=== PATIENT | male | born 1965 | race Caucasian/White ===

== ENCOUNTER 2020-07-15 08:24 | Outpatient (REF) | payer BC, SELFPAY ==
[2020-07-15 08:44] LABS: COVID-19 Test Negative (Negative)
== END 2020-07-15 08:25 | disposition home or self-care (01) ==
LOC: HO.LAB 08:24
PROVIDERS: PCP Internal Medicine; Visit Provider Internal Medicine
DX: Z20.828 Contact with and (suspected) exposure to other viral communicable diseases (principal)
CPT/HCPCS: 87635

== ENCOUNTER → 2021-03-07 14:17 | Outpatient (BNVA) | payer SELFPAY | PROVIDERS: PCP Internal Medicine; Visit Provider Physician Assistant | DX: Z02.79 Encounter for issue of other medical certificate (principal) ==

== ENCOUNTER 2021-03-28 11:02 | Outpatient (REF) | payer BC, SELFPAY ==
--- NOTE | ~2021-03-28 | XR_ITS ---
EXAMINATION: XR CHEST CLINICAL INFORMATION: Chronic cough COMPARISON: January 08, 2020 TECHNIQUE: 2 views of the chest were obtained. FINDINGS: There is no evidence of acute parenchymal disease, pneumothorax, or pleural effusion. Heart normal size. No evidence of pulmonary edema. Multiple old healed left rib fractures evident. XR/XR chest 2V IMPRESSION: No acute disease.
== END 2021-03-28 11:03 | disposition home or self-care (01) ==
LOC: HO.XRAY 11:02
PROVIDERS: PCP Internal Medicine; Visit Provider Otolaryngology
DX: R05 Cough (principal)
CPT/HCPCS: 71046

== ENCOUNTER 2021-03-31 07:15 | Outpatient (REF) | payer BC, SELFPAY ==
--- NOTE | ~2021-03-31 | CT_ITS ---
EXAMINATION: CT SINUS WITHOUT CONTRAST CLINICAL INFORMATION: Deviated nasal septum COMPARISON: None TECHNIQUE: Axial 2 mm thin and reformatted 2 mm thin sagittal and coronal images of sinuses was obtained. This CT examination was performed using dose optimization techniques as appropriate, variously including the following: *Automated exposure control *Adjustment of mA and/or kV according to patient size (this includes techniques or standardized protocols for targeted exams where dose is matched to indication/reason for exam; i.e. extremities or head) *Use of iterative reconstruction technique DLP: 216 mGy-cm FINDINGS: There is normal aeration of the paranasal sinuses with mild mucoperiosteal thickening right maxillary, bilateral ethmoid and left sphenoid sinuses. The ostiomeatal complex and frontoethmoidal recesses are widely patent. The nasal septum is deviated to the left with a small bony spur. The airways are widely patent. There is slight asymmetry of the turbinates. The bony orbits are symmetrical and normal. ADDITIONAL RELEVANT FINDINGS: No periapical disease is seen. The TMJs articulate normally. The orbits and skull base soft tissues are unremarkable. The middle ear cavities and mastoid air cells are clear. Limited evaluation demonstrates no acute intracranial findings. CT/CT sinus wo con IMPRESSION: Chronic inflammatory changes bilateral ethmoid, right maxillary and left sphenoid sinus. Deviated nasal septum to the left with a small bony nasal spur. Asymmetric turbinates.
== END 2021-03-31 07:16 | disposition home or self-care (01) ==
LOC: HO.CT 07:15
PROVIDERS: PCP Internal Medicine; Visit Provider Otolaryngology
DX: J34.2 Deviated nasal septum (principal); J33.8 Other polyp of sinus
CPT/HCPCS: 70486

== ENCOUNTER → 2021-05-16 15:22 | Outpatient (BNVA) | payer BC, SELFPAY | PROVIDERS: PCP Internal Medicine; Visit Provider Internal Medicine ==

== ENCOUNTER 2021-06-03 14:22 | Outpatient (REF) | payer BC, SELFPAY ==
--- NOTE | ~2021-06-03 | CT_ITS ---
EXAMINATION: CT CHEST SCREENING CLINICAL INFORMATION: Nicotine dependence. COMPARISON: Previous chest CT most recent August 2018 and chest x-ray March 2021 TECHNIQUE: Multidetector volumetric CT imaging of the chest is performed without contrast using low dose technique. Additional 2D coronal and sagittal reformatted images and axial 3D maximum intensity projection (MIP) images are generated on the CT workstation. This CT examination was performed using dose optimization techniques as appropriate, variously including the following: *Automated exposure control *Adjustment of mA and/or kV according to patient size (this includes techniques or standardized protocols for targeted exams where dose is matched to indication/reason for exam; i.e. extremities or head) *Use of iterative reconstruction technique DLP: 79 mGy-cm FINDINGS: LUNGS: There is a 3 mm peripheral or subpleural calcified left upper lobe nodule axial image 81 series 4 that is stable. There is a 2 mm noncalcified right upper lobe nodule axial image 88 series 4 that is stable. No new pulmonary nodule is seen. MEDIASTINUM: There is mild coronary artery calcification. The thoracic aorta is upper normal in size. The mediastinum is otherwise normal. PLEURA: There is no pleural effusion. No pleural mass or thickening. AXILLA: No lymphadenopathy. UPPER ABDOMEN: There is diverticulosis of the colon. OSSEOUS STRUCTURES: There are old left-sided rib fractures. There are degenerative changes of the spine. CT/CT lung screening IMPRESSION: Stable small pulmonary nodules from 2018. Mild coronary artery calcification. ASSESSMENT: Lung-RADS category 2: Benign RECOMMENDATION: Annual low-dose chest CT follow-up recommended.
== END 2021-06-03 14:23 | disposition home or self-care (01) ==
LOC: HO.CT 14:22
PROVIDERS: PCP Internal Medicine; Visit Provider Physician Assistant Medical
DX: Z12.2 Encounter for screening for malignant neoplasm of respiratory organs (principal); F17.210 Nicotine dependence, cigarettes, uncomplicated
CPT/HCPCS: 71271

== ENCOUNTER 2021-06-14 14:39 | Outpatient (REF) | payer BC, SELFPAY ==
--- NOTE | 2021-06-14 17:23 | PFT_ITS ---
FLOWS: FEV1 76% of predicted at 3.45 L. FVC 87% of predicted at 5.13 L. FEV1 to FVC ratio of 0.67. No bronchodilator response. LUNG VOLUMES: Total lung capacity 106% of predicted at 8.75 L. Residual volume 135% of predicted at 3.42 L. Slow vital capacity 93% of predicted at 5.34 L. Expiratory reserve volume 71% of predicted at 1.30 L. Diffusion capacity is mildly decreased, diffusion capacity corrects to normal after adjustment for alveolar ventilation. IMPRESSION: Moderate obstructive ventilatory defect with no bronchodilator response. Increased residual volume suggests air trapping. MD SALOME Reid/MODL / [id number]
== END 2021-06-14 14:40 | disposition home or self-care (01) ==
LOC: HO.RESP 14:39
PROVIDERS: PCP Internal Medicine; Visit Provider Internal Medicine
DX: R05 Cough (principal); T46.4X5A Adverse effect of angiotensin-converting-enzyme inhibitors, initial encounter; F17.200 Nicotine dependence, unspecified, uncomplicated
CPT/HCPCS: 94060; 94727; 94729

== ENCOUNTER → 2021-06-16 09:13 | Outpatient (BNVA) | payer BC, SELFPAY | PROVIDERS: PCP Internal Medicine; Visit Provider Internal Medicine ==

== ENCOUNTER → 2021-08-15 09:16 | Outpatient (BNVA) | payer BC, SELFPAY | PROVIDERS: PCP Internal Medicine; Visit Provider Internal Medicine ==

== ENCOUNTER → 2022-02-13 10:07 | Outpatient (BNVA) | payer BC, SELFPAY | PROVIDERS: PCP Internal Medicine; Visit Provider Internal Medicine | DX: Z79.899 Other long term (current) drug therapy (principal) ==

== ENCOUNTER → 2022-11-29 08:32 | Outpatient (BNVA) | payer SELFPAY | PROVIDERS: PCP Internal Medicine; Visit Provider Physician Assistant | DX: Z02.79 Encounter for issue of other medical certificate (principal) ==

== ENCOUNTER 2023-06-11 06:16 | Day surgery (SDC) | payer BC, SELFPAY ==
--- NOTE | 2023-06-08 11:44 | P.CONAN_ITS ---
Documented by User: Nadira Dee NP 06/08/23 11:45 HPI - Anesthesia Eval Consult details Narrative: 58yo M for Colonoscopy [facility] Active Problems Active Problems: All Active Problems (Updated 06/08/23 @ 08:09 by Mariama Garcia) Smoker (Acute) COPD (chronic obstructive pulmonary disease) (Acute) Allergic rhinitis (Acute) Deviated nasal septum (Acute) Cough due to KATERIN inhibitor (Acute) Personal history of nicotine dependence (Acute) Past Medical History Medical History History of DVT (deep vein thrombosis) Seasonal allergies Smoker COPD (chronic obstructive pulmonary disease) CINTHIA (obstructive sleep apnea) Allergic rhinitis Tubular adenoma of colon History of TIA (transient ischemic attack) (~03/2014) Deviated nasal septum Hypertension Personal history of nicotine dependence Cough due to KATERIN inhibitor Family History Family History Father Myocardial infarction, Onset Age: 50 Surgical History Surgical History History of ankle surgery History of lumbar surgery History of colonoscopy (~08/2016) Social History Social History Alcohol intake: current Alcohol intake frequency: 0-2 drinks per day Patient Tobacco Use Status: Current everyday Tobacco user Tobacco use type: Cigarette Cigarette Packs Per Day: 1 Cigarettes Per Day: 20.0 Years Smoked: 30yrs (onset 26, 3/4ppd x 30yrs, 20+PYH) Have you been hit, kicked, punched, or otherwise hurt by someone within the past year? If so, by whom?: No Are you DNR?: No Advance Directives: No Advance Directives Information Provided: Yes Recently lost weight without trying: No Eating poorly because of decreased appetite: No Nutrition Risks: No Nutritional Risk Poor oral hygiene: No Meds Allergies Allergy/AdvReac Type Severity Reaction Status Date / Time lisinopril Allergy Cough Verified 06/08/23 08:09 Home Medications Medication Instructions Recorded Confirmed Last Taken Type amlodipine 5 mg tablet 5 mg PO DAILY 07/02/20 06/11/23 History cetirizine 10 mg tablet (Zyrtec) 10 mg PO DAILY PRN 05/16/21 Unknown History Exam Exam Date and Time: June 08, 2023 1144 Narrative Narrative: PFT 2020 FLOWS: FEV1 76% of predicted at 3.45 L. FVC 87% of predicted at 5.13 L. FEV1 to FVC ratio of 0.67. No bronchodilator response. LUNG VOLUMES: Total lung capacity 106% of predicted at 8.75 L. Residual volume 135% of predicted at 3.42 L. Slow vital capacity 93% of predicted at 5.34 L. Expiratory reserve volume 71% of predicted at 1.30 L. Diffusion capacity is mildly decreased, diffusion capacity corrects to normal after adjustment for alveolar ventilation. IMPRESSION: Moderate obstructive ventilatory defect with no bronchodilator response. Increased residual volume suggests air trapping. Assessment and Plan Assessment Anesthesia Assessment: Chart Reviewed Documented by User: Rosalina Ching MD 06/11/23 07:25 [facility] Past Medical History Medical History History of DVT (deep vein thrombosis) Seasonal allergies Smoker COPD (chronic obstructive pulmonary disease) CINTHIA (obstructive sleep apnea) Allergic rhinitis Tubular adenoma of colon History of TIA (transient ischemic attack) (~03/2014) Deviated nasal septum Hypertension Personal history of nicotine dependence Cough due to KATERIN inhibitor Family History Family History Father Myocardial infarction, Onset Age: 50 Surgical History Surgical History History of ankle surgery History of lumbar surgery History of colonoscopy (~08/2016) History of Problems with Anesthesia: No Social History Social History Alcohol intake: current Alcohol intake frequency: 0-2 drinks per day Patient Tobacco Use Status: Current everyday Tobacco user Tobacco use type: Cigarette Cigarette Packs Per Day: 1 Cigarettes Per Day: 20.0 Years Smoked: 30yrs (onset 26, 3/4ppd x 30yrs, 20+PYH) Have you been hit, kicked, punched, or otherwise hurt by someone within the past year? If so, by whom?: No Are you DNR?: No Advance Directives: No Advance Directives Information Provided: Yes Recently lost weight without trying: No Eating poorly because of decreased appetite: No Nutrition Risks: No Nutritional Risk Poor oral hygiene: No Meds Allergies Allergy/AdvReac Type Severity Reaction Status Date / Time lisinopril Allergy Cough Verified 06/08/23 08:09 Home Medications Medication Instructions Recorded Confirmed Last Taken Type amlodipine 5 mg tablet 5 mg PO DAILY 07/02/20 06/11/23 History cetirizine 10 mg tablet (Zyrtec) 10 mg PO DAILY PRN 05/16/21 Unknown History Exam Airway Mallampati Class: III TM Dist: >3cm Neck ROM: Full Loose/Missing/Broken Teeth: No Heart: RRR Lungs: CTA Assessment and Plan Assessment Anesthesia Assessment: Anesthesia Plan Discussed Final Anesthetic Review History of Problems with Anesthesia: No NPO: Yes ASA Class: II Final Preanesthetic Review: Meds/Allgs Chart Reviewed, Consent Obtained/Reviewed and Anes Risks/Benef Reviewed Patient Risk: Low Procedure Risk: Low Anesthetic Plan Anesthetic Plan: MAC: Disposition: Standard PACU
[2023-06-11 06:52] VITALS: BP 173/97; PULSE 76; RESP 18; TEMP 37.3; O2SAT 97; BMI 30.4
[2023-06-11] MEDS: Lactated Ringers 1,000 ML 100 ML IVCONT (07:07)
[2023-06-11 08:28] VITALS: BP 97/51; PULSE 65; RESP 16; TEMP 36.6; O2SAT 96
--- NOTE | 2023-06-11 08:28 | P.BOP_ITS ---
Brief Operative Note Date of Service: 06/11/23 Pre-op diagnosis: Screening Post-op diagnosis: other (Polyps) Procedure: Colonoscopy to the cecum and TI with Hot snare polypectomy of TC polyp, and bx/removal of polyps Surgeon: David Johnson Anesthesia: MAC Was an Technical Sales Support Manager used for this Procedure?: No Estimated blood loss (mL): 2.0 Pathology: other (A. Transverse colon polyps B. Polyp at 40cm) Condition: stable Disposition: PACU
[2023-06-11 08:43] VITALS: BP 126/73; PULSE 61; RESP 16; TEMP 36.6; O2SAT 97
--- NOTE | 2023-06-11 08:55 | OP_ITS ---
DATE OF SERVICE: 06/11/2023 SURGEON: David Johnson MD INDICATIONS: The patient presents for followup of colorectal cancer screening and personal history of tubular adenomas of the colon. Full consent was obtained from him for this, including risks of bleeding and perforation. PREOPERATIVE DIAGNOSIS: Colorectal cancer screening and personal history of tubular adenomas of the colon. POSTOPERATIVE DIAGNOSIS: Colorectal cancer screening and personal history of tubular adenomas of the colon, colon polyps, diverticulosis, and internal hemorrhoids. PROCEDURE PERFORMED: Colonoscopy to cecum and terminal ileum with hot snare polypectomy x 1 and biopsy and removal of polyps x 2. ESTIMATED BLOOD LOSS: COMPLICATIONS: ANESTHESIA: Monitored anesthesia care. ASSISTANTS: SPECIMENS: DESCRIPTION OF PROCEDURE: Patient was placed in the left lateral decubitus position. The digital rectal exam revealed no abnormalities. The Olympus video pediatric colonoscope was entered into the rectum and advanced easily to the cecum. Once in the cecum, I did identify normal-appearing cecal pouch with appendiceal orifice and normal-appearing ileocecal valve. The terminal ileum was cannulated and appeared normal. The scope was withdrawn back in the colon. The entire cecum and ileocecal valve appeared normal. The scope was slowly withdrawn assessing all mucosal surfaces carefully. Preparation was excellent. In the transverse colon was an approximately 1.5 cm flat, but raised polyp, which was removed in piecemeal fashion with the hot snare with all pieces recovered by suction. Post polypectomy, there did not appear to be any residual polyp nor bleeding. Just distal to this, was an approximately 3 mm polyp, which was biopsied and completely removed with cold biopsy forceps and placed in the same container. At 40 cm, was a flat approximately 3 or 4 mm polyp, which was biopsied and completely removed with cold biopsy forceps. I did not visualize any other polyps, colitis, or angiodysplasia. There was a mild amount of sigmoid diverticulosis. In the rectum, scope was retroflexed, visualizing internal hemorrhoids, but no other pathology. The rectal mucosa appeared normal. The scope was straightened out and withdrawn from the patient. He tolerated the procedure well and was returned to recovery area in stable condition. IMPRESSION: 1. Colon polyps. 2. Diverticulosis. 3. Internal hemorrhoids. PLAN: The results of the pathology will be checked. I would recommend a repeat colonoscopy in 3 years for further screening and surveillance. He was advised not to use any aspirin and NSAIDs for 1 week. MD PROSPER Morales/LUDIVINA / [id number] [place]
== END 2023-06-11 09:05 | disposition home or self-care (01) ==
PROVIDERS: PCP Internal Medicine; Visit Provider Internal Medicine
PROC: 0DJD8ZZ Inspection of Lower Intestinal Tract, Via Natural or Artificial Opening Endoscopic (ICD-10-PCS; CPT 45378; principal; 2023-06-11 07:30)
DX: Z12.11 Encounter for screening for malignant neoplasm of colon (principal); D12.3 Benign neoplasm of transverse colon; D12.5 Benign neoplasm of sigmoid colon; K57.30 Diverticulosis of large intestine without perforation or abscess without bleeding; K64.8 Other hemorrhoids; Z86.010 Personal history of colon polyps; I10 Essential (primary) hypertension; J44.9 Chronic obstructive pulmonary disease, unspecified; F17.210 Nicotine dependence, cigarettes, uncomplicated; Z86.73 Personal history of transient ischemic attack (TIA), and cerebral infarction without residual deficits; Z86.718 Personal history of other venous thrombosis and embolism; Z79.899 Other long term (current) drug therapy
CPT/HCPCS: 45380; 45385; 88305; J2250

== ENCOUNTER 2023-08-20 07:47 | Inpatient (IN) | payer BC, SELFPAY ==
[2023-08-20] VITALS (8 sets, daily range): BP systolic 143–171; BP diastolic 67–99; PULSE 64–99; RESP 15–21; TEMP 36.2–37.3; O2SAT 94–97; BMI 31.3
--- NOTE | ~2023-08-20 | CT_ITS ---
EXAMINATION: CT ANGIOGRAM NECK WITH CONTRAST CT ANGIOGRAM BRAIN WITH CONTRAST CLINICAL INFORMATION: Right-sided numbness. COMPARISON: None. TECHNIQUE: Test bolus sequences followed by intravenous administration 70 mL of Omnipaque 350. Helical imaging was performed in the axial plane from the thoracic inlet to the skull vertex. Delayed postcontrast imaging of the head was also performed. The data was processed at the cardiovascular radiologic technologist workstation for generation of MIP sequences. Angled MIPs and volume rendered reformatted images were also generated at an offline 3D workstation. Stenoses are assessed in accordance with NASCET criteria unless otherwise indicated. This CT examination was performed using dose optimization techniques as appropriate, variously including the following: *Automated exposure control *Adjustment of mA and/or kV according to patient size (this includes techniques or standardized protocols for targeted exams where dose is matched to indication/reason for exam; i.e. extremities or head) *Use of iterative reconstruction technique DLP: 1758 mGy-cm FINDINGS: Head CT: There is no intracranial hemorrhage, mass effect, extra-axial collection, or acute large territorial infarction. Chronic encephalomalacia and gliosis is seen in the bilateral anterior inferior frontal lobes and left anterior inferior temporal lobe likely reflecting sequela of prior trauma. Chronic infarcts are seen within the right basal ganglia, right thalamus, and bilateral cerebellar hemispheres. The ventricles are normal in size without hydrocephalus. No abnormal enhancement is seen. The dural venous sinuses are normally opacified. Neck CTA: Calcific plaque narrows the origin of left vertebral artery. Vertebral arteries otherwise patent. Mild atheromatous changes seen at the bilateral carotid bifurcations without associated narrowing of the internal carotid arteries. Aortic arch and great vessel origins are patent. Head CTA: There is no large vessel occlusion. The anterior and posterior circulation arteries are patent without significant stenosis. No aneurysm is seen. Non-vascular findings: Cervical soft tissues are within normal limits. No upper lung consolidation is seen. Degenerative changes are noted in the spine. CT/CT angio head neck stroke IMPRESSION: CT HEAD: No intracranial hemorrhage or large acute infarction. Chronic encephalomalacia and gliosis, presumably posterior back and etiology in the bilateral anterior inferior frontal lobes and left temporal lobe. 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 CTA NECK: No hemodynamically significant stenosis in the major arteries of the neck. This critical result was discussed with Dr. Serrano on 08/20/2023 9:34 AM, and it was ascertained that the content and urgency of the report was understood at the time of direct communication. CTA HEAD: No large vessel occlusion or significant stenosis within the intracranial circulation.
--- NOTE | 2023-08-20 08:23 | ECG_ITS ---
Test Reason : CP Blood Pressure : / mmHG Vent. Rate : 085 BPM Atrial Rate : 085 BPM P-R Int : 202 ms QRS Dur : 094 ms QT Int : 352 ms P-R-T Axes : 057 005 022 degrees QTc Int : 418 ms Normal sinus rhythm Normal ECG When compared with ECG of 08-JAN-2020 17:13, No significant change was found Referred By: Lawrence Serrano Electronically Signed By:OSCAR JOHNSON MD
--- NOTE | 2023-08-20 08:25 | ED.NEUROSD ---
HPI - Neuro Symptoms/Deficit General Chief Complaint: Neuro Symptoms/Deficit Stated Complaint: numbness r side Time Seen by Provider: 08/20/23 08:06 Source: patient Mode of arrival: ambulatory Limitations: no limitations History of Present Illness HPI Narrative: Patient presented to the emergency department complaining of right-sided numbness which started yesterday. Patient has history of hypertension on amlodipine 5 mg daily, he is a smoker. Denies any weakness he denies any speech problem a symptoms only numbness. Onset (ago): day(s) (1) Timing confirmed by: spouse (rt side numbness) Severity: mild Quality: numb Relieving factors: none Exacerbating factors: none Context: sudden onset Associated symptoms: denies other symptoms Related Data Home Medications Medication Instructions Recorded Confirmed amlodipine 5 mg tablet 5 mg PO DAILY 07/02/20 08/20/23 cetirizine 10 mg tablet (Zyrtec) 10 mg PO DAILY 05/16/21 08/20/23 Allergies Allergy/AdvReac Type Severity Reaction Status Date / Time lisinopril Allergy Cough Verified 06/08/23 08:09 Review of Systems Constitutional: Constitutional: Reports no additional constitutional complaints Eyes: Eyes: Denies loss of vision ENT: Reports system reviewed and no additional complaints, except as documented Cardiovascular: Cardiovascular: Reports no additional cardiovascular complaints and Denies syncope Musculoskeletal: Musculoskeletal: Reports numbness (right) Neurologic: Denies confusion, Denies syncope, Denies focal weakness, Denies loss of vision, Denies memory loss and Reports numbness (right) Psychiatric: Psychiatric: Denies confusion and Denies memory loss [facility] Past Medical History Medical History History of DVT (deep vein thrombosis) Seasonal allergies Smoker COPD (chronic obstructive pulmonary disease) CINTHIA (obstructive sleep apnea) Allergic rhinitis Tubular adenoma of colon History of TIA (transient ischemic attack) (~03/2014) Deviated nasal septum Hypertension Personal history of nicotine dependence Cough due to KATERIN inhibitor Surgical History History of ankle surgery History of lumbar surgery History of colonoscopy (~08/2016) Family History Family History (Updated 08/20/23 @ 12:42 by JIMMY Khanna) Father Myocardial infarction, Onset Age: 50 Stroke Maternal Grandfather Myocardial infarction Social History Social History Alcohol intake: current Alcohol intake frequency: 0-2 drinks per day Patient Tobacco Use Status: Current everyday Tobacco user Tobacco use type: Cigarette Cigarette Packs Per Day: 1 Cigarettes Per Day: 20.0 Years Smoked: 30yrs (onset 26, 3/4ppd x 30yrs, 20+PYH) Smoked in Last 30 Days: Yes Use of substances other than those prescribed or required for medical reasons: No Advance Directives: Yes Advance Directives Information Provided: No Advance Directives on File: No Physical Exam Vital Signs: Vital Signs: Last Vital Signs Temp 99.1 F 08/20/23 12:29 Pulse 67 08/20/23 12:29 Resp 15 08/20/23 12:29 BP 154/67 H 08/20/23 12:29 Pulse Ox 97 08/20/23 12:29 O2 Del Method Room Air 08/20/23 12:29 BMI result Body Mass Index 31.3 Const: General: No confusion Orientation/consciousness: patient oriented x3 and No confusion HEENT: Head: Yes normal to inspection Ears: hearing grossly normal bilaterally General nose exam: Normal external nose present Face and sinus: Yes normal facial exam Teeth and gingiva: dentition normal Throat: Yes posterior oropharynx normal Neck: Neck: Yes normal visual inspection, Yes full ROM and Yes no lymphadenopathy Chest: Chest palpation & inspection: normal inspection of the chest Resp: Effort & Inspection: normal respiratory effort Auscultation: clear to auscultation bilaterally Cardio: Jugular venous distension: no JVD Rate: regular rate Rhythm: regular rhythm GI: Inspection: Yes normal to inspection Palpation (GI): Soft to palpation, not firm, nontender and no guarding Auscultation: normal bowel sounds Neuro: General: patient oriented x3 and No confusion Cranial nerves: Yes CN's II-XII intact bilaterally Gait exam (Neuro): Normal gait present Motor exam (neuro): 5/5 motor strength present throughout Medications Administered Generic Name Dose Route Start Last Admin Trade Name Freq PRN Reason Stop Dose Admin Enoxaparin Sodium 40 mg 08/20/23 12:30 08/20/23 13:11 Enoxaparin Sodium 40 Mg/0.4 Ml Syringe SUBCUT 40 mg Q24H JOSE DAVID Administration Nicotine 21 mg 08/20/23 13:00 08/20/23 13:09 Nicotine 21 Mg Patch.Td24 TRANSDERMA 21 mg DAILY JOSE DAVID Administration Discontinued Medications Generic Name Dose Route Start Last Admin Trade Name Kiana PRN Reason Stop Dose Admin Aspirin 81 mg 08/20/23 09:45 08/20/23 09:55 Aspirin 81 Mg Tab.Chew PO 08/20/23 09:46 81 mg ONCE ONE Administration Iohexol 85 ml 08/20/23 09:10 08/20/23 09:12 Iohexol 350 Mg/Ml 100 Ml Infus..Btl IV 08/20/23 09:11 85 ml ONCE ONE Administration Medical Decision Making Medical Decision Making [facility] Narrative: Patient presented emergency department complaining of right-sided numbness CTA showed that he has multiple old infarcts, I discussed the case with the neuro team Melissa stroke team, it is reasonable to admit the patient for monitoring cardiac echo MRI Differential Diagnosis Differential Diagnoses: The differential diagnosis associated with the presentation includes Acute CVA/TIA Admission/Observation Consideration of admission/observation: Escalation of care including admission/observation considered Lab Data [facility] Lab Attestation statement: I reviewed the patient's lab results. 08/20/23 09:00 08/20/23 09:00 Labs: Lab Results 08/20/23 Range/Units 09:00 WBC 8.0 (4.8-10.8) X10*3/uL RBC 4.72 (4.60-5.80) X10*6/uL Hgb 15.9 (14.0-18.0) g/dl Hct 46.4 (42.0-52.0) % MCV 98.3 H (80.0-98.0) fL MCH 33.7 H (27.0-33.0) pg MCHC 34.3 (31.0-36.0) g/dl RDW 11.9 (11.0-16.0) % Plt Count 236 (160-400) X10*3/uL MPV 8.5 L (9.4-12.4) fL Immature Gran % (Auto) 0.6 H (0.0-0.4) % Neut % (Auto) 71.6 (45-73) % Lymph % (Auto) 17.6 L (20-40) % [place] % (Auto) 8.4 (2-11) % Eos % (Auto) 1.3 (0-4) % Baso % (Auto) 0.5 (0-2) % Lymph # (Auto) 1.4 (1.2-4.9) X10*3/uL [place] # (Auto) 0.7 (0.1-1.2) X10*3/uL Eos # (Auto) 0.1 (0.0-0.4) X10*3/uL Baso # (Auto) 0.0 (0.0-0.2) X10*3/uL Abs Immat Gran (auto) 0.05 H (0.00-0.03) X10*3/uL Absolute Neuts (auto) 5.7 (2.0-8.3) x10*3/uL Absolute Nucleated RBC 0.000 (0.0-0.012) X10*3/uL Nucleated RBC % (auto) 0.0 (0.0-0.2) /100WBC Sodium 135 (135-145) mmol/L Potassium 4.9 (3.3-5.1) mmol/L Chloride 102 (96-108) mmol/L Carbon Dioxide 28 (22-29) mmol/L Anion Gap 10 L (12-20) BUN 13 (9-16) mg/dL Creatinine 0.86 (0.5-1.4) mg/dL Estim Creat Clear Calc 125.7 Estimated GFR > 60 Random Glucose 86 (60-115) mg/dL Estimat Average Glucose 97 mg/dL Hemoglobin A1c % 5.0 (<6.0) % Calcium 9.3 (8.4-10.2) mg/dL Total Bilirubin 0.6 (0.0-1.0) mg/dL AST 30 (5-37) U/L ALT 43 H (0-40) U/L Alkaline Phosphatase 44 (39-117) U/L Troponin I High Sens < 2.7 (<3.5-35.0) ng/L Total Protein 6.9 (6.5-8.0) g/dL Albumin 4.0 (3.5-5.0) g/dL Triglycerides 42 (<150) mg/dL Cholesterol 191 (<200) mg/dL LDL Cholesterol, Calc 127 H (<100) mg/dL HDL Cholesterol 56 (>40) mg/dL Independent Interpretation I performed an independent interpretation of an: EKG Interpretation: Normal sinus rhythm on no ST-T changes Radiology Impression Discussion of test interpretation with radiology: I have reviewed the radiologist's reading. Radiologist Impression: are patent without significant stenosis. No aneurysm is seen. Non-vascular findings: Cervical soft tissues are within normal limits. No upper lung consolidation is seen. Degenerative changes are noted in the spine. CT/CT angio head neck stroke IMPRESSION: CT HEAD: No intracranial hemorrhage or large acute infarction. Chronic encephalomalacia and gliosis, presumably posterior back and etiology in the bilateral anterior inferior frontal lobes and left temporal lobe. 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 CTA NECK: No hemodynamically significant stenosis in the major arteries of the neck. This critical result was discussed with Dr. Serrano on 08/20/2023 9:34 AM, and it was ascertained that the content and urgency of the report was understood at the time of direct communication. CTA HEAD: No large vessel occlusion or significant stenosis within the intracranial circulation. Independent Historian Clinical information obtained from an independent historian. History obtained from or confirmed by: Spouse External Record Review External record reviewed: Inpatient record Chronic Conditions Patient?s care impacted by: Hypertension NIH Stroke Scale Time: 08:29 Level of Consciousness: Alert Level of Consciousness Questions: Answers both questions correctly Level of Consciousness Commands: Performs both tasks correctly Best Gaze: Normal Visual: No visual loss Facial Palsy: Normal Motor Arm (Right): No drift Motor Arm (Left): No drift Motor Leg (Right): No drift Motor Leg (Left): No drift Limb Ataxia: Absent Sensory: Mild to moderate sensory loss (rt) Best Language: No aphasia Dysarthia: Normal Extinction and Inattention: No abnormality Score: 1 Discharge Plan Discharge Clinical Impression: Numbness, Numbness and tingling of right arm and leg Patient Disposition: Admitted As Inpatient
[2023-08-20 09:05] LABS: MANUAL DIFF FLAG NO
[2023-08-20 09:06] LABS: Basophils Percent Auto 0.5 % (0-2); Eosinophils Absolute Auto 0.1 X10*3/uL (0.0-0.4); Eosinophils Percent Auto 1.3 % (0-4); Hematocrit 46.4 % (42.0-52.0); Hemoglobin 15.9 g/dl (14.0-18.0); Imm Gran Abs Auto 0.05 X10*3/uL (0.00-0.03); Imm Gran Pct Auto 0.6 % (0.0-0.4); Lymphocytes Absolute Auto 1.4 X10*3/uL (1.2-4.9); Lymphocytes Percent Auto 17.6 % (20-40); Mean Corpuscular HGB Conc 34.3 g/dl (31.0-36.0); Mean Corpuscular Hemoglobin 33.7 pg (27.0-33.0); Mean Corpuscular Volume 98.3 fL (80.0-98.0); Mean Platelet Volume 8.5 fL (9.4-12.4); Monocytes Absolute Auto 0.7 X10*3/uL (0.1-1.2); Monocytes Percent Auto 8.4 % (2-11); Neutrophils Absolute Auto 5.7 x10*3/uL (2.0-8.3); Neutrophils Percent Auto 71.6 % (45-73); Platelet Count 236 X10*3/uL (160-400); Red Blood Count 4.72 X10*6/uL (4.60-5.80); Red Cell Distribution Width 11.9 % (11.0-16.0)
[2023-08-20] MEDS: iohexoL 350 MG/ML 100 ML INFUS..BTL 85 ML IV (09:12)
[2023-08-20 09:30] LABS: Alanine Aminotransferase 43 U/L (0-40); Alkaline Phosphatase 44 U/L (39-117); Anion Gap 10 (12-20); Aspartate Amino Transferase 30 U/L (5-37); Bilirubin Total 0.6 mg/dL (0.0-1.0); Blood Urea Nitrogen 13 mg/dL (9-16); Calcium 9.3 mg/dL (8.4-10.2); Carbon Dioxide 28 mmol/L (22-29); Chloride 102 mmol/L (96-108); Creatinine Clr Calc Pharmacy 125.7; Estimated Glomerular Filt Rate > 60; Glucose Random 86 mg/dL (60-115); Potassium 4.9 mmol/L (3.3-5.1); Sodium 135 mmol/L (135-145); Total Protein 6.9 g/dL (6.5-8.0)
[2023-08-20 09:39] LABS: Troponin-I High Sensitivity < 2.7 ng/L (<3.5-35.0)
[2023-08-20] MEDS: Aspirin 81 MG TAB.CHEW PO (09:55)
--- NOTE | 2023-08-20 10:00 | MHC.STROKE ---
WALK-IN 0747 C/O RIGHT SIDED NUMBNESS FACE,ARM,LEG. ONSET YESTERDAY 1500. AT 0830 TODAY I NOTIFIED BY ED STROKE PROTOCOL ACTIVATED CTA H/N ORDERED. NO BLEED, NO LVO BUT MULTIPLE CHRONIC ISCHEMIC STROKES NOTED. HE IS OUT OF THE WINDOW FOR TNK. I MET WITH THE PATIENT AND THE ONSET WAS YESTERDAY 08/19/23 AT 1500. IT STARTED WITH NUMBNESS OF THE FACE AND ARM YESTERDAY AND THIS MORNING THE LEG WAS ALSO NUMB. HIS INITIAL BP WAS ELEVATED. HE IS TAKING AMILODIPINE, (HE IS ALLERGIC TO LISINOPRIL - UNCONTROLLED COUGHING), HE IS REFUSING MRI DUE TO HIS INABILITY TO LAY FLAT DUE TO POST-NASAL DRIP. I DISCUSSED THE CASE WITH DR. WOLFF AND THE PATIENT WILL BE ADMITTED TO COMPLETE THE STROKE WORK UP. ECHO, ASPIRIN, LIPID PANEL, REHAB ASSESSMENT. HE PASSED THE NURSING SWALLOW SCREEN. HIS INDIVIDUAL RISK FACTORS INCLUDE: HTN, SMOKING, ETOH (ADMITS TO DRINKING 7-8 BEERS A DAY). 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 I PROVIDED STROKE EDUCATION AND EXPLAINED WHY HE NEEDS TO BE HERE, AND THAT HE HAS MULTIPLE PRIOR STROKES AND HE NEEDS TO WORK ON HIS RISK FACTORS. HE USE TO BE ON ASPIRIN BUT WAS TAKEN OFF OF IT BY HIS PCP DR. HERNANDEZ.
--- NOTE | 2023-08-20 10:03 | PC.NURSE ---
assumed care of pt at 0700. pt awake, a&o x4, pleasant, calm, and cooperative. pt reports numbness mostly to right LE. denies any pain. Melissa Méndez gave t/w update on pt status. pt requesting not to stay overnight. t/w informed pt the decision is not up to me but that we also cannot keep him here against his will. pt offers no other complaints gauri. plan of care ongoing. rr even/unlabored. call gallardo within reach.
--- NOTE | 2023-08-20 10:15 | PC.NURSE ---
pt sts numbess and tingling to face and right upper extremity starting yesterday evening. pt woke up this am with numbness/tingling to right LE and came to ED. pt sts numbness and tingling to face/RUE mostly subsided now. no facial droop, no slurred speech. passed swallow eval. neuros grossly intact.
--- NOTE | 2023-08-20 10:33 | P.CNNE_ITS ---
History of Present Illness Data of Consult Service Date: 08/20/23 Primary Care Provider: Lucho Domínguez MD [facility] Reason for consult: Stroke 58 years old man came to hospital with at least 1 day history of right-sided numbness. He said that it probably started a day before when he was opening and closing his hand in finding it to be numb or having less feeling. This was also noted in his right hand and arm and right leg. There was no tingling or pain or change in speech pattern. There was no headache I any other symptom. He discussed all this with his girlfriend who convinced him that he should come to emergency room. Review of Systems 2 Review of Systems: No recent chest pain shortness of breath palpitation. No cold or flu-like illness PMFSH Past Medical History Medical History History of DVT (deep vein thrombosis) Seasonal allergies Smoker COPD (chronic obstructive pulmonary disease) CINTHIA (obstructive sleep apnea) Allergic rhinitis Tubular adenoma of colon History of TIA (transient ischemic attack) (~03/2014) Deviated nasal septum Hypertension Personal history of nicotine dependence Cough due to KATERIN inhibitor Family History Family History Father Myocardial infarction, Onset Age: 50 Surgical History Surgical History History of ankle surgery History of lumbar surgery History of colonoscopy (~08/2016) Social History Social History Alcohol intake: current Alcohol intake frequency: 0-2 drinks per day Patient Tobacco Use Status: Current everyday Tobacco user Tobacco use type: Cigarette Cigarette Packs Per Day: 1 Cigarettes Per Day: 20.0 Years Smoked: 30yrs (onset 26, 3/4ppd x 30yrs, 20+PYH) Smoked in Last 30 Days: Yes Use of substances other than those prescribed or required for medical reasons: No Advance Directives: Yes Advance Directives Information Provided: No Advance Directives on File: No Meds Allergies Allergy/AdvReac Type Severity Reaction Status Date / Time lisinopril Allergy Cough Verified 06/08/23 08:09 Home Medications Medication Instructions Recorded Confirmed Last Taken Type amlodipine 5 mg tablet 5 mg PO DAILY 07/02/20 06/11/23 History cetirizine 10 mg tablet (Zyrtec) 10 mg PO DAILY PRN 05/16/21 Unknown History Physical Exam 2 Vital Signs: Vital Signs: Last Vital Signs Temp 98.3 F 08/20/23 10:18 Pulse 77 08/20/23 10:18 Resp 16 08/20/23 10:18 BP 143/76 H 08/20/23 10:18 Pulse Ox 95 08/20/23 10:18 O2 Del Method Room Air 08/20/23 10:18 BMI result Body Mass Index 31.3 Neuro: Other: He is alert and awake with normal spontaneity of speech fluency comprehension and anxious affect. Face is symmetrical. Visual vick are full. There is no pronator drift. [id number]-lr-[id number] testing is normal. There is no visual or sensory extinction. Deep tendon reflexes are 1+ with flexor plantars. Speech is normal. Results Labs 08/20/23 09:00 08/20/23 09:00 Labs: Short CBC 08/20/23 Range/Units 09:00 WBC 8.0 (4.8-10.8) X10*3/uL Hgb 15.9 (14.0-18.0) g/dl Hct 46.4 (42.0-52.0) % Plt Count 236 (160-400) X10*3/uL BMP 08/20/23 09:00 Sodium 135 Potassium 4.9 Chloride 102 Carbon Dioxide 28 BUN 13 Creatinine 0.86 Calcium 9.3 Liver Function 08/20/23 Range/Units 09:00 Total Bilirubin 0.6 (0.0-1.0) mg/dL AST 30 (5-37) U/L ALT 43 H (0-40) U/L Alkaline Phosphatase 44 (39-117) U/L Albumin 4.0 (3.5-5.0) g/dL Head CT revealed chronic bifrontal encephalomalacia and mild left anterior temporal encephalomalacia. Chronic right basal ganglia area leg cannot type infarct was noted. There was no obvious acute lesion. CTA did not reveal any large vessel disease. He said that he was not going to have an MRI because it was difficult for him. He had some MRIs in the past for his back pain. Assessment and Plan (1) Cerebral infarction: Qualifiers: Cerebral infarction mechanism: vascular occlusion Precerebral and cerebral artery: small artery Qualified Code(s): I63.81 - Other cerebral infarction due to occlusion or stenosis of small artery Status: Acute 58 years old man with CT brain revealing chronic bifrontal left temporal encephalomalacia probably from head injury, and uncontrolled hypertension came to hospital with new onset of right hand arm and leg numbness. Leg which was not affected. There was no significant weakness. This was likely due to a small cerebral infarction in left thalamus or brainstem area. Etiology was microvascular disease. Mainstay of management is anti-platelet agent, statin, and blood pressure control. He should avoid drinking alcohol. Procedures Date of Service Date of Service: 08/20/23
--- NOTE | 2023-08-20 11:42 | PC.NURSE ---
pt placed on bedside monitor
--- NOTE | 2023-08-20 12:34 | P.HPHOSP_ITS ---
History of Present Illness Date of Service: 08/20/23 Attending physician on admission: Elmer Lam Chief Complaint: r sided numbeness 58-year-old male with history of COPD, obstructive sleep apnea the patient denies this and does not use CPAP, history TIA, hypertension, history of DVT in 2021 completed course of Eliquis, alcohol abuse, who is a current 1 pack per day smoker presents to the ED with his significant other for evaluation of right- sided paresthesias that started around 15:00 yesterday. He he reports numbness and tingling in the right side of the face, right upper extremity, and right lower extremity. Denies any associated weakness, facial droop, slurred speech, or lightheadedness. He states the numbness in the face in the right upper extremity have resolved and the right lower extremity is improved but still feels some a tingling in the right posterior calf. He denies any known history of arrhythmia. He does endorse known history of 1 TIA in 2013. On arrival, patient hypertensive to 171/99, 154/67 on admission, vitals otherwise stable. Hematology studies unremarkable. Renal function and electrolyte levels normal. Hepatic function unremarkable. Troponin undetectable. Lipid panel and hemoglobin A1c pending. EKG shows NSR, rate 85, no ST/T-wave abnormality. CT head is negative for any acute intracranial hemorrhage or large acute infarction but shows chronic encephalomalacia and gliosis likely and posterior back and etiology in the bilateral anterior inferior frontal lobes and left temporal lobe as well as multiple chronic infarcts in the right basal ganglia, right thalamus, and cerebellum. CTA head/neck without any hemodynamically significant stenosis or LVO. In the ED, has received 81 mg aspirin. Has been evaluated by Neurology recommended admission likely due to probable small cerebral infarction in the left thalamus or brainstem with microvascular disease etiology. He is a 1 [id number] smoker and admits to drinking about 6 beers on a daily basis. No illicit drug use. Does deny any history of withdrawal/seizure. Review of Systems 2 Review of Systems: General: No fevers, malaise, unintentional weight loss HEENT: No blurred vision, diplopia. No sore throat, nasal congestion, rhinorrhea, sinus pain, ear pain Cardiovascular: No chest pain, palpitations, or leg edema Respiratory: No shortness of breath, wheezing, cough GI: No abdominal pain, nausea, vomiting, diarrhea, constipation, melena, hematochezia : No dysuria, hematuria, increased urinary frequency, decreased urinary output MSK: No myalgia, back pain Neuro: No headaches, weakness. +r sided paresthesias Skin: No rashes or lesions [facility] Medical History History of DVT (deep vein thrombosis) Seasonal allergies Smoker COPD (chronic obstructive pulmonary disease) CINTHIA (obstructive sleep apnea) Allergic rhinitis Tubular adenoma of colon History of TIA (transient ischemic attack) (~03/2014) Deviated nasal septum Hypertension Personal history of nicotine dependence Cough due to KATERIN inhibitor Family History (Updated 08/20/23 @ 12:42 by JIMMY Khanna) Father Myocardial infarction, Onset Age: 50 Stroke Maternal Grandfather Myocardial infarction Surgical History History of ankle surgery History of lumbar surgery History of colonoscopy (~08/2016) Social History Alcohol intake: current Alcohol intake frequency: 0-2 drinks per day Patient Tobacco Use Status: Current everyday Tobacco user Tobacco use type: Cigarette Cigarette Packs Per Day: 1 Cigarettes Per Day: 20.0 Years Smoked: 30yrs (onset 26, 3/4ppd x 30yrs, 20+PYH) Smoked in Last 30 Days: Yes Use of substances other than those prescribed or required for medical reasons: No Advance Directives: Yes Advance Directives Information Provided: No Advance Directives on File: No Meds Allergies Allergy/AdvReac Type Severity Reaction Status Date / Time lisinopril Allergy Cough Verified 06/08/23 08:09 Home Medications Medication Instructions Recorded Confirmed Last Taken Type amlodipine 5 mg tablet 5 mg PO DAILY 07/02/20 08/20/23 08/20/23 History cetirizine 10 mg tablet (Zyrtec) 10 mg PO DAILY 05/16/21 08/20/23 08/20/23 History Physical Exam 2 Vital Signs and Narrative: Vital Signs: Last Vital Signs Temp 99.1 F 08/20/23 12:29 Pulse 67 08/20/23 12:29 Resp 15 08/20/23 12:29 BP 154/67 H 08/20/23 12:29 Pulse Ox 97 08/20/23 12:29 O2 Del Method Room Air 08/20/23 12:29 BMI result Body Mass Index 31.3 Constitutional - Awake and Alert, No apparent distress Eyes - PERRLA, EOMI Cardiovascular - S1S2, RRR, No edema Respiratory - Normal lung expansion, Normal respiratory effort, No respiratory distress, CTA bilaterally Gastrointestinal - NT / ND; +BS; No rebound or guarding Extremities - no calf tenderness bilaterally, no swelling Skin - Warm/Dry Neurological - Alert & oriented x3, CN II-XII in tact, 5/5 strength BUE and BLE, negative pronator drift, DTR in tact, decreased sensation right posterior calf Psychological - Appropriate affect Results Labs 08/20/23 09:00 08/20/23 09:00 Labs: Laboratory Results - last 24 hr 08/20/23 09:00 MCV 98.3 H MCH 33.7 H MCHC 34.3 RDW 11.9 Plt Count 236 MPV 8.5 L Immature Gran % (Auto) 0.6 H Neut % (Auto) 71.6 Lymph % (Auto) 17.6 L [place] % (Auto) 8.4 Eos % (Auto) 1.3 Baso % (Auto) 0.5 Lymph # (Auto) 1.4 [place] # (Auto) 0.7 Eos # (Auto) 0.1 Baso # (Auto) 0.0 Abs Immat Gran (auto) 0.05 H Absolute Neuts (auto) 5.7 Absolute Nucleated RBC 0.000 Nucleated RBC % (auto) 0.0 Anion Gap 10 L Estim Creat Clear Calc 125.7 Estimated GFR > 60 Random Glucose 86 Calcium 9.3 Total Bilirubin 0.6 AST 30 ALT 43 H Alkaline Phosphatase 44 Total Protein 6.9 Albumin 4.0 Imaging Radiologist's Impressions: Impressions Head/Neck CTA 08/20/23 09:14 IMPRESSION: CT HEAD: No intracranial hemorrhage or large acute infarction. Chronic encephalomalacia and gliosis, presumably posterior back and etiology in the bilateral anterior inferior frontal lobes and left temporal lobe. 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 CTA NECK: No hemodynamically significant stenosis in the major arteries of the neck. This critical result was discussed with Dr. Serrano on 08/20/2023 9:34 AM, and it was ascertained that the content and urgency of the report was understood at the time of direct communication. CTA HEAD: No large vessel occlusion or significant stenosis within the intracranial circulation. Assessment and Plan (1) Cerebral infarction: Qualifiers: Cerebral infarction mechanism: vascular occlusion Precerebral and cerebral artery: small artery Qualified Code(s): I63.81 - Other cerebral infarction due to occlusion or stenosis of small artery Status: Acute (2) Numbness and tingling of right arm and leg: Status: Acute (3) Smoker: Status: Acute (4) Alcohol abuse: Status: Acute Plan 58-year-old male with history of COPD, obstructive sleep apnea the patient denies this and does not use CPAP, history TIA, hypertension, history of DVT in 2021 completed course of Eliquis, alcohol abuse, who is a current 1 pack per day smoker admitted for further management of CVA. #TIA -symptoms r-sided paresthesias started 3pm yesterday, now resolving. Not a candidate for tpa -CTA head neck shows multiple chronic infarcts and encephalomalacia/gliosis of multiple areas, no acute intracranial hemorrhage or abnormality -patient refuses MRI-states he will not be able to lay flat secondary to chronic back pain/history of lumbar fusion -echocardiogram -given 81 mg ASA in ED, continue 81 mg ASA daily -lipid panel pending, initiate atorvastatin 80 mg daily -passed bedside swallow evaluation, received stroke education -smoking and alcohol cessation advised -recommend outpatient retesting for CINTHIA and compliance with CPAP if indicated -hgb a1c pending -monitor on telemetry # COPD -no current exacerbation, not on any inhalers # hypertension -reasonably controlled -resume antihypertensives a.m. # history DVT -lle 2021, completed course of apixaban #Nicotine dependence -patch for NRT -cessation counseling provided #Alcohol use disorder -cessation advised -monitor on CIWA, no evidence of etoh wtihdrawal at this time DVT prophylaxis-Lovenox Attempt resuscitation but no intubation Pt requires inpt stay at least 2 midnights for management of CVA with neurodeficits present on exam Quality Stroke Does the patient have a stroke diagnosis?: Yes Reason for No Anti-thrombotic by Day Two: Drug treatment not indicated VTE Prior VTE?: Yes VTE Risk Level:: Medical - moderate - high VTE Device Contraindication: Treatment Not Indicated VTE Drug Contraindication: N/A - Med Ordered
[2023-08-20 12:56] LABS: Estimated Average Glucose 97 mg/dL
[2023-08-20 12:59] LABS: Cholesterol 191 mg/dL (<200); HDL Cholesterol 56 mg/dL (>40); LDL Cholesterol Calculated 127 mg/dL (<100); Triglycerides 42 mg/dL (<150)
[2023-08-20] MEDS: Nicotine 21 MG PATCH.TD24 TRANSDERMA (13:09)
[2023-08-20] MEDS: Enoxaparin Sodium 40 MG/0.4 ML SYRINGE SUBCUT (13:11)
--- NOTE | 2023-08-20 13:15 | PC.NURSE ---
pt medicated per nov. pt ambulated to bathroom with steady gait. placed back on bedside monitor. pt spouse at bedside. awaiting admit orders. plan of care ongoing.
--- NOTE | 2023-08-20 13:54 | PHA.MEDREC ---
Pharmacy Consult ? Medication Reconciliation Pharmacy has completed the medication reconciliation. Patient reported medications. Sadie Wallace, CatD
[2023-08-20 17:30] LABS: Glucose, Whole Blood 86 mg/dL (60-115)
[2023-08-20] MEDS: 0.9 % Sodium Chloride Flush 3 ML SYRINGE IVFLUSH (21:15)
[2023-08-21 04:00] VITALS: BP 127/85; PULSE 67; RESP 20; TEMP 37; O2SAT 97
--- NOTE | 2023-08-21 07:00 | CA_ITS ---
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 There is moderately increased left ventricular wall thickness. The visually estimated ejection fraction is between 55-60%. - Mildly increased right ventricular cavity size. There is normal right ventricular systolic function. - The left atrium is mildly dilated. Contrast study for right to left shunting is moderately positive with Valsalva maneuver. Patent foramen ovale detected using by contrast. - There is mild dilatation of the sinuses of Valsalva measuring 3.90 cm and mild dilatation of the ascending aorta measuring 3.80 cm. Findings Procedure Information Contrast agent, definity, is being given per protocol without apparent complications. Left Ventricle Normal left ventricular size and systolic function. There is moderately increased left ventricular wall thickness. The visually estimated ejection fraction is between 55-60%. There is no evidence of regional wall motion abnormalities. Diastolic function is normal for age. Right Ventricle Mildly increased right ventricular cavity size. There is normal right ventricular systolic function. Atria The left atrium is mildly dilated. Contrast study for right to left shunting is moderately positive with Valsalva maneuver. Patent foramen ovale detected using by contrast. Aortic Valve Normal aortic valve structure and function. There is no aortic valve stenosis. There is no aortic valve regurgitation. Mitral Valve The mitral valve appears normal. There is trace mitral valve regurgitation. There is no mitral valve stenosis. Pulmonic Valve The pulmonic valve is likely normal. Tricuspid Valve Likely normal tricuspid valve structure and function. Tricuspid regurgitation envelope is inadequate for calculation of right ventricular systolic pressure. Normal right atrial pressure. Great Vessels There is mild dilatation of the sinuses of Valsalva measuring 3.90 cm and mild dilatation of the ascending aorta measuring 3.80 cm. The visualized portions of the pulmonary artery and branches are normal. Venous The inferior vena cava is normal in size and collapses greater than 50% with inspiration. Pericardium/Pleural There is no evidence of pericardial effusion. Prior Study Comparison No prior study available for comparison. Measurements 2D Linear Measurements IVSd: 1.42 0.6-0.9/0.6-1.0 cm LVIDd: 5.18 3.9-5.3/4.2-5.9 cm LVIDd Index: 2.15 2.4-3.2/2.2-3.1 cm/m2 LVIDs: 3.55 2.0-3.6 cm LVPWd: 1.39 0.7-1.1 cm Ao Root: 3.90 2.1-3.5 cm LA Diam: 3.30 2.7-3.8/3.0-4.0 cm LAIDs Index: 1.37 1.5-2.3 cm/m2 LV Mass: 385.93 67-162/88-224 g LV Mass Index: 160.14 43-95/49-115 g/m2 LVOT Diam: 2.70 3.0+(-)1.3 cm Mitral Valve MV Pk E: 0.42 MV PK A: 0.59 MV Decel Time: 198.00 E/A: 0.70 E'Lateral: 8.38 E'Medial: 5.98 E/E' Med: 7.10 E/E' Lat: 5.10 PHT: 58.00 MVA PHT: 3.79 Decel Darke: 2.15 Aortic Valve AoV Pk Kiran: 1.08 AoV Mn Kiran: 0.59 AoV VTI: 0.23 AoV Pk Grad: 5.00 Aov Mn Grad: 2.00 LVOT LVOT Diam: 2.70 LVOT Area: 5.73 Diastolic Function MV Pk E: 0.42 MV Pk A: 0.59 E/A: 0.70 E'Medial: 5.98 E/E' Med: 7.10 E' Laterial: 8.38 E/E' Lat: 5.10 Right Ventricle TAPSE (mm): 32.00 Tricuspid Valve TR Pk Kiran: 1.44 TR Pk Grad: 8.00 RA Press: 3.00 Great Vessels Aorta Ao Root-2D: 3.90 2.0-3.7 cm Sinus of Valsalva: 3.90 2.0-3.5 cm Ao Asc: 3.80 2.1-3.4 cm Updated in Other Vendor System with Status of Final Phuc Mendoza MD electronically signed on 08/21/2023 1:08:32 PM with status of Final
[2023-08-21 07:10] LABS: MANUAL DIFF FLAG NO
[2023-08-21 07:18] LABS: Basophils Percent Auto 0.3 % (0-2); Eosinophils Absolute Auto 0.2 X10*3/uL (0.0-0.4); Eosinophils Percent Auto 1.7 % (0-4); Hematocrit 47.2 % (42.0-52.0); Hemoglobin 16.2 g/dl (14.0-18.0); Imm Gran Abs Auto 0.04 X10*3/uL (0.00-0.03); Imm Gran Pct Auto 0.5 % (0.0-0.4); Lymphocytes Absolute Auto 1.7 X10*3/uL (1.2-4.9); Lymphocytes Percent Auto 18.8 % (20-40); Mean Corpuscular HGB Conc 34.3 g/dl (31.0-36.0); Monocytes Absolute Auto 0.7 X10*3/uL (0.1-1.2); Monocytes Percent Auto 8.2 % (2-11); Neutrophils Absolute Auto 6.2 x10*3/uL (2.0-8.3); Neutrophils Percent Auto 70.5 % (45-73); Platelet Count 250 X10*3/uL (160-400); Red Blood Count 4.77 X10*6/uL (4.60-5.80); Red Cell Distribution Width 11.9 % (11.0-16.0); White Blood Count 8.9 X10*3/uL (4.8-10.8)
[2023-08-21 07:34] LABS: Anion Gap 10 (12-20); Blood Urea Nitrogen 14 mg/dL (9-16); Calcium 9.4 mg/dL (8.4-10.2); Carbon Dioxide 30 mmol/L (22-29); Chloride 100 mmol/L (96-108); Creatinine Clr Calc Pharmacy 130.3; Estimated Glomerular Filt Rate > 60; Glucose Random 91 mg/dL (60-115); Potassium 4.5 mmol/L (3.3-5.1); Sodium 135 mmol/L (135-145)
[2023-08-21 07:48] VITALS: BP 142/81; PULSE 70; RESP 19; TEMP 36.3; O2SAT 96
[2023-08-21] MEDS: Nicotine 21 MG PATCH.TD24 TRANSDERMA (08:42)
[2023-08-21] MEDS: Aspirin Enteric Coated 81 MG TABLET.DR PO (08:42)
[2023-08-21] MEDS: Loratadine 10 MG TABLET PO (08:42)
[2023-08-21] MEDS: amLODIPine Besylate 5 MG TABLET PO ×2 (08:42→10:26)
[2023-08-21] MEDS: Atorvastatin Calcium 80 MG TABLET PO (08:42)
[2023-08-21] MEDS: 0.9 % Sodium Chloride Flush 3 ML SYRINGE IVFLUSH (08:46)
--- NOTE | 2023-08-21 09:33 | P.DS_ITS ---
DS: Providers Provider Date of Service: 08/21/23 Date of admission: 08/20/23 14:08 Primary care physician: Lucho Domínguez MD Consults: 08/20/23 12:31 Consult to Neurology Routine Consulting Provider: Shaheen Sky Reason for consultation: tia Has provider been notified: Yes DS: Diagnosis Discharge Diagnosis (1) Cerebral infarction: Status: Acute (2) Numbness and tingling of right arm and leg: Status: Acute (3) Smoker: Status: Acute (4) Alcohol abuse: Status: Acute DS: Summary Hospital Course Hospital Course: Chief Complaint: r sided numbeness 58-year-old male with history of COPD, obstructive sleep apnea the patient denies this and does not use CPAP, history TIA, hypertension, history of DVT in 2021 completed course of Eliquis, alcohol abuse, who is a current 1 pack per day smoker presents to the ED with his significant other for evaluation of right- sided paresthesias that started around 15:00 yesterday. He he reports numbness and tingling in the right side of the face, right upper extremity, and right lower extremity. Denies any associated weakness, facial droop, slurred speech, or lightheadedness. He states the numbness in the face in the right upper extremity have resolved and the right lower extremity is improved but still feels some a tingling in the right posterior calf. He denies any known history of arrhythmia. He does endorse known history of 1 TIA in 2013. On arrival, patient hypertensive to 171/99, 154/67 on admission, vitals otherwise stable. Hematology studies unremarkable. Renal function and electrolyte levels normal. Hepatic function unremarkable. Troponin undetectable. Lipid panel and hemoglobin A1c pending. EKG shows NSR, rate 85, no ST/T-wave abnormality. CT head is negative for any acute intracranial hemorrhage or large acute infarction but shows chronic encephalomalacia and gliosis likely and posterior back and etiology in the bilateral anterior inferior frontal lobes and left temporal lobe as well as multiple chronic infarcts in the right basal ganglia, right thalamus, and cerebellum. CTA head/neck without any hemodynamically significant stenosis or LVO. In the ED, has received 81 mg aspirin. Has been evaluated by Neurology recommended admission likely due to probable small cerebral infarction in the left thalamus or brainstem with microvascular disease etiology. He is a 1 [id number] smoker and admits to drinking about 6 beers on a daily basis. No illicit drug use. Does deny any history of withdrawal/seizure. Hospital course: The patient presented with stroke symptoms as detailed above. The neurologist evaluated him with the following remarks and recommendation: This was likely due to a small cerebral infarction in the left thalamus or brainstem area.?Etiology was a microvascular disease.?The mainstay of management is anti- platelet agents, statins, and blood pressure control.?He should avoid drinking alcohol. His symptoms have all resolved. He will be discharged home with Norvasc 10 mg daily (previously 5 mg), Lipitor for HLD of LDL of 127 10 mg, and baby aspirin daily. Additionally, he is advised to avoid alcohol and smoking and to follow up with his PCP. Final diagnoses: HTN Acute stroke Hyperlipidemeia Time Attestation Discharge coordination time: Greater than 30 minutes Quality: Safe Use of Opioids Does Pt have an Active Cancer Diagnosis on the Problem List?: No Quality: Stroke Does the patient have a stroke diagnosis?: Yes Reason for No Anti-thrombotic at DC: N/A - Med Ordered Reason for No Anticoagulant at DC: Not indicated Reason Not Initiating IV-Tpa: Not indicated Reason for No Anti-thrombotic by Day Two: N/A - Med Ordered Reason for No Statin at DC: N/A - Med Ordered Physical Exam Vital Signs: Vital Signs: Last Vital Signs Temp 97.3 F 08/21/23 07:48 Pulse 70 08/21/23 07:48 Resp 19 08/21/23 07:48 BP 142/81 H 08/21/23 07:48 Pulse Ox 96 08/21/23 07:48 O2 Del Method Room Air 08/21/23 07:48 BMI result Body Mass Index 31.3 DS: Data Data Completed and Pending Labs on day of discharge: Laboratory Results - last 24 hr 08/20/23 08/20/23 08/21/23 09:00 17:27 06:25 WBC 8.9 RBC 4.77 Hgb 16.2 Hct 47.2 MCV 99.0 H MCH 34.0 H MCHC 34.3 RDW 11.9 Plt Count 250 MPV 9.0 L Immature Gran % (Auto) 0.5 H Neut % (Auto) 70.5 Lymph % (Auto) 18.8 L [place] % (Auto) 8.2 Eos % (Auto) 1.7 Baso % (Auto) 0.3 Lymph # (Auto) 1.7 [place] # (Auto) 0.7 Eos # (Auto) 0.2 Baso # (Auto) 0.0 Abs Immat Gran (auto) 0.04 H Absolute Neuts (auto) 6.2 Absolute Nucleated RBC 0.000 Nucleated RBC % (auto) 0.0 Sodium 135 Potassium 4.5 Chloride 100 Carbon Dioxide 30 H Anion Gap 10 L BUN 14 Creatinine 0.83 Estim Creat Clear Calc 130.3 Estimated GFR > 60 POC Glucose 86 Random Glucose 91 Estimat Average Glucose 97 Hemoglobin A1c % 5.0 Calcium 9.4 Troponin I High Sens < 2.7 Triglycerides 42 Cholesterol 191 LDL Cholesterol, Calc 127 H HDL Cholesterol 56 Discharge Plan Discharge Anticipated Discharge Date/Time: 08/21/23 09:03 Patient Disposition: Home, Self-Care Discharge Diagnosis: Acute Stroke Referrals: Lucho Domínguez MD [Primary Care Provider] - 1 Week Discharge Medications: New amlodipine [Norvasc] 10 mg tablet 10 mg PO DAILY Qty: 30 0RF aspirin 81 mg capsule 81 mg PO DAILY Qty: 90 0RF Rx Instructions: Please offer OTC first atorvastatin [Lipitor] 40 mg tablet 40 mg PO BEDTIME Qty: 30 0RF Continued cetirizine [Zyrtec] 10 mg tablet 10 mg PO DAILY Discontinued amlodipine 5 mg tablet 5 mg PO DAILY Discharge Orders: Discharge Order (Routine); Ordered 08/21/23 Ordered By: Javier Becker Diet: Advance to usual diet Activity on Discharge: As tolerated Stand Alone Forms: Patient Portal Discharge page Care Plan Goals: Full recovery from stroke Health Concerns: stroke, smoking, alcohol use Plan of Treatment: To minimize your risk of having another stroke, it's important to follow these instructions: * Take all your medications as prescribed, including your blood pressure medications. * Your Norvasc dose has been increased to 10 mg daily to better control your blood pressure. * Take Lipitor to lower your cholesterol levels. * Avoid smoking and limit your alcohol consumption. * Schedule a follow-up appointment with your doctor within the next one to two weeks. Please call our office to schedule your appointment. Assessment: See above
--- NOTE | 2023-08-21 10:38 | MHC.CM.PN ---
Addendum entered by Mary Bean 08/21/23 10:39: Pt has been medically cleared for DC. Original Note: [place] 08/21/23, Pt is independent, no home health services. He will go home via private transport, no services.
[2023-08-21 10:52] VITALS: BP 142/70; PULSE 76; RESP 20; TEMP 36.3; O2SAT 95
== END 2023-08-21 11:40 | disposition home or self-care (01) | DRG 45 ==
LOC: HO.ED 10:09 → HO.EDOVER 12:39 → HO.IMC 16:38
PROVIDERS: Internal Medicine; Admitting Provider Physician Assistant; Emergency Provider Emergency Medicine; PCP Internal Medicine; Visit Provider Internal Medicine
DX: I63.9 Cerebral infarction, unspecified (principal); I10 Essential (primary) hypertension; J44.9 Chronic obstructive pulmonary disease, unspecified; F17.210 Nicotine dependence, cigarettes, uncomplicated; F10.10 Alcohol abuse, uncomplicated; G47.33 Obstructive sleep apnea (adult) (pediatric); R29.701 NIHSS score 1; R20.2 Paresthesia of skin; Z71.6 Tobacco abuse counseling; Z23 Encounter for immunization; Z86.718 Personal history of other venous thrombosis and embolism; Z79.899 Other long term (current) drug therapy
CPT/HCPCS: 36415; 70496; 70498; 80048; 80053; 80061; 82947; 83036; 84484; 85025; 90686; 93005; 93306; 97161; 97165; 99285; J1650; Q9957; Q9967

== ENCOUNTER 2023-08-20 14:08 | Outpatient (BNV) | payer BC, SELFPAY | END 2023-08-21 07:00 | PROVIDERS: Admitting Provider Physician Assistant; Emergency Provider Emergency Medicine; PCP Internal Medicine; Visit Provider Internal Medicine Cardiovascular Disease | DX: Q21.12 Patent foramen ovale (principal) | CPT/HCPCS: 93306 ==

== ENCOUNTER → 2023-08-20 14:08 | Outpatient (BNV) | payer BC, SELFPAY | PROVIDERS: Admitting Provider Physician Assistant; Emergency Provider Emergency Medicine; PCP Internal Medicine; Visit Provider Internal Medicine | DX: I63.81 Other cerebral infarction due to occlusion or stenosis of small artery (principal); R20.0 Anesthesia of skin; R20.2 Paresthesia of skin; F17.200 Nicotine dependence, unspecified, uncomplicated; F10.10 Alcohol abuse, uncomplicated | CPT/HCPCS: 99223; 99239 ==

== ENCOUNTER 2023-09-10 08:18 | Outpatient (REF) | payer BC, SELFPAY ==
--- NOTE | ~2023-09-10 | CT_ITS ---
EXAMINATION: CT CHEST SCREENING CLINICAL INFORMATION: Nicotine dependence. 33 pack years. COMPARISON: Previous chest CT most recently 06/03/2021. TECHNIQUE: Multidetector volumetric CT imaging of the chest is performed without contrast using low dose technique. Additional 2D coronal and sagittal reformatted images and axial 3D maximum intensity projection (MIP) images are generated on the CT workstation. This CT examination was performed using dose optimization techniques as appropriate, variously including the following: *Automated exposure control *Adjustment of mA and/or kV according to patient size (this includes techniques or standardized protocols for targeted exams where dose is matched to indication/reason for exam; i.e. extremities or head) *Use of iterative reconstruction technique DLP: 69 mGy-cm FINDINGS: LUNGS: Again seen is a 3 mm peripheral or subpleural calcified left upper lobe nodule that is stable (5:83). There is a 2 mm noncalcified right upper lobe, less well seen than prior, that is stable (5:89 compare prior 4:89). No new or worrisome pulmonary nodule is seen. MEDIASTINUM: There is moderate coronary artery calcification. Heart size is normal. The thoracic aorta is upper normal in size. No mediastinal or hilar lymphadenopathy. PLEURA: There is no pleural effusion. No pleural mass or thickening. AXILLA: No lymphadenopathy. UPPER ABDOMEN: Unremarkable. OSSEOUS STRUCTURES: There are old left-sided rib fractures again noted. There are minimal degenerative changes of the spine. CT/CT lung screening IMPRESSION: Small stable pulmonary micronodules the largest only 2 mm in size. Mild coronary artery calcification. ASSESSMENT: Lung-RADS category 2: Benign RECOMMENDATION: Annual low-dose chest CT follow-up recommended.
== END 2023-09-10 08:19 | disposition home or self-care (01) ==
LOC: HO.CT 08:18
PROVIDERS: Visit Provider Physician Assistant Medical
DX: Z12.2 Encounter for screening for malignant neoplasm of respiratory organs (principal); F17.210 Nicotine dependence, cigarettes, uncomplicated
CPT/HCPCS: 71271

== ENCOUNTER → 2023-11-28 14:47 | Outpatient (BNVA) | payer SELFPAY | PROVIDERS: PCP Internal Medicine; Visit Provider Physician Assistant | DX: Z02.79 Encounter for issue of other medical certificate (principal) ==

== ENCOUNTER 2024-08-16 09:26 | Outpatient (REF) | payer BC, SELFPAY ==
[2024-08-16 12:07] LABS: Influenza A PCR NEGATIVE (Negative); Influenza B PCR NEGATIVE (Negative); Resp Syncy Virus RNA Qual PCR NEGATIVE (Negative); SARS COV2 PCR INHOUSE NEGATIVE (Negative)
== END 2024-08-16 09:27 | disposition home or self-care (01) ==
LOC: HO.LAB 09:26
PROVIDERS: PCP Internal Medicine; Visit Provider Nurse Practitioner Family
DX: R05.1 Acute cough (principal); J06.9 Acute upper respiratory infection, unspecified; R09.89 Other specified symptoms and signs involving the circulatory and respiratory systems
CPT/HCPCS: 0241U

== ENCOUNTER 2024-08-16 09:26 | Outpatient (AMB) | payer BC, SELFPAY ==
[2024-08-16 09:52] VITALS: BP 122/74; PULSE 90; TEMP 36.7; O2SAT 96
--- NOTE | 2024-08-16 09:52 | AM.OFFWIN_ITS ---
Intake Vital Signs 08/16/24 09:52 Height 6 ft 4 in BP 122/74 Blood Pressure Location Rt brachial Position Sitting Pulse 90 Pulse Source Pulse Oximeter Temp 98.0 F Temp Source Oral Pulse Oximetry (%) 96 Oxygen Delivery Method Room Air Intake Visit Reasons: EP Congestion, cough Intake Note: pt is here for congestion, cough for 1 week Patient Tobacco Use Status: Current everyday Tobacco user Allergies lisinopril Allergy (Verified 08/16/24 09:52) Cough Do you need a note to return to daycare/school/sports/work: No HPI HPI Comments History of Present Illness Details 59 y/o male patient who presents to the walk in clinic with c/o cough and sinus congestion for 1 week. Pt is a chronic cigarette smoker. Denies fevers, chills, nausea or vomiting. [facility] Medical History (Updated 07/22/24 @ 08:52 by Bonnie Casey PA-C) Nicotine dependence, cigarettes, uncomplicated Alcohol abuse History of DVT (deep vein thrombosis) Seasonal allergies COPD (chronic obstructive pulmonary disease) CINTHIA (obstructive sleep apnea) Allergic rhinitis Tubular adenoma of colon History of TIA (transient ischemic attack) (~03/2014) Deviated nasal septum Hypertension Cough due to KATERIN inhibitor Surgical History History of ankle surgery History of lumbar surgery History of colonoscopy (~08/2016) Family History (Updated 08/20/23 @ 12:42 by JIMMY Brownlee) Father Myocardial infarction, Onset Age: 50 Stroke Maternal Grandfather Myocardial infarction Social History Housing: House Do you presently have visiting nurse or other home services: No Alcohol intake: current Alcohol intake frequency: 0-2 drinks per day Patient Tobacco Use Status: Current everyday Tobacco user Tobacco use type: Cigarette Cigarette Packs Per Day: 1 Cigarettes Per Day: 20.0 Years Smoked: 30yrs (onset 26, 3/4ppd x 30yrs, 20+PYH) Advance Directives Date on File: 08/20/23 Review of Systems Const All systems reviewed & are unremarkable except as noted in HPI and below Physical Exam Vital Signs: Last Vital Signs Temp 98.0 F 08/16/24 09:52 Pulse 90 08/16/24 09:52 BP 122/74 08/16/24 09:52 Pulse Ox 96 08/16/24 09:52 Oxygen Delivery Method Room Air 08/16/24 09:52 Const General: no acute distress Nutritional Appearance: obese Orientation/consciousness: patient oriented x3 HEENT Head: Yes normocephalic Ears: external ears normal and TM's normal bilaterally General nose exam: Normal external nose present Face and sinus: Yes sinuses nontender Mouth: Abnormal oral and palatal mucosa present erythematous and white patches; not edematous and no hematomas Throat: Yes posterior oropharynx normal Resp Effort & Inspection: normal respiratory effort, able to speak in complete sentences and Actively coughing Auscultation: clear to auscultation bilaterally, no crackles, no rales, no rhonchi and no wheezes Cardio Heart sounds: S1 normal heart sound present and S2 normal heart sound present Neuro General: patient oriented x3 Assessment & Plan Assessment & Plan (1) Cough: Code(s): R05.9 - Cough, unspecified Qualifiers: Cough type: acute Qualified Code(s): R05.1 - Acute cough Plan: Ordered SARs. OTC cough remedies Hydrate with warm fluids and honey Stop smoking. (2) Acute respiratory disease: Code(s): J06.9 - Acute upper respiratory infection, unspecified Plan: Ordered SARs. OTC cough remedies Hydrate with warm fluids and honey Stop smoking. Orders: Orders SARS-CoV2/FLU/RSV Today R09.89 - Other specified symptoms and signs involving the circulatory and respiratory systems Medications: New prednisone 50 mg PO DAILY 5 tabs 0RF R05.1 - Acute cough azithromycin 500 mg PO DAILY 3 tabs 0RF 3 days R05.1 - Acute cough Coding Level of Care Code Est Pt Level 3 (02592) Diagnoses Acute cough R05.1 Cough type: acute Acute respiratory disease J06.9 Time Spent (min) 15
== END 2024-08-16 10:37 | disposition home or self-care (01) ==
PROVIDERS: PCP Internal Medicine; Visit Provider Nurse Practitioner Family
DX: R05.1 Acute cough (principal); J06.9 Acute upper respiratory infection, unspecified

== ENCOUNTER 2025-08-29 14:47 | Outpatient (AMB) | payer BC, SELFPAY ==
--- OUTSIDE RECORDS SUMMARY | 2025-08-23 23:59 | XMS_ITS | Continuity of Care Document ---
Author Organization 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 Name Role Phone Sang SMALL, Lucho Aponte Primary Care Physician [phone] Encounter [facility] Date(s): 07/24/25 - 08/23/25 [facility] [place] Adult [address] [place] [address]- Encounter Type: Triage Allergies, Adverse Reactions, Alerts Substance Criticality Severity Reaction Reaction Severity Status Other Environmental Allergy Active Immunizations Given and Recorded Vaccine Date Status Refusal Reason influenza virus vaccine, inactivated 07/25/24 Give n influenza virus vaccine, inactivated 08/20/23 Gold rded influenza virus vaccine, inactivated 11/03/22 Give n influenza virus vaccine, inactivated 08/17/21 Gold rded influenza virus vaccine, inactivated 07/07/20 Gold rded influenza virus vaccine, inactivated 06/17/19 Give n pneumococcal 20-valent conjugate vaccine 12/07/23 Given SARS-CoV-2 (COVID-19) mRNA BNT-162b2 vac 09/08/21 Recorded SARS-CoV-2 (COVID-19) mRNA BNT-162b2 vac 01/11/21 Recorded SARS-CoV-2 (COVID-19) mRNA BNT-162b2 vac 12/19/20 Recorded Influenza Virus Vaccine (oldterm) 07/01/20 Recorde d hepatitis B adult vaccine 09/08/19 Given hepatitis B adult vaccine 08/08/19 Given Hepatitis A Adult Vaccine 08/08/19 Given tetanus/diphtheria/pertussis, acel(Tdap) 06/17/19 Given tetanus/diphtheria/pertussis, acel(Tdap) 1 10/01/04 Recorded 1Location History: DR AGUIRRE Medications amLODIPine 5 mg oral tablet 1 tablet = 5 mg, By Mouth, Daily, # 90 tablet, 1 Refills, Maintenance, 07/24/25 10:01:00 AM EDT, Tablet, [facility], Partial fill upon patient request if the prescription is for a schedule II opioid drug., 193, cm, 12/02/24 11:47:00 EST, Height Start Date: 07/24/25 Status: Ordered Medication Dispense Status: Completed Quantity: 90.0 Unit: tablet Total Allowed Fills: 2 Fills Dispensed: 0 aspirin 81 mg oral delayed release tablet 1 tablet = 81 mg, By Mouth, Daily, # 30 tablet, 0 Refills, Maintenance, 09/06/23 10:12:00 AM EST, CRTablet, Partial fill upon patient request if the prescription is for a schedule II opioid drug. Start Date: 09/06/23 Status: Ordered Medication Dispense Status: Completed Quantity: 30.0 Unit: tablet Total Allowed Fills: 1 Fills Dispensed: 0 atorvastatin 40 mg oral tablet 1 tablet = 40 mg, By Mouth, Daily, # 90 tablet, 3 Refills, Maintenance, 12/07/23 2:15:00 PM EST, Tablet, [facility], Partial fill upon patient request if the prescription is for a schedule II opioid drug., 193, cm, 12/07/23 13:59:00 EST, Height Start Date: 12/07/23 Status: Ordered Medication Dispense Status: Completed Quantity: 90.0 Unit: tablet Total Allowed Fills: 4 Fills Dispensed: 0 Azithromycin 5 Day Dose Pack 250 mg oral tablet 1 pack/packet, By Mouth, Once, as directed on package labeling, # 6 tablet, 0 Refills, Soft Stop, 12/02/24 12:02:00 PM EST, Tablet, [facility], 193, cm, 12/02/24 11:47:00 EST, Height Start Date: 12/02/24 Status: Ordered Medication Dispense Status: Completed Quantity: 6.0 Unit: tablet Total Allowed Fills: 1 Fills Dispensed: 0 sildenafil 50 mg oral tablet See Instructions, TAKE ONE TABLET BY MOUTH ONE HOUR BEFORE SEXUAL ACTIVITY, # 6 tablet, 5 Refills, Maintenance, 06/23/24 8:22:00 AM EDT, [facility], 193, cm, 06/23/24 8:07:00 EDT, Height Start Date: 06/23/24 Status: Ordered Medication Dispense Status: Completed Quantity: 6.0 Unit: tablet Total Allowed Fills: 6 Fills Dispensed: 0 ZyrTEC 10 mg oral tablet 1 tablet = 10 mg, By Mouth, Daily, # 30 tablet, 0 Refills, Maintenance, 08/31/21 9:43:00 AM EST, Tablet, Partial fill upon patient request if the prescription is for a schedule II opioid drug. Start Date: 08/31/21 Status: Ordered Medication Dispense Status: Completed Quantity: 30.0 Unit: tablet Total Allowed Fills: 1 Fills Dispensed: 0 Problem List Condition Confirmation Course Effective Dates Status Health St atus Informant Actinic keratosis Confirmed Active Excessive drinking of alcohol Confirmed Active Allergic rhinitis Confirmed Active COPD (chronic obstructive pulmonary disease) Confirmed Active Closed fracture of multiple ribs of left side with routine healing Confirmed Active Lumbar disc disease Confirmed Active Eczematous dermatitis Confirmed Active Erectile dysfunction Confirmed Active GERD (gastroesophageal reflux disease) Confirmed Active Hip pain, right Confirmed Active HTN (hypertension) Confirmed Active Elevated liver function tests Confirmed Active Macrocytosis without anemia Confirmed Active Skin cancer Confirmed Active Seborrheic keratoses Confirmed Active Non-cardiac chest pain Confirmed Active Obesity Confirmed Active Colon polyps Confirmed Active Fatty liver Confirmed Active Tobacco use Confirmed Active Social History Social History Type Response Smoking Status Former smoker, quit more than 30 days ago; Other: Quit 6 months ago; entered on: 12/02/24 Sex Sex Representation Male (finding) Patient Care team information Care Team Personnel Name: Lucho Domínguez MD Position: S Physician - Primary Care Member Role: PCP Address: [address] [place] [id number] Telecom: Care Team Related Persons Name: RYAN REINA Insurance Providers Guarantor name[facility] Information #: 1 Payer: [employer] PPO Payer Identifier: NA Member Number: [id number] Group Number: [id number] Subscriber Identifier: NA Relationship to Subscriber: self Coverage Type: BLUE CROSS/BLUE SHIELD Coverage Verification Date: NA Telecom: NA Address: NA
--- NOTE | 2025-08-29 14:48 | AM.OFFWIN_ITS ---
Intake Intake Visit Reasons: EP no feeling in left leg Patient Tobacco Use Status: Current everyday Tobacco user Allergies lisinopril Allergy (Verified 08/16/24 09:52) Cough HPI HPI Comments History of Present Illness Details Chief Complaint: ?I don?t feel right. I?m very dizzy.? History of Present Illness: An older male self-presented to the front of the department/urgent care stating he ?doesn?t feel right? and is extremely dizzy. Onset was just prior to arrival. He reports involuntary spasms and loss of control of the left upper extremity as well as extreme weakness in the left leg, leaving him unable to ambulate. He appears flushed (red in the face) and generally unwell. 911 was called immediately upon arrival for suspected acute neurologic event. He denies a known history of cerebrovascular accident but notes a provider once ?said I may have had a stroke.? He is a daily smoker with a past medical history of hypertension and hyperlipidemia. He has contacted family to inform them of his condition. Review of Systems: * Neurologic: Positive for dizziness, involuntary left arm movements, and left leg weakness. * General: Positive for feeling unwell. [facility] Medical History (Updated 08/29/25 @ 14:50 by JIMMY Cano) Nicotine dependence, cigarettes, uncomplicated Alcohol abuse History of DVT (deep vein thrombosis) Seasonal allergies COPD (chronic obstructive pulmonary disease) CINTHIA (obstructive sleep apnea) Allergic rhinitis Tubular adenoma of colon History of TIA (transient ischemic attack) (~03/2014) Deviated nasal septum Hypertension Cough due to KATERIN inhibitor Surgical History History of ankle surgery History of lumbar surgery History of colonoscopy (~08/2016) Family History (Updated 08/20/23 @ 12:42 by JIMMY Brownlee) Father Myocardial infarction, Onset Age: 50 Stroke Maternal Grandfather Myocardial infarction Social History Housing: House Do you presently have visiting nurse or other home services: No Alcohol intake: current Alcohol intake frequency: 0-2 drinks per day Patient Tobacco Use Status: Current everyday Tobacco user Tobacco use type: Cigarette Cigarette Packs Per Day: 1 Cigarettes Per Day: 20.0 Years Smoked: 30yrs (onset 26, 3/4ppd x 30yrs, 20+PYH) Advance Directives Date on File: 08/20/23 Physical Exam Exam Exam: Physical Exam: * General: Appears ill and flushed. * Neurologic: Visible spasms in the left upper extremity; unable to bear weight or ambulate due to left leg weakness. 2/5 weakness to LLE. RLE 5/5. 4/5 LUE and 5// RUE * CV: tachycardia rate 116 * Resp: mild expiratory wheezing. NIHSS3 Vital Signs: BP 164/80 P-110 02-98 Assessment & Plan Assessment & Plan (1) CVA (cerebral vascular accident): Code(s): I63.9 - Cerebral infarction, unspecified Plan ED Coding Level of Care Code Est Pt Level 3 (56043) Diagnoses CVA (cerebral vascular accident) I63.9
--- OUTSIDE RECORDS SUMMARY | 2025-08-29 14:50 | XMS_ITS | Patient Health Record ---
Author Organization [facility] Address [address] [place] [address] Care Team Providers Care Service Order Clerk Name Role Phone Lucho Domínguez MD Primary Care Provider Unavailab Ximena Schafer Unavailable [phone] Allergies Allergen (clinical drug ingredient) Drug/Non Drug Allergy documented on EMR Reaction Allergy Type Onset Date Status Information temporarily unavailable Lisinopril Cough Drug Allergy Active Reason For Referral No Information Medications Medication SIG (Take, Route, Frequency, Duration) Notes Start Date End Date Status amLODIPine Besylate 5 MG Tablet 1 tablet Orally Once a day 06/09/2016 A ctive Immunizations Vaccine Route Administration Date Status Comme nts Influenza Unknown 06/01/2021 Administered Social History Social History Additional Details Category Social Info Options Details Miscellaneous: Marital status: Occupation: 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 [employer]; 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 [place] Section Notes: Smokes 1 ppd; has at least s everal beers each day Smokes 1 ppd; has at least s everal beers each day Smokes 1 ppd; has at least s everal beers each day Problems Problem Type SNOMED Code ICD Code Onset Dates Problem Status W/U Status Risk Notes Problem Information temporarily unavailable Encounter for screening for malignant neoplasm of colon (Z12.11) Active confirmed Problem Information temporarily unavailable Encounter for screening for malignant neoplasm of rectum (Z12.12) Active confirmed Problem Information temporarily unavailable Preprocedural examination (Z01.818) Active confirmed Problem Information temporarily unavailable Hx of adenomatous colonic polyps (Z86.010) Active confirmed Problem Information temporarily unavailable Diverticulosis of colon (K57.30) Active confirmed Plan Of Treatment Future Test Test Name Order Date COLONOSCOPY 06/13/2016 COLONOSCOPY 10/20/2021 COLONOSCOPY 03/08/2023 Insurance Providers Payer Name Payer Address Payer Phone Subscriber Number Group Number Insured Name Patient Relationship to Insured Coverage Start Date Coverage End Date [facility] [address] [place], [place] [id number] XIMENA RAMSEY Self - patient is the insured Medical (General) History Medical History History ICD Code Hypertension Denies PR,DM,CVA,Lung disease,renal dise ase Seasonal allergies Screening colonoscopy in Aug with removal of multiple tubular adenomas DVT in lower leg 2021 treated with a cou rse of Apixaban Surgical History Surgery Date(Month/Year) Back surgery X 4 Broken right ankle 08/2021
--- OUTSIDE RECORDS SUMMARY | 2025-08-29 14:50 | XMS_ITS ---
Author Name [facility] Organization Unknown Care Team Organization Name Specialty Phone Email Start Date End Da te Office of the Regional Commercial Sales Manager ([employer]) 08/15/2024
--- OUTSIDE RECORDS SUMMARY | 2025-08-29 14:50 | XMS_ITS | Patient Health Record ---
Author Organization [facility] [place] Address [address] [place] [address] Care Team Providers Care Bulk Clerk Name Role Phone Frandy Ramos MD Primary Care Provider Unavaila Jose Coronel Unavailable [phone] Reason For Referral No Information Medications Medication SIG (Take, Route, Fr equency, Duration) Notes Start Date End Date Status Percocet 5-325 MG 1 tablet as needed O rally every 6 hrs Active Problems Problem Type SNOMED Code ICD Code Onset Dates Problem Status W/U Status Risk Notes Problem Information temporarily unavailable Abscess /Cellulitis (682.7) Active confirmed Problem Information temporarily unavailable Foreign Body (728.82) Active confirmed Problem Information temporarily unavailable Ganglion Cyst (727.43) Active confirmed Problem Information temporarily unavailable Pain in Limb (729.5) Active confirmed Plan Of Treatment Pending Test Test Name Order Date 79685- Removal of Foreign Body, Subcut 1 10/20/2011 Insurance Providers Payer Name Payer Address Payer Phone Subscriber Number Group Number Insured Name Patient Relationship to Insured Coverage Start Date Coverage End Date [facility] [address] [place] [address] [phone] [id number] 12 [id number] David Poon Self - patient is the insured Medical (General) History Medical History History ICD Code back, hip, knee pain joint implants/screws Surgical History Surgery Date(Month/Year) back surgery Hospitalization History Reason Date(Month/Year) Patient admitted to [facility] [place] for TIA. 12/2013
--- OUTSIDE RECORDS SUMMARY | 2025-08-29 14:50 | XMS_ITS | Clinical Summary ---
Author Organization [facility] Address [address] [place] [address] Care Team Providers Care Marketing Reporting Analyst Name Role Phone Unavailable Primary Care Provider Unavailabl e Social History Tobacco Use Types Packs/Day Years Used Date Smoking Tobacco: Never Assessed Sex and Gender Information Value Date Recorded Sex Assigned at Not on file Legal Sex Male 4:55 PM EDT Gender Identity Not on file Sexual Orientation Not on file Plan of Treatment Health Maintenance Due Date Last Done Comments Hepatitis C Virus Screening 1965 HIV Screening 12/31/1976 DTaP/Tdap/Td Vaccines (1 - Tdap) 12/31/1982 Pneumococcal Vaccines 50+ (1 of 1 - PCV) 12/31/2013 Zoster (Shingles) Vaccine (1 of 2) 12/31/2013 COVID-19 Vaccine ( - 2023-2 5 season) 2025 RSV Vaccine 50 years and old er and Patients (1 - 1-dose 75+ series) 12/31/2038 Hepatitis B Vaccines Aged Out No long er eligible based on patient's age to complete this topic
== END 2025-08-29 14:52 | disposition home or self-care (01) ==
PROVIDERS: PCP Internal Medicine; Visit Provider Physician Assistant
DX: I63.9 Cerebral infarction, unspecified (principal)

== ENCOUNTER 2025-08-29 15:17 | Inpatient (IN) | payer BC, SELFPAY ==
[2025-08-29] VITALS (10 sets, daily range): BP systolic 126–162; BP diastolic 57–92; PULSE 65–87; RESP 14–20; TEMP 36.5–36.9; O2SAT 94–97; BMI 30.4
--- NOTE | ~2025-08-29 | CT_ITS ---
CLINICAL HISTORY: Stroke Protocol CT head without contrast Comparison: CT/SR - CT HEAD NECK ANGIOGRAPHY WITH IV CONTRAST STROKE - 08/20/23 08:34 EST Findings: No acute intracranial hemorrhage, transcortical infarct, mass effect or hydrocephalus. Chronic encephalomalacia in the inferior bifrontal lobes and in the inferior right temporal lobe. Periventricular and subcortical white matter hypoattenuation likely chronic small-vessel ischemic changes. Intracranial atherosclerosis. The visualized paranasal sinuses and mastoid air cells are normal. The orbits are within normal limits. No skull fracture. IMPRESSION: 1. No acute intracranial findings. This document has been electronically signed by: Sagrario Saldana MD on 08/29/2025 15:47:57
--- NOTE | ~2025-08-29 | XR_ITS ---
CLINICAL HISTORY: left side weakness 1 view chest x-ray. Comparison: None Findings: No consolidation or effusion. Cardiac and mediastinal contours appear unremarkable. Bones unremarkable. Impression: 1. No acute pulmonary disease. This document has been electronically signed by: Abraham Vargas MD on 08/29/2025 17:36:17
--- NOTE | ~2025-08-29 | MR_ITS ---
CLINICAL HISTORY: left side weakness ?stroke MR Brain without gadolinium Comparison: CT/SR - CT ANGIO HEAD NECK STROKE - 08/29/25 15:[address]/REG/SR - CT HEAD FOR STROKE - 08/29/25 15:23 EST Findings: Acute ischemic infarct in the right thalamus. No intracranial hemorrhage or significant mass effect. Small chronic infarcts in the bilateral cerebellum, right layne radiata and left basal ganglia. Encephalomalacia in the inferior bifrontal lobes and inferior right temporal lobe. Periventricular and subcortical T2 white matter hyperintensities likely chronic small-vessel ischemic changes. No midline shift. No hydrocephalus. Vascular flow voids are intact. No acute findings in the orbits. The sinuses and mastoid air cells are clear. No focal bone lesion. IMPRESSION: Acute ischemic infarct in the right thalamus without intracranial hemorrhage or significant mass effect. This document has been electronically signed by: Sagrario Saldana MD on 08/29/2025 20:26:47
--- NOTE | ~2025-08-29 | CT_ITS ---
CLINICAL HISTORY: Stroke Protocol --- Additional Notes or Special Instructions: unk history from EMS CT angiography head and neck with contrast. 3D Postprocessing. Comparison: CT/REG/SR - CT HEAD FOR STROKE - 08/29/25 15:[address]/REG - CT ANGIO HEAD NECK STROKE - 08/20/23 08:40 EST Findings: Aortic arch and cervical great vessels are patent with no aneurysm, dissection, hemodynamically significant stenoses, or occlusion. Bilateral carotid atherosclerosis without hemodynamically significant stenosis. Intracranial arteries are patent. No aneurysm, dissection, hemodynamically significant stenoses, or occlusion. No abnormal intracranial enhancement. Dural venous sinuses are patent. The visualized thyroid gland is unremarkable. No cervical mass or fluid collection. Lung apices clear. No acute fracture. IMPRESSION: Patent head and neck CTA. This document has been electronically signed by: Sagrario Saldana MD on 08/29/2025 16:44:31
--- NOTE | 2025-08-29 15:21 | ECG_ITS ---
Test Reason : stroke protocol Blood Pressure : */* mmHG Vent. Rate : 84 BPM Atrial Rate : 84 BPM P-R Int : 182 ms QRS Dur : 86 ms QT Int : 362 ms P-R-T Axes : 53 4 17 degrees QTcB Int : 427 ms Normal sinus rhythm Normal ECG When compared with ECG of 20-Aug-2023 08:27, No significant change was found Referred By: Lawrence Serrano Electronically Signed By: BROCK TERRY
[2025-08-29] MEDS: iohexoL 350 MG/ML 100 ML INFUS..BTL 70 ML IV (15:34)
--- NOTE | 2025-08-29 15:48 | ED_ITS ---
HPI - Neuro Symptoms/Deficit General Chief Complaint: Stroke Stated Complaint: Left leg weakness, L side facial droop Time Seen by Provider: 08/29/25 16:04 Source: patient and EMS Mode of arrival: EMS Limitations: no limitations History of Present Illness HPI Narrative: This is a 60 years old referred to us from the urgent care because left-sided weakness since about 11:00. Pt states that symptoms started at 11 AM drove himself to the Urgent care and was noted to have left arm weakness and sent here.His spech is normal he has weakness left arm and left leg Onset (ago): hour(s) (5 h) Timing confirmed by: other (pat) Location: left arm and left leg Severity: moderate Quality: weak Exacerbating factors: none Context: sudden onset Associated symptoms: denies other symptoms Related Data Home Medications ?Medication ?Instructions ?Recorded ?Confirmed cetirizine 10 mg tablet (Zyrtec) 10 mg PO DAILY PRN AL LERGIES 05/16/21 08/29/25 amlodipine 5 mg tablet 5 mg PO DAILY 08/16/2408/29 Allergies Allergy/AdvReac Type Severity Reaction Status Date / Time lisinopril Allergy Cough Verified 08/29/25 15:49 Review of Systems 2 Constitutional: Constitutional: Reports no additional constitutional complaints Cardiovascular: Cardiovascular: Reports no additional cardiovascular complaints PMFSH Past Medical History Attestation statement: The following information was validated with the patient. Medical History Nicotine dependence, cigarettes, uncomplicated Alcohol abuse History of DVT (deep vein thrombosis) Seasonal allergies COPD (chronic obstructive pulmonary disease) CINTHIA (obstructive sleep apnea) Allergic rhinitis Tubular adenoma of colon History of TIA (transient ischemic attack) (~03/2014) Deviated nasal septum Hypertension Cough due to KATERIN inhibitor Surgical History History of ankle surgery History of lumbar surgery History of colonoscopy (~08/2016) Family History Family History Father Myocardial infarction, Onset Age: 50 Stroke Maternal Grandfather Myocardial infarction Social History Social History (Updated 08/29/25 @ 18:30 by JIMMY Chamorro) Household Members: None Housing: House Do you presently have visiting nurse or other home services: No Alcohol intake: current Alcohol intake frequency: 3 or more drinks per day Patient Tobacco Use Status: Current everyday Tobacco user Tobacco use type: Cigarette Cigarette Packs Per Day: 1 Cigarettes Per Day: 20.0 Years Smoked: 30yrs (onset 26, 3/4ppd x 30yrs, 20+PYH) Smoked in Last 30 Days: Yes Patient Interested in Nicotine Replacement: Yes Use of substances other than those prescribed or required for medical reasons: No Currently Displaying Signs/Symptoms of Drug Intoxication Withdrawal: No Have you been hit, kicked, punched, or otherwise hurt by someone within the past year? If so, by whom?: No Do you feel safe in your current relationship?: No Current Relationship Is there a partner from a previous relationship who is making you feel unsafe now?: No Are you made to feel afraid or neglected: No Advance Directives: Yes Advance Directives on File: Yes Advance Directives Date on File: 08/20/23 Do you have a plan to hurt others: No Plan Recently lost weight without trying: No Nutrition Risks: No Nutritional Risk Poor oral hygiene: No service: Yes Physical Exam 2 Exam: Exam: Patient is awake alert oriented x3 Vital Signs: Vital Signs: Last Vital Signs Temp 97.8 F 09/03/25 03:18 Pulse 62 09/03/25 03:18 Resp 18 09/03/25 03:18 BP 128/65 09/03/25 03:18 Pulse Ox 95 09/03/25 03:18 O2 Del Method Room Air 09/03/25 03:18 BMI result Body Mass Index 30.4 Const: General: cooperative Nutritional Appearance: average body habitus Orientation/consciousness: patient oriented x3 Limitations: no limitations HEENT: Head: Yes normal to inspection General nose exam: Normal external nose present Face and sinus: Yes normal facial exam Mouth: Normal oral and palatal mucosa present Throat: Yes posterior oropharynx normal Neck: Neck: Yes normal visual inspection Chest: Chest palpation & inspection: normal inspection of the chest Cardio: Jugular venous distension: no JVD Rate: regular rate Rhythm: r egular rhythm GI: Inspection: Yes normal to inspection Palpation (GI): Soft to palpation, not firm and nontender Auscultation: normal bowel sounds : General: Yes no CVA tenderness Back/Spine/Pelvis: Back: no CVA tenderness Skin: General skin exam: no rashes or lesions noted and elasticity normal Neuro: Other: left arm and let leg weakness stroke scale 3 (1 for the left arm at 2 for the left leg) General: patient oriented x3 Cranial nerves: Yes CN's II-XII intact bilaterally Course Reevaluation(s) Reevaluation #1: 16:46 off shift now signed out to Dr Collier CTA head and neck pending Time: 16:36 Reevaluation #2: 4:39 PM [facility]20[facility] I assumed care of the patient at this time patient has had a noncontrast head CT without acute pathology. Apparently patient had a last known well 11:00 arrived outside of the window for thrombolytic but had a stroke scale of 3. CTA pending we will follow this up continue to monitor and admit the patient or disposition as required Medications Administered Generic Name Dose Route Start Last Admin Trade Name Freq PRN Reason Stop Dose Admin Amlodipine Besylate 5 mg 08/31/25 09:00 09/02/25 08:02 Amlodipine Besylate 5 Mg Tablet PO 5 mg DAILY JOSE DAVID Administration Protocol Aspirin 81 mg 08/30/25 09:00 09/02/25 08:03 Aspirin Enteric Coated 81 Mg Tablet. PO 81 mg DAILY JOSE DAVID Administration Atorvastatin Calcium 40 mg 09/01/25 21:00 09/02/25 22:19 Atorvastatin Calcium 40 Mg Tablet PO 40 mg BEDTIME JOSE DAVID Administration Clopidogrel Bisulfate 75 mg 08/31/25 09:00 09/02/25 08:03 Clopidogrel Bisulfate 75 Mg Tablet PO 75 mg DAILY JOSE DAVID Administration Enoxaparin Sodium 40 mg 08/29/25 18:30 09/02/25 18:06 Enoxaparin Sodium 40 Mg/0.4 Ml Syringe SUBCUT 40 mg Q24H JOSE DAVID Administration Nicotine 14 mg 08/29/25 18:20 09/02/25 08:03 Nicotine 14 Mg Patch.Td24 TRANSDERMA 14 mg DAILY JOSE DAVID Administration Sodium Chloride 3 ml 08/30/25 00:00 09/02/25 22:22 0.9 % Sodium Chloride Flush 3 Ml Syringe IVFLUSH Not Given QSHIFT JOSE DAVID Trazodone HCl 25 mg 08/30/25 18:05 08/30/25 20:26 Trazodone Hcl 25 Mg Halftab PO 25 mg BEDTIME PRN Administration Insomnia Discontinued Medications Generic Name Dose Route Start Last Admin Trade Name Kiana PRN Reason Stop Dose Admin Aspirin 325 mg 08/29/25 18:16 08/29/25 20:16 Aspirin Enteric Coated 325 Mg Tablet.Dr PO 08/29/25 18:17 325 mg ONCE ONE Administration Atorvastatin Calcium 80 mg 08/29/25 21:00 08/29/25 20:16 Atorvastatin Calcium 80 Mg Tablet PO 80 mg BEDTIME JOSE DAVID Administration Diazepam 5 mg 08/29/25 19:15 08/29/25 19:25 Diazepam 10 Mg/2 Ml Cartridge IVPUSH 08/29/25 19:16 5 mg STAT STA Administration Magnesium Sulfate 2 gm in 50 mls @ 150 mls/hr 08/29/25 22:26 08/29/25 23:55 Magnesium Sulfate/H2o IV 08/29/25 22:45 Infused ONCE STA Infusion Iohexol 70 ml 08/29/25 15:34 08/29/25 15:34 Iohexol 350 Mg/Ml 100 Ml Infus..Btl IV 08/29/25 15:35 70 ml ONCE ONE Administration Pravastatin Sodium 80 mg 08/30/25 21:00 08/31/25 19:40 Pravastatin Sodium 80 Mg Tablet PO 80 mg BEDTIME JOSE DAVID Administration Medical Decision Making Medical Decision Making [facility] Narrative: Patient presented with a left arm and left leg weakness since 11:00 obviously out of the window for TNK we will do CT CTA head and neck Differential Diagnosis Differential Diagnoses: The differential diagnosis associated with the presentation includes Acute CVA/TIA Admission/Observation Consideration of admission/observation: Escalation of care including admission/observation considered Lab Data 08/29/25 15:53 08/29/25 15:53 Labs: Lab Results 08/29/25 Range/Units 15:53 WBC 11.1 H (4.8-10.8) X10*3/uL RBC 4.51 L (4.60-5.80) X10*6/uL Hgb 15.3 (14.0-18.0) g/dl Hct 44.0 (42.0-52.0) % MCV 97.6 (80.0-98.0) fL MCH 33.9 H (27.0-33.0) pg MCHC 34.8 (31.0-36.0) g/dl RDW 11.7 (11.0-16.0) % Plt Count 264 (160-400) X10*3/uL MPV 8.5 L (9.4-12.4) fL Immature Gran % (Auto) 0.3 (0.0-0.4) % Neut % (Auto) 70.4 (45-73) % Lymph % (Auto) 19.1 L (20-40) % Baxter % (Auto) 8.3 (2-11) % Eos % (Auto) 1.4 (0-4) % Baso % (Auto) 0.5 (0-2) % Lymph # (Auto) 2.1 (1.2-4.9) X10*3/uL Baxter # (Auto) 0.9 (0.1-1.2) X10*3/uL Eos # (Auto) 0.2 (0.0-0.4) X10*3/uL Baso # (Auto) 0.1 (0.0-0.2) X10*3/uL Abs Immat Gran (auto) 0.03 (0.00-0.03) X10*3/uL Absolute Neuts (auto) 7.8 (2.0-8.3) x10*3/uL Absolute Nucleated RBC 0.000 (0.0-0.012) X10*3/uL Nucleated RBC % (auto) 0.0 (0.0-0.2) /100WBC PT (Fingerstick) 11.9 (11.1-13.5) sec PT 11.4 (11.2-13.5) SEC INR (Fingerstick) 1.0 (0.9-1.1) INR 0.9 (0.9-1.1) APTT 26.5 L (26.7-34.1) SEC Sodium 138 (135-145) mmol/L Potassium 4.3 (3.3-5.1) mmol/L Chloride 106 (96-108) mmol/L Carbon Dioxide 24 (22-29) mmol/L Anion Gap 12 (12-20) BUN 22 H (9-16) mg/dL Creatinine 1.02 (0.5-1.4) mg/dL Estim Creat Clear Calc 104.8 Estimated GFR > 60 Random Glucose 90 (60-115) mg/dL Estimat Average Glucose 100 mg/dL Hemoglobin A1c % 5.1 (<6.0) % Calcium 8.7 D (8.4-10.2) mg/dL Magnesium 2.1 (1.6-2.6) mg/dL Total Bilirubin 0.6 (0.0-1.0) mg/dL AST 26 (5-37) U/L ALT 30 (0-40) U/L Alkaline Phosphatase 43 (39-117) U/L Troponin I High Sens < 2.7 (<3.5-35.0) ng/L Total Protein 6.6 (6.5-8.0) g/dL Albumin 4.1 (3.5-5.0) g/dL Triglycerides 63 (<150) mg/dL Cholesterol 196 (<200) mg/dL LDL Cholesterol, Calc 142 H (<100) mg/dL HDL Cholesterol 42 (>40) mg/dL Discharge Plan Discharge Clinical Impression: Left-sided muscle weakness Patient Disposition: Admitted As Inpatient Interventions: Admission Worksheet (ED) Last Done: 08/29/25 23:29 Discharge Date/Time: 08/30/25 01:50
[2025-08-29 16:00] LABS: MANUAL DIFF FLAG NO
[2025-08-29 16:02] LABS: Hematocrit 44.0 % (42.0-52.0); Hemoglobin 15.3 g/dl (14.0-18.0); Imm Gran Abs Auto 0.03 X10*3/uL (0.00-0.03); Imm Gran Pct Auto 0.3 % (0.0-0.4); Lymphocytes Absolute Auto 2.1 X10*3/uL (1.2-4.9); Mean Corpuscular HGB Conc 34.8 g/dl (31.0-36.0); Mean Corpuscular Hemoglobin 33.9 pg (27.0-33.0); Mean Corpuscular Volume 97.6 fL (80.0-98.0); NRBC Abs Auto 0.000 X10*3/uL (0.0-0.012); NRBC Pct Auto 0.0 /100WBC (0.0-0.2); Platelet Count 264 X10*3/uL (160-400); Red Blood Count 4.51 X10*6/uL (4.60-5.80); White Blood Count 11.1 X10*3/uL (4.8-10.8)
[2025-08-29 16:12] LABS: INTERNATIONAL NORM RATIO 0.9 (0.9-1.1); Prothrombin Time 11.4 SEC (11.2-13.5)
[2025-08-29 16:15] LABS: Partial Thromboplastin Time 26.5 SEC (26.7-34.1)
[2025-08-29 16:19] LABS: Alanine Aminotransferase 30 U/L (0-40); Albumin Level 4.1 g/dL (3.5-5.0); Alkaline Phosphatase 43 U/L (39-117); Anion Gap 12 (12-20); Aspartate Amino Transferase 26 U/L (5-37); Blood Urea Nitrogen 22 mg/dL (9-16); Calcium 8.7 mg/dL (8.4-10.2); Carbon Dioxide 24 mmol/L (22-29); Chloride 106 mmol/L (96-108); Cholesterol 196 mg/dL (<200); Creatinine Clr Calc Pharmacy 104.8; Estimated Glomerular Filt Rate > 60; HDL Cholesterol 42 mg/dL (>40); Potassium 4.3 mmol/L (3.3-5.1); Sodium 138 mmol/L (135-145); Total Protein 6.6 g/dL (6.5-8.0); Triglycerides 63 mg/dL (<150)
[2025-08-29 16:53] LABS: Troponin-I High Sensitivity < 2.7 ng/L (<3.5-35.0)
[2025-08-29 17:24] LABS: Stroke Lab Use COMPLETE
--- NOTE | 2025-08-29 18:22 | P.HPHOSP_ITS ---
History of Present Illness Date of Service: 08/29/25 Attending physician on admission: Elmer Lam Chief Complaint: left side weakness This is a 60-year-old male with multiple medical issues who presents to the emergency department today with left-sided weakness. Around 11:00 he reports that he was feeling off balance, he went about his day. He then developed left- sided weakness which progressively worsened. He went to the outpatient walk-in clinic who called an ambulance and sent him to the emergency department. In the emergency department he had persistent left upper extremity and left lower extremity weakness. He had brain CT which showed evidence of chronic strokes, CTA was unremarkable. He had admission in 2022 and at that time he was noted to have chronic bright frontal left temporal encephalomalacia probably from head injury and uncontrolled hypertension was seen by Neurology who thought he had small cerebral infarction in the left thalamus or brainstem area due to microvascular disease, recommended antiplatelet agent, statin and blood pressure control as well as avoidance of alcohol. Patient does not appear to take aspirin or statin at this time. He continues to drink 5 or 6 beers daily and smokes 1 pack of cigarettes daily. He was initially resistant to stay in the hospital but is now amenable to staying for further stroke workup. Review of Systems 2 Review of Systems: Yes all other systems are reviewed and are negative Constitutional: Constitutional: Denies chills and Denies fever(s) Cardiovascular: Cardiovascular: Denies chest pain and Denies palpitations Endocrine: Endocrine: Denies palpitations PENDING SALE TO [facility] Medical History Nicotine dependence, cigarettes, uncomplicated Alcohol abuse History of DVT (deep vein thrombosis) Seasonal allergies COPD (chronic obstructive pulmonary disease) CINTHIA (obstructive sleep apnea) Allergic rhinitis Tubular adenoma of colon History of TIA (transient ischemic attack) (~03/2014) Deviated nasal septum Hypertension Cough due to KATERIN inhibitor Family History Father Myocardial infarction, Onset Age: 50 Stroke Maternal Grandfather Myocardial infarction Surgical History History of ankle surgery History of lumbar surgery History of colonoscopy (~08/2016) Social History (Updated 08/29/25 @ 18:30 by Marisol L Franny, PA) Housing: House Do you presently have visiting nurse or other home services: No Alcohol intake: current Alcohol intake frequency: 3 or more drinks per day Patient Tobacco Use Status: Current everyday Tobacco user Tobacco use type: Cigarette Cigarette Packs Per Day: 1 Cigarettes Per Day: 20.0 Years Smoked: 30yrs (onset 26, 3/4ppd x 30yrs, 20+PYH) Advance Directives Date on File: 08/20/23 Meds Allergies Allergy/AdvReac Type Severity Reaction Status Date / Time lisinopril Allergy Cough Verified 08/29/25 15:49 Home Medications ?Medication ?Instructions ?Recorded ?Confirmed ?Last Taken ?Type cetirizine 10 mg tablet (Zyrtec) 10 mg PO DAILY PRN AL JASON 05/16/21 08/29/25 08/20/23 History amlodipine 5 mg tablet 5 mg PO DAILY 08/16/2408/2908/29/25 History Physical Exam 2 Vital Signs and Narrative: Vital Signs: Last Vital Signs Temp 98.0 F 08/29/25 15:55 Pulse 80 08/29/25 16:27 Resp 16 08/29/25 16:27 BP 136/84 08/29/25 16:27 Pulse Ox 94 08/29/25 16:27 O2 Del Method Room Air 08/29/25 16:27 BMI result Body Mass Index 30.4 Const: General: comfortable, alert and awake Nutritional Appearance: o verweight Orientation/consciousness: patient oriented x3 Resp: Effort & Inspection: normal respiratory effort, able to speak in complete sentences, no respiratory distress and no use of accessory muscles Cardio: Rate: regular rate Neuro: General: patient oriented x3, moves all extremities and CN's II-XI intact bilaterally Extrem: General: No pedal edema Results Labs 08/29/25 15:53 08/29/25 15:53 Labs: Laboratory Results - last 24 hr 08/29/25 15:53 MCV 97.6 MCH 33.9 H MCHC 34.8 RDW 11.7 Plt Count 264 MPV 8.5 L Immature Gran % (Auto) 0.3 Neut % (Auto) 70.4 Lymph % (Auto) 19.1 L Vance % (Auto) 8.3 Eos % (Auto) 1.4 Baso % (Auto) 0.5 Lymph # (Auto) 2.1 Vance # (Auto) 0.9 Eos # (Auto) 0.2 Baso # (Auto) 0.1 Abs Immat Gran (auto) 0.03 Absolute Neuts (auto) 7.8 Absolute Nucleated RBC 0.000 Nucleated RBC % (auto) 0.0 PT 11.4 INR 0.9 APTT 26.5 L Anion Gap 12 Estim Creat Clear Calc 104.8 Estimated GFR > 60 Random Glucose 90 Calcium 8.7 D Total Bilirubin 0.6 AST 26 ALT 30 Alkaline Phosphatase 43 Troponin I High Sens < 2.7 Total Protein 6.6 Albumin 4.1 Triglycerides 63 Cholesterol 196 LDL Cholesterol, Calc 142 H HDL Cholesterol 42 Assessment and Plan (1) Left-sided muscle weakness: Status: Acute Plan This is a 58-year-old male with history of COPD, obstructive sleep apnea the patient denies this and does not use CPAP, history of TIA, hypertension, history of DVT in 2021 completed course of Eliquis, alcohol abuse, who is a current 1 pack per day smoker admitted for further management of CVA. Left side weakness with concern for stroke LKWT 11 am, out of window for tpa. symptoms lasted several hours CTA head neck unremarkable. CT barin shows multiple chronic infarcts and encephalomalacia/gliosis of multiple areas, no acute intracranial hemorrhage or abnormality multiple risk factors, etoh use, tobacco use, HTN, previous stroke, obesity. does not take asa or statin despite previous stroke continue 81 mg ASA daily lipid panel pending, initiate atorvastatin 80 mg daily passed bedside swallow evaluation smoking and alcohol cessation advised recommend outpatient retesting for CINTHIA and compliance with CPAP if indicated hgb a1c pending monitor on telemetry, neuro checks neuro consult PT/OT evaluation COPD no current exacerbation, not on any inhalers hypertension resume norvasc in a.m. hold for permissive HTN history DVT LLE 2021, completed course of apixaban Nicotine dependence patch for NRT smoking cessation advised Alcohol use disorder cessation advised monitor on CIWA, no evidence of etoh wtihdrawal at this time DVT prophylaxis-Lovenox Pt requires inpt stay at least 2 midnights for management of CVA Quality Stroke Does the patient have a stroke diagnosis?: Yes Reason for No Anti-thrombotic by Day Two: N/A - Med Ordered VTE Prior VTE?: Yes VTE Risk Level:: Medical - moderate - high VTE Device Contraindication: Treatment Not Indicated VTE Drug Contraindication: N/A - Med Ordered
--- NOTE | 2025-08-29 18:23 | PHA.MEDREC ---
Pharmacy Consult ? Medication Reconciliation Pharmacy has completed the medication reconciliation. Spoke with pt and to confirm medications.
--- NOTE | 2025-08-29 19:08 | HO.NURTONUR ---
60 y/o M, A/ox3, Full Code Came from home for ?stroke like s/s- per pt, LKW approx 11am. Pt presented to the ED alert/oriented, L sided deficits- weakness to upper and lower extremities. No facial droop, face symmetrical, speaking in full sentences, no difficulty finding words- speech clear and appropriate, does not take any blood thinners. Hx of TIA in 2013. Labs: WBC 11.1, BUN 22. Reports: CTs negative, MRI pending. 18g IV left AC Independent/ambulatory at baseline.
--- NOTE | 2025-08-29 19:20 | PC.NURSE ---
Pt off unit at MRI.
[2025-08-29] MEDS: diazePAM 10 MG/2 ML CARTRIDGE 5 MG IVPUSH (19:25)
--- NOTE | 2025-08-29 20:10 | PC.NURSE ---
returned from MRI placed in hosp bed
[2025-08-29] MEDS: Nicotine 14 MG PATCH.TD24 TRANSDERMA (20:15)
[2025-08-29] MEDS: Aspirin Enteric Coated 325 MG TABLET.DR PO (20:16)
[2025-08-29] MEDS: Magnesium Sulfate/H2O 2 GM/50 ML PIGGYBACK IV (22:58)
[2025-08-29 23:08] LABS: Magnesium 2.1 mg/dL (1.6-2.6)
--- NOTE | 2025-08-29 23:31 | HO.NURTONUR ---
wendy from urgent care for ?stroke like symptoms starting approx 11am. Pt states he felt dizzy/weak. Left sided weakness noted to both extremities, able to raise left arm/ can slightly raise left leg- difficulty raising left leg against resistance, unequal strength- L sided weakness. Speaking in full sentences, no difficulty finding words, smile symmetrical. Hx of ?TIA in 2013. No thinners- takes BP medications CT result shows: Acute ischemic infarct in the right thalamus without intracranial hemorrhage or significant mass effect. tried to stand to use urinal and was unable to do so. Pt hx of etoh - gave mag as preventive while waiting on level per hospitalist.
[2025-08-30] VITALS (7 sets, daily range): BP systolic 122–168; BP diastolic 56–82; PULSE 68–73; RESP 16–20; TEMP 36.4–37.1; O2SAT 94–100; BMI 30.1
[2025-08-30] MEDS: Aspirin Enteric Coated 81 MG TABLET.DR PO (08:21)
[2025-08-30] MEDS: Nicotine 14 MG PATCH.TD24 TRANSDERMA (08:21)
[2025-08-30] MEDS: 0.9 % Sodium Chloride Flush 3 ML SYRINGE IVFLUSH ×2 (08:22→20:26)
--- NOTE | 2025-08-30 08:31 | MHC.CM.PN ---
Addendum entered by Ginny Zaidi 08/30/25 12:42: CM met with Patient and his Significant Other/Cosme to discuss PT's recommendation for Acute Rehab; [facility] is first choice. CM will continue to follow. Addendum entered by Ginny Zaidi 08/30/25 10:11: OT is recommending Acute Rehab. Original Note: CM met with Patient. Patient lives alone in a house and required no services nor DME [employer]. R/T (L) Sided Weakness, Patient may benefit from a PT Eval to assist with disposition. CM has initiated and will follow for dc planning. PCP is Dr. Lucho Domínguez and Girlfriend/HCP/Cosme will transport at dc.
--- NOTE | 2025-08-30 13:28 | PM.NEUROCN ---
History of Present Illness Data of Consult Service Date: 08/30/25 Primary Care Provider: Lucho Domínguez MD [facility] Reason for consult: Stroke 60 years old man who was in usual state of health came out of his car and noted that he could not walk in his left leg was weak. He did not come to hospital right away and after sometime went to an urgent care place where he parked his car but could not come out and call the people inside to move him out. Instead, ambulance was called and he was brought to hospital. This was 3-4 hours after his symptoms started and he was not considered a candidate for acute treatment of stroke. He did not have any associated dizziness or visual symptoms. There was no cardiac symptom. Review of Systems Review of Systems: Constitutional:?No fever, chills, fatigue, weight loss, or night sweats. HEENT:?No headache, vision changes, hearing loss, nasal congestion, sore throat. Cardiovascular:?No chest pain, palpitations, orthopnea, PND, or leg swelling. Respiratory:?No cough, shortness of breath, wheezing, or hemoptysis. Gastrointestinal:?No nausea, vomiting, abdominal pain, diarrhea, or constipation. Genitourinary:?No dysuria, frequency, incontinence, or hematuria. Musculoskeletal:?No joint pain, stiffness, weakness, or muscle aches. Neurological:? Left leg weakness and difficulty walking initially he also complain of dizziness Psychiatric:?No anxiety, depression, mood swings, sleep disturbance, or hallucinations. Endocrine:?No heat/cold intolerance, polydipsia, polyuria, or hair/skin changes. Hematologic/Lymphatic:?No easy bruising, bleeding, or lymphadenopathy. Integumentary (Skin):?No rash, lesions, itching, or color changes. Allergic/Immunologic:?No seasonal allergies, hives, or recurrent infections. [facility] Past Medical History Medical History Nicotine dependence, cigarettes, uncomplicated Alcohol abuse History of DVT (deep vein thrombosis) Seasonal allergies COPD (chronic obstructive pulmonary disease) CINTHIA (obstructive sleep apnea) Allergic rhinitis Tubular adenoma of colon History of TIA (transient ischemic attack) (~03/2014) Deviated nasal septum Hypertension Cough due to KATERIN inhibitor Family History Family History Father Myocardial infarction, Onset Age: 50 Stroke Maternal Grandfather Myocardial infarction Surgical History Surgical History History of ankle surgery History of lumbar surgery History of colonoscopy (~08/2016) Social History Social History (Updated 08/29/25 @ 18:30 by JIMMY Chamorro) Household Members: None Housing: House Do you presently have visiting nurse or other home services: No Alcohol intake: current Alcohol intake frequency: 3 or more drinks per day Patient Tobacco Use Status: Current everyday Tobacco user Tobacco use type: Cigarette Cigarette Packs Per Day: 1 Cigarettes Per Day: 20.0 Years Smoked: 30yrs (onset 26, 3/4ppd x 30yrs, 20+PYH) Smoked in Last 30 Days: Yes Patient Interested in Nicotine Replacement: Yes Use of substances other than those prescribed or required for medical reasons: No Have you been hit, kicked, punched, or otherwise hurt by someone within the past year? If so, by whom?: No Do you feel safe in your current relationship?: No Current Relationship Is there a partner from a previous relationship who is making you feel unsafe now?: No Are you made to feel afraid or neglected: No Advance Directives: Yes Advance Directives on File: Yes Advance Directives Date on File: 08/20/23 Do you have a plan to hurt others: No Plan Recently lost weight without trying: No Nutrition Risks: No Nutritional Risk Poor oral hygiene: No service: Yes Meds Allergies Allergy/AdvReac Type Severity Reaction Status Date / Time lisinopril Allergy Cough Verified 08/29/25 15:49 Active Medications: Current Medications Acetaminophen (Acetaminophen 325 Mg Tablet) 650 mg PO Q6H PRN PRN Reason: Pain, Mild 1-3,fever,headache Aspirin (Aspirin Enteric Coated 81 Mg Tablet.Dr) 81 mg PO DAILY [facility] Last Admin: 08/30/25 08:21 Dose: 81 mg Calcium Carbonate (Calcium Carbonate 750 Mg Tab.Chew) 750 mg PO Q4H PRN PRN Reason: Heartburn Enoxaparin Sodium (Enoxaparin Sodium 40 Mg/0.4 Ml Syringe) 40 mg SUBCUT Q24H [facility] Last Admin: 08/29/25 20:15 Dose: 40 mg Loratadine (Loratadine 10 Mg Tablet) 10 mg PO DAILY PRN PRN Reason: ALLERGIES Magnesium Hydroxide (Milk Of Magnesia 30 Ml Oral.Susp) 30 ml PO DAILY PRN PRN Reason: Constipation Nicotine (Nicotine 14 Mg Patch.Td24) 14 mg TRANSDERMA DAILY [facility] Last Admin: 08/30/25 08:21 Dose: 14 mg Nicotine Polacrilex (Nicotine Polacrilex 2 Mg Gum) 2 mg BUCCAL Q2H PRN PRN Reason: Nicotine Cravings Pravastatin Sodium (Pravastatin Sodium 80 Mg Tablet) 80 mg PO BEDTIME [facility] Sodium Chloride (0.9 % Sodium Chloride Flush 3 Ml Syringe) 3 ml IVFLUSH QSHIFT [facility] Last Admin: 08/30/25 08:22 Dose: 3 ml Temazepam (Temazepam 15 Mg Capsule) 15 mg PO BEDTIME PRN PRN Reason: Insomnia Home Medications ?Medication ?Instructions ?Recorded ?Confirmed ?Last Taken ?Type cetirizine 10 mg tablet (Zyrtec) 10 mg PO DAILY PRN ALLERGIES 05/16/21 08/29/25 08/20/23 History amlodipine 5 mg tablet 5 mg PO DAILY 08/16/24 08/29/25 08/29/25 History Physical Exam Vital Signs: Vital Signs: Last Vital Signs Temp 98.2 F 08/30/25 11:15 Pulse 72 08/30/25 11:15 Resp 20 08/30/25 11:15 BP 162/77 H 08/30/25 11:15 Pulse Ox 95 08/30/25 11:15 O2 Del Method Room Air 08/30/25 11:15 BMI result Body Mass Index 30.1 Neuro: Other: Mental Status: Alert and oriented to person, place, and time. Normal attention. Normal spontaneous speech, fluency, and comprehension. No obvious issues with mood and memory. Affect is appropriate. Cranial Nerves: CN II: Visual vick full to confrontation, visual acuity intact. CN III, IV, : Pupils equal, round, reactive to light and accommodation. Extraocular movements are normal. CN V: Facial sensation is normal. CN VII: Facial movements symmetrical. CN VIII: Hearing intact to bedside conversation is normal. CN IX, X: Palate elevates symmetrically. CN XI: Shoulder shrug and head turn symmetrical. CN XII: Tongue midline without atrophy or fasciculations. Motor: Mild left hemiparesis, leg more than arm. Reflexes: Deep tendon reflexes are slightly brisk in left knee compared to right. Left plantars extensor and right flexor. Coordination: [id number] is okay. Extrapyramidal: Full facial expressions and blinking. No rigidity. Movements are appropriate with no tremor or abnormality. Speech: Normal; no dysarthria or tremor. Results Labs 08/29/25 15:53 08/29/25 15:53 Labs: Short CBC 08/29/25 Range/Units 15:53 WBC 11.1 H (4.8-10.8) X10*3/uL Hgb 15.3 (14.0-18.0) g/dl Hct 44.0 (42.0-52.0) % Plt Count 264 (160-400) X10*3/uL BMP 08/29/25 15:53 Sodium 138 Potassium 4.3 Chloride 106 Carbon Dioxide 24 BUN 22 H Creatinine 1.02 Calcium 8.7 D Liver Function 08/29/25 Range/Units 15:53 Total Bilirubin 0.6 (0.0-1.0) mg/dL AST 26 (5-37) U/L ALT 30 (0-40) U/L Alkaline Phosphatase 43 (39-117) U/L Albumin 4.1 (3.5-5.0) g/dL CLINICAL HISTORY: left side weakness ?stroke MR Brain without gadolinium Comparison: CT/SR - CT ANGIO HEAD NECK STROKE - 08/29/25 15:[address]/REG/SR - CT HEAD FOR STROKE - 08/29/25 15:23 EST Findings: Acute ischemic infarct in the right thalamus. No intracranial hemorrhage or significant mass effect. Small chronic infarcts in the bilateral cerebellum, right layne radiata and left basal ganglia. Encephalomalacia in the inferior bifrontal lobes and inferior right temporal lobe. Periventricular and subcortical T2 white matter hyperintensities likely chronic small-vessel ischemic changes. No midline shift. No hydrocephalus. Vascular flow voids are intact. No acute findings in the orbits. The sinuses and mastoid air cells are clear. No focal bone lesion. IMPRESSION: Acute ischemic infarct in the right thalamus without intracranial hemorrhage or significant mass effect. CLINICAL HISTORY: Stroke Protocol --- Additional Notes or Special Instructions: unk history from EMS CT angiography head and neck with contrast. 3D Postprocessing. Comparison: CT/REG/SR - CT HEAD FOR STROKE - 08/29/25 15:[address]/REG - CT ANGIO HEAD NECK STROKE - 08/20/23 08:40 EST Findings: Aortic arch and cervical great vessels are patent with no aneurysm, dissection, hemodynamically significant stenoses, or occlusion. Bilateral carotid atherosclerosis without hemodynamically significant stenosis. Intracranial arteries are patent. No aneurysm, dissection, hemodynamically significant stenoses, or occlusion. No abnormal intracranial enhancement. Dural venous sinuses are patent. The visualized thyroid gland is unremarkable. No cervical mass or fluid collection. Lung apices clear. No acute fracture. IMPRESSION: Patent head and neck CTA. Assessment and Plan (1) Cerebral infarction: Qualifiers: Cerebral infarction mechanism: vascular occlusion Precerebral and cerebral artery: small artery Qualified Code(s): I63.81 - Other cerebral infarction due to occlusion or stenosis of small artery Status: Acute 60 years old man with multiple area of chronic encephalomalacia probably traumatic in nature had a small right basal ganglia area ischemic probably atherothrombotic infarct resulting in left hemiparesis, leg more than arm. Location probably is posterior limb of internal capsule. Mainstay of management is blood pressure control, statin, and anti-platelet agent. For now I would recommend baby aspirin +clopidogrel 75 mg daily and involving PT OT for rehab. Procedures Date of Service Date of Service: 08/30/25
--- NOTE | 2025-08-30 15:45 | P.PNIM_ITS ---
Subjective Subjective Date of Service: 08/30/25 Interval History: Reporting persistent mild left upper extremity and left lower extremity weakness, that the patient noted when attempting to mobilize today. Denies paresthesia, patient will deficiency, slurred speech. MRI brain consistent with acute ischemic right thalamic infarct Review of Systems Review of Systems: Yes all other systems are reviewed and are negative Physical Exam 2 Exam: Exam: General: A&O x3, oriented to time place person and situation, comfortable, no pain Cardiac: S1, S2 auscultated with no S3/4, no MRG. Well perfused. Respiratory: Normal breath sounds auscultated throughout all lung zones, without wheezing, rales. Normal rate. GI/ : No abdominal pain on palpation, no masses or distentions. MSK: Normal ambulation without pain at bony prominences or musculature Neurological: - strength 4+/5 left upper extremity, 4/ 5 left lower extremity, 5/5 right upper and lower extremities - normal sensation to light, hard, sharp touch - coordination reveals left-sided pronat or drift - normal cranial nerves 2-12 Vital Signs: Vital Signs: Last Vital Signs Temp 98.3 F 08/30/25 15:30 Pulse 73 08/30/25 15:30 Resp 20 08/30/25 15:30 BP 163/74 H 08/30/25 15:30 Pulse Ox 96 08/30/25 15:30 O2 Del Method Room Air 08/30/25 15:30 BMI result Body Mass Index 30.1 Objective Data Active Medications Acetaminophen (Acetaminophen 325 Mg Tablet) 650 mg PO Q6H PRN PRN Reason: Pain, Mild 1-3,fever,headache Aspirin (Aspirin Enteric Coated 81 Mg Tablet.) 81 mg PO DAILY [facility] Last Admin: 08/30/25 08:21 Dose: 81 mg Documented By: RICKY Calcium Carbonate (Calcium Carbonate 750 Mg Tab.Chew) 750 mg PO Q4H PRN PRN Reason: Heartburn Enoxaparin Sodium (Enoxaparin Sodium 40 Mg/0.4 Ml Syringe) 40 mg SUBCUT Q24H [facility] Last Admin: 08/29/25 20:15 Dose: 40 mg Documented By: AMBER Loratadine (Loratadine 10 Mg Tablet) 10 mg PO DAILY PRN PRN Reason: ALLERGIES Magnesium Hydroxide (Milk Of Magnesia 30 Ml Oral.Susp) 30 ml PO DAILY PRN PRN Reason: Constipation Nicotine (Nicotine 14 Mg Patch.Td24) 14 mg TRANSDERMA DAILY [facility] Last Admin: 08/30/25 08:21 Dose: 14 mg Documented By: RICKY Nicotine Polacrilex (Nicotine Polacrilex 2 Mg Gum) 2 mg BUCCAL Q2H PRN PRN Reason: Nicotine Cravings Pravastatin Sodium (Pravastatin Sodium 80 Mg Tablet) 80 mg PO BEDTIME [facility] Sodium Chloride (0.9 % Sodium Chloride Flush 3 Ml Syringe) 3 ml IVFLUSH QSHIFT [facility] Last Admin: 08/30/25 15:00 Dose: Not Given Documented By: RICKY Non-Admin Reason: Previously Administered Temazepam (Temazepam 15 Mg Capsule) 15 mg PO BEDTIME PRN PRN Reason: Insomnia Labs 08/29/25 15:53 08/29/25 15:53 Labs: Laboratory Results - last 24 hr 08/29/25 15:53 MCV 97.6 MCH 33.9 H MCHC 34.8 RDW 11.7 Plt Count 264 MPV 8.5 L Immature Gran % (Auto) 0.3 Neut % (Auto) 70.4 Lymph % (Auto) 19.1 L Sierra % (Auto) 8.3 Eos % (Auto) 1.4 Baso % (Auto) 0.5 Lymph # (Auto) 2.1 Sierra # (Auto) 0.9 Eos # (Auto) 0.2 Baso # (Auto) 0.1 Abs Immat Gran (auto) 0.03 Absolute Neuts (auto) 7.8 Absolute Nucleated RBC 0.000 Nucleated RBC % (auto) 0.0 PT 11.4 INR 0.9 APTT 26.5 L Anion Gap 12 Estim Creat Clear Calc 104.8 Estimated GFR > 60 Random Glucose 90 Estimat Average Glucose 100 Hemoglobin A1c % 5.1 Calcium 8.7 D Magnesium 2.1 Total Bilirubin 0.6 AST 26 ALT 30 Alkaline Phosphatase 43 Troponin I High Sens < 2.7 Total Protein 6.6 Albumin 4.1 Triglycerides 63 Cholesterol 196 LDL Cholesterol, Calc 142 H HDL Cholesterol 42 Assessment and Plan (1) CVA (cerebral vascular accident): Status: Acute (2) Cerebral infarction: Status: Acute (3) COPD (chronic obstructive pulmonary disease): Status: Acute (4) Cough due to KATERIN inhibitor: Status: Acute (5) Nicotine dependence, cigarettes, uncomplicated: Status: Acute Plan 58-year-old male with history of COPD, obstructive sleep apnea the patient denies this and does not use CPAP, history of TIA, hypertension, history of DVT in 2021 completed course of Eliquis, alcohol abuse, who is a current 1 pack per day smoker admitted for further management of CVA. Acute right ischemic thalamic CVA Presents with acute left-sided weakness with concern for stroke LKWT 11 am 08/29, out of window for tpa. symptoms lasted several hours CTA head neck unremarkable. CT brain shows multiple chronic infarcts and encephalomalacia/gliosis of multiple areas, no acute intracranial hemorrhage or abnormality MRI brain revealing acute right thalamic Ischemic stroke multiple risk factors, etoh use, tobacco use, HTN, previous stroke, obesity. does not take asa or statin despite previous stroke passed bedside swallow evaluation smoking and alcohol cessation advised A1c being evaluated PLAN - aspirin 81 mg OD p.o. - pravastatin 80 mg OD p.o. - neuro checks q.4 hours - follow up A1c - PT/OT placed - cardiac telemetry - ECHO COPD no current exacerbation, not on any inhalers HTN Allow for permissive HTN Resume norvasc in a.m. History of DVT LLE 2021, completed course of apixaban Nicotine dependence patch for NRT smoking cessation advised Alcohol use disorder cessation advised monitor on CIWA, no evidence of etoh wtihdrawal at this time [employer] - VTE: Enoxaparin - CODE STATUS: Full code - DIET: Regular Total time managing care of this patient today: 45 minutes. Quality Stroke Does the patient have a stroke diagnosis?: Yes Reason for No Anti-thrombotic by Day Two: N/A - Med Ordered VTE Prior VTE?: Yes VTE Risk Level:: Medical - moderate - high VTE Device Contraindication: Treatment Not Indicated VTE Drug Contraindication: N/A - Med Ordered
[2025-08-30] MEDS: traZODone HCL 25 MG HALFTAB PO (20:26)
[2025-08-31 03:34] VITALS: BP 131/78; PULSE 65; RESP 16; TEMP 36.9; O2SAT 94
--- NOTE | 2025-08-31 07:00 | CA_ITS ---
Transthoracic Echocardiogram Patient (Last, First, Middle): David Poon Francis Gender: M Date of : 1965 Age: 60 Procedure Date: 08/31/2025 Procedure Type: Transthoracic Echocardiogram Location: [facility] [place] Height: 193.04 cm Weight: 111.59 kg BSA: 2.42 m2 Heart Rate: bpm BP: 131 / 78 mmHg Curriculum Specialist: Referring MD: Marisol MARQUEZ Symptoms: stroke protocol Study Quality: Fair ECG Rhythm: Sinus Conclusions: - The left ventricular systolic function is normal. The calculated ejection fraction is 64% by biplane method. - No obvious valvular pathology seen on this study. Findings Procedure Information Contrast agent, definity, is being given per protocol without apparent complications. Left Ventricle Normal left ventricular cavity size. There is mildly increased left ventricular wall thickness. The left ventricular systolic function is normal. The calculated ejection fraction is 64% by biplane method. There is no evidence of regional wall motion abnormalities. Diastolic function is normal for age. Right Ventricle Mildly increased right ventricular cavity size. There is normal right ventricular systolic function. Atria Both atria are normal in size. Interatrial shunt cannot be excluded. Aortic Valve There is a normal trileaflet aortic valve. There is no aortic valve stenosis. There is trace (trivial) aortic valve regurgitation. Mitral Valve The mitral valve appears normal. There is no mitral valve regurgitation. There is no mitral valve stenosis. Pulmonic Valve The pulmonic valve is likely normal. Tricuspid Valve There is trace tricuspid valve regurgitation. There is no evidence of pulmonary hypertension. Great Vessels The asc aorta is normal in size. Venous The inferior vena cava is mildly dilated and collapses greater than 50% with inspiration. Pericardium/Pleural There is no evidence of pericardial effusion. Prior Study Comparison No significant change compared to prior study dated: 08/21/2023. Recommendations, Care & Conclusions No obvious valvular pathology seen on this study. Measurements 2D Linear Measurements IVSd: 1.30 0.6-0.9/0.6-1.0 cm LVIDd: 5.23 3.9-5.3/4.2-5.9 cm LVIDd Index: 2.16 2.4-3.2/2.2-3.1 cm/m2 LVIDs: 3.58 2.0-3.6 cm LVPWd: 1.26 0.7-1.1 cm Ao Root: 4.00 2.1-3.5 cm LA Diam: 3.60 2.7-3.8/3.0-4.0 cm LAIDs Index: 1.49 1.5-2.3 cm/m2 LV Mass: 342.86 67-162/88-224 g LV Mass Index: 141.68 43-95/49-115 g/m2 LVOT Diam: 2.80 3.0+(-)1.3 cm 2D Systolic Function EF 4C: 62.00 >55% EF 2C: 68.00 >55% EF BiP: 63.70 >55% Mitral Valve MV Pk E: 0.39 MV PK A: 0.79 MV Decel Time: 159.00 E/A: 0.50 E'Lateral: 7.18 E'Medial: 5.11 E/E' Med: 7.60 E/E' Lat: 5.40 PHT: 47.00 MVA PHT: 4.68 Decel [place]: 2.43 Aortic Valve AoV Pk Kiran: 0.95 AoV Mn Kiran: 0.62 AoV VTI: 0.24 AoV Pk Grad: 4.00 Aov Mn Grad: 2.00 ELVA Cont.VTI: 4.94 LVOT LVOT Pk Kiran: 0.88 LVOT Mn Kiran: 0.50 LVOT VTI: 0.19 LVOT Pk Grad: 3.00 LVOT Mn Grad: 1.00 LVOT Diam: 2.80 LVOT Area: 6.16 Diastolic Function MV Pk E: 0.39 MV Pk A: 0.79 E/A: 0.50 E'Medial: 5.11 E/E' Med: 7.60 E' Laterial: 7.18 E/E' Lat: 5.40 Right Ventricle TAPSE (mm): 22.00 TVS' Kiran: 11.00 Tricuspid Valve TR Pk Kiran: 1.89 TR Pk Grad: 14.00 RA Press: 3.00 RVSP: 17.00 Great Vessels Aorta Ao Root-2D: 4.00 2.0-3.7 cm Ao Asc: 3.90 2.1-3.4 cm Pulmonary Valve PV Pk Kiran: 0.80 Peak PV Grad: 3.00 Updated in Other Vendor System with Status of Final Ramin Payton MD electronically signed on 08/31/2025 1:22:03 PM with status of Final
[2025-08-31 07:54] VITALS: BP 148/70; PULSE 65; RESP 18; TEMP 36.5; O2SAT 95
[2025-08-31] MEDS: Nicotine 14 MG PATCH.TD24 TRANSDERMA (08:34)
[2025-08-31] MEDS: Aspirin Enteric Coated 81 MG TABLET.DR PO (08:35)
[2025-08-31] MEDS: 0.9 % Sodium Chloride Flush 3 ML SYRINGE IVFLUSH ×3 (08:36→19:40)
[2025-08-31 12:00] VITALS: BP 152/74; PULSE 72; RESP 18; TEMP 36.7; O2SAT 95
[2025-08-31 12:18] LABS: INR Whole Blood 1.0 (0.9-1.1); Prothrombin Time Whole Blood 11.9 sec (11.1-13.5)
--- NOTE | 2025-08-31 14:50 | MHC.CM.PN ---
PATIENT AND GIRLFRIEND DENY BED OFFER FROM [facility]. [facility] UNABLE TO PROVIDE INFORMATION ABOUT WHETHER OR NOT THEY CAN ACCEPT HIS INSURANCE. LIAISON IS WORKING ON THIS [facility] IS ONLY CHOICE FOR PATIENT AND GIRLFRIEND (IN ROOM AND PARTICIPATING IN DC GOALS CONVERSATIONS) PROVIDER AWARE.. [facility] OFFERING TO GO FOR AUTH AND OFFERING LAUREN ROOM. NO DC TODAY. PLAN IS DC TOMORROW
--- NOTE | 2025-08-31 14:57 | MHC.STROKE ---
Met with patient in room 444. Pt awake, alert and oriented x 4. Pt sitting up in recliner. Reports ambulating with staff assistance earlier. Pt states that on Sunday, he noticed his left leg was dragging when he was trying to walk. Reports feeling well when he went to bed on Sunday night. States that he went out for a few beers and didn't have any issues . MRI positive for right thalamic infarct. Stroke Education provided. Pamphlet given and reviewed. We discussed the area of the stroke and why he was experiencing the symptoms he was. All questions answered. Spoke with girlfriend Cosme via phone as well. We also discussed risk factors including medical hx, medications, activity, diet and social history. Pt reports smoking approx 1 pack per day and having a couple of beers every day. He does report at times this number can be upwards of 12 beers a day. We discussed the importance of healthy lifestyle and reducing risk factors. Pt is currently wearing a nicotene patch. Plan is for discharge to acute rehab. Patient agreeable to plan. awaiting bed availability.
[2025-08-31 15:10] VITALS: BP 134/79; PULSE 117; RESP 20; TEMP 37.3; O2SAT 92
--- NOTE | 2025-08-31 17:29 | P.PNIM_ITS ---
Subjective Subjective Date of Service: 08/31/25 Interval History: Reports some improvement to coordination and strength of left arm and leg Earlier felt some numbness and tingling of left side of lips, currently resolved No other deficits noted such as facial droop or difficutly speaking or word finding Review of Systems Review of Systems: Yes all other systems are reviewed and are negative Physical Exam 2 Exam: Exam: General: AOx3, no acute distress Resp: CTA bilaterally CVS: S1, S2, RRR GI: +BS, NT, no distention Skin: Warm, dry Neuro: Positive left pronator drift. 4/5 strength of left upper and lower extremities. Right upper and left lower extremity strength preserved. No facial droop or dysarthria noted. Sensation to light touch intact of face and upper and lower extremities. Extremities: No edema Psych: Appropriate affect Vital Signs: Vital Signs: Last Vital Signs Temp 99.1 F 08/31/25 15:10 Pulse 117 H 08/31/25 15:10 Resp 20 08/31/25 15:10 BP 134/79 08/31/25 15:10 Pulse Ox 92 08/31/25 15:10 O2 Del Method Room Air 08/31/25 15:10 BMI result Body Mass Index 30.1 Objective Data Active Medications Acetaminophen (Acetaminophen 325 Mg Tablet) 650 mg PO Q6H PRN PRN Reason: Pain, Mild 1-3,fever,headache Amlodipine Besylate (Amlodipine Besylate 5 Mg Tablet) 5 mg PO DAILY [facility]; Protocol Last Admin: 08/31/25 08:35 Dose: 5 mg Documented By: BRYN Aspirin (Aspirin Enteric Coated 81 Mg Tablet.Dr) 81 mg PO DAILY [facility] Last Admin: 08/31/25 08:35 Dose: 81 mg Documented By: BRYN Calcium Carbonate (Calcium Carbonate 750 Mg Tab.Chew) 750 mg PO Q4H PRN PRN Reason: Heartburn Clopidogrel Bisulfate (Clopidogrel Bisulfate 75 Mg Tablet) 75 mg PO DAILY [facility] Last Admin: 08/31/25 11:20 Dose: 75 mg Documented By: BRYN Enoxaparin Sodium (Enoxaparin Sodium 40 Mg/0.4 Ml Syringe) 40 mg SUBCUT Q24H [facility] Last Admin: 08/30/25 17:52 Dose: 40 mg Documented By: RICKY Loratadine (Loratadine 10 Mg Tablet) 10 mg PO DAILY PRN PRN Reason: ALLERGIES Magnesium Hydroxide (Milk Of Magnesia 30 Ml Oral.Susp) 30 ml PO DAILY PRN PRN Reason: Constipation Nicotine (Nicotine 14 Mg Patch.Td24) 14 mg TRANSDERMA DAILY [facility] Last Admin: 08/31/25 08:34 Dose: 14 mg Documented By: BRYN Nicotine Polacrilex (Nicotine Polacrilex 2 Mg Gum) 2 mg BUCCAL Q2H PRN PRN Reason: Nicotine Cravings Pravastatin Sodium (Pravastatin Sodium 80 Mg Tablet) 80 mg PO BEDTIME [facility] Last Admin: 08/30/25 20:26 Dose: 80 mg Documented By: REENA Sodium Chloride (0.9 % Sodium Chloride Flush 3 Ml Syringe) 3 ml IVFLUSH QSHIFT [facility] Last Admin: 08/31/25 08:36 Dose: 3 ml Documented By: BRYN Temazepam (Temazepam 15 Mg Capsule) 15 mg PO BEDTIME PRN PRN Reason: Insomnia Trazodone HCl (Trazodone Hcl 25 Mg Halftab) 25 mg PO BEDTIME PRN PRN Reason: Insomnia Last Admin: 08/30/25 20:26 Dose: 25 mg Documented By: REENA Labs 08/29/25 15:53 08/29/25 15:53 Labs: Laboratory Results - last 24 hr 08/29/25 15:53 PT (Fingerstick) 11.9 INR (Fingerstick) 1.0 Assessment and Plan (1) CVA (cerebral vascular accident): Status: Acute Plan 58-year-old male with history of COPD, obstructive sleep apnea the patient denies this and does not use CPAP, history of TIA, hypertension, history of DVT in 2021 completed course of Eliquis, alcohol dependence, who is a current 1 pack per day smoker admitted for further management of CVA. Acute right ischemic thalamic CVA Presents with acute left-sided weakness with concern for stroke LKWT 11 am 08/29, out of window for tpa CTA head neck unremarkable. CT brain shows multiple chronic infarcts and encephalomalacia/gliosis of multiple areas, no acute intracranial hemorrhage or abnormality MRI brain revealing acute right thalamic Ischemic stroke Echo unremarkable with LVEF 64%, no obvious valvular pathology multiple risk factors, etoh use, tobacco use, HTN, previous stroke, obesity. does not take asa or statin despite previous stroke passed bedside swallow evaluation smoking and alcohol cessation advised A1c 5.1 PT recommends acute rehab PLAN - aspirin 81 mg OD p.o., pravastatin 80 mg OD p.o., Plavix 75mg daily - neuro checks q.4 hours - cardiac telemetry - today developed new left-sided lip/facial numbness that lasted a few hours before resolving COPD no current exacerbation, not on any inhalers HTN Continue amlodipine History of DVT LLE 2021, completed course of apixaban Nicotine dependence patch for NRT smoking cessation advised Alcohol use disorder Drinks 4-5 beers daily cessation advised monitor on CIWA, no evidence of etoh wtihdrawal at this time - VTE: Enoxaparin - CODE STATUS: Full code - DIET: Regular Pt currently waiting on acute rehab placement; plan is to discharge tomorrow to [facility] if possible. Pt will also need overnight monitoring due to new temporary facial numbness. Quality Stroke Does the patient have a stroke diagnosis?: Yes Reason for No Anti-thrombotic by Day Two: N/A - Med Ordered VTE Prior VTE?: Yes VTE Risk Level:: Medical - moderate - high VTE Device Contraindication: Treatment Not Indicated VTE Drug Contraindication: N/A - Med Ordered
[2025-08-31 19:33] VITALS: BP 133/79; PULSE 74; RESP 17; TEMP 36.9; O2SAT 94
[2025-08-31 23:03] VITALS: BP 144/76; PULSE 70; RESP 16; TEMP 36.4; O2SAT 94
[2025-09-01 03:09] VITALS: BP 131/85; PULSE 66; RESP 16; TEMP 36.4; O2SAT 93
[2025-09-01 07:28] VITALS: BP 126/79; PULSE 69; RESP 20; TEMP 36.4; O2SAT 97
[2025-09-01] MEDS: Nicotine 14 MG PATCH.TD24 TRANSDERMA (08:30)
[2025-09-01] MEDS: Aspirin Enteric Coated 81 MG TABLET.DR PO (08:30)
[2025-09-01 11:39] VITALS: BP 157/86; PULSE 84; RESP 20; TEMP 36.9; O2SAT 94
--- NOTE | 2025-09-01 13:56 | MHC.CM.PN ---
Patient refused to answer questions; CM left IMM for his review. Patient approved CM calling Contact/SARABJIT @ [phone], but was only able to leave a message. DC plan is TBD.
--- NOTE | 2025-09-01 14:21 | MHC.CM.PN ---
Addendum entered by Ginny Zaidi 09/02/25 10:35: [facility] initiated insurance auth yesterday; CM will continue to follow. Original Note: PT is recommending Acute Rehab. [facility] have clinically accepted Patient but have no beds. CM discussed with PA, who indicated that Patient will stay another day here.With Patient's permission, additional SNF & Acute Rehab referrals in [place] have been made. [facility] in [place](first choice) has confirmed that they are in contract with Patient's insurance and continue to follow. [facility] has initiated insurance auth. CM will continue to follow.
[2025-09-01 15:10] VITALS: BP 154/83; PULSE 83; RESP 18; TEMP 37.1; O2SAT 95
--- NOTE | 2025-09-01 16:45 | P.PNIM_ITS ---
Subjective Subjective Date of Service: 09/01/25 Interval History: Feels similar to yesterday with continued left-sided weakness, leg worse No repeat episode of numbness or tingling of face/lipid Denies chest pain or pressure No SOB or difficulty breathing Still awaiting acute rehab availability; no beds available today Review of Systems Review of Systems: Yes all other systems are reviewed and are negative Physical Exam 2 Exam: Exam: General: AOx3, no acute distress Resp: CTA bilaterally CVS: S1, S2, RRR GI: +BS, NT, no distention Skin: Warm, dry Neuro: Positive left pronator drift. 4/5 strength of left upper extremity, 3/5 of left lower extremity. Right upper and left lower extremity strength preserved. No facial droop or dysarthria noted. Sensation to light touch intact of face and upper and lower extremities. Extremities: No edema Psych: Appropriate affect Vital Signs: Vital Signs: Last Vital Signs Temp 98.7 F 09/01/25 15:10 Pulse 83 09/01/25 15:10 Resp 18 09/01/25 15:10 BP 154/83 H 09/01/25 15:10 Pulse Ox 95 09/01/25 15:10 O2 Del Method Room Air 09/01/25 15:10 BMI result Body Mass Index 30.1 Objective Data Active Medications Acetaminophen (Acetaminophen 325 Mg Tablet) 650 mg PO Q6H PRN PRN Reason: Pain, Mild 1-3,fever,headache Amlodipine Besylate (Amlodipine Besylate 5 Mg Tablet) 5 mg PO DAILY [facility]; Protocol Last Admin: 09/01/25 08:29 Dose: 5 mg Documented By: RAFY Aspirin (Aspirin Enteric Coated 81 Mg Tablet.) 81 mg PO DAILY [facility] Last Admin: 09/01/25 08:30 Dose: 81 mg Documented By: RAFY Calcium Carbonate (Calcium Carbonate 750 Mg Tab.Chew) 750 mg PO Q4H PRN PRN Reason: Heartburn Clopidogrel Bisulfate (Clopidogrel Bisulfate 75 Mg Tablet) 75 mg PO DAILY [facility] Last Admin: 09/01/25 08:30 Dose: 75 mg Documented By: RAFY Enoxaparin Sodium (Enoxaparin Sodium 40 Mg/0.4 Ml Syringe) 40 mg SUBCUT Q24H [facility] Last Admin: 08/31/25 18:21 Dose: 40 mg Documented By: HO.CONND Loratadine (Loratadine 10 Mg Tablet) 10 mg PO DAILY PRN PRN Reason: ALLERGIES Magnesium Hydroxide (Milk Of Magnesia 30 Ml Oral.Susp) 30 ml PO DAILY PRN PRN Reason: Constipation Nicotine (Nicotine 14 Mg Patch.Td24) 14 mg TRANSDERMA DAILY [facility] Last Admin: 09/01/25 08:30 Dose: 14 mg Documented By: RAFY Nicotine Polacrilex (Nicotine Polacrilex 2 Mg Gum) 2 mg BUCCAL Q2H PRN PRN Reason: Nicotine Cravings Pravastatin Sodium (Pravastatin Sodium 80 Mg Tablet) 80 mg PO BEDTIME [facility] Last Admin: 08/31/25 19:40 Dose: 80 mg Documented By: REENA Sodium Chloride (0.9 % Sodium Chloride Flush 3 Ml Syringe) 3 ml IVFLUSH QSHIFT [facility] Last Admin: 09/01/25 11:56 Dose: Not Given Documented By: RAFY Non-Admin Reason: Previously Administered Temazepam (Temazepam 15 Mg Capsule) 15 mg PO BEDTIME PRN PRN Reason: Insomnia Trazodone HCl (Trazodone Hcl 25 Mg Halftab) 25 mg PO BEDTIME PRN PRN Reason: Insomnia Last Admin: 08/30/25 20:26 Dose: 25 mg Documented By: REENA Labs 08/29/25 15:53 08/29/25 15:53 Assessment and Plan (1) CVA (cerebral vascular accident): Status: Acute Plan 58-year-old male with history of COPD, obstructive sleep apnea the patient denies this and does not use CPAP, history of TIA, hypertension, history of DVT in 2021 completed course of Eliquis, alcohol dependence, who is a current 1 pack per day smoker admitted for further management of CVA. Acute right ischemic thalamic CVA Presented with acute left-sided weakness LKWT 11 am 08/29, out of window for tNK CTA head neck unremarkable. CT brain shows multiple chronic infarcts and encephalomalacia/gliosis of multiple areas, no acute intracranial hemorrhage or abnormality MRI brain revealing acute right thalamic ischemic stroke Echo unremarkable with LVEF 64%, no obvious valvular pathology multiple risk factors: etoh use, tobacco use, HTN, previous stroke, obesity. does not take asa or statin despite previous stroke passed bedside swallow evaluation smoking and alcohol cessation advised A1c 5.1 PT recommends acute rehab Was unable to tolerate atorvastatin 80mg PLAN - aspirin 81 mg OD p.o., atorvastatin 40mg p.o., Plavix 75mg daily - still awaiting acute rehab bed availability COPD no current exacerbation, not on any inhalers HTN Continue amlodipine History of DVT LLE 2021, completed course of apixaban Nicotine dependence patch for NRT smoking cessation advised Alcohol use disorder Drinks 4-5 beers daily cessation advised monitor on CIWA, no evidence of etoh wtihdrawal at this time - VTE: Enoxaparin - CODE STATUS: Full code - DIET: Regular Pt currently waiting on acute rehab placement; plan is to discharge to [facility] when bed becomes available. Quality Stroke Does the patient have a stroke diagnosis?: Yes Reason for No Anti-thrombotic by Day Two: N/A - Med Ordered VTE Prior VTE?: Yes VTE Risk Level:: Medical - moderate - high VTE Device Contraindication: Treatment Not Indicated VTE Drug Contraindication: N/A - Med Ordered
[2025-09-01 20:00] VITALS: BP 139/76; PULSE 71; RESP 20; TEMP 36.6; O2SAT 95
[2025-09-02] VITALS (7 sets, daily range): BP systolic 115–159; BP diastolic 53–80; PULSE 61–74; RESP 16–20; TEMP 36.2–36.9; O2SAT 94–96
[2025-09-02] MEDS: Aspirin Enteric Coated 81 MG TABLET.DR PO (08:03)
[2025-09-02] MEDS: Nicotine 14 MG PATCH.TD24 TRANSDERMA (08:03)
--- NOTE | 2025-09-02 16:05 | MHC.CM.PN ---
Patient will dc to [facility] tomorrow at 11:30 AM, via [facility].
--- NOTE | 2025-09-02 19:20 | P.PNIM_ITS ---
Subjective Subjective Date of Service: 09/02/25 Interval History: No acute events overnight Reports feels similar to yesterday with left-sided arm and leg weakness No facial or lip numbness Still waiting on acute rehab availability, which showed occur tomorrow Review of Systems Review of Systems: Yes all other systems are reviewed and are negative Physical Exam 2 Exam: Exam: General: AOx3, no acute distress Resp: CTA bilaterally CVS: S1, S2, RRR GI: +BS, NT, no distention Skin: Warm, dry Neuro: Positive left pronator drift. 4/5 strength of left upper extremity, 3/5 of left lower extremity. Right upper and left lower extremity strength preserved. No facial droop or dysarthria noted. Sensation to light touch intact of face and upper and lower extremities. Extremities: No edema Psych: Appropriate affect Vital Signs: Vital Signs: Last Vital Signs Temp 98.2 F 09/02/25 15:35 Pulse 70 09/02/25 15:35 Resp 20 09/02/25 15:35 BP 140/80 H 09/02/25 15:35 Pulse Ox 95 09/02/25 15:35 O2 Del Method Room Air 09/02/25 15:35 BMI result Body Mass Index 30.1 Objective Data Active Medications Acetaminophen (Acetaminophen 325 Mg Tablet) 650 mg PO Q6H PRN PRN Reason: Pain, Mild 1-3,fever,headache Amlodipine Besylate (Amlodipine Besylate 5 Mg Tablet) 5 mg PO DAILY [facility]; Protocol Last Admin: 09/02/25 08:02 Dose: 5 mg Documented By: ANKIT Aspirin (Aspirin Enteric Coated 81 Mg Tablet.) 81 mg PO DAILY [facility] Last Admin: 09/02/25 08:03 Dose: 81 mg Documented By: ANKIT Atorvastatin Calcium (Atorvastatin Calcium 40 Mg Tablet) 40 mg PO BEDTIME [facility] Last Admin: 09/01/25 20:13 Dose: 40 mg Documented By: SUSAN Calcium Carbonate (Calcium Carbonate 750 Mg Tab.Chew) 750 mg PO Q4H PRN PRN Reason: Heartburn Clopidogrel Bisulfate (Clopidogrel Bisulfate 75 Mg Tablet) 75 mg PO DAILY [facility] Last Admin: 09/02/25 08:03 Dose: 75 mg Documented By: ANKIT Enoxaparin Sodium (Enoxaparin Sodium 40 Mg/0.4 Ml Syringe) 40 mg SUBCUT Q24H [facility] Last Admin: 09/02/25 18:06 Dose: 40 mg Documented By: ANKIT Loratadine (Loratadine 10 Mg Tablet) 10 mg PO DAILY PRN PRN Reason: ALLERGIES Magnesium Hydroxide (Milk Of Magnesia 30 Ml Oral.Susp) 30 ml PO DAILY PRN PRN Reason: Constipation Nicotine (Nicotine 14 Mg Patch.Td24) 14 mg TRANSDERMA DAILY [facility] Last Admin: 09/02/25 08:03 Dose: 14 mg Documented By: ANKIT Nicotine Polacrilex (Nicotine Polacrilex 2 Mg Gum) 2 mg BUCCAL Q2H PRN PRN Reason: Nicotine Cravings Sodium Chloride (0.9 % Sodium Chloride Flush 3 Ml Syringe) 3 ml IVFLUSH QSHIFT [facility] Last Admin: 09/02/25 16:41 Dose: Not Given Documented By: ANKIT Non-Admin Reason: No Access Temazepam (Temazepam 15 Mg Capsule) 15 mg PO BEDTIME PRN PRN Reason: Insomnia Trazodone HCl (Trazodone Hcl 25 Mg Halftab) 25 mg PO BEDTIME PRN PRN Reason: Insomnia Last Admin: 08/30/25 20:26 Dose: 25 mg Documented By: KASEYM Labs 08/29/25 15:53 08/29/25 15:53 Assessment and Plan (1) CVA (cerebral vascular accident): Status: Acute Plan 58-year-old male with history of COPD, obstructive sleep apnea the patient denies this and does not use CPAP, history of TIA, hypertension, history of DVT in 2021 completed course of Eliquis, alcohol dependence, who is a current 1 pack per day smoker admitted for further management of CVA. Acute right ischemic thalamic CVA Presented with acute left-sided weakness LKWT 11 am 08/29, out of window for tNK CTA head neck unremarkable. CT brain shows multiple chronic infarcts and encephalomalacia/gliosis of multiple areas, no acute intracranial hemorrhage or abnormality MRI brain revealing acute right thalamic ischemic stroke Echo unremarkable with LVEF 64%, no obvious valvular pathology multiple risk factors: etoh use, tobacco use, HTN, previous stroke, obesity. does not take asa or statin despite previous stroke passed bedside swallow evaluation smoking and alcohol cessation advised A1c 5.1 PT recommends acute rehab Was unable to tolerate atorvastatin 80mg PLAN - aspirin 81 mg OD p.o., atorvastatin 40mg p.o., Plavix 75mg daily - still awaiting acute rehab bed availability COPD no current exacerbation, not on any inhalers HTN Continue amlodipine History of DVT LLE 2021, completed course of apixaban Nicotine dependence patch for NRT smoking cessation advised Alcohol use disorder Drinks 4-5 beers daily cessation advised monitor on CIWA, no evidence of etoh wtihdrawal at this time - VTE: Enoxaparin - CODE STATUS: Full code - DIET: Regular Pt currently waiting on acute rehab placement; plan is to discharge tomorrow when a bed becomes available. Quality Stroke Does the patient have a stroke diagnosis?: Yes Reason for No Anti-thrombotic by Day Two: N/A - Med Ordered VTE Prior VTE?: Yes VTE Risk Level:: Medical - moderate - high VTE Device Contraindication: Treatment Not Indicated VTE Drug Contraindication: N/A - Med Ordered
[2025-09-03 03:18] VITALS: BP 128/65; PULSE 62; RESP 18; TEMP 36.6; O2SAT 95
[2025-09-03 07:20] VITALS: BP 154/74; PULSE 66; RESP 16; TEMP 36.3; O2SAT 95
--- NOTE | 2025-09-03 08:36 | P.DS_ITS ---
DS: Providers Provider Date of Service: 09/03/25 Date of admission: 08/29/25 17:28 Date of discharge: 09/03/25 Primary care physician: Lucho Domínguez MD Consults: 08/29/25 18:18 Consult to Neurology Routine Consulting Provider: Shaheen Sky Reason for consultation: left side weakness DS: Diagnosis Discharge Diagnosis (1) CVA (cerebral vascular accident): Status: Acute DS: Summary Hospital Course Hospital Course: From admission HPI: Date of Service: 08/29/25 Attending physician on admission: Elmer Lam Chief Complaint: left side weakness This is a 60-year-old male with multiple medical issues who presents to the emergency department today with left-sided weakness. Around 11:00 he reports that he was feeling off balance, he went about his day. He then developed left- sided weakness which progressively worsened. He went to the outpatient walk-in clinic who called an ambulance and sent him to the emergency department. In the emergency department he had persistent left upper extremity and left lower extremity weakness. He had brain CT which showed evidence of chronic strokes, CTA was unremarkable. He had admission in 2022 and at that time he was noted to have chronic bright frontal left temporal encephalomalacia probably from head injury and uncontrolled hypertension was seen by Neurology who thought he had small cerebral infarction in the left thalamus or brainstem area due to microvascular disease, recommended antiplatelet agent, statin and blood pressure control as well as avoidance of alcohol. Patient does not appear to take asp irin or statin at this time. He continues to drink 5 or 6 beers daily and smokes 1 pack of cigarettes daily. He was initially resistant to stay in the hospital but is now amenable to staying for further stroke workup. Hospital Course: Pt was admitted to the hospital for presented to ED with left-sided weakness for the past 6+ hours. Pt was outside of the window for TNK therapy and workup in [facility] was unremarkable for acute abnormality, including CTA of head/neck and CT of brain. CT of head, however, showed multiple chronic infarcts though pt was not on any antiplatelet therapy and only on atorvastatin 20 mg daily. Pt also had other significant risk factors including daily alcohol use and current 1 pack a day smoker. MRI of brain was positive for acute right thalamic ischemic stroke, and pt was started on dual antiplatelet therapy by Neurology. Pt was also seen and evaluated by Physical therapy who recommended acute rehab due to persistent left-sided hemiparesis. Hospital stay was uncomplicated, though prolonged due to lack of availability at acute rehab facilities. Pt will be discharged today as a bed has now become available. He will be discharged on aspirin 81 mg daily, Plavix 75 mg daily, and atorvastatin 40 mg at bedtime. Pt has been strongly encouraged to abstain from smoking, and has been prescribed a nicotine patch to help endeavor. Pt also has been strongly encouraged to maintain a low-fat diet and limit alcohol use. Additional details concerning hospital stay as indicated below. Acute right ischemic thalamic CVA Presented with acute left-sided weakness [facility] 11 am 08/29, out of window for tNK CTA head neck unremarkable. CT brain shows multiple chronic infarcts and encephalomalacia/gliosis of multiple areas, no acute intracranial hemorrhage or abnormality MRI brain revealing acute right thalamic ischemic stroke Echo unremarkable with LVEF 64%, no obvious valvular pathology multiple risk factors: etoh use, tobacco use, HTN, previous stroke, obesity. does not take asa or statin despite previous stroke passed bedside swallow evaluation smoking and alcohol cessation advised A1c 5.1 PT recommends acute rehab Was unable to tolerate atorvastatin 80mg, reduced to 40mg PLAN - aspirin 81 mg OD p.o., atorvastatin 40mg p.o., Plavix 75mg daily - discharge to acute rehab when bed is available COPD no current exacerbation, not on any inhalers HTN Continue amlodipine History of DVT LLE 2021, completed course of apixaban Nicotine dependence patch for NRT smoking cessation advised Alcohol use disorder Drinks 4-5 beers daily cessation advised monitor on CIWA, no evidence of etoh wtihdrawal at this time Time Attestation Discharge Coordination Time (in mins): 35 Quality: Safe Use of Opioids Does Pt have an Active Cancer Diagnosis on the Problem List?: No Quality: Stroke Does the patient have a stroke diagnosis?: No Physical Exam Exam: Exam: General: AOx3, no acute distress Resp: CTA bilaterally CVS: S1, S2, RRR GI: +BS, NT, no distention Skin: Warm, dry Neuro: Positive left pronator drift. 4/5 strength of left upper extremity, 3/5 of left lower extremity. Right upper and left lower extremity strength preserved. No facial droop or dysarthria noted. Sensation to light touch intact of face and upper and lower extremities. Extremities: No edema Psych: Appropriate affect Vital Signs: Vital Signs: Last Vital Signs Temp 97.3 F 09/03/25 07:20 Pulse 66 09/03/25 07:20 Resp 16 09/03/25 07:20 BP 154/74 H 09/03/25 07:20 Pulse Ox 95 09/03/25 07:20 O2 Del Method Room Air 09/03/25 07:20 BMI result Body Mass Index 30.1 Discharge Plan Discharge Anticipated Discharge Date/Time: 09/03/25 08:22 Patient Disposition: Xfer Inpatient Rehab Fac Discharge Diagnosis: Acute CVA Referrals: [facility] [Outside] - 1 Week Shaheen Sky MD [Physician, Neurology] - 1 Week Referral Note: Follow up for acute right thalamic ischemic CVA on 08/29 Lucho Domínguez MD [Primary Care Provider, Internal Medicine] - 1 Week Discharge Medications: New aspirin 81 mg tablet 81 mg PO DAILY Qty: 90 0RF Rx Instructions: Take 1 tablet daily clopidogrel [Plavix] 75 mg tablet 75 mg PO DAILY Qty: 90 0RF Rx Instructions: Take 1 tablet daily for stroke prevention atorvastatin [Lipitor] 40 mg tablet 40 mg PO BEDTIME Qty: 90 0RF Rx Instructions: Take 1 tablet daily at bedtime nicotine 21 mg/24 hr patch 24 hour 1 patch transdermal DAILY Qty: 28 0RF Continued cetirizine [Zyrtec] 10 mg tablet 10 mg PO DAILY PRN (Reason: ALLERGIES) amlodipine 5 mg tablet 5 mg PO DAILY Discharge Orders: Discharge Order (Routine); Ordered 09/03/25 Ordered By: Kiah Ernandez Activity on Discharge: As tolerated Stand Alone Forms: Patient Portal Discharge page Print Language: Burkinan Care Plan Goals: See below Health Concerns: Acute stroke Left hemiparesis Atherosclerotic disease Plan of Treatment: You were admitted to the hospital after presenting to the ED with left-sided weakness and workup in the hospital was positive for an acute stroke. Your symptom onset was greater than 4.5 hours and your outside of the window for any antithrombotic therapy. You were seen and evaluated by Neurology and were started on dual antiplatelet therapy with aspirin and Plavix and your atorvastatin was increased to 40 mg daily. You were seen and evaluated by Physical therapy who recommended acute rehab. You had an uncomplicated hospital stay, but hospital stay was prolonged due to lack of availability at acute rehab facilities. He will be discharged today to [facility]. -- take aspirin 81 mg daily, Plavix 75 mg daily, and atorvastatin 40 mg daily at bedtime for stroke prevention. -- follow up with Dr. Sky in Neurology in 1-2 weeks after discharge for stroke management. You were on dual antiplatelet therapy with both aspirin and Plavix; continue taking Plavix until told otherwise by Neurology. -- continue taking amlodipine for blood pressure. Monitor BP closely and have PCP adjust medications to maintain good blood pressure control. -- follow up with PCP in 1 week after discharge from rehab for routine post hospitalization visit Assessment: See discharge summary
[2025-09-03 09:00] VITALS: BP 154/74
[2025-09-03] MEDS: Nicotine 14 MG PATCH.TD24 TRANSDERMA (09:01)
[2025-09-03] MEDS: Aspirin Enteric Coated 81 MG TABLET.DR PO (09:01)
== END 2025-09-03 11:57 | DRG 45 ==
LOC: HO.ED 16:11 → HO.EDOVER 17:30 → HO.IMC 23:24
PROVIDERS: Internal Medicine; Admitting Provider Physician Assistant Medical; Emergency Provider Emergency Medicine; PCP Internal Medicine; Visit Provider Student in an Organized Health Care Education/Training Program
DX: I63.81 Other cerebral infarction due to occlusion or stenosis of small artery (principal); G81.94 Hemiplegia, unspecified affecting left nondominant side; F10.90 Alcohol use, unspecified, uncomplicated; R29.703 NIHSS score 3; F17.210 Nicotine dependence, cigarettes, uncomplicated; R29.810 Facial weakness; J44.9 Chronic obstructive pulmonary disease, unspecified; I10 Essential (primary) hypertension; Z86.718 Personal history of other venous thrombosis and embolism; Z71.6 Tobacco abuse counseling; Z79.899 Other long term (current) drug therapy
CPT/HCPCS: 36415; 70450; 70496; 70498; 70551; 71045; 80053; 80061; 83036; 83735; 84484; 85025; 85610; 85730; 93005; 93306; 97110; 97112; 97116; 97162; 97165; 97530; 97535; 99285; J1650; J3360; J3475; Q9957; Q9967

== ENCOUNTER → 2025-08-29 15:21 | Outpatient (BNV) | payer BC, SELFPAY | PROVIDERS: Admitting Provider Physician Assistant Medical; Emergency Provider Emergency Medicine; PCP Internal Medicine; Visit Provider Internal Medicine | DX: I63.9 Cerebral infarction, unspecified (principal) | CPT/HCPCS: 93010 ==

== ENCOUNTER → 2025-08-29 15:21 | Outpatient (BNV) | payer BC, SELFPAY | PROVIDERS: Visit Provider Radiology Diagnostic Radiology | DX: Z03.89 Encounter for observation for other suspected diseases and conditions ruled out (principal); I63.9 Cerebral infarction, unspecified; G81.94 Hemiplegia, unspecified affecting left nondominant side; R29.810 Facial weakness; R53.1 Weakness | CPT/HCPCS: 70450; 70496; 70498; 70551; 71045 ==

== ENCOUNTER 2025-08-29 17:28 | Outpatient (BNV) | payer BC, SELFPAY | END 2025-08-31 07:00 | PROVIDERS: Admitting Provider Physician Assistant Medical; Emergency Provider Emergency Medicine; PCP Internal Medicine; Visit Provider Internal Medicine | DX: I63.9 Cerebral infarction, unspecified (principal) | CPT/HCPCS: 93306 ==

== ENCOUNTER → 2025-08-29 17:28 | Outpatient (BNV) | payer BC, SELFPAY | PROVIDERS: Admitting Provider Physician Assistant Medical; Emergency Provider Emergency Medicine; PCP Internal Medicine; Visit Provider Physician Assistant Medical | DX: I63.411 Cerebral infarction due to embolism of right middle cerebral artery (principal); J44.9 Chronic obstructive pulmonary disease, unspecified; R05.9 Cough, unspecified; T46.4X5A Adverse effect of angiotensin-converting-enzyme inhibitors, initial encounter; M62.81 Muscle weakness (generalized); F17.210 Nicotine dependence, cigarettes, uncomplicated; F10.90 Alcohol use, unspecified, uncomplicated; Z86.73 Personal history of transient ischemic attack (TIA), and cerebral infarction without residual deficits | CPT/HCPCS: 99222; 99232; 99233; 99239 ==

== ENCOUNTER → 2025-08-29 17:28 | Outpatient (BNV) | payer BC, SELFPAY | PROVIDERS: Admitting Provider Physician Assistant Medical; Emergency Provider Emergency Medicine; PCP Internal Medicine; Visit Provider Psychiatry & Neurology Neurology | DX: I63.81 Other cerebral infarction due to occlusion or stenosis of small artery (principal) | CPT/HCPCS: 99253 ==

== ENCOUNTER 2025-09-18 14:59 | Outpatient (AMB) | payer BC, SELFPAY ==
--- OUTSIDE RECORDS SUMMARY | 2025-09-03 12:37 | XMS_ITS | Encounter Summary ---
Author Organization [facility] Address [address] [place] [address] Care Team Providers Care Crap Game Box Person Name Role Phone Lucho Domínguez MD Primary Care Provider [phone] Reason for Visit * Auth/Cert (Routine) Specialty Diagnoses / Procedures Referred By Contac t Referred To Contact Diagnoses stroke Procedures INPATIENT REHAB FACILITY PROSPECTIVE PAYMENT SYSTEM ([facility]) Christina Jaramillo DO [address] [facility] [place] [address] Phone: tel: fax: [facility] Inpatient Rehab [address] [place] [address] Phone: tel: Referral ID Status Reason Start Date Expiration Date Visits Re quested Visits Authorized [id number] 1 1 Encounter Details Date Type Department Care Team (Latest Contact Info) Description 09/03/2025 12:37 PM EST - 09/17/2025 11:02 AM EST Hospital Encounter [facility] Inpatient Rehab [address] [place] [id number] Christina Jaramillo DO [address] [place] [address] Discharge Disposition: Home or Self Care Social History Tobacco Use Types Packs/Day Years Used Date Smoking Tobacco: Every Day Cigarettes 42 Started: 1983 Smokeless Tobacco: Never Tobacco Cessation:Ready to Q uit: Yes; Counseling Given: Not Answered Alcohol Use Standard Drinks/Week Comments Yes 3 (1 standard drink = 0.6 oz pur e alcohol) 3 beers per day Housing Instability Answer Date Recorde d Are you worried that in the next 2 months you may not have stable housing? No 09/03/2025 Food Access & Nutrition Answer Date Rec orded Do you have access to a vari ety of food including fruits and vegetables? No 09/03/2025 Health Literacy Answer Date Recorded How often do you need to hav e someone help you when you read instructions, pamphlets, or other written material from your doctor or pharmacy? Never 09/16/2025 Caregiver: How often do you need to have someone help you when you read instructions, pamphlets, or other written material from your doctor or pharmacy? Not on file 09/16/2025 Financial Risk Answer Date Recorded How hard is it for you to pa y for the very basics like food, housing, medical care, and air conditioning / heating? Not very hard 09/03/2025 Transportation Answer Date Recorded Has the lack of transportati on kept you from meetings, work, or from getting things needed for daily living? No Has the lack of transportati on kept you from medical appointments or from getting medications? No 09/04/2025 Social Isolation Answer Date Recorded How often do you feel lonely or isolated from th ose around you? Never 09/16/2025 Food Risk Answer Date Recorded Within the past 12 months we worried whether our food would run out before we got money to buy more. Never true 09/03/2025 Within the past 12 months th e food we bought just didn't last and we didn't have money to get more. Never true 09/03/2025 Dependent Care Answer Date Recorded Do you need help finding or paying for care for your loved ones. For example, children's service worker or elderly care for an older adult? No 09/03/2025 Education Answer Date Recorded Do you think completing more education or training, like finishing a GED, going to college, or learning a trade, would be helpful for you? No 09/03/2025 Employment and Income Answer Date Recor ded During the last four weeks, have you been actively looking for work? No 09/03/2025 Living Situation Answer Date Recorded What is your living situation? Unrecognized valu e 09/03/2025 Interpersonal Safety Answer Date Record ed Physical Abuse Unrecognized value 09/03/2025 Verbal Abuse Unrecognized value 09/03/2025 Sex and Gender Information Value Date Recorded Sex Assigned at Male 09/01/2025 12:37 PM EST Legal Sex Male 12:36 PM EST Gender Identity Male 09/01/2025 12:37 PM EST Sexual Orientation Choose not to disclose 2024 12:37 PM EST documented as of this encounter Last Filed Vital Signs Vital Sign Reading Time Taken Comments Blood Pressure 120/76 09/17/2025 9:19 AM EST Pulse 80 09/17/2025 9:19 AM EST Temperature 36.4 C (97.5 F) 09/17/2025 9:19 AM EST Respiratory Rate 16 09/17/2025 9:19 AM EST Oxygen Saturation 96% 09/17/2025 9:19 AM EST Inhaled Oxygen Concentration - - Weight 111 kg (243 lb 11.2 oz) 09/13/2025 9:00 A M EST Height - - Body Mass Index 29.68 09/03/2025 8:38 AM EST documented in this encounter Functional Status * Calculated C-SSRS Risk Score (Lifetime/Recent) Answer Date of Assessment Author No Risk Indicated 09/03/2025 7:11 PM EST Daniela Mariee RN * Hart Suicide Severity Rating Scale (Screener/Recent Self-Report) Question Answer Date of Assessment Author 1. Wish to be (Past 1 Month) No 025 7:11 PM EST Daniela Mariee RN 2. Non-Specific Active Suici liam Thoughts (Past 1 Month) No 09/03/2025 7:11 PM EST Daniela Mariee RN 6. Suicidal Behavior (Lifetime) No 7:11 PM EST Daniela Mariee RN documented as of this encounter Discharge Summaries * Christina Jaramillo, - 09/16/2025 4:41 PM EST Images from the original note were not included. PHYSICAL MEDICINE AND REHABILITATION Discharge Summary Patient Name: David Poon Date of : 1965 Sex: Male Admit Date/Time: 09/03/2025 12:37 PM Discharge Date: 09/17/25 HPI: From H&P: Mr Poon is a 60yo male with PMH significant for hypertension, history of left lowerextremity DVT in 2021 s/p completion of apixaban, tobacco dependence, and alcohol use who [facility] with left-sided weakness and balance impairment. CT head showed evidence of chronic strokes. CTA was unremarkable. Patient was outside of window for TNK. MRI brain was positive for acute right thalamic ischemic CVA. Patient was started on dual antiplatelet therapy by neurology. He was continued on atorvastatin 40 mg nightly. Patient passed bedside swallow evaluation. A1c was 5.1. He was continued on amlodipine for hypertension. Admitted to IRF on 09/03/25 for continued rehabilitation needs. Patient seen and examined at bedside this afternoon. He reports continued left-sided weakness. He is agreeable to therapy program. HOSPITAL COURSE: #Acute CVA #Left hemiparesis - MRI brain was positive for acute right thalamic ischemic CVA - Neurology recommended continuing DAPT and statin until outpatient follow-up for further recommendations - Aspirin 81 mg daily - Plavix 75 mg daily - Atorvastatin 40 mg nightly - Continue therapies - f/u [facility] (Dr Sky) after discharge #Hypertension - Amlodipine 5 mg daily #Tobacco dependence - Nicotine 21 mg patch daily #History of alcohol use - Monitored on CIWA during acute hospital stay without withdrawal appreciated - Folic acid daily - Thiamine daily #Allergic rhinitis - Loratadine 10mg daily #Bowel management - Colace 100 mg twice daily - Senna 2 tabs nightly - Miralax 17gm daily #DVT prophylaxis: Lovenox 40mg daily discontinued on 09/09 given that patient is ambulatory, continue DAPT and ambulation with therapies as tolerated PHYSICAL EXAMINATION: Vitals: 09/15/25 1530 09/16/25 0555 09/16/25 0815 09/16/25 1530 BP: 136/67 112/76 125/88 133/74 BP Location: Left arm Right arm Left arm Left arm Patient Position: Sitting Sitting Sitting Sitting Pulse: 82 70 68 80 Resp: 18 19 18 18 Temp: 36.3 ??C (97.3 ??F) 36.4 ??C (97.5 ??F) 36.4 ??C (97.5 ??F) 36.7 ??C (98.1 ??F) TempSrc: Oral Oral Oral Oral SpO2: 97% 98% 92% 98% Weight: General: Alert, in no acute cardiopulmonary distress. Mental Status: Oriented to person, place and time. Normal affect. Head: Normocephalic. Eyes: Extraocular muscles intact. Ear, Nose and Throat: Oropharynx clear, mucous membranes moist. Ears and nose without masses, lesions or deformities. Neck: Supple, Trachea midline. Respiratory: Clear to auscultation and percussion. No wheezing, rales or rhonchi. Cardiovascular: Heart sounds normal. Regular rate and rhythm, no murmurs, rubs or gallops. Gastrointestinal: Abdomen soft, non-tender, non-distended. Normal bowel sounds. Neurologic: Cranial nerves II-XII intact. Negative Hoffmans sign on the left. Negative clonus on the left. Moves all extremities spontaneously. Sensation intact bilaterally. Skin: No rashes or lesions. No petechiae or purpura. Musculoskeletal: No cyanosis or clubbing. No gross deformities. Normal range of motion. Strength 5/5 throughout right upper and lower extremities. Strength 5/5 left shoulder abduction, 5/5 left elbowflexion, 5/5 left elbow extension, 5/5 left wrist extension, 4/5 left finger abduction. Strength 5/5 left hip flexion, 5/5 left knee extension, 4/5 left dorsiflexion, 4/5 left plantarflexion, 1/5 left EHL. LABS: Lab Results Component Value Date WBC 8.2 09/10/2025 RBC 4.30 (L) 09/10/2025 HGB 14.6 09/10/2025 HCT 42.3 09/10/2025 MCV 97.5 09/10/2025 MCHC 34.5 09/10/2025 RDW 11.0 09/10/2025 PLT 279 09/10/2025 MPV 9.1 09/10/2025 NRBC 0.0 09/10/2025 DIFF Lab Results Component Value Date LYMPHOPCT 24.3 09/04/2025 NEUTROABS 5.81 09/04/2025 LYMPHSABS 2.15 09/04/2025 MONOABS 0.68 09/04/2025 EOSABS 0.18 09/04/2025 BASOSABS 0.03 09/04/2025 IMMGRANABS 0.01 09/04/2025 RETIC No results found for: RETIC , RETICCTPCT Lab Results Component Value Date NA 139 09/10/2025 K 4.3 09/10/2025 CL 104 09/10/2025 CO2 27 09/10/2025 GLUCOSE 78 09/10/2025 BUN 9 09/10/2025 CREATININE 0.85 09/10/2025 CALCIUM 8.9 09/10/2025 PROT 6.0 09/10/2025 ALBUMIN 3.6 09/10/2025 BILITOT 0.9 09/10/2025 AST 23 09/10/2025 ALT 29 09/10/2025 MG 2.0 09/10/2025 ALKPHOS 46 09/10/2025 EGFR 99 09/10/2025 IMAGING: None DISCHARGE MEDICATIONS: Your medication list START taking these medications Instructions Last Dose Given Next Dose Due cholecalciferol 50 mcg (2,000 unit) tablet Commonly known as: VITAMIN D-3 Start taking on: September 17, 2025 Take 1 tablet (2,000 Units total) by mouth 1 (one) time each day. docusate sodium 100 mg capsule Commonly known as: COLACE Take 1 capsule (100 mg total) by mouth 2 (two) times a day. folic acid 1 mg tablet Commonly known as: FOLVITE Start taking on: September 17, 2025 Take 1 tablet (1 mg total) by mouth 1 (one) time each day. loratadine 10 mg tablet Commonly known as: CLARITIN Start taking on: September 17, 2025 Take 1 tablet (10 mg total) by mouth 1 (one) time each day. polyethylene glycol 17 gram packet Commonly known as: MIRALAX Start taking on: September 17, 2025 Take 17 g by mouth 1 (one) time each day. senna 8.6 mg tablet Commonly known as: SENOKOT Take 2 tablets (17.2 mg total) by mouth at bedtime. thiamine 100 mg tablet Commonly known as: VITAMIN B-1 Start taking on: September 17, 2025 Take 1 tablet (100 mg total) by mouth 1 (one) time each day. CONTINUE taking these medications Instructions Last Dose Given Next Dose Due amLODIPine 5 mg tablet Commonly known as: NORVASC Take 1 tablet (5 mg total) by mouth 1 (one) time each day. aspirin 81 mg EC tablet Take 1 tablet (81 mg total) by mouth 1 (one) time each day. atorvastatin 40 mg tablet Commonly known as: LIPITOR Take 1 tablet (40 mg total) by mouth at bedtime. clopidogreL 75 mg tablet Commonly known as: PLAVIX Take 1 tablet (75 mg total) by mouth 1 (one) time each day. nicotine 21 mg/24 hr Commonly known as: NICODERM CQ Place 1 patch on the skin 1 (one) time each day at the same time. STOP taking these medications cetirizine 10 mg tablet Commonly known as: ZyrTEC Where to Get Your Medications These medications were sent to [facility] - [facility] [place] - [address] [facility] [address] [facility] [id number] amLODIPine 5 mg tablet aspirin 81 mg EC tablet atorvastatin 40 mg tablet cholecalciferol 50 mcg (2,000 unit) tablet clopidogreL 75 mg tablet docusate sodium 100 mg capsule folic acid 1 mg tablet loratadine 10 mg tablet nicotine 21 mg/24 hr polyethylene glycol 17 gram packet senna 8.6 mg tablet thiamine 100 mg tablet DISCHARGE RECOMMENDATIONS: Code Status: Full Code - Default Diet: Regular diet with thin liquids. Weight Bearing Precautions: Weight bearing as tolerated. Wound Care Instructions: Skin intact, no dressings needed. Patient/PCP Follow Up Instructions: Follow up with Neurology for further management of stroke. DISCHARGE FOLLOW UP APPOINTMENTS: Schedule an appointment with Tiesha Domínguez MD as soon as possible for a visit in 7 days Specialty: Internal Medicine Hospital Follow Up Appointment the office will be calling you to schedule an appointment.If you do not hear for the office in 5 days please call [phone]. [facility] [address] [facility] [id number] Go to [facility] MD Sunday Specialty: Neurology 3:00PM [address] [id number] Go to [facility] Sunday 2:00pm Arrive at 1:45pm [address] [address] Go to [facility] Oct 08, 2025 1:00pm Arrive at 12:45pm [address] [address] * Suzanne Noe RN - 09/08/2025 12:38 PM EST NO DRIVING UNTIL YOU ARE CLEARED BY NEUROLOGY documented in this encounter Discharge Instructions * Discharge Instructions* Christina Jaramillo DO - 09/16/2025 4:44 PM EST Code Status: Full Code - Default Diet: Regular diet with thin liquids. Weight Bearing Precautions: Weight bearing as tolerated. Wound Care Instructions: Skin intact, no dressings needed. Patient/PCP Follow Up Instructions: Follow up with Neurology for further management of stroke. documented in this encounter Medications at Time of Discharge amLODIPine (NORVASC) 5 mg tablet Take 1 tablet (5 mg total) by mouth 1 (one) time each day. 30 each 09/16/2025 6 aspirin 81 mg EC tabletIndications:cer ebral thromboembolism prevention Take 1 tablet (81 mg total) by mouth 1 (one) time each day. 30 each 09/16/2025 6 atorvastatin (LIPITOR) 40 mg tablet Take 1 tablet (40 mg total) by mouth at bedtime. 30 each 09/16/2025 6 cholecalciferol (VITAMIN D-3) 50 mcg (2,000 unit) tablet Take 1 tablet (2,000 Units total) by mouth 1 (one) time each day. 30 tablet 09/17/2025 6 clopidogreL (PLAVIX) 75 mg tabletIndications:cer ebral thromboembolism prevention Take 1 tablet (75 mg total) by mouth 1 (one) time each day. 30 each 09/16/2025 6 docusate sodium (COLACE) 100 mg capsule Take 1 capsule (100 mg total) by mouth 2 (two) times a day. 60 each 09/16/2025 6 folic acid (FOLVITE) 1 mg tablet Take 1 tablet (1 mg total) by mouth 1 (one) time each day. 30 each 09/17/2025 6 loratadine (CLARITIN) 10 mg tablet Take 1 tablet (10 mg total) by mouth 1 (one) time each day. 30 each 09/17/2025 6 nicotine (NICODERM CQ) 21 mg/[address] 1 patch on the skin 1 (one) time each day at the same time. 30 each 09/16/2025 6 polyethylene glycol (MIRALAX) 17 gram packet Take 17 g by mouth 1 (one) time each day. 510 g 09/17/2025 6 senna (SENOKOT) 8.6 mg tablet Take 2 tablets (17.2 mg total) by mouth at bedtime. 60 each 09/16/2025 6 thiamine (VITAMIN B-1) 100 mg tablet Take 1 tablet (100 mg total) by mouth 1 (one) time each day. 30 tablet 09/17/2025 6 documented as of this encounter Ordered Prescriptions Prescription Sig Dispense Quantity Refills Last Filled Start Date End Date thiamine (VITAMIN B-1) 100 mg tablet Take 1 tablet (100 mg total) by mouth 1 (one) time each day. 30 tablet 09/17/2025 6 senna (SENOKOT) 8.6 mg tablet Take 2 tablets (17.2 mg total) by mouth at bedtime. 60 each 09/16/2025 6 polyethylene glycol (MIRALAX) 17 gram packet Take 17 g by mouth 1 (one) time each day. 510 g 09/17/2025 6 loratadine (CLARITIN) 10 mg tablet Take 1 tablet (10 mg total) by mouth 1 (one) time each day. 30 each 09/17/2025 6 folic acid (FOLVITE) 1 mg tablet Take 1 tablet (1 mg total) by mouth 1 (one) time each day. 30 each 09/17/2025 6 docusate sodium (COLACE) 100 mg capsule Take 1 capsule (100 mg total) by mouth 2 (two) times a day. 60 each 09/16/2025 6 cholecalciferol (VITAMIN D-3) 50 mcg (2,000 unit) tablet Take 1 tablet (2,000 Units total) by mouth 1 (one) time each day. 30 tablet 09/17/2025 nicotine (NICODERM CQ) 21 mg/[address] 1 patch on the skin 1 (one) time each day at the same time. 30 each 09/16/2025 6 clopidogreL (PLAVIX) 75 mg tabletIndications:cer ebral thromboembolism prevention Take 1 tablet (75 mg total) by mouth 1 (one) time each day. 30 each 09/16/2025 6 atorvastatin (LIPITOR) 40 mg tablet Take 1 tablet (40 mg total) by mouth at bedtime. 30 each 09/16/2025 6 aspirin 81 mg EC tabletIndications:cer ebral thromboembolism prevention Take 1 tablet (81 mg total) by mouth 1 (one) time each day. 30 each 09/16/2025 6 amLODIPine (NORVASC) 5 mg tablet Take 1 tablet (5 mg total) by mouth 1 (one) time each day. 30 each 09/16/2025 6 documented in this encounter Discharge Disposition Disposition Code Departure Means Destination Comment s Home or Self Care documented in this encounter Progress Notes * Suzanne Noe RN - 09/16/2025 2:35 PM EST Discharge Note: Met with pt at bedside to review discharge plan. Pt is medically cleared for discharge. Pt will discharge home tomorrow 09/17 at 11am. Pt will be transported home by his Sig Other . Pt will discharge with Outpatient services and PT and OT. Pt had no questions or concerns at this time. Patient choice form and discharge notification form completed copy in chart . * Suzanne Noe RN - 09/16/2025 12:12 PM EST Team Meeting: Met with pt at bedside to review post team recommendations. Pt to be D/C'd home on tomorrow with outpatient services. Pt has made continued progress toward therapy goals. Status: Mod I with all ADLs ambulating 150 feet with RW No barriers to discharge identified Patient is in agreement with recommendations, DC date and plan. Pt had no further questions or concerns at this time. * Christina Jaramillo, DO - 09/16/2025 11:59 AM EST Images from the original note were not included. [facility] Daily Progress Note Patient name: David Poon : 1965 SUBJECTIVE: Patient seen and examined at bedside today. No acute events overnight. Denies headaches, dizziness,shortness of breath, chest pain, nausea, constipation, and pain. Reports continued left sided weakness. Family training was completed and patient reports that he is very happy he is going home tomorrow. Participating in therapies: PT: Comments: Patient discharged from this level of care, therapist recommending Outpatient physical therapy once discharged from this level of care to improve LE Strength, endurance, balance , mobility deficits , motor coordination , and gait and assist patient in returning to prior level of function. OT: Comments: Pt has progressed from requiring partial A w/ ADLs to mod Ind. Pt's SO has obtained tub mofer bench. Pt's barriers continue to be higher level dynamic balance, tasks requiring divided attention and L UE coordination. 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 TEAM CONFERENCE: I was present and participated in team meeting today. I agree with team conferenceplan as documented in alternate note today. Please refer to team conference note for further details. OBJECTIVE: Vitals: 09/15/25 0754 09/15/25 1530 09/16/25 0555 09/16/25 0815 BP: 124/72 136/67 112/76 125/88 BP Location: Left arm Left arm Right arm Left arm Patient Position: Sitting Sitting Sitting Sitting Pulse: 85 82 70 68 Resp: 18 18 19 18 Temp: 36.5 ??C (97.7 ??F) 36.3 ??C (97.3 ??F) 36.4 ??C (97.5 ??F) 36.4 ??C (97.5 ??F) TempSrc: Oral Oral Oral Oral SpO2: 94% 97% 98% 92% Weight: Physical Examination: General: Alert, in no acute cardiopulmonary distress. Mental Status: Oriented to person, place and time. Normal affect. Head: Normocephalic. Eyes: Extraocular muscles intact. Ear, Nose and Throat: Oropharynx clear, mucous membranes moist. Ears and nose without masses, lesions or deformities. Neck: Supple, Trachea midline. Respiratory: Clear to auscultation and percussion. No wheezing, rales or rhonchi. Cardiovascular: Heart sounds normal. Regular rate and rhythm, no murmurs, rubs or gallops. Gastrointestinal: Abdomen soft, non-tender, non-distended. Normal bowel sounds. Neurologic: Cranial nerves II-XII intact. Negative Hoffmans sign on the left. Negative clonus on the left. Moves all extremities spontaneously. Sensation intact bilaterally. Skin: No rashes or lesions. No petechiae or purpura. Musculoskeletal: No cyanosis or clubbing. No gross deformities. Normal range of motion. Strength 5/5 throughout right upper and lower extremities. Strength 5/5 left shoulder abduction, 5/5 left elbowflexion, 5/5 left elbow extension, 5/5 left wrist extension, 4/5 left finger abduction. Strength 5/5 left hip flexion, 5/5 left knee extension, 4/5 left dorsiflexion, 4/5 left plantarflexion, 1/5 left EHL. CURRENT INPATIENT MEDICATIONS: Current Medications[1] LABS: Lab Results Component Value Date WBC 8.2 09/10/2025 RBC 4.30 (L) 09/10/2025 HGB 14.6 09/10/2025 HCT 42.3 09/10/2025 MCV 97.5 09/10/2025 MCHC 34.5 09/10/2025 RDW 11.0 09/10/2025 PLT 279 09/10/2025 MPV 9.1 09/10/2025 NRBC 0.0 09/10/2025 DIFF Lab Results Component Value Date LYMPHOPCT 24.3 09/04/2025 NEUTROABS 5.81 09/04/2025 LYMPHSABS 2.15 09/04/2025 MONOABS 0.68 09/04/2025 EOSABS 0.18 09/04/2025 BASOSABS 0.03 09/04/2025 IMMGRANABS 0.01 09/04/2025 RETIC No results found for: RETIC , RETICCTPCT Lab Results Component Value Date NA 139 09/10/2025 K 4.3 09/10/2025 CL 104 09/10/2025 CO2 27 09/10/2025 GLUCOSE 78 09/10/2025 BUN 9 09/10/2025 CREATININE 0.85 09/10/2025 CALCIUM 8.9 09/10/2025 PROT 6.0 09/10/2025 ALBUMIN 3.6 09/10/2025 BILITOT 0.9 09/10/2025 AST 23 09/10/2025 ALT 29 09/10/2025 MG 2.0 09/10/2025 ALKPHOS 46 09/10/2025 EGFR 99 09/10/2025 IMPRESSION & PLAN: #Impaired mobility and self-care - Secondary to acute CVA - Continue PT, OT, AIRCRAFT PAINTER, and nursing care #Acute CVA #Left hemiparesis - MRI brain was positive for acute right thalamic ischemic CVA - Neurology recommended continuing DAPT and statin until outpatient follow-up for further recommendations - Aspirin 81 mg daily - Plavix 75 mg daily - Atorvastatin 40 mg nightly - Continue therapies - f/u [facility] (Dr Sky) after discharge #Hypertension - Amlodipine 5 mg daily #Tobacco dependence - Nicotine 21 mg patch daily #History of alcohol use - Monitored on CIWA during acute hospital stay without withdrawal appreciated #Allergic rhinitis - Loratadine 10mg daily #Bowel management - Colace 100 mg twice daily - Senna 2 tabs nightly - Miralax 17gm daily - last BM 09/13 per patient report #DVT prophylaxis: Lovenox 40mg daily discontinued on 09/09 given that patient is ambulatory, continue DAPT and ambulation with therapies as tolerated [1] Current Facility-Administered Medications: acetaminophen (TYLENOL) tablet 650 mg, 650 mg, oral, q6h PRN, JIMMY Mullins aluminum-magnesium hydroxide-simethicone (MAALOX) 200-200-20 mg/5 mL suspension 30 mL, 30 mL, oral,q4h PRN, Christina Jaramillo DO amLODIPine (NORVASC) tablet 5 mg, 5 mg, oral, Daily, JIMMY Mullins, 5 mg at 09/16/25 0816 aspirin EC tablet 81 mg, 81 mg, oral, Daily, JIMMY Mullins, 81 mg at 09/16/25 0816 atorvastatin (LIPITOR) tablet 40 mg, 40 mg, oral, Nightly, JIMMY Mullins, 40 mg at 09/15/25 2200 bisacodyL (DULCOLAX) suppository 10 mg, 10 mg, rectal, Daily PRN, JIMMY Mullins cholecalciferol (VITAMIN D-3) tablet 2,000 Units, 2,000 Units, oral, Daily, Elba Gilmore, MINDY, 2,000 Units at 09/16/25 0816 clopidogreL (PLAVIX) tablet 75 mg, 75 mg, oral, Daily, JIMMY Mullins, 75 mg at 09/16/25 0816 docusate sodium (COLACE) capsule 100 mg, 100 mg, oral, BID, JIMMY Mullins, 100 mg at 200 folic acid (FOLVITE) tablet 1 mg, 1 mg, oral, Daily, JIMMY Rae, 1 mg at 09/16/25 0816 loratadine (CLARITIN) tablet 10 mg, 10 mg, oral, Daily, Christina Jaramillo DO, 10 mg at 09/16/25 0816 magnesium hydroxide (MILK OF MAGNESIA) 400 mg/5 mL suspension 30 mL, 30 mL, oral, Daily PRN, JIMMY Mullins, 30 mL at 09/14/25 2159 nicotine (NICODERM CQ) 21 mg/24 hr patch 1 patch, 1 patch, transdermal, q24h, JIMMY Rae,1 patch at 09/16/25 0816 polyethylene glycol (MIRALAX) packet 17 g, 17 g, oral, Daily, Christina Jaramillo DO, 17 g at 09/13/25 1018 senna (SENOKOT) tablet 17.2 mg, 2 tablet, oral, Nightly, JIMMY Mullins, 17.2 mg at 09/15/25 2200 thiamine (VITAMIN B-1) tablet 100 mg, 100 mg, oral, Daily, JIMMY Rae, 100 mg at 816 * Ruth Valdes, PT - 09/16/2025 8:39 AM EST [facility] Physical Therapy Discharge Evaluation Note 09/16/2025 Patient: David Poon : 1965 Age: 60 y.o. Gender: male Primary Language: Pakistani Diagnosis: CVA (cerebral vascular accident) ([facility] V24, [facility] V28) HPI: Defer to EMR Medical History[1] Surgical History[2] Allergies: is allergic to lisinopril. Precautions: Medical Precautions: Fall Risk Safety Interventions: ID band on, Call gallardo within reach, Personal alarm on, Chair alarm, Bed alarm RUE Weight Bearing Status: Full LUE Weight Bearing Status: Full RLE Weight Bearing Status: Full LLE Weight Bearing Status: Full Orthoses Applied: (training AFO left LE) SUBJECTIVE What are we doing Home Living: Type of Home: House Lives With: Alone (girlfriend lamberto) Home Adaptive Equipment: (Pt reports mother has RW available) Home Living Comments: Mother and sister live on [address]s [address] and able to A Home Layout: One level Home Access: Stairs to enter without rails Entrance Stairs-Rails: None Entrance Stairs-Number of Steps: 2 Bathroom Shower/Tub: Tub/shower unit Bathroom Toilet: Standard Bathroom Equipment: None Pain: Pt endorsing stiffness in LE OBJECTIVE General Observation: In WC agreeable to participating in therapy session. Cognition/Communication: Orientation Level: Oriented X4 Vitals: BP: (!) 138/95 Heart Rate: 97 SpO2: 97 % QUALITY INDICATORS SCORING: Bed Mobility Roll Left and Right Assistance Needed: Independent CARE Score - Roll Left and Right: 6 Sit to Lying Assistance Needed: Independent CARE Score - Sit to Lyin Lying to Sitting on Side of Bed Assistance Needed: Independent CARE Score - Lying to Sitting on Side of Bed: 6 Transfers Sit to Stand Assistance Needed: Independent Physical Assistance Level: No physical assistance CARE Score - Sit to Stand: 6 Chair/Gzn-zk-Nbpyw Transfer Assistance Needed: Independent Physical Assistance Level: No physical assistance CARE Score - Chair/Hql-gr-Ruznd Transfer: 6 Toilet Transfer Assistance Needed: Independent Physical Assistance Level: No physical assistance CARE Score - Toilet Transfer: 6 Car Transfer Assistance Needed: Independent CARE Score - Car Transfer: 6 Ambulation Walk 10 Feet Assistance Needed: Independent Physical Assistance Level: No physical assistance Comment: rw CARE Score - Walk 10 Feet: 6 Walk 50 Feet with Two Turns Assistance Needed: Independent Physical Assistance Level: No physical assistance Comment: rw CARE Score - Walk 50 Feet with Two Turns: 6 Walk 150 Feet Assistance Needed: Independent Physical Assistance Level: No physical assistance Comment: rw CARE Score - Walk 150 Feet: 6 Walking 10 Feet on Uneven Surfaces Assistance Needed: Independent Comment: rw CARE Score - Walking 10 Feet on Uneven Surfaces: 6 Stairs 1 Step (Curb) Assistance Needed: Independent Physical Assistance Level: No physical assistance CARE Score - 1 Step (Curb): 6 4 Steps Assistance Needed: Independent Physical Assistance Level: No physical assistance CARE Score - 4 Steps: 6 12 Steps Assistance Needed: Independent Physical Assistance Level: No physical assistance CARE Score - 12 Steps: 6 Call Out Operator Object Picking Up Object Assistance Needed: Independent Physical Assistance Level: No physical assistance CARE Score - Picking Up Object: 6 Wheelchair Uses a Wheelchair/Scooter? Uses a Wheelchair/Scooter?: No Wheel 50 Feet with Two Turns Assistance Needed: Physical assistance Physical Assistance Level: 25% or less CARE Score - Wheel 50 Feet with Two Turns: 3 Type of Wheelchair/Scooter: Manual Wheel 150 Feet Assistance Needed: Physical assistance Physical Assistance Level: 25% or less CARE Score - Wheel 150 Feet: 3 Type of Wheelchair/Scooter: Manual Uses a Wheelchair/Scooter? Uses a Wheelchair/Scooter?: No PT TREATMENT PROVIDED TODAY: Neuromuscular Reeducation Balance/Neuromuscular Re-Education Neuromuscular Re-Education Time Entry: 90 Pt seen from 10:00-11:00am. Pt in room mod-I. Pt ambulating x200ft with RW to therapy gym. Pt with no questions for d/c home. Pt completed PERDOMO, pt scored 44/56 on PERDOMO, education on risk of falls. Pt verbalized understanding, pt ambulating over uneven surface mod-I with RW. Pt completed x12 stairsmod-I with bilat. Rails. Pt ambulating x150ft, x100ft mod-I with RW to room. Pt left mod-I in room. 09/16/25 1000 Perdomo Balance Scale 1. Sitting to Standing 3 2. Standing Unsupported 4 3. Sitting with Back Unsupported but Feet Supported on Floor or on a Stool 4 4. Standing to Sitting 4 5. Transfers 4 6. Standing Unsupported with Eyes Closed 4 7. Standing Unsupported with Feet Together 3 8. Reach Forward with Outstretched Arm While Standing 4 9. Call Out Operator Object from Floor from a Standing Position 4 10. Turning to Look Behind Over Left and Right Shoulders While Standing 3 11. Turn [address] Foot on Step or Stool While Standing Unsupported 0 13. Standing Unsupported One Foot in Front 3 14. Standing on One Leg 4 Perdomo Balance Score 44 Pt seen from 15:40-16:10pm. Pt ambulating to therapy gym mod-I. Pt completed 10MWT 09/16/25 1620 10 Meter Walk Test, Self Selected Speed Trial 1 (Seconds) 14.36 meters/second Trial 2 (Seconds) 15.04 Seconds Average Time at Comfortable Walking Speed 14.7 Seconds Speed in Meters/Second 0.41 Seconds Assistive Devices Assistive Devices Walker - rolling Pt completed TUG 24.52 seconds with RW. Pt completed ascending and descending 4 inch step and 8 inch step with RW, mod-I x2 trials. Pt ascending step to leading with RLE, descending backwards with LLE. Pt completed STS from mat table, without UE support, SUP steadying assistance for activity. Pt agreeable to all recommendations for d/c home. Pt ambulating back to room mod-I. Pt left seated in WC, call gallardo in reach, all needs met. Pt mod-I in room. PT ASSESSMENT: PT Assessment Results: Decreased strength, Decreased endurance, Impaired balance, Decreased mobility, Impaired gait Prognosis: Good Evaluation/Treatment Tolerance: Patient tolerated treatment well Comments: Patient discharged from this level of care, therapist recommending Outpatient physical therapy once discharged from this level of care to improve LE Strength, endurance, balance , mobility deficits , motor coordination , and gait and assist patient in returning to prior level of function. PT PLAN: Treatment/Interventions: Functional transfer training, LE strengthening/ROM, Patient/family training, Equipment eval/education, Bed mobility, Gait training, Compensatory technique education, Balance training, Stair training, Continued evaluation PT Plan: Skilled PT PT Discharge Recommendations: Outpatient PT Equipment Recommended: Walker - rolling Goals: Encounter Problems Encounter Problems (Active) There are no active problems. Encounter Problems (Resolved) Template: Physical Therapy Problem: PT Long-Term Goals Dates: Start: 09/04/25 Resolved: 09/16/25 Goal: mod-I transfers LRAD (Resolved) Dates: Start: 09/04/25 Resolved: 09/16/25 Outcomes Date/Time User Outcome 09/16/25 Leslye Valdes PT Completed Goal: mod-I x12 stairs (Resolved) Dates: Start: 09/04/25 Resolved: 09/16/25 Outcomes Date/Time User Outcome 09/16/25 Leslye Valdes PT Completed Goal: mod-I ambulation x150ft LRAD (Resolved) Dates: Start: 09/04/25 Resolved: 09/16/25 Outcomes Date/Time User Outcome 09/16/25 Leslye Valdes PT Completed Goal: mod-I x2 stairs LRAD (Resolved) Dates: Start: 09/04/25 Resolved: 09/16/25 Outcomes Date/Time User Outcome 09/16/25 Leslye Valdes PT Completed Problem: PT Short Term Goals Dates: Start: 09/04/25 Resolved: 09/16/25 Goal: mod-I bed mobility (Resolved) Dates: Start: 09/04/25 Resolved: 09/16/25 Outcomes Date/Time User Outcome 09/16/25 Leslye Valdes PT Completed Goal: SUP transfers LRAD (Resolved) Dates: Start: 09/04/25 Resolved: 09/16/25 Outcomes Date/Time User Outcome 09/16/25 Leslye Valdes PT Completed Goal: SUP ambulation x150ft LRAD (Resolved) Dates: Start: 09/04/25 Resolved: 09/16/25 Outcomes Date/Time User Outcome 09/16/25 Leslye Valdes PT Completed Goal: partial A x4 stairs bilat. rails (Resolved) Dates: Start: 09/04/25 Resolved: 09/16/25 Outcomes Date/Time User Outcome 09/16/25 0841 Ruth Valdes PT Completed Education Documentation Mobility Training, taught by Ruth Valdes PT at 09/16/2025 11:21 AM. Learner: Patient Readiness: Acceptance Method: Explanation, Demonstration Response: Verbalizes Understanding, Demonstrated Understanding Education Comments No comments found. Session Start/Stop Time: 1000 1100 1540 1610 Therapy Minutes Physical Therapy PT Individual: 90 [1] Past Medical History: Diagnosis Date DVT (deep vein thrombosis) in HTN (hypertension) TIA (transient ischemic attack) [2] History reviewed. No pertinent surgical history. * Kaykay Perez OT - 09/16/2025 7:25 AM EST [facility] Occupational Therapy Discharge Note 09/16/2025 Patient: David Poon : 1965 Age: 60 y.o. Gender: male Diagnosis: CVA (cerebral vascular accident) ([facility] V24, [facility] V28) Primary Rehab (Etiologic) Diagnosis: Problem List[1] PMH: Medical History[2] PSH: Surgical History[3] Allergies: is allergic to lisinopril. Precautions: Precautions Medical Precautions: Fall Risk Safety Interventions: ID band on, Call gallardo within reach, Personal alarm on, Chair alarm, Bed alarm RUE Weight Bearing Status: Full LUE Weight Bearing Status: Full RLE Weight Bearing Status: Full LLE Weight Bearing Status: Full Orthoses Applied: (training AFO left LE) Vitals: BP: 126/72 Heart Rate: 75 SpO2: 98 % Pain: Pain Assessment: No/denies pain Patient Subjective: I remember how hard that was (9 hole peg test) Session Summary from 09/16/2025 Pt declining ADL. Pt participated in re-eval and activities to address L panchito body coordination CAMS Discharge Is there evidence of an acute change in mental status from the patient's baseline?: No (09/16/25 0700 : Kaykay Perez OT) Inattention: Behavior not present (09/16/25 0700 : Kaykay Perez OT) Disorganized thinking: Behavior not present (09/16/25 07 : Kaykay Perez OT) Altered level of consciousness: Behavior not present (09/16/25 0700 : Kaykay Perez OT) BIMS Discharge 15 (09/16/25 0700 : Kaykay Perez OT) Hearing, Speech, and Vision- Discharge Hearing, Speech, and Vision Ability to Hear: Adequate Ability to See in Adequate Light: Adequate Expression of Ideas and Wants: Without difficulty Understanding Verbal and Non-Verbal Content: Understands FUNCTIONAL STATUS ADL ASSIST Eating Assistance Needed: Independent Oral Hygiene Oral Hygiene Assistance Needed: Independent CARE Score - Oral Hygiene: 6 Toileting Toileting Hygiene Assistance Needed: Independent Physical Assistance Level: No physical assistance CARE Score - Toileting Hygiene: 6 Bathing Shower/Bathe Self Assistance Needed: Independent Physical Assistance Level: No physical assistance CARE Score - Shower/Bathe Self: 6 UE Dressing Upper Body Dressing Assistance Needed: Independent CARE Score - Upper Body Dressin LE Dressing Lower Body Dressing Assistance Needed: Independent Physical Assistance Level: No physical assistance CARE Score - Lower Body Dressin Footwear Putting On/Taking Off Footwear Assistance Needed: Independent Physical Assistance Level: No physical assistance CARE Score - Putting On/Taking Off Footwear: 6 Toilet Transfer Assistance Needed: Independent Tub/Shower Transfer Mod Ind Equipment Provided: Pt's SO obtained tub txfer bench ADL Comments: Pt performing ADLs at mod I level Vision: Vision - Complex Assessment Ocular Range of Motion: Within Functional Limits Head Position: Upright, centered, looking straight ahead, not leaning any direction Tracking: Able to track stimulus in all quads without difficulty Bilateral Near: 20/25 on Blas reading card, corrective lenses present Bilateral Distance: Pt able to read clock/board no difficulty Vision Comments: Pt denies blurry vision Perception: Perception Inattention/Neglect: Appears intact Motor Planning: (Minimally ataxic L UE) Proprioception: Proprioception Proprioception: No apparent deficits Skin: See nursing notes for full assessment. Sensation: Sensation Light Touch: No apparent deficits Sensation Comments: pt denies n/t Hand Function: Hand Function Gross Grasp: Functional Coordination: Coordination Coordination: Impaired Coordination: Left Right Comments Finger to nose Minimally impaired No impairment Decreased speed, ataxic motor pattern Rapid alternating movements Minimally impaired No impairment Crossing midline No impairment No impairment Clapping No impairment No impairment Bilateral integration Minimally impaired No impairment Finger opposition No impairment Minimally impaired Decreased speed Balance: Static sitting balance Static Sitting Balance Static Sitting-Level of Assistance: Independent Dynamic sitting balance Dynamic Sitting Balance Dynamic Sitting-Level of Assistance: Independent Static standing balance Static Standing Balance Static Standing-Level of Assistance: Independent Dynamic standing balance Dynamic Standing Balance Dynamic Standing-Level of Assistance: Supervision or touching assistance UPPER EXTREMITY ASSESSMENTS RUE Assessment RUE Assessment: Within Functional Limits RUE Assessment Comments: ROM WFL. MMT grossly 5/5 LUE Assessment LUE Assessment: Impaired LUE Assessment Comments: Sh fl 120. MMT grossly 4 to 4+/5 STANDARDIZED TESTS Right Hand Strength - Commodity Merchant (lbs) Handle Setting 2: 104 lbs Right Hand Strength - Pinch (lbs) Lateral: 22 lbs Left Hand Strength - Commodity Merchant (lbs) Handle Setting 2: 86 lbs Left Hand Strength - Pinch (lbs) Lateral: 23 lbs 9 Hole Peg Test (seconds) Right - 9 Hole Peg Test (seconds): 28.06 seconds Left - 9 Hole Peg Test (seconds): 46.36 seconds Procedures/Interventions: Balance/Neuromuscular Re-Education Neuromuscular Re-Education Time Entry: 70 OT session occurred in two parts: 7:25-8:25 AM and 12:30-13:00 PM Pt received seated in w/c, in [place]. Pt agreeable to participate in OT session. Pt amb via RW, mod I to therapy gym. Pt remained seated and participated in re-eval of objective measures. Pt amb viaRW, mod I to tabletop and remained seated. Pt participated in activities to address L UE coordination. Pt tasked w/ weaving string through small targets in horizontal order via L UE, followed by weaving in vertical order. Pt required inc time for second trial as pt w/ min difficulty approximating string through target d/t ataxia. Pt tasked w/ removing 8 pegs from green putty and placing in order adjacent to one another on mini peg board to address in hand manipulation and hand strength. Pt w/ min difficulty manipulating pegs onto beg board. Pt requesting to engage in mini bowling. Pt able to manage mini bowling pins using pincer grasp in appropriate order, colliding w/ other pins x1 time, able to correct. Pt able to use pincer grasp to facilitate mini bowling ball fwd. Pt completed fxl amb via RW, mod I throughout hallway x2 to facilitate maximized carryover of L LE uplift. Pt providingself verbal cues for LLE uplift. Pt returned to room and remained seated in w/c. RN present for vitals and med mgmt. This fiction and nonfiction writer prose provided pt HEP and level 3 theraband to address UB strengthening. Pt verbalizes understanding. This fiction and nonfiction writer prose reinforced no driving upon d/c until cleared by doctor, pt verb alizes understanding and agreeable. This fiction and nonfiction writer prose discussed meds w/ pt upon d/c. Pt able to report medications pt was taking prior to admission. This fiction and nonfiction writer prose reinforced RN will reeducate pt upon d/c. Ptverbalizes understanding. This fiction and nonfiction writer prose asked pt to recall s/sxs of stroke. Pt able to state 4/6 (FAST), this fiction and nonfiction writer prose re-educated and reinforced remaining 2/6. Pt remained seated in w/c, call gallardo in place, chair alarm on. All needs met. Pt w/ out questions/concerns regarding d/c. Pt received seated in w/c, declining shower, however agreeable to participate in second portion of session. Pt's SO Lamberto present. Pt amb via RW, mod I to therapy gym. In standing at panchito bar, pt tasked w/ placing colored card on top of corresponding colored cone using panchito bar on R to stabilize. Pt required to step over quad cane to facilitate L LE uplift. Pt reporting R hip to be sore, pt finishing activity stepping via R LE and sustaining balance on L LE. This fiction and nonfiction writer prose placed 2lb wrist weighton L UE to increase proprioceptive input to address ataxia, pt w/ improved output. Seated at tabletop, pt participated in activity to address L UE coordination. With 2lb wrist weight on L UE, pt requi red to use tweezers to retrieve pom pom and place on top of small cones x6. Pt able to place and remove w/ min difficulty. Pt stabilizing forearm on tabletop w/ fair improvement. Pt amb via RW back to room, mod I. Pt completed x2 STS from w/c, utilizing B UE on B LE to stabilize self, steadying A. Pt returned to sitting in w/c, pt mod I in room. OT Assessment OT Assessment OT Assessment Results: Decreased ADL status, Decreased upper extremity strength, Decreased upper extremity range of motion, Decreased safe judgment during ADL, Decreased fine motor control, Decreasedfunctional mobility, Decreased IADLs, Decreased gross motor control Prognosis: Good Evaluation/Treatment Tolerance: Patient tolerated treatment well Comments: Pt has progressed from requiring partial A w/ ADLs to mod Ind. Pt's SO has obtained tub txfer bench. Pt's barriers continue to be higher level dynamic balance, tasks requiring divided attention and L UE coordination. 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 OT Plan OT Discharge Recommendations: Outpatient OT Equipment Recommended: Tub seat with back OT - OK to Discharge: Yes Goals: Encounter Problems Encounter Problems (Active) There are no active problems. Encounter Problems (Resolved) Template: Occupational Therapy Problem: OT Long-Term Goals Dates: Start: 09/04/25 Resolved: 09/16/25 Goal: Pt will perform LB dressing mod I (Resolved) Dates: Start: 09/04/25 Expected End: 09/18/25 Resolved: 09/16/25 Outcomes Date/Time User Outcome 09/16/25 [id number] Perez OT Completed Goal: Pt will bathe via LRD mod I (Resolved) Dates: Start: 09/04/25 Expected End: 09/18/25 Resolved: 09/16/25 Outcomes Date/Time User Outcome 09/16/25 Javi Perez OT Completed Goal: Pt will perform toileting hygiene mod I (Resolved) Dates: Start: 09/04/25 Expected End: 09/18/25 Resolved: 09/16/25 Outcomes Date/Time User Outcome 09/16/25 Javi Perez OT Completed Goal: Pt will perform toilet txfer mod I (Resolved) Dates: Start: 09/04/25 Expected End: 09/18/25 Resolved: 09/16/25 Outcomes Date/Time User Outcome 09/16/25 Javi Perez OT Completed Goal: Pt will complete med mgmt mod I (Resolved) Dates: Start: 09/04/25 Expected End: 09/18/25 Resolved: 09/16/25 Outcomes Date/Time User Outcome 09/16/25 Javi Perez OT Completed Problem: OT Short Term Goals Dates: Start: 09/04/25 Resolved: 09/16/25 Goal: Pt will complete LB dressing steadying A (Resolved) Dates: Start: 09/04/25 Expected End: 09/11/25 Resolved: 09/16/25 Outcomes Date/Time User Outcome 09/16/25 Javi Perez OT Completed Goal: Pt will perform toilet txfer steadying A (Resolved) Dates: Start: 09/04/25 Expected End: 09/11/25 Resolved: 09/15/25 Outcomes Date/Time User Outcome 09/15/25 [id number] Perez OT Completed Goal: Pt will perform toileting hygiene sup (Resolved) Dates: Start: 09/04/25 Expected End: 09/11/25 Resolved: 09/16/25 Outcomes Date/Time User Outcome 09/16/25 Javi Perez OT Completed Goal: Pt will perform grooming activities in standing, steadying A (Resolved) Dates: Start: 09/04/25 Expected End: 09/11/25 Resolved: 09/16/25 Outcomes Date/Time User Outcome 09/16/25 Javi Perez OT Completed Goal: Pt will bathe steadying A (Resolved) Dates: Start: 09/04/25 Expected End: 09/11/25 Resolved: 09/15/25 Outcomes Date/Time User Outcome 09/15/25 [id number] Perez OT Completed Education Documentation How to Obtain Needed DME, taught by Kaykay Perez OT at 09/16/2025 1:28 PM. Learner: Significant Other, Patient Readiness: Acceptance Method: Explanation Response: Verbalizes Understanding Warning Signs and Symptoms of Stroke, taught by Kaykay Perez OT at 09/16/2025 1:28 PM. Learner: Significant Other, Patient Readiness: Acceptance Method: Explanation Response: Verbalizes Understanding Activation of EMS (Call 911), taught by Kaykay Perez OT at 09/16/2025 1:28 PM. Learner: Significant Other, Patient Readiness: Acceptance Method: Explanation Response: Verbalizes Understanding Body Mechanics, taught by Kaykay Perez OT at 09/16/2025 1:28 PM. Learner: Significant Other, Patient Readiness: Acceptance Method: Explanation Response: Verbalizes Understanding ADL Training, taught by Kaykay Perez OT at 09/16/2025 1:28 PM. Learner: Significant Other, Patient Readiness: Acceptance Method: Explanation Response: Verbalizes Understanding Education Comments No comments found. Start/Stop Time OT Time Calculation OT Start Time: 724 OT Stop Time: 0855 OT Time Calculation (min): 90 min Therapy Minutes: Occupational Therapy OT Individual: 90 [1] Patient Active Problem List Diagnosis CVA (cerebral vascular accident) ([facility] V24, [facility] V28) [2] Past Medical History: Diagnosis Date DVT (deep vein thrombosis) in HTN (hypertension) TIA (transient ischemic attack) [3] History reviewed. No pertinent surgical history. * Ruth Valdes, PT - 09/15/2025 11:40 AM EST [facility] Physical Therapy Treatment Note 09/15/2025 Patient: David Poon : 1965 Age: 60 y.o. Gender: male Primary Language: Pakistani Diagnosis: CVA (cerebral vascular accident) ([facility] V24, [facility] V28) Medical History[1] Surgical History[2] Allergies: is allergic to lisinopril. Precautions: Medical Precautions: Fall Risk Safety Interventions: ID band on, Call gallardo within reach, Personal alarm on, Chair alarm, Bed alarm RUE Weight Bearing Status: Full LUE Weight Bearing Status: Full RLE Weight Bearing Status: Full LLE Weight Bearing Status: Full Orthoses Applied: (training AFO left LE) NURSING RECOMMENDATIONS Bed Mobility: supervision Transfers: partial assist Ambulation: partial assist with wwalker SUBJECTIVE Pt report: I am going to be safe at home. Pain: 0/10 OBJECTIVE General Observation: In WC agreeable to participating in therapy session. Vitals: BP: (!) 138/95 Heart Rate: 97 SpO2: 97 % Procedure/Treatment: Neuromuscular Reeducation: Balance/Neuromuscular Re-Education Neuromuscular Re-Education Time Entry: 90 Pt in WC agreeable to participating in therapy session with significant other Lamberto present. Pt ambulating with RW SUP to therapy gym. Pt able to recall 6/6 BE FAST signs and symptoms of stroke. Education provided on smoking cessation, and risk for stroke, education on alcohol cessation d/t alcohol consumption impairing pts balance. Pt completed gait training with SBQC steadying assistance. Education provided Lamberto can provide steadying assistance and pt can ambulate at home with SBQC, pt andAlexis verbalized understanding. Recommending if pt is alone to use RW, pt and lamberto verbalized understanding. Pt agreeable to completing floor recovery onto mat, pt able to complete floor recovery SUP, cues to use chair or stable surface to assist in floor recovery. Pt able to verbalize to therapist if pt has LOC, head strike, injury or s/s of CVA he would call 911. Pt completed x12 stairs bilat. Rails, step through gait pattern SUP, no acute buckling. Pt able to complete 4 inch step up to 8 inch platform step with RW, SUP, pt ascending forwards step to pattern leading with RLE, pt descending backwards with LLE. Pt completed x2 rounds of step taps on 3 inch step, steadying assistance, difficulty with stance phase stability on LLE and foot clearance on LLE, with increased reps improvement in sequencing and motor coordination. Pt completed split stance standing on 3 inch step for hip abduction strengthening, x30 seconds, cues for hip abduction engagement. Pt completed gait training with 4lb weight, on LLE to improve proprioceptive awareness, pt completed [id number] of ambulation steadying assistance with SBQC. Pt and Lamberto agreeable to all recommendations, no further questions. Pt completed ambulation back to room SUP with RW, no LOB. Education: Education Documentation Smoking Cessation, taught by Ruth Valdes PT at 09/15/2025 11:54 AM. Learner: Significant Other, Patient Readiness: Acceptance Method: Explanation, Demonstration Response: Verbalizes Understanding, Demonstrated Understanding How to Obtain Needed DME, taught by Ruth Valdes PT at 09/15/2025 11:54 AM. Learner: Significant Other, Patient Readiness: Acceptance Method: Explanation, Demonstration Response: Verbalizes Understanding, Demonstrated Understanding Warning Signs and Symptoms of Stroke, taught by Ruth Valdes PT at 09/15/2025 11:54 AM. Learner: Significant Other, Patient Readiness: Acceptance Method: Explanation, Demonstration Response: Verbalizes Understanding, Demonstrated Understanding Personal Risk Factors for Stroke, taught by Ruth Valdes PT at 09/15/2025 11:54 AM. Learner: Significant Other, Patient Readiness: Acceptance Method: Explanation, Demonstration Response: Verbalizes Understanding, Demonstrated Understanding Activation of EMS (Call 911), taught by Ruth Valdes, PT at 09/15/2025 11:54 AM. Learner: Significant Other, Patient Readiness: Acceptance Method: Explanation, Demonstration Response: Verbalizes Understanding, Demonstrated Understanding Mobility Training, taught by Ruth Valdes PT at 09/15/2025 11:54 AM. Learner: Significant Other, Patient Readiness: Acceptance Method: Explanation, Demonstration Response: Verbalizes Understanding, Demonstrated Understanding Education Comments No comments found. ASSESSMENT PT Assessment PT Assessment Results: Decreased strength, Decreased range of motion, Decreased endurance, Impairedbalance, Impaired gait, Decreased mobility, Decreased coordination, Decreased safety awareness Prognosis: Good Evaluation/Treatment Tolerance: Patient tolerated treatment well Comments: Pt SUP approaching mod-I with RW for d/c home. Lamberto able to provide appropriate assistance for gait with use of SBQC. Pt and Lamberto agreeable to all recommendations for d/c home. Equipment: RW and SBQC Plan of Care Plan Treatment/Interventions: Functional transfer training, LE strengthening/ROM, Patient/family training, Equipment eval/education, Bed mobility, Gait training, Compensatory technique education, Balance training, Stair training, Continued evaluation PT Plan: Skilled PT PT Frequency: 5-7 days per week PT Duration of Sessions: 60-90 min per session PT Treatments per day: 1 time per day PT Discharge Recommendations: Other (Comment) (TBD) Problems/Goals Goals: Encounter Problems Encounter Problems (Active) Template: Physical Therapy Problem: PT Long-Term Goals Dates: Start: 09/04/25 Goal: mod-I transfers LRAD Dates: Start: 09/04/25 Goal: mod-I x12 stairs Dates: Start: 09/04/25 Goal: mod-I ambulation x150ft LRAD Dates: Start: 09/04/25 Goal: mod-I x2 stairs LRAD Dates: Start: 09/04/25 Problem: PT Short Term Goals Dates: Start: 09/04/25 Goal: mod-I bed mobility Dates: Start: 09/04/25 Goal: SUP transfers LRAD Dates: Start: 09/04/25 Goal: SUP ambulation x150ft LRAD Dates: Start: 09/04/25 Goal: partial A x4 stairs bilat. rails Dates: Start: 09/04/25 Encounter Problems (Resolved) There are no resolved problems. Session Start/Stop Time: 1000 1130 Therapy Minutes Physical Therapy PT Individual: 90 [1] Past Medical History: Diagnosis Date DVT (deep vein thrombosis) in HTN (hypertension) TIA (transient ischemic attack) [2] History reviewed. No pertinent surgical history. * Kaykay Perez, OT - 09/15/2025 8:30 AM EST [facility] Occupational Therapy Treatment Note 09/15/2025 Patient: David Poon : 1965 Age: 60 y.o. Gender: male Diagnosis: CVA (cerebral vascular accident) ([facility] V24, [facility] V28) Primary Rehab (Etiologic) Diagnosis: Problem List[1] PMH: Medical History[2] PSH: Surgical History[3] Allergies: is allergic to lisinopril. Precautions: Precautions Medical Precautions: Fall Risk Safety Interventions: ID band on, Call gallardo within reach, Personal alarm on, Chair alarm, Bed alarm RUE Weight Bearing Status: Full LUE Weight Bearing Status: Full RLE Weight Bearing Status: Full LLE Weight Bearing Status: Full Orthoses Applied: (training AFO left LE) Vitals: See nursing flowsheet Pain: Pain Assessment Pain Assessment: No/denies pain Subjective: I know I have to wait to see the neurologist before I drive Procedures/Interventions: ADLs/IADLs Self Care/Home Management (ADLs) Time Entry: 30 ADL/ IADL Performed: Grooming, Bathing, Dressing, Tub Transfers Balance/Neuromuscular Re-Education Neuromuscular Re-Education Time Entry: 60 Pt received seated in w/c, agreeable to participate in OT session. Pt tasked w/ making bed to challenge dynamic balance w/ out AD, facilitate lateral steps, and B UE integration. Pt declining to complete task, this fiction and nonfiction writer prose reinforcing purpose of task however pt declining. Pt amb via RW, sup to therapy gym. Standing at tabletop, pt completed clothing fasteners to simulate dressing upon d/c. Pt ableto use B UE to manage zipper on jeans open/close. Pt able to use B UE to manage small buttons on flannel shirt w/ inc time. In standing pt tasked w/ stacking coins using L UE and placing through slotted container. Pt initially compensating by sliding coins off table then stacking, verbal cues to use pincer grasp to supervisor picking crew coins, pt able to, intermittently compensating as previously stated. Pt requesting to sit to finish activity. Pt remained seated to place coins into slotted container. Pt able to remove and place approx 12 clothespins onto target. Utilizing level 3 resistance clothespin, ptable to retreive approx [address] through slotted container using pincer grasp. Pt ableto manage tying shoe using B UE, no difficulty noted. Pt tasked w/ creating design copy using suction cups to address L UE coordination. Pt able to use B UE to place suction cups together and remove.Pt participated in ring toss to facilitate L LE uplift, visual scanning and dynamic balance. Pt first tasked w/ completing fxl amb via RW, sup throughout hallway to retreive rings. Verbal cues to notremove RW from floor to pivot and take wide turns for balance. Pt amb via RW, sup back to therapy gym. Standing at panchito bar on R, pt required to step via L UE and toss ring via R UE w/ out A of panchito bar for balance. Pt required verbal cues hamstring and glute activation for stepping backwards. Pt completed x2 trials to maximize carryover of L LE uplift. Pt remained seated for rest break. Pt's SO Lamberto present for family training. Pt completed tub txfer via tub bench w/ grab bar in same placement as home environment. Pt able to do so at sup level. This fiction and nonfiction writer prose reinforcing remaining seated for duration of shower if alone and to don moccasins prior to amb in home bathroom. Pt agreeable. SO Lamberto stating she will remove bath rug to decrease risk of pt catching L LE. Pt amb via RW, sup back to room, remained seated for rest break. Pt agreeable to shower in walk in shower. Pt amb via RW, sup and remained seated on shower chair. Pt doffed B shoes and socks from B LE, sup. Pt doffedshirt and pants from B LE, sup. Pt able to shower seated on shower chair, overall distant sup. Pt able to dry self while seated on shower chair, distant sup. Pt able to thread B LE through underwear and pants, sup. Pt able to semi stand to hike over hips, using grab bar, sup. Pt able to don shirt, B socks and shoes, sup. This fiction and nonfiction writer prose reinforcing no driving upon d/c. Pt's SO reports removing keys from pt's house, pt agreeable not to drive until cleared by neurologist. Pt amb via RW, sup back to room. Pt remained seated in w/c, pt completed grooming tasks w/ SO Lamberto. All needs met. OT Assessment OT Assessment OT Assessment Results: Decreased ADL status, Decreased upper extremity strength, Decreased upper extremity range of motion, Decreased safe judgment during ADL, Decreased fine motor control, Decreasedfunctional mobility, Decreased IADLs, Decreased gross motor control Prognosis: Good Evaluation/Treatment Tolerance: Patient tolerated treatment well Comments: Pt requires sup for all ADLs. Pt's SO Lamberto present for 30 min of session for training, and demo ability to provide required level of A/sup for pt upon d/c. This fiction and nonfiction writer prose reinforcing no driving upon d/c, Lamberto and pt in agreement. Pt will continue to benefit from higher level balance, L UE coordination, and activities to address divided attention. SO Lamberto stating to have obtained tub bench for pt's d/c. OT Plan Plan Treatment Interventions: ADL retraining, Functional transfer training, UE strengthening/ROM, Endurance training, Patient/family training, Neuromuscular reeducation, Fine motor coordination activities OT Plan: Skilled OT OT Frequency : 5-7 days per week OT Duration of Sessions: 60-90 min per session OT Treatments per day: 1-2 times per day OT - Evaluation Status: Complete OT Discharge Recommendations: Outpatient OT Equipment Recommended: Shower chair Goals: Encounter Problems Encounter Problems (Active) Template: Occupational Therapy Problem: OT Long-Term Goals Dates: Start: 09/04/25 Goal: Pt will perform LB dressing mod I Dates: Start: 09/04/25 Expected End: 09/18/25 Goal: Pt will bathe via LRD mod I Dates: Start: 09/04/25 Expected End: 09/18/25 Goal: Pt will perform toileting hygiene mod I Dates: Start: 09/04/25 Expected End: 09/18/25 Goal: Pt will perform toilet txfer mod I Dates: Start: 09/04/25 Expected End: 09/18/25 Goal: Pt will complete med mgmt mod I Dates: Start: 09/04/25 Expected End: 09/18/25 Problem: OT Short Term Goals Dates: Start: 09/04/25 Goal: Pt will complete LB dressing steadying A Dates: Start: 09/04/25 Expected End: 09/11/25 Outcomes Date/Time User Outcome 09/15/25 0750 Kaykay Perez, OT Progressing Goal: Pt will perform toilet txfer steadying A (Resolved) Dates: Start: 09/04/25 Expected End: 09/11/25 Resolved: 09/15/25 Outcomes Date/Time User Outcome 09/15/25 0750 Kaykay Perez, OT Completed Goal: Pt will perform toileting hygiene sup Dates: Start: 09/04/25 Expected End: 09/11/25 Outcomes Date/Time User Outcome 09/15/25 0750 Kaykay Perez, OT Progressing Goal: Pt will perform grooming activities in standing, steadying A Dates: Start: 09/04/25 Expected End: 09/11/25 Outcomes Date/Time User Outcome 09/15/25 0750 Kaykay Perez, OT Progressing Goal: Pt will bathe steadying A (Resolved) Dates: Start: 09/04/25 Expected End: 09/11/25 Resolved: 09/15/25 Outcomes Date/Time User Outcome 09/15/25 Bautista Perez, OT Completed Encounter Problems (Resolved) There are no resolved problems. Education Documentation Discharge Planning, taught by Kaykay Perez OT at 09/15/2025 2:24 PM. Learner: Significant Other, Patient Readiness: Acceptance Method: Explanation Response: Verbalizes Understanding, Needs Reinforcement Fall Precautions, taught by Kaykay Perez OT at 09/15/2025 2:24 PM. Learner: Significant Other, Patient Readiness: Acceptance Method: Explanation Response: Verbalizes Understanding, Needs Reinforcement ADL Training, taught by Kaykay Perez OT at 09/15/2025 2:24 PM. Learner: Significant Other, Patient Readiness: Acceptance Method: Explanation Response: Verbalizes Understanding, Needs Reinforcement Education Comments No comments found. Start/Stop Time OT Time Calculation OT Start Time: 0830 OT Stop Time: 1000 OT Time Calculation (min): 90 min Therapy Minutes: Occupational Therapy OT Individual: 90 [1] Patient Active Problem List Diagnosis CVA (cerebral vascular accident) ([facility] V24, [facility] V28) [2] Past Medical History: Diagnosis Date DVT (deep vein thrombosis) in HTN (hypertension) TIA (transient ischemic attack) [3] History reviewed. No pertinent surgical history. * Barbi Perez, RD - 09/14/2025 3:16 PM EST 09/14/2025 @ 3:16 PM EST Nutrition Initial Assessment Reason for RD Intervention: Assessment Type: Protocol/Policy Reason for Assessment: LOS Anthropometrics: Weight: 111 kg (243 lb 11.2 oz) Weight Method: Actual BMI (Calculated): 29.7 BMI Class: Overweight IBW (lbs): 191 UBW (lbs): 250 Recent Weight Change: Yes (weight loss per pt report, weight gain per Epic record of 5 lbs) Current Diet and Supplements: Dietary Orders (From admission, onward) Start Ordered 09/03/[address] [facility]; General; Regular Diet effective now Question Answer Comment Location [facility] Diet Type (req) General General Diet Regular 09/03/25 1258 History of presenting illness: Patient is a 60 y.o. male with a history of Medical History[1] Surgical History[2] admitted 09/03/2025 with CVA (cerebral vascular accident) ([facility] V24, [facility] V28). Food/Nutrition History: Previous Diet / Nutrition Education / Counseling: Pt reports he does not follow any specific diet at home, he and his girlfriend prepare meals, denies food allergies. Pt reports usual weight of 250lbs, repots he has likely lost a little since admissin. Denies food insecurities. Appetite HOT SAW OPERATOR: Good Intake HOT SAW OPERATOR: Stable Vitamins/Minerals/Herbs: Pt denies taking supplements Social Influencers of Health & Nutrition - Hunger Vital Signs: Within the past 12 months we worried whether our food would run out before we got money to buy more: Never true Within the past 12 months the food we bought just didn't last and we didn't have money to get more: Never true Who obtained answers? Hunger vital signs completed by RD. Assistance: No assistance needed at this time Weight History: Wt Readings from Last 30 Encounters: 09/13/25 0900 111 kg (243 lb 11.2 oz) 09/05/25 1018 108 kg (238 lb) 09/04/25 0900 108 kg (238 lb 3.2 oz) Subjective Assessment: Pt seen for length of stay, admitted for CVA. Pt reports appetite is okay, eating 66 - 100% of meals per Epic record. Pt denies nausea/vomiting, denies diarrhea/constipation, last +BM 09/12. Pt reports likely weight loss since admission. Limited history per chart review; pt with gain of 5 lbs in the past week. Nutrition-Related Lab Values: Results from last 7 days Lab Units 09/10/25 0527 SODIUM mmol/L 139 POTASSIUM mmol/L 4.3 MAGNESIUM mg/dL 2.0 CHLORIDE mmol/L 104 CO2 mmol/L 27 BUN mg/dL 9 CREATININE mg/dL 0.85 EGFR mL/min/1.73m2 99 CALCIUM mg/dL 8.9 BILIRUBIN TOTAL mg/dL 0.9 ALK PHOS unit/L 46 ALT unit/L 29 AST unit/L 23 GLUCOSE mg/dL 78 WBC AUTO K/mcL 8.2 No results found for: LIPASE Medications: MEDSSCHEDULED[3] CONTINUOUS: MEDSCONTINUOUS[4] MEDSPRN[5] Food/Nutrition-Current Status: Intake Type: P.O. Current Diet Status: Appropriate Appetite: Fair Intake Amount (%): 75-100% (variable 66 - 100%) Intake Assessment: Variable Main IVF: None Nutrition Focused Physical Findings: Overall Appearance: Pt sitting up in chair, well-appearing, no signs of muscle or fat loss noted Digestive System (Mouth to Rectum): Appetite change Nerves and Cognition: Alert, Oriented Skin: skin intact Nutrition Diagnosis: Code Type: None Identified Status: New Diagnosis: Potential Nutrition Dx Etiology: Changes in taste and appetite or preference Symptoms: Potential inadequate intake given variable meal intake, pt report of okay appetite. Nutrition Interventions: Meals/Snacks Continue regular diet as ordered Monitor adequacy of PO intake; consider offering snacks/supplements if pt consuming <65% of meals on follow up. Monitor weights, labs Nutrition Education Education not provided at this time. Goals: Patient will consume greater than or equal to 75% meals., Electrolytes within normal range., Maintain weight., Stooling appropriately., and Maintain skin integrity. Coordination of Patient Care: Care plan discussed with patient/family. Monitoring/Evaluation: Fluid/Beverage Intake, Food Intake, Weight, Renal/Electrolyte Profile, Gastrointestinal Profile Follow Up: Nutrition Priority Level: Low RD remains available and will continue to follow. Signature: Barbi Perez RD [1] Past Medical History: Diagnosis Date DVT (deep vein thrombosis) in HTN (hypertension) TIA (transient ischemic attack) [2] History reviewed. No pertinent surgical history. [3] amLODIPine, 5 mg, oral, Daily aspirin, 81 mg, oral, Daily atorvastatin, 40 mg, oral, Nightly cholecalciferol, 2,000 Units, oral, Daily clopidogreL, 75 mg, oral, Daily docusate sodium, 100 mg, oral, BID folic acid, 1 mg, oral, Daily loratadine, 10 mg, oral, Daily nicotine, 1 patch, transdermal, q24h polyetheylene glycol, 17 g, oral, Daily senna, 2 tablet, oral, Nightly thiamine, 100 mg, oral, Daily [4] [5] PRN medications: acetaminophen, aluminum-magnesium hydroxide-simethicone, bisacodyL, magnesium hydroxide * Christina Jaramillo, DO - 09/14/2025 1:15 PM EST Images from the original note were not included. [facility] Daily Progress Note Patient name: David Poon : 1965 SUBJECTIVE: Patient seen and examined at bedside today. No acute events overnight. Denies headaches, dizziness,shortness of breath, chest pain, nausea, constipation, and pain. No new concerns today. Participating in therapies: PT: Comments: Status update: SUP with RW, steadying assistance with SBQC, x100ft. pt with improvement in awareness in deficits including decreased foot clearance on LLE. Pt with improvement in turning with use of SBQC for dynamic gait. OT: Comments: Pt w/ intermittent LOB laterally as pt stepping over opposite foot d/t narrow turns, using SPC, pt would benefit from continued practice utilizing SPC to maximize Ind via LRD. Pt demo appropriate kitchen safety to complete light meal prep w/ sup. Pt declining shower in tub/shower, however would benefit from continued repetitions prior to d/c. Pt requires sup for UB dressing, steadying A LB dressing, bathing and toileting OBJECTIVE: Vitals: 09/13/25 0900 09/13/25 1535 09/14/25 0500 09/14/25 0841 BP: 125/68 115/67 126/65 BP Location: Left arm Right arm Right arm Patient Position: Sitting Sitting Sitting Pulse: 97 71 79 Resp: 16 18 18 Temp: 36.3 ??C (97.4 ??F) 36.9 ??C (98.5 ??F) 36.4 ??C (97.5 ??F) TempSrc: Oral Temporal Oral SpO2: 96% 96% 98% Weight: 111 kg (243 lb 11.2 oz) Physical Examination: General: Alert, in no acute cardiopulmonary distress. Mental Status: Oriented to person, place and time. Normal affect. Head: Normocephalic. Eyes: Extraocular muscles intact. Ear, Nose and Throat: Oropharynx clear, mucous membranes moist. Ears and nose without masses, lesions or deformities. Neck: Supple, Trachea midline. Respiratory: Clear to auscultation and percussion. No wheezing, rales or rhonchi. Cardiovascular: Heart sounds normal. Regular rate and rhythm, no murmurs, rubs or gallops. Gastrointestinal: Abdomen soft, non-tender, non-distended. Normal bowel sounds. Neurologic: Cranial nerves II-XII intact. Negative Hoffmans sign on the left. Negative clonus on the left. Moves all extremities spontaneously. Sensation intact bilaterally. Skin: No rashes or lesions. No petechiae or purpura. Musculoskeletal: No cyanosis or clubbing. No gross deformities. Normal range of motion. Strength 5/5 throughout right upper and lower extremities. Strength 5/5 left shoulder abduction, 5/5 left elbowflexion, 5/5 left elbow extension, 5/5 left wrist extension, 4/5 left finger abduction. Strength 5/5 left hip flexion, 5/5 left knee extension, 3/5 left dorsiflexion, 4/5 left plantarflexion, 1/5 left EHL. CURRENT INPATIENT MEDICATIONS: Current Medications[1] LABS: Lab Results Component Value Date WBC 8.2 09/10/2025 RBC 4.30 (L) 09/10/2025 HGB 14.6 09/10/2025 HCT 42.3 09/10/2025 MCV 97.5 09/10/2025 MCHC 34.5 09/10/2025 RDW 11.0 09/10/2025 PLT 279 09/10/2025 MPV 9.1 09/10/2025 NRBC 0.0 09/10/2025 DIFF Lab Results Component Value Date LYMPHOPCT 24.3 09/04/2025 NEUTROABS 5.81 09/04/2025 LYMPHSABS 2.15 09/04/2025 MONOABS 0.68 09/04/2025 EOSABS 0.18 09/04/2025 BASOSABS 0.03 09/04/2025 IMMGRANABS 0.01 09/04/2025 RETIC No results found for: RETIC , RETICCTPCT Lab Results Component Value Date NA 139 09/10/2025 K 4.3 09/10/2025 CL 104 09/10/2025 CO2 27 09/10/2025 GLUCOSE 78 09/10/2025 BUN 9 09/10/2025 CREATININE 0.85 09/10/2025 CALCIUM 8.9 09/10/2025 PROT 6.0 09/10/2025 ALBUMIN 3.6 09/10/2025 BILITOT 0.9 09/10/2025 AST 23 09/10/2025 ALT 29 09/10/2025 MG 2.0 09/10/2025 ALKPHOS 46 09/10/2025 EGFR 99 09/10/2025 IMPRESSION & PLAN: #Impaired mobility and self-care - Secondary to acute CVA - Continue PT, OT, AIRCRAFT PAINTER, and nursing care #Acute CVA #Left hemiparesis - MRI brain was positive for acute right thalamic ischemic CVA - Neurology recommended continuing DAPT and statin until outpatient follow-up for further recommendations - Aspirin 81 mg daily - Plavix 75 mg daily - Atorvastatin 40 mg nightly - Continue therapies - f/u [facility] (Dr Sky) after discharge #Hypertension - Amlodipine 5 mg daily #Tobacco dependence - Nicotine 21 mg patch daily #History of alcohol use - Monitored on CIWA during acute hospital stay without withdrawal appreciated #Allergic rhinitis - Loratadine 10mg daily #Bowel management - Colace 100 mg twice daily - Senna 2 tabs nightly - Miralax 17gm daily - last BM 09/13 per patient report #DVT prophylaxis: Lovenox 40mg daily discontinued on 09/09 given that patient is ambulatory, continue DAPT and ambulation with therapies as tolerated [1] Current Facility-Administered Medications: acetaminophen (TYLENOL) tablet 650 mg, 650 mg, oral, q6h PRN, JIMMY Mullins aluminum-magnesium hydroxide-simethicone (MAALOX) 200-200-20 mg/5 mL suspension 30 mL, 30 mL, oral,q4h PRN, Christina Jaramillo DO amLODIPine (NORVASC) tablet 5 mg, 5 mg, oral, Daily, JIMMY Mullins, 5 mg at 09/14/25841 aspirin EC tablet 81 mg, 81 mg, oral, Daily, JIMMY Mullins, 81 mg at 09/14/25841 atorvastatin (LIPITOR) tablet 40 mg, 40 mg, oral, Nightly, JIMMY Mullins, 40 mg at 09/13/252005 bisacodyL (DULCOLAX) suppository 10 mg, 10 mg, rectal, Daily PRN, JIMMY Mullins cholecalciferol (VITAMIN D-3) tablet 2,000 Units, 2,000 Units, oral, Daily, Elba Gilmore NP, 2,000 Units at 09/14/25841 clopidogreL (PLAVIX) tablet 75 mg, 75 mg, oral, Daily, JIMMY Mullins, 75 mg at 09/14/25841 docusate sodium (COLACE) capsule 100 mg, 100 mg, oral, BID, JIMMY Mullins, 100 mg at folic acid (FOLVITE) tablet 1 mg, 1 mg, oral, Daily, JIMMY Rae, 1 mg at 09/14/25 0842 loratadine (CLARITIN) tablet 10 mg, 10 mg, oral, Daily, Christina Jaramillo DO, 10 mg at 09/14/25 0842 magnesium hydroxide (MILK OF MAGNESIA) 400 mg/5 mL suspension 30 mL, 30 mL, oral, Daily PRN, JIMMY Mullins, 30 mL at 09/09/25 0603 nicotine (NICODERM CQ) 21 mg/24 hr patch 1 patch, 1 patch, transdermal, q24h, JIMMY Rae,1 patch at 09/14/25 0842 polyethylene glycol (MIRALAX) packet 17 g, 17 g, oral, Daily, Christina Jaramillo DO, 17 g at 09/13/25 1018 senna (SENOKOT) tablet 17.2 mg, 2 tablet, oral, Nightly, JIMMY Mullins, 17.2 mg at 09/13/252005 thiamine (VITAMIN B-1) tablet 100 mg, 100 mg, oral, Daily, JIMMY Rae, 100 mg at 842 * Kaykay Perez OT - 09/14/2025 12:30 PM EST [facility] Occupational Therapy Treatment Note 09/14/2025 Patient: David Poon : 1965 Age: 60 y.o. Gender: male Diagnosis: CVA (cerebral vascular accident) ([facility] V24, [facility] V28) Primary Rehab (Etiologic) Diagnosis: Problem List[1] PMH: Medical History[2] PSH: Surgical History[3] Allergies: is allergic to lisinopril. Precautions: Precautions Medical Precautions: Fall Risk Safety Interventions: ID band on, Call gallardo within reach, Personal alarm on, Chair alarm, Bed alarm RUE Weight Bearing Status: Full LUE Weight Bearing Status: Full RLE Weight Bearing Status: Full LLE Weight Bearing Status: Full Orthoses Applied: (training AFO left LE) Pain: Pain Assessment Pain Assessment: No/denies pain Subjective: That was a lot better (kitchen mob/light meal prep) Procedures/Interventions: ADLs/IADLs Self Care/Home Management (ADLs) Time Entry: 30 ADL/ IADL Performed: Kitchen Mobility, Meal Prep Balance/Neuromuscular Re-Education Neuromuscular Re-Education Time Entry: 45 Therapeutic Exercise Therapeutic Exercise Time Entry: 15 Pt received seated in w/c, agreeable to participate in OT session. Pt making call to SO Lamberto for ongoing training. Lamberto set to come in 09/15/25 at 9 AM. Pt amb via RW, sup to ADL kitchen. Pt tasked w/ making egg on stovetop. Pt performed fxl amb via SBQC, steadying A to fridge, pt retrieved eggvia L UE. Pt utilized pushing method across countertop. Verbal cues for wide steps. Pt retrieved choi from below countertop, partial A for balance. Pt utilizing L UE to retreive choi. Pt using pushing method to transport items across countertop. Pt able to place choi on stovetop, turn burner on, crackegg using B UE and bruce egg, steadying A. Pt demo appropriate kitchen safety, shutting stovetop off.Pt placed egg on plate. Pt used pushing method to transport plate to edge of countertop. At end of countertop, pt using L UE to place egg in trash. Pt reports ability to transport items in home kitchen via pushing method. Pt w/ good insight not to carry hot choi using affected L UE. Pt amb via RW into therapy gym, steadying A. Pt able to assume quadruped position from standing onto mat, steadying A. Pt participated in card sort x2 trials to maximize proprioceptive input to L UE and address L UE coordination. Pt required tosort cards by color then by suit. Pt alternating between using L UE to sort cards and WBing on L UE. While WBing on L UE, pt required this fiction and nonfiction writer prose to stabilize L elbow in extension. Pt required verbalcues for square positioning of hips vs posterior lean onto B LE. Pt able to manage self off of mat from Quadruped to standing. Pt remained seated for rest break. Pt participated in laundry folding to facilitate B UE integration and L UE coordination. Pt able tofold approx 12 items in standing using B UE, sup. Pt w/ out LOB, no seated rest break. Pt participated in activity to address RW mgmt, visual scanning, L LE uplift, and overall L panchito body coordination. Pt required to retreive approx 14 colored cards throughout hallway, amb via RW, steadying A. Pt required intermittent verbal cues for RW mgmt, to avoid picking up RW and twisting body and turn RW and body at same time. Pt amb via RW steadying A back to gym, and at panchito bar, pt tasked w/ sorting cards coordinating colors, facilitating lateral side stepping. Pt able to do so w/ out LOB. Pt amb via RW, sup back to room, pt w/ intermittent instances of swinging L LE outward and colliding w/ RW. Pt remained seated in w/c upon entry to room for rest break. Standing at wall pt utilized LUE to completed 20 circles via 3lb ball to strengthen L scap muscle. Pt w/ difficulty creating circles, downgraded activity to move ball in up/down motion. Seated in w/c, pt completed 3x10 sh ABD andsh diagonals to maximize UB strength via level 3 theraband. Pt noted to have ataxic movement of L UE completing sh diagonals, verbal cues for slow pace. Pt remained seated in w/c, call gallardo in place,chair alarm on. Pt w/ visitor upon this fiction and nonfiction writer prose exiting room. OT Assessment OT Assessment OT Assessment Results: Decreased ADL status, Decreased upper extremity strength, Decreased upper extremity range of motion, Decreased safe judgment during ADL, Decreased fine motor control, Decreasedfunctional mobility, Decreased IADLs, Decreased gross motor control Prognosis: Good Evaluation/Treatment Tolerance: Patient tolerated treatment well Comments: Pt w/ improved L LE uplift and pace, requiring less verbal cues for fxl mob. Pt limited by back pain at end of session. Pt requires s/u UB dressing, steadying A LB dressing, bathing and toileting. Pt will continue to benefit from activities to address L UE coordination and balance. CHRISTIN Aguiar coming in for training 09/15 at 9 AM. 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 Goals Dates: Start: 09/04/25 Goal: Pt will perform LB dressing mod I Dates: Start: 09/04/25 Expected End: 09/18/25 Goal: Pt will bathe via LRD mod I Dates: Start: 09/04/25 Expected End: 09/18/25 Goal: Pt will perform toileting hygiene mod I Dates: Start: 09/04/25 Expected End: 09/18/25 Goal: Pt will perform toilet txfer mod I Dates: Start: 09/04/25 Expected End: 09/18/25 Goal: Pt will complete med mgmt mod I Dates: Start: 09/04/25 Expected End: 09/18/25 Problem: OT Short Term Goals Dates: Start: 09/04/25 Goal: Pt will complete LB dressing steadying A Dates: Start: 09/04/25 Expected End: 09/11/25 Goal: Pt will perform toilet txfer steadying A Dates: Start: 09/04/25 Expected End: 09/11/25 Goal: Pt will perform toileting hygiene sup Dates: Start: 09/04/25 Expected End: 09/11/25 Goal: Pt will perform grooming activities in standing, steadying A Dates: Start: 09/04/25 Expected End: 09/11/25 Goal: Pt will bathe steadying A Dates: Start: 09/04/25 Expected End: 09/11/25 Encounter Problems (Resolved) There are no resolved problems. Education Documentation How to Obtain Needed DME, taught by Kaykay Perez OT at 09/14/2025 2:45 PM. Learner: Patient Readiness: Acceptance Method: Explanation Response: Verbalizes Understanding, Needs Reinforcement Body Mechanics, taught by Kaykay Perez OT at 09/14/2025 2:45 PM. Learner: Patient Readiness: Acceptance Method: Explanation Response: Verbalizes Understanding, Needs Reinforcement ADL Training, taught by Kaykay Perez OT at 09/14/2025 2:45 PM. Learner: Patient Readiness: Acceptance Method: Explanation Response: Verbalizes Understanding, Needs Reinforcement Education Comments No comments found. Start/Stop Time OT Time Calculation OT Start Time: 1230 OT Stop Time: 1400 OT Time Calculation (min): 90 min Therapy Minutes: Occupational Therapy OT Individual: 90 [1] Patient Active Problem List Diagnosis CVA (cerebral vascular accident) ([facility] V24, [facility] V28) [2] Past Medical History: Diagnosis Date DVT (deep vein thrombosis) in HTN (hypertension) TIA (transient ischemic attack) [3] History reviewed. No pertinent surgical history. * Ruth Valdes, PT - 09/14/2025 12:04 PM EST Images from the original note were not included. [facility] [address] [place] [id number] Dept: [phone] Patient: David Poon : 1965 Age: 60 y.o. Gender: male Room Number: [id number] Diagnosis: CVA (cerebral vascular accident) ([facility] V24, [facility] V28) No diagnosis found. Medical History[1] Surgical History[2] Allergies: is allergic to lisinopril. Precautions: Medical Precautions: Fall Risk Safety Interventions: ID band on, Call gallardo within reach, Personal alarm on, Chair alarm, Bed alarm RUE Weight Bearing Status: Full LUE Weight Bearing Status: Full RLE Weight Bearing Status: Full LLE Weight Bearing Status: Full Orthoses Applied: (training AFO left LE) Patient presenting to IRF with CVA (cerebral vascular accident) ([facility] V24, [facility] V28). Patientis unable to ambulate community or household distances safely with no assistive device, single point cane, quad cane or axillary crutches. Patient to benefit from use of rolling walker with 5 inch wheels to safely ambulate household and community level distances independently. [1] Past Medical History: Diagnosis Date DVT (deep vein thrombosis) in HTN (hypertension) TIA (transient ischemic attack) [2] History reviewed. No pertinent surgical history. * Elba Gilmore NP - 09/14/2025 11:49 AM EST Images from the original note were not included. LETTS PROGRESS NOTE Date: 09/14/2025 Author: Elba Gilmore NP Patient ID: David Poon is a 60 y.o. male : 1965 MR#: [id number] SUBJECTIVE Subjective Patient denies any complaints today He states his leg cramps have resolved he is drinking smart water as recommended Electrolytes reviewed with patient currently normal Patient is agreeable to continue vitamin D supplementation as his vitamin D is low He denies any bowel or bladder issues slept well ALL: Lisinopril REVIEW OF SYSTEMS: Review of Systems CONSTITUTIONAL: No fever. No chills. Malaise, fatigue HEENT denies visual complaints no headaches no dizziness CARDIOVASC: No CP, palpitations, lower extremity edema. RESP: No SOB, pain with respiration, hemoptysis, orthopnea. NO RDS, cough, URI symptoms GI: Normal appetite. No N/VT, diarrhea. No pain, bloating, Melena hematachezia : No hematuria, dysuria, frequency, urgency, nocturia. MUSCULOSKELETAL: No arthralgias or myalgias. INTEGUMENTARY: No bruising, lymphangitis, wounds NEUROLOGIC: No neck pain, Back pain, numbness /tingling, weakness., dizziness Current Medications: MEDSSCHEDULED[1] MEDSCONTINUOUS[2] MEDSPRN[3] OBJECTIVE Objective PHYSICAL EXAM Physical Exam Patient seen and evaluated at bedside 24-hour documentation reviewed no overnight events General-NAD, cognitively- intact, AAO- ??3 , appears stated age, appears comfortable HEENT- head normocephalic, no JVD, no carotid bruits, pupils reactive to light and accomodation, eomi Heart-RRR, normal S1, S2, no clicks, heaves, murmurs, splits, gallops, rubs Lungs-CTA B no adventitious breath sounds. Abdomen-S NT BS ??4, no distention, organomegaly, no palpable masses. Extremities-M AE, no CCE, cap refill brisk, DPP Neuromuscular-focally unchanged Integumentary- turgor good, skin warm dry intact, no rashes Psych- mood stable good eye contact Last Recorded Vitals: BP 126/65 (BP Location: Right arm, Patient Position: Sitting) Pulse 79 Temp 36.4 ??C (97.5 ??F)(Oral) Resp 18 Wt 111 kg (243 lb 11.2 oz) BMI 29.68 kg/m?? Lab Results: LABS HEMATOLOGY Lab Results Component Value Date WBC 8.2 09/10/2025 HGB 14.6 09/10/2025 HCT 42.3 09/10/2025 MCV 97.5 09/10/2025 PLT 279 09/10/2025 CHEMISTRY Lab Results Component Value Date GLUCOSE 78 09/10/2025 NA 139 09/10/2025 K 4.3 09/10/2025 CO2 27 09/10/2025 CL 104 09/10/2025 BUN 9 09/10/2025 CREATININE 0.85 09/10/2025 EGFR 99 09/10/2025 CALCIUM 8.9 09/10/2025 MG 2.0 09/10/2025 ANIONGAP 8 09/10/2025 No results found for: TROPONINT Imaging: Last Images reviewed No image results found. ASSESSMENT & PLAN Assessment/Plan Principal Problem: CVA (cerebral vascular accident) (CMS/HCC V24, CMS/HCC V28) Acute CVA Left hemiparesis -MRI brain was positive for acute right thalamic ischemic CVA Neurology recommended continuing DAPT and statin until outpatient follow-up for further recommendations - Aspirin 81 mg daily - Plavix 75 mg daily - Atorvastatin 40 mg nightly Continue therapies f/u [facility] (Dr Sky) after discharge Bilateral leg cramp's No edema no calf pain no tenderness Scribes history of carpopedal spasm as well Patient states he has had these for years off-and-on States they seem worse of late He is requesting his calcium rechecked Calcium is currently normal sodium is normal K+ nlmag is pending Check vitamin D level Consider gabapentin Hypertension - Amlodipine 5 mg daily Monitor may need more adjustments, Nicotine dependence Smoking cessation encouraged - Nicotine 21 mg patch daily History of alcohol use - Monitored on CIWA during acute hospital stay without withdrawal appreciated allergic rhinitis - Loratadine 10mg daily Constipation - Colace 100 mg twice daily - Senna 2 tabs nightly 50 minutes spent on review of the chart, 24 hr activity recent labs, imaging, history and dischargeas well as ROS, assessment, plan and further testing/ recommendations and charting DAILY CARE CHECKLIST VTE Prophylaxis: Not on Lovenox 40 mg daily recently DC'd patient is ambulatory Diet: Dietary Orders (From admission, onward) Start Ordered 09/03/[address] [facility]; General; Regular Diet effective now Question Answer Comment Location [facility] Diet Type (req) General General Diet Regular 09/03/25 1258 Resuscitation: Full Code - Default PCP: MD Elba Best NP This document was developed in part, totally and/or in the combination using the [employer] voice recognition software. Limitations of the careers adviser due to software-hardware parity limitation may lead to unintended omission, grammatical or nonsensical errors, possibly missed and/or not readily detected during proof reading by the author of this document. If you have any questions or concerns, regarding the content of this note, please contact me directly. [1] amLODIPine, 5 mg, oral, Daily aspirin, 81 mg, oral, Daily atorvastatin, 40 mg, oral, Nightly cholecalciferol, 2,000 Units, oral, Daily clopidogreL, 75 mg, oral, Daily docusate sodium, 100 mg, oral, BID folic acid, 1 mg, oral, Daily loratadine, 10 mg, oral, Daily nicotine, 1 patch, transdermal, q24h polyetheylene glycol, 17 g, oral, Daily senna, 2 tablet, oral, Nightly thiamine, 100 mg, oral, Daily [2] [3] PRN medications: acetaminophen, aluminum-magnesium hydroxide-simethicone, bisacodyL, magnesium hydroxide * Ruth Valdes, PT - 09/14/2025 11:27 AM EST [facility] Physical Therapy Treatment Note 09/14/2025 Patient: David Poon : 1965 Age: 60 y.o. Gender: male Primary Language: Pakistani Diagnosis: CVA (cerebral vascular accident) ([facility] V24, [facility] V28) Medical History[1] Surgical History[2] Allergies: is allergic to lisinopril. Precautions: Medical Precautions: Fall Risk Safety Interventions: ID band on, Call gallardo within reach, Personal alarm on, Chair alarm, Bed alarm RUE Weight Bearing Status: Full LUE Weight Bearing Status: Full RLE Weight Bearing Status: Full LLE Weight Bearing Status: Full Orthoses Applied: (training AFO left LE) NURSING RECOMMENDATIONS Bed Mobility: supervision Transfers: partial assist Ambulation: partial assist with wwalker SUBJECTIVE Pt report: lets do it Pain:0/10 OBJECTIVE General Observation: Seated in WC agreeable to particpating in therapy session. Vitals: BP: (!) 138/95 Heart Rate: 97 SpO2: 97 % General/Functional Assessments: Procedure/Treatment: Neuromuscular Reeducation: Balance/Neuromuscular Re-Education Neuromuscular Re-Education Time Entry: 90 Pt in WC agreeable to participating in therapy session, SUP For STS and ambulation with RW down to therapy gym, decreased knee hyperextension on LLE. Pt agreeable to trial ambulation with SBQC, pt ambulating x100ft, steadying assistance-SUP, decreased foot clearance on LLE, mod cues for increased knee and hip flexion. Pt completed x12 stairs step through gait pattern, steadying assistance, pts LLE needing increased time to unlock LLE, d/t poor eccentric control on descent, no acute buckling noted. Pt completed ambulation around cones with SBQC, steadying assistance, cues for wider turning andstep width, no LOB, ambulating x50ft, steadying assistance. Pt completed 3x15 standing calf raises,2x10 standing toe raises. Pt completed 4x10ft of side stepping at panchito- bar, decreased foot clearance side stepping to L vs R. Pt ambulating x100ft with SBQC. Pt completed ambulation with RW, SUP cuesfor heel strike and toe off for LLE. Pt completed step taps to 3 inch step no AD, with mirror, pt with poor lateral weight shift to L side, and decreased foot clearance on R side. Pt benefiting from mass rep practice to improve LLE foot clearance and LLE foot clearance to tap 3 inch step. Pt completed ambulation with SBQC, steadying assistance x100ft. Pt ambulating back to room with RW, SUP cued to take 3 standing breaks d/t fatigue of LLE noted by decreased foot clearance. Pt left seated in WC, call gallardo in reach, chair alarm, on, all needs met. Education: Education Documentation Mobility Training, taught by Ruth Valdes, PT at 09/14/2025 12:03 PM. Learner: Patient Readiness: Acceptance Method: Explanation, Demonstration Response: Verbalizes Understanding, Demonstrated Understanding Education Comments No comments found. ASSESSMENT PT Assessment PT Assessment Results: Decreased strength, Decreased range of motion, Decreased endurance, Impairedbalance, Impaired gait, Decreased mobility, Decreased coordination, Decreased safety awareness Prognosis: Good Evaluation/Treatment Tolerance: Patient tolerated treatment well Comments: Status update: SUP with RW, steadying assistance with SBQC, x100ft. pt with improvement in awareness in deficits including decreased foot clearance on LLE. Pt with improvement in turning with use of SBQC for dynamic gait. Equipment: RW Plan of Care Plan Treatment/Interventions: Functional transfer training, LE strengthening/ROM, Patient/family training, Equipment eval/education, Bed mobility, Gait training, Compensatory technique education, Balance training, Stair training, Continued evaluation PT Plan: Skilled PT PT Frequency: 5-7 days per week PT Duration of Sessions: 60-90 min per session PT Treatments per day: 1 time per day PT Discharge Recommendations: Other (Comment) (TBD) Problems/Goals Goals: Encounter Problems Encounter Problems (Active) Template: Physical Therapy Problem: PT Long-Term Goals Dates: Start: 09/04/25 Goal: mod-I transfers LRAD Dates: Start: 09/04/25 Goal: mod-I x12 stairs Dates: Start: 09/04/25 Goal: mod-I ambulation x150ft LRAD Dates: Start: 09/04/25 Goal: mod-I x2 stairs LRAD Dates: Start: 09/04/25 Problem: PT Short Term Goals Dates: Start: 09/04/25 Goal: mod-I bed mobility Dates: Start: 09/04/25 Goal: SUP transfers LRAD Dates: Start: 09/04/25 Goal: SUP ambulation x150ft LRAD Dates: Start: 09/04/25 Goal: partial A x4 stairs bilat. rails Dates: Start: 09/04/25 Encounter Problems (Resolved) There are no resolved problems. Session Start/Stop Time: 0930 1100 Therapy Minutes Physical Therapy PT Individual: 90 [1] Past Medical History: Diagnosis Date DVT (deep vein thrombosis) in HTN (hypertension) TIA (transient ischemic attack) [2] History reviewed. No pertinent surgical history. * CHRISTA Christie - 09/13/2025 10:47 AM EST [facility] Occupational Therapy Treatment Note 09/13/2025 Patient: David Poon : 1965 Age: 60 y.o. Gender: male Diagnosis: CVA (cerebral vascular accident) ([facility] V24, [facility] V28) Primary Rehab (Etiologic) Diagnosis: Problem List[1] PMH: Medical History[2] PSH: Surgical History[3] Allergies: is allergic to lisinopril. Precautions: Precautions Medical Precautions: Fall Risk Safety Interventions: ID band on, Call gallardo within reach, Personal alarm on, Chair alarm, Bed alarm RUE Weight Bearing Status: Full LUE Weight Bearing Status: Full RLE Weight Bearing Status: Full LLE Weight Bearing Status: Full Orthoses Applied: (training AFO left LE) Pain: Pain Assessment Pain Assessment: No/denies pain Subjective: I don't do anything at home. I watch tv and mow the lawn. Procedures/Interventions: Pt ambulate to/from therapy with RW and close S. Sitting shld circles. And shld shrugs [id number] with 3# for shld flex/ext, chest press shld press, 3x10 2# for abd/add. Supine 2# for circumduction CW/CCW, serratus punch and tricep [id number] Standing balance : standing at RW with B UE free during Ring toss with no LOB . Pt able to pick rings up with using documentation analyst at walker level. Visuals scanning task with locating cards and sticky notesin hallway, no LOBpt able to supervisor picking crew ones that fell on floor with documentation analyst. After lunch pt declined to ambulate to locate the missing cards and sticky notes ,pt agreeable to complete with w/c. Pt required cues with locating items. Pt able to reach to floor to pick items off floor. Therapeutic Activity Therapeutic Activity Time Entry: 45 Therapeutic Exercise Therapeutic Exercise Time Entry: 45 OT Assessment OT Assessment OT Assessment Results: Decreased ADL status, Decreased upper extremity strength, Decreased upper extremity range of motion, Decreased safe judgment during ADL, Decreased fine motor control, Decreasedfunctional mobility, Decreased IADLs, Decreased gross motor control Prognosis: Good Evaluation/Treatment Tolerance: Patient tolerated treatment well Comments: Pt w/ intermittent LOB laterally as pt stepping over opposite foot d/t narrow turns, using SPC, pt would benefit from continued practice utilizing SPC to maximize Ind via LRD. Pt demo appropriate kitchen safety to complete light meal prep w/ sup. Pt declining shower in tub/shower, howeverwould benefit from continued repetitions prior to d/c. Pt requires sup for UB dressing, steadying A LB dressing, bathing and toileting 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 Goals Dates: Start: 09/04/25 Goal: Pt will perform LB dressing mod I Dates: Start: 09/04/25 Expected End: 09/18/25 Goal: Pt will bathe via LRD mod I Dates: Start: 09/04/25 Expected End: 09/18/25 Goal: Pt will perform toileting hygiene mod I Dates: Start: 09/04/25 Expected End: 09/18/25 Goal: Pt will perform toilet txfer mod I Dates: Start: 09/04/25 Expected End: 09/18/25 Goal: Pt will complete med mgmt mod I Dates: Start: 09/04/25 Expected End: 09/18/25 Problem: OT Short Term Goals Dates: Start: 09/04/25 Goal: Pt will complete LB dressing steadying A Dates: Start: 09/04/25 Expected End: 09/11/25 Goal: Pt will perform toilet txfer steadying A Dates: Start: 09/04/25 Expected End: 09/11/25 Goal: Pt will perform toileting hygiene sup Dates: Start: 09/04/25 Expected End: 09/11/25 Goal: Pt will perform grooming activities in standing, steadying A Dates: Start: 09/04/25 Expected End: 09/11/25 Goal: Pt will bathe steadying A Dates: Start: 09/04/25 Expected End: 09/11/25 Encounter Problems (Resolved) There are no resolved problems. Education Documentation No documentation found. Education Comments No comments found. Start/Stop Time OT Time Calculation OT Start Time: 1030 OT Stop Time: 1200 OT Time Calculation (min): 90 min Therapy Minutes: Occupational Therapy OT Individual: 90 [1] Patient Active Problem List Diagnosis CVA (cerebral vascular accident) ([facility] V24, [facility] V28) [2] Past Medical History: Diagnosis Date DVT (deep vein thrombosis) in HTN (hypertension) TIA (transient ischemic attack) [3] History reviewed. No pertinent surgical history. * Leidy Ortiz, PT - 09/13/2025 8:30 AM EST [facility] Physical Therapy Treatment Note 09/13/2025 Patient: David Poon : 1965 Age: 60 y.o. Gender: male Primary Language: Pakistani Diagnosis: CVA (cerebral vascular accident) ([facility] V24, [facility] V28) Medical History[1] Surgical History[2] Allergies: is allergic to lisinopril. Precautions: Medical Precautions: Fall Risk Safety Interventions: ID band on, Call gallardo within reach, Personal alarm on, Chair alarm, Bed alarm RUE Weight Bearing Status: Full LUE Weight Bearing Status: Full RLE Weight Bearing Status: Full LLE Weight Bearing Status: Full Orthoses Applied: (training AFO left LE) NURSING RECOMMENDATIONS Bed Mobility: supervision Transfers: partial assist Ambulation: partial assist with wwalker SUBJECTIVE Pt report: My hip is stiff, it needs to be replaced Pain: Pain Assessment: 0-10 Pain Score: 3 Pain Location: Hip Pain Orientation: Right OBJECTIVE General Observation: Patient sitting in wheelchair upon arrival to session, agreeable to PT session. Vitals: BP: 126/62 Heart Rate: 81 Procedure/Treatment: Neuromuscular Reeducation: Balance/Neuromuscular Re-Education Neuromuscular Re-Education Time Entry: 90 Patient sitting in wheelchair upon arrival to session, agreeable to PT session. Assessing vitals insitting BP: 126/62 HR: 81. Completion sit to stand with steadying assistance to RW. Completion ambulation from room > therapy gym with RW and close supervision. Maintaining slight LLE knee flexionto avoid knee hyperextension. In therapy gym completion 2x60ft ambulation with SPC with steadying -partial A. X2 LOB with LLE toe catching, pt utilizing stepping response to regain balance with assistance. Pt with increased LLE foot scuffing on ground during ambulation, scuffing on 75% of steps. Cues for increased LLE hip and knee flexion. Completion x3 trials of x10ft ambulation at panchito bar with RUE support with exaggerated hip and knee flexion march bilaterally, immediately followed by [id number] with SPC with focus on maintaining increased hip and knee flexion for clearance. Increased LLE adduction for increased height achieved at hip and knee. Partial A throughout, multiple instances of LOB requiring partial A to correct for. Completion 3x4 stairs with steadying to intermittentpartial A. On first trial completion with step to pattern on ascent and descent, leading with RLE on ascent and LLE on descent. On second and third trial completion with step over step pattern. On descent cues to maintain slight LLE knee flexion to avoid rapid knee flexion/buckling during LLE stance. Completion x3 6 inch platform step ups with use of RW and steadying assistance. Cues to lead withstrong leg on ascent and weaker leg on descent. Cues to get close to platform step / edge of step prior to ascending and then descending. Completion x2 rounds weaving through x8 cones. First trial with RW and supervision. Second trial with SPC and partial A, challenged with tight turns. Completion 3x10 [address] ankle exercise with blue theraband resistance on PF and DF and yellow theraband resistance on IV and EV. Completion ambulation with RW and supervision back to room. Requesting to remain sitting in wheelchair upon arrival to room. Chair alarm on, call gallardo given, all needs met. Education: Education Documentation Fall Precautions, taught by Leidy Ortiz PT at 09/13/2025 8:47 AM. Learner: Patient Readiness: Acceptance Method: Explanation, Demonstration Response: Verbalizes Understanding, Demonstrated Understanding Mobility Training, taught by Leidy Ortiz PT at 09/13/2025 8:47 AM. Learner: Patient Readiness: Acceptance Method: Explanation, Demonstration Response: Verbalizes Understanding, Demonstrated Understanding Education Comments No comments found. ASSESSMENT PT Assessment PT Assessment Results: Decreased strength, Decreased endurance, Impaired balance, Decreased mobility, Impaired gait Prognosis: Good Evaluation/Treatment Tolerance: Patient tolerated treatment well Comments: status update - sup-steadying ambulation with RW, partial A with SPC. Patient with good tolerance to treatment session. continued challenge to balance during ambulation with SPC. increased scuffing of L foot and catching during turning. will continue to benefit from skilled physical therapy. Equipment: TBD Plan of Care Plan Treatment/Interventions: Functional transfer training, LE strengthening/ROM, Patient/family training, Equipment eval/education, Bed mobility, Gait training, Compensatory technique education, Balance training, Stair training, Continued evaluation PT Plan: Skilled PT PT Frequency: 5-7 days per week PT Duration of Sessions: 60-90 min per session PT Treatments per day: 1 time per day PT Discharge Recommendations: Other (Comment) (TBD) Problems/Goals Goals: Encounter Problems Encounter Problems (Active) Template: Physical Therapy Problem: PT Long-Term Goals Dates: Start: 09/04/25 Goal: mod-I transfers LRAD Dates: Start: 09/04/25 Goal: mod-I x12 stairs Dates: Start: 09/04/25 Goal: mod-I ambulation x150ft LRAD Dates: Start: 09/04/25 Goal: mod-I x2 stairs LRAD Dates: Start: 09/04/25 Problem: PT Short Term Goals Dates: Start: 09/04/25 Goal: mod-I bed mobility Dates: Start: 09/04/25 Goal: SUP transfers LRAD Dates: Start: 09/04/25 Goal: SUP ambulation x150ft LRAD Dates: Start: 09/04/25 Goal: partial A x4 stairs bilat. rails Dates: Start: 09/04/25 Encounter Problems (Resolved) There are no resolved problems. Session Start/Stop Time: 0830 1000 Therapy Minutes Physical Therapy PT Individual: 90 [1] Past Medical History: Diagnosis Date DVT (deep vein thrombosis) in HTN (hypertension) TIA (transient ischemic attack) [2] History reviewed. No pertinent surgical history. * Leidy Ortiz, PT - 09/12/2025 2:45 PM EST [facility] Physical Therapy Treatment Note 09/12/2025 Patient: David Poon : 1965 Age: 60 y.o. Gender: male Primary Language: Pakistani Diagnosis: CVA (cerebral vascular accident) ([facility] V24, [facility] V28) Medical History[1] Surgical History[2] Allergies: is allergic to lisinopril. Precautions: Medical Precautions: Fall Risk Safety Interventions: ID band on, Call gallardo within reach, Personal alarm on, Chair alarm, Bed alarm RUE Weight Bearing Status: Full LUE Weight Bearing Status: Full RLE Weight Bearing Status: Full LLE Weight Bearing Status: Full Orthoses Applied: (training AFO left LE) NURSING RECOMMENDATIONS Bed Mobility: supervision Transfers: partial assist Ambulation: partial assist with wwalker SUBJECTIVE Pt report: I just wish this did not take so long to get better Pain: Pain Assessment: No/denies pain OBJECTIVE General Observation: Patient sitting in wheelchair upon arrival to session, agreeable to PT session. Vitals: BP: 123/73 Heart Rate: 78 Procedure/Treatment: Neuromuscular Reeducation: Balance/Neuromuscular Re-Education Neuromuscular Re-Education Time Entry: 60 Patient sitting in wheelchair upon arrival to session, agreeable to PT session. Completion sit to stand to RW with steadying assistance. Completion ambulation from room > therapy gym with steadying assistance progressing to supervision. Cues to ambulate with slight LLE knee flexion to avoid kneehyperextension. Able to achieve on 85% of trials. Intermittent toe catching. In therapy gym completi on x6 trials ambulating over x3 1 inch obstacles on ground with RUE support on panchito bar with supervision. Pt tasked with increasing LLE hip and knee flexion as well as landing in heel strike positionand beginning swing from toe off position. Completion 4x10ft trials at panchito bar with focus on heel strike and toe off of LLE. Verbal cues on each step for heel strike and toe off. Pt cued to decreasebilateral step length. Completion 3x50ft ambulation with SPC with continued emphasis on heel strikeand toe off as well as slight LLE knee flexion, partial A. Pt noted to have slight adduction of LLEduring swing phase leading to slight ankle inversion. Completion 2x50ft ambulation with visual cue of line of floor to maintain equal foot distance and avoid LLE adduction, partial A progressing to partial for more than steadying. Improvements in base of support and decreased ankle inversion. Completion ambulation with RW back to room with supervision. Requesting to remain sitting in wheelchair. Chair alarm on, call gallardo given, all needs met. Education: Education Documentation Fall Precautions, taught by Leidy Ortiz, PT at 09/12/2025 4:39 PM. Learner: Patient Readiness: Acceptance Method: Explanation, Demonstration Response: Verbalizes Understanding, Demonstrated Understanding Mobility Training, taught by Leidy Ortiz, PT at 09/12/2025 4:39 PM. Learner: Patient Readiness: Acceptance Method: Explanation, Demonstration Response: Verbalizes Understanding, Demonstrated Understanding Education Comments No comments found. ASSESSMENT PT Assessment PT Assessment Results: Decreased strength, Decreased endurance, Impaired balance, Decreased mobility, Impaired gait Prognosis: Good Evaluation/Treatment Tolerance: Patient tolerated treatment well Comments: status update - sup-steadying ambulation with RW, partial A with SPC. Patient with good tolerance to treatment session. pt challenged with heel toe gait mechanics. tasked with decreased step length and increased base of support to avoid ankle inversion and NBOS. will continue to benefit from skilled physical therapy. Equipment: TBD Plan of Care Plan Treatment/Interventions: Functional transfer training, LE strengthening/ROM, Patient/family training, Equipment eval/education, Bed mobility, Gait training, Compensatory technique education, Balance training, Stair training, Continued evaluation PT Plan: Skilled PT PT Frequency: 5-7 days per week PT Duration of Sessions: 60-90 min per session PT Treatments per day: 1 time per day PT Discharge Recommendations: Other (Comment) (TBD) Problems/Goals Goals: Encounter Problems Encounter Problems (Active) Template: Physical Therapy Problem: PT Long-Term Goals Dates: Start: 09/04/25 Goal: mod-I transfers LRAD Dates: Start: 09/04/25 Goal: mod-I x12 stairs Dates: Start: 09/04/25 Goal: mod-I ambulation x150ft LRAD Dates: Start: 09/04/25 Goal: mod-I x2 stairs LRAD Dates: Start: 09/04/25 Problem: PT Short Term Goals Dates: Start: 09/04/25 Goal: mod-I bed mobility Dates: Start: 09/04/25 Goal: SUP transfers LRAD Dates: Start: 09/04/25 Goal: SUP ambulation x150ft LRAD Dates: Start: 09/04/25 Goal: partial A x4 stairs bilat. rails Dates: Start: 09/04/25 Encounter Problems (Resolved) There are no resolved problems. Session Start/Stop Time: 1445 1545 Therapy Minutes Physical Therapy PT Individual: 60 [1] Past Medical History: Diagnosis Date DVT (deep vein thrombosis) in HTN (hypertension) TIA (transient ischemic attack) [2] History reviewed. No pertinent surgical history. * Elba Gilmore NP - 09/12/2025 1:03 PM EST Images from the original note were not included. HIEN PROGRESS NOTE Date: 09/12/2025 Author: Elba Gilmore NP Patient ID: David Poon is a 60 y.o. male : 1965 MR#: [id number] SUBJECTIVE Subjective Patient has no complaints he denies headaches dizziness visual impairments He did relate to the nurse that he has been having some lower leg cramps which he gets at home He requested his calcium be checked He states he is eating and drinking well he otherwise slept well is not specific to bedtime He denies spasticity ALL: Lisinopril REVIEW OF SYSTEMS: Review of Systems CONSTITUTIONAL: No fever. No chills. No dizziness. No weakness. HEENT: No sore throat, URI symptoms. No CASEY, dizziness, visual changes CARDIOvasc: No chest pain. No palpitations. No lower extremity edema. RESP: No SOB, pain with respiration, No hemoptysis. No dyspnea. NO RDS,cough GI: Normal appetite. No nausea, vomiting, diarrhea. No pain. No bloating. No melena. : No frequency, urgency, nocturia. No hematuria or dysuria. MUSCULOSKELETAL: No arthralgias or myalgias. INTEGUMENTARY: No swelling. No bruising. No lymphangitis. No wounds NEUROLOGIC: No neck pain. Back pain, numbness /tingling, weakness. PSYCHIATRIC: No confusion. Current Medications: MEDSSCHEDULED[1] MEDSCONTINUOUS[2] MEDSPRN[3] OBJECTIVE Objective PHYSICAL EXAM Physical Exam Patient seen and evaluated at bedside 24-hour documentation reviewed no overnight events General-NAD, cognitively- intact , AAO- ??3 , appears stated age, appears comfortable HEENT- head normocephalic, no JVD, no carotid bruits, pupils reactive to light and accomodation, eomi Heart-RRR, normal S1, S2, no clicks, heaves, murmurs, splits, gallops, rubs Lungs-CTA B no adventitious breath sounds. Abdomen-S NT BS ??4, no distention, organomegaly, no palpable masses. Extremities-M AE, no CCE, cap refill brisk, DPP Neuromuscular-strength is 5 per 5 except left dorsiflexion and plantarflexion as well as EHL is 1-1+ per 5 sensation is intact otherwise normal antigravity movements negative clonus negative Hortensia's Integumentary- turgor good, skin warm dry intact, no rashes Psych- mood stable no SI Last Recorded Vitals: BP 126/77 (BP Location: Left arm, Patient Position: Sitting) Pulse 79 Temp 36.4 ??C (97.5 ??F) (Oral) Resp 18 Wt 108 kg (238 lb) BMI 28.98 kg/m?? Lab Results: LABS HEMATOLOGY Lab Results Component Value Date WBC 8.2 09/10/2025 HGB 14.6 09/10/2025 HCT 42.3 09/10/2025 MCV 97.5 09/10/2025 PLT 279 09/10/2025 CHEMISTRY Lab Results Component Value Date GLUCOSE 78 09/10/2025 NA 139 09/10/2025 K 4.3 09/10/2025 CO2 27 09/10/2025 CL 104 09/10/2025 BUN 9 09/10/2025 CREATININE 0.85 09/10/2025 EGFR 99 09/10/2025 CALCIUM 8.9 09/10/2025 MG 2.0 09/10/2025 ANIONGAP 8 09/10/2025 No results found for: TROPONINT Imaging: Last Images reviewed No image results found. ASSESSMENT & PLAN Assessment/Plan Principal Problem: CVA (cerebral vascular accident) (CMS/HCC V24, CMS/HCC V28) Acute CVA Left hemiparesis - MRI brain was positive for acute right thalamic ischemic CVA Neurology recommended continuing DAPT and statin until outpatient follow-up for further recommendations - Aspirin 81 mg daily - Plavix 75 mg daily - Atorvastatin 40 mg nightly Continue therapies f/u [facility] (Dr Sky) after discharge Bilateral leg cramp's No edema no calf pain no tenderness Scribes history of carpopedal spasm as well Patient states he has had these for years off-and-on States they seem worse of late He is requesting his calcium rechecked Calcium is currently normal sodium is normal K+ nlmag is pending Check vitamin D level Consider gabapentin Hypertension - Amlodipine 5 mg daily Monitor may need more adjustments, Nicotine dependence Smoking cessation encouraged - Nicotine 21 mg patch daily History of alcohol use - Monitored on CIWA during acute hospital stay without withdrawal appreciated allergic rhinitis - Loratadine 10mg daily Constipation - Colace 100 mg twice daily - Senna 2 tabs nightly 50 minutes spent on review of the chart, 24 hr activity recent labs, imaging, history and dischargeas well as ROS, assessment, plan and further testing/ recommendations and charting DAILY CARE CHECKLIST VTE Prophylaxis: Not on Lovenox 40 mg daily recently DC'd patient is ambulatory Diet: Dietary Orders (From admission, onward) Start Ordered 09/03/[address] [facility]; General; Regular Diet effective now Question Answer Comment Location [facility] Diet Type (req) General General Diet Regular 09/03/25 1258 Resuscitation: Full Code - Default PCP: MD Elba Best NP This document was developed in part, totally and/or in the combination using the [employer] voice recognition software. Limitations of the careers adviser due to software-hardware parity limitation may lead to unintended omission, grammatical or nonsensical errors, possibly missed and/or not readily detected during proof reading by the author of this document. If you have any questions or concerns, regarding the content of this note, please contact me directly. [1] amLODIPine, 5 mg, oral, Daily aspirin, 81 mg, oral, Daily atorvastatin, 40 mg, oral, Nightly clopidogreL, 75 mg, oral, Daily docusate sodium, 100 mg, oral, BID folic acid, 1 mg, oral, Daily lactulose, 20 g, oral, Once loratadine, 10 mg, oral, Daily nicotine, 1 patch, transdermal, q24h polyetheylene glycol, 17 g, oral, Daily senna, 2 tablet, oral, Nightly thiamine, 100 mg, oral, Daily [2] [3] PRN medications: acetaminophen, aluminum-magnesium hydroxide-simethicone, bisacodyL, magnesium hydroxide * CHRISTA Christie - 09/12/2025 11:44 AM EST [facility] Occupational Therapy Treatment Note 09/12/2025 Patient: aDvid Poon : 1965 Age: 60 y.o. Gender: male Diagnosis: CVA (cerebral vascular accident) ([facility] V24, [facility] V28) Primary Rehab (Etiologic) Diagnosis: Problem List[1] PMH: Medical History[2] PSH: Surgical History[3] Allergies: is allergic to lisinopril. Precautions: Precautions Medical Precautions: Fall Risk Safety Interventions: ID band on, Call gallardo within reach, Personal alarm on, Chair alarm, Bed alarm RUE Weight Bearing Status: Full LUE Weight Bearing Status: Full RLE Weight Bearing Status: Full LLE Weight Bearing Status: Full Orthoses Applied: (training AFO left LE) Vitals: Pain: Subjective: I want to leave Sunday. Procedures/Interventions: Pt in day room and pt reports ok for therapy. Pt propelled w/c back to room . Pt locked brakes and managed to removed leg rest to the side. Sit stand to walker with close s, pt amblated to /from gym with w/w and cues for pacing self and per pt reports I know, it helps with my knee. steady assist with ambulation For 300ft no rest. Pt participated in UE there ex. With 3# wt for shld flex/ext, abd/add, chest press, shld press, bicep curl.pt stood at mat to reshma pillow cases with steady assist. At walker level. In supine with 2# circumduction CW/CCW, serratus punches and tricep press on L 3x10 with intermittent rest pt ambulated back to room steady assist Pt reports will take shower in the one next to his room.pt gathered clothing and shampoo /body washand clothing at bed level. Ambulated to shower stall w/w and steady assist, close S with transfer to bench at w.w Pt regulated water , doffed clothing with S. Pt completed washing self In sitting. Pt dryed self insitting except to dry buttocks area . Pt donned clothing with S. No LOB pt holding on to grab bar in standing to pull pants over waist. Reshma sneaker in sitting. Ambulated back to room with ww steady assist. Grooming completed at w/c level . Pt doff shoes and then donned socks at w/c level. Prior to shower pt managed w/c for brakes and leg rest . Pt stood with cantu and step on/off scale with no LOB. ADLs/IADLs Self Care/Home Management (ADLs) Time Entry: 45 Therapeutic Exercise Therapeutic Exercise Time Entry: 45 OT Assessment OT Assessment OT Assessment Results: Decreased ADL status, Decreased upper extremity strength, Decreased upper extremity range of motion, Decreased safe judgment during ADL, Decreased fine motor control, Decreasedfunctional mobility, Decreased IADLs, Decreased gross motor control Prognosis: Good Evaluation/Treatment Tolerance: Patient tolerated treatment well Comments: Pt w/ intermittent LOB laterally as pt stepping over opposite foot d/t narrow turns, using SPC, pt would benefit from continued practice utilizing SPC to maximize Ind via LRD. Pt demo appropriate kitchen safety to complete light meal prep w/ sup. Pt declining shower in tub/shower, howeverwould benefit from continued repetitions prior to d/c. Pt requires sup for UB dressing, steadying A LB dressing, bathing and toileting 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 Goals Dates: Start: 09/04/25 Goal: Pt will perform LB dressing mod I Dates: Start: 09/04/25 Expected End: 09/18/25 Goal: Pt will bathe via LRD mod I Dates: Start: 09/04/25 Expected End: 09/18/25 Goal: Pt will perform toileting hygiene mod I Dates: Start: 09/04/25 Expected End: 09/18/25 Goal: Pt will perform toilet txfer mod I Dates: Start: 09/04/25 Expected End: 09/18/25 Goal: Pt will complete med mgmt mod I Dates: Start: 09/04/25 Expected End: 09/18/25 Problem: OT Short Term Goals Dates: Start: 09/04/25 Goal: Pt will complete LB dressing steadying A Dates: Start: 09/04/25 Expected End: 09/11/25 Goal: Pt will perform toilet txfer steadying A Dates: Start: 09/04/25 Expected End: 09/11/25 Goal: Pt will perform toileting hygiene sup Dates: Start: 09/04/25 Expected End: 09/11/25 Goal: Pt will perform grooming activities in standing, steadying A Dates: Start: 09/04/25 Expected End: 09/11/25 Goal: Pt will bathe steadying A Dates: Start: 09/04/25 Expected End: 09/11/25 Encounter Problems (Resolved) There are no resolved problems. Education Documentation No documentation found. Education Comments No comments found. Start/Stop Time OT Time Calculation OT Start Time: 0830 OT Stop Time: 1000 OT Time Calculation (min): 90 min Therapy Minutes: Occupational Therapy OT Individual: 90 [1] Patient Active Problem List Diagnosis CVA (cerebral vascular accident) ([facility] V24, [facility] V28) [2] Past Medical History: Diagnosis Date DVT (deep vein thrombosis) in HTN (hypertension) TIA (transient ischemic attack) [3] History reviewed. No pertinent surgical history. * Christina Jaramillo DO - 09/11/2025 1:57 PM EST Images from the original note were not included. [facility] Daily Progress Note Patient name: David Poon : 1965 SUBJECTIVE: Patient seen and examined at bedside today. No acute events overnight. Denies headaches, dizziness,shortness of breath, chest pain, nausea, constipation, and pain. No new concerns today. States thattherapies are going well. Participating in therapies: PT: Comments: Improved with ww, challenged with SC today. Gait improving overall with ww OT: Comments: Pt w/ intermittent LOB laterally as pt stepping over opposite foot d/t narrow turns, using SPC, pt would benefit from continued practice utilizing SPC to maximize Ind via LRD. Pt demo appropriate kitchen safety to complete light meal prep w/ sup. Pt declining shower in tub/shower, however would benefit from continued repetitions prior to d/c. Pt requires sup for UB dressing, steadying A LB dressing, bathing and toileting OBJECTIVE: Vitals: 09/10/25 1245 09/10/25 1540 09/11/25 0546 09/11/25 0832 BP: (!) 138/95 (!) 147/89 125/59 135/77 BP Location: Right arm Right arm Right arm Left arm Patient Position: Sitting Sitting Lying Sitting Pulse: 97 92 61 77 Resp: 17 16 18 Temp: 36.5 ??C (97.7 ??F) 36.3 ??C (97.3 ??F) 36.9 ??C (98.4 ??F) TempSrc: Oral Oral Oral SpO2: 97% 95% 95% 97% Weight: Physical Examination: General: Alert, in no acute cardiopulmonary distress. Mental Status: Oriented to person, place and time. Normal affect. Head: Normocephalic. Eyes: Extraocular muscles intact. Ear, Nose and Throat: Oropharynx clear, mucous membranes moist. Ears and nose without masses, lesions or deformities. Neck: Supple, Trachea midline. Respiratory: Clear to auscultation and percussion. No wheezing, rales or rhonchi. Cardiovascular: Heart sounds normal. Regular rate and rhythm, no murmurs, rubs or gallops. Gastrointestinal: Abdomen soft, non-tender, non-distended. Normal bowel sounds. Neurologic: Cranial nerves II-XII intact. Negative Hoffmans sign on the left. Negative clonus on the left. Moves all extremities spontaneously. Sensation intact bilaterally. Skin: No rashes or lesions. No petechiae or purpura. Musculoskeletal: No cyanosis or clubbing. No gross deformities. Normal range of motion. Strength 5/5 throughout right upper and lower extremities. Strength 5/5 left shoulder abduction, 5/5 left elbowflexion, 5/5 left elbow extension, 5/5 left wrist extension, 4/5 left finger abduction. Strength 5/5 left hip flexion, 5/5 left knee extension, 1/5 left dorsiflexion, 1/5 left plantarflexion, 1/5 left EHL. No changes since last visit. CURRENT INPATIENT MEDICATIONS: Current Medications[1] LABS: Lab Results Component Value Date WBC 8.2 09/10/2025 RBC 4.30 (L) 09/10/2025 HGB 14.6 09/10/2025 HCT 42.3 09/10/2025 MCV 97.5 09/10/2025 MCHC 34.5 09/10/2025 RDW 11.0 09/10/2025 PLT 279 09/10/2025 MPV 9.1 09/10/2025 NRBC 0.0 09/10/2025 DIFF Lab Results Component Value Date LYMPHOPCT 24.3 09/04/2025 NEUTROABS 5.81 09/04/2025 LYMPHSABS 2.15 09/04/2025 MONOABS 0.68 09/04/2025 EOSABS 0.18 09/04/2025 BASOSABS 0.03 09/04/2025 IMMGRANABS 0.01 09/04/2025 RETIC No results found for: RETIC , RETICCTPCT Lab Results Component Value Date NA 139 09/10/2025 K 4.3 09/10/2025 CL 104 09/10/2025 CO2 27 09/10/2025 GLUCOSE 78 09/10/2025 BUN 9 09/10/2025 CREATININE 0.85 09/10/2025 CALCIUM 8.9 09/10/2025 PROT 6.0 09/10/2025 ALBUMIN 3.6 09/10/2025 BILITOT 0.9 09/10/2025 AST 23 09/10/2025 ALT 29 09/10/2025 ALKPHOS 46 09/10/2025 EGFR 99 09/10/2025 IMPRESSION & PLAN: #Impaired mobility and self-care - Secondary to acute CVA - Continue PT, OT, AIRCRAFT PAINTER, and nursing care #Acute CVA #Left hemiparesis - MRI brain was positive for acute right thalamic ischemic CVA - Neurology recommended continuing DAPT and statin until outpatient follow-up for further recommendations - Aspirin 81 mg daily - Plavix 75 mg daily - Atorvastatin 40 mg nightly - Continue therapies - f/u [facility] (Dr Sky) after discharge #Hypertension - Amlodipine 5 mg daily #Tobacco dependence - Nicotine 21 mg patch daily #History of alcohol use - Monitored on CIWA during acute hospital stay without withdrawal appreciated #Allergic rhinitis - Loratadine 10mg daily #Bowel management - Colace 100 mg twice daily - Senna 2 tabs nightly - Miralax 17gm daily - last BM 09/09 after Lactulose #DVT prophylaxis: Lovenox 40mg daily discontinued on 09/09 given that patient is ambulatory, continue DAPT and ambulation with therapies as tolerated [1] Current Facility-Administered Medications: acetaminophen (TYLENOL) tablet 650 mg, 650 mg, oral, q6h PRN, JIMMY Mullins aluminum-magnesium hydroxide-simethicone (MAALOX) 200-200-20 mg/5 mL suspension 30 mL, 30 mL, oral,q4h PRN, Christina Jaramillo DO amLODIPine (NORVASC) tablet 5 mg, 5 mg, oral, Daily, JIMMY Mullins, 5 mg at 09/11/25 0832 aspirin EC tablet 81 mg, 81 mg, oral, Daily, JIMMY Mullins, 81 mg at 09/11/25 08 atorvastatin (LIPITOR) tablet 40 mg, 40 mg, oral, Nightly, JIMMY Mullins, 40 mg at 09/10/252126 bisacodyL (DULCOLAX) suppository 10 mg, 10 mg, rectal, Daily PRN, JIMMY Mullins clopidogreL (PLAVIX) tablet 75 mg, 75 mg, oral, Daily, JIMMY Mullins, 75 mg at 09/11/25 08 docusate sodium (COLACE) capsule 100 mg, 100 mg, oral, BID, JIMMY Mullins, 100 mg at folic acid (FOLVITE) tablet 1 mg, 1 mg, oral, Daily, JIMMY Rae, 1 mg at 09/11/25 0833 loratadine (CLARITIN) tablet 10 mg, 10 mg, oral, Daily, Christina Jaramillo DO, 10 mg at 09/11/25 0832 magnesium hydroxide (MILK OF MAGNESIA) 400 mg/5 mL suspension 30 mL, 30 mL, oral, Daily PRN, JIMMY Mullins, 30 mL at 09/09/25 0603 nicotine (NICODERM CQ) 21 mg/24 hr patch 1 patch, 1 patch, transdermal, q24h, JIMMY Rae,1 patch at 09/11/25 0832 polyethylene glycol (MIRALAX) packet 17 g, 17 g, oral, Daily, Christina Jaramillo DO, 17 g at 09/11/25 0832 senna (SENOKOT) tablet 17.2 mg, 2 tablet, oral, Nightly, JIMMY Mullins, 17.2 mg at 09/10/252127 thiamine (VITAMIN B-1) tablet 100 mg, 100 mg, oral, Daily, JIMMY Rae, 100 mg at 833 * Kaykay Perez OT - 09/11/2025 7:00 AM EST [facility] Occupational Therapy Treatment Note 09/11/2025 Patient: David Poon : 1965 Age: 60 y.o. Gender: male Diagnosis: CVA (cerebral vascular accident) ([facility] V24, [facility] V28) Primary Rehab (Etiologic) Diagnosis: Problem List[1] PMH: Medical History[2] PSH: Surgical History[3] Allergies: is allergic to lisinopril. Precautions: Precautions Medical Precautions: Fall Risk Safety Interventions: ID band on, Call gallardo within reach, Personal alarm on, Chair alarm, Bed alarm RUE Weight Bearing Status: Full LUE Weight Bearing Status: Full RLE Weight Bearing Status: Full LLE Weight Bearing Status: Full Orthoses Applied: (training AFO left LE) Pain: Pain Assessment Pain Assessment: No/denies pain Subjective: Yeah I already know (when provided verbal cues for gait) Procedures/Interventions: ADLs/IADLs Self Care/Home Management (ADLs) Time Entry: 15 ADL/ IADL Performed: Kitchen Mobility, Meal Prep Balance/Neuromuscular Re-Education Neuromuscular Re-Education Time Entry: 75 Pt received seated in w/c, agreeable to participate in OT session. This fiction and nonfiction writer prose initiating vitals, however pt reluctant to have vitals assessed d/t frustration of having vitals already taken at 5:46 AM. This fiction and nonfiction writer prose reinforcing staff assessing vitals regularly. Pt amb via RW, steadying A to ADL kitchen. Verbal cues for L LE uplift as pt catching toe. Verbal cues to take wider turns to decrease riskof falling. Upon entry to ADL kitchen, pt remained seated for rest break. This fiction and nonfiction writer prose applying gaitbelt for safety. Pt tasked w/ making toast using SPC for ambulation. Pt amb via SPC, partial A to countertop. Pt reaching for counter to stabilize vs using SPC. Pt stepping via R LE over L LE, positioning self in tandem stance. This fiction and nonfiction writer prose educating pt on using SPC vs furniture cruising and taking wide steps. Pt able to place bread in toaster, stabilizing on countertop. Pt amb via SPC and stabilizing on countertop to fridge and retrieved butter. Pt amb back to toaster via countertop cruising. Pt applied butter to toast. Pt declining to eat, this fiction and nonfiction writer prose instructing pt to bring toast to garbage. Pt requesting to carry toast vs plate. This fiction and nonfiction writer prose educating pt on purpose of carrying plate to simulate home environment, encourage gross grasp using L UE. Pt amb via SPC, partial A and disposed oftoast. Constant verbal cues required to widen stance and slow pace. Pt reporting he will not be cooking at all at home, reporting Lamberto (SO) will be present at most times. SO Lamberto previously reporting she will not be there and pt will be responsible for light meal prep. Pt requesting to amb via RW to therapy gym, reporting stiffness in L LE. Pt amb via RW, steadying Gabe gym. Pt participated in activity to address L LE uplift, visual scanning and head turns during amb in prep for driving, balance and dual task. Pt required to retrieve sticky notes placed at various heights around therapy gym w/ letters A-P on sticky notes. Pt initially amb via RW, steadying A, and retrieved 12/14. Pt noted to be catching toe and w/ poor L LE uplift. Pt stopped first activity toparticipate in new activity to address L LE uplift. Standing at panchito bar on R, pt required to step over SPC into sequence of 3 colored hoops called out by this fiction and nonfiction writer prose. Pt requiring min verbal cues for memory of sequence. Pt alternating between stance on L LE and R LE to facilitate B weight shift and single leg balance. Pt required steadying/partial A for balance throughout. Pt returned to sticky note activity and required verbal cues for scanning as pt missing 03/16 mainly at eye level. Pt w/ min difficulty w/ dual task component naming food associated w/ letters. This fiction and nonfiction writer prose reinforcing purpos e of activity as pt w/ frustration. Pt initially agreeable to shower post activities, however this fiction and nonfiction writer prose reinforcing shower in tub shower to simulate home environment. Pt frustrated and requesting walk in shower, this fiction and nonfiction writer prose reinforcing purpose of using tub shower and pt declining to shower at all. Standing at tabletop, pt participated in activity to address standing balance, L UE coordination and supination of L UE. Pt tasked w/ retreiving marble via L UE, dropping into cup and supinating L forearm to place marble into target. Pt required one seated rest break. Pt initially using pincer grasp to retrieve marbles then compensating and dragging marbles up via all digits. This fiction and nonfiction writer prose applied 2lb wrist weight to address ataxia and strengthen L UE, w/ good output. Standing at panchito bar on R, pt participated in montelongo bag toss to facilitate L LE uplift, balance and coordination. Pt required to step via L LE onto target and toss montelongo bag using R UE, partial A for balance. Pt standing on L LE, stepping fwd via R LE and tossing montelongo bag via L UE to challenge unilateral balance on L LE. Weight wrist present throughout activity to address ataxia. Pt required partial A for balance throughout activity as pt w/ increased difficulty w/ no AD. Pt requesting to return to room for coffee and morning meds. Pt removed gait belt. Pt amb via RW, steadying A, verbal cues for L LE uplift and wide turning. Pt declining seated rest break, L ankle noted to be rolling outward. Pt remained seated in w/c, this fiction and nonfiction writer prose provided pt stress ball w/ elasticto complete L hand strengthening exercises, provided demo. Pt able to return demo. Pt remained seated in w/c, call gallardo in place, chair alarm on. RN aware pt requesting morning medications. OT Assessment OT Assessment OT Assessment Results: Decreased ADL status, Decreased upper extremity strength, Decreased upper extremity range of motion, Decreased safe judgment during ADL, Decreased fine motor control, Decreasedfunctional mobility, Decreased IADLs, Decreased gross motor control Prognosis: Good Evaluation/Treatment Tolerance: Patient tolerated treatment well Comments: Pt w/ intermittent LOB laterally as pt stepping over opposite foot d/t narrow turns, using SPC, pt would benefit from continued practice utilizing SPC to maximize Ind via LRD. Pt demo appropriate kitchen safety to complete light meal prep w/ sup. Pt declining shower in tub/shower, howeverwould benefit from continued repetitions prior to d/c. Pt requires sup for UB dressing, steadying A LB dressing, bathing and toileting 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 Goals Dates: Start: 09/04/25 Goal: Pt will perform LB dressing mod I Dates: Start: 09/04/25 Expected End: 09/18/25 Goal: Pt will bathe via LRD mod I Dates: Start: 09/04/25 Expected End: 09/18/25 Goal: Pt will perform toileting hygiene mod I Dates: Start: 09/04/25 Expected End: 09/18/25 Goal: Pt will perform toilet txfer mod I Dates: Start: 09/04/25 Expected End: 09/18/25 Goal: Pt will complete med mgmt mod I Dates: Start: 09/04/25 Expected End: 09/18/25 Problem: OT Short Term Goals Dates: Start: 09/04/25 Goal: Pt will complete LB dressing steadying A Dates: Start: 09/04/25 Expected End: 09/11/25 Goal: Pt will perform toilet txfer steadying A Dates: Start: 09/04/25 Expected End: 09/11/25 Goal: Pt will perform toileting hygiene sup Dates: Start: 09/04/25 Expected End: 09/11/25 Goal: Pt will perform grooming activities in standing, steadying A Dates: Start: 09/04/25 Expected End: 09/11/25 Goal: Pt will bathe steadying A Dates: Start: 09/04/25 Expected End: 09/11/25 Encounter Problems (Resolved) There are no resolved problems. Education Documentation Fall Precautions, taught by Kaykay Perez OT at 09/11/2025 11:08 AM. Learner: Patient Readiness: Acceptance Method: Explanation Response: Verbalizes Understanding, Needs Reinforcement Body Mechanics, taught by Kaykay Perez OT at 09/11/2025 11:08 AM. Learner: Patient Readiness: Acceptance Method: Explanation Response: Verbalizes Understanding, Needs Reinforcement Home Exercise Program, taught by Kaykay Perez OT at 09/11/2025 11:08 AM. Learner: Patient Readiness: Acceptance Method: Explanation Response: Verbalizes Understanding, Needs Reinforcement ADL Training, taught by Kaykay Perez OT at 09/11/2025 11:08 AM. Learner: Patient Readiness: Acceptance Method: Explanation Response: Verbalizes Understanding, Needs Reinforcement Education Comments No comments found. Start/Stop Time OT Time Calculation OT Start Time: 0700 OT Stop Time: 829 OT Time Calculation (min): 90 min Therapy Minutes: Occupational Therapy OT Individual: 90 [1] Patient Active Problem List Diagnosis CVA (cerebral vascular accident) ([facility] V24, [facility] V28) [2] Past Medical History: Diagnosis Date DVT (deep vein thrombosis) in HTN (hypertension) TIA (transient ischemic attack) [3] History reviewed. No pertinent surgical history. * Brinda Rueda CCC-AIRCRAFT PAINTER - 09/10/2025 4:04 PM EST Speech Language Pathology [facility] Speech Language Pathology Discharge Evaluation 09/10/2025 Patient: David Poon : 1965 Age: 60 y.o. Gender: male Primary Language: Pakistani Diagnosis: CVA (cerebral vascular accident) ([facility] V24, [facility] V28) Primary Rehab (Etiologic) Diagnosis: Problem List[1] PMH: Medical History[2] PSH: Surgical History[3] Allergies: is allergic to lisinopril. Precautions: Precautions Medical Precautions: Fall Risk Safety Interventions: ID band on, Call gallardo within reach, Personal alarm on, Chair alarm, Bed alarm RUE Weight Bearing Status: Full LUE Weight Bearing Status: Full RLE Weight Bearing Status: Full LLE Weight Bearing Status: Full Orthoses Applied: (training AFO left LE) AIRCRAFT PAINTER Start Time: 0 AIRCRAFT PAINTER Stop Time: 1534 AIRCRAFT PAINTER Time Calculation (min): 5 min *5 mins of tx was completed from Subjective: Patient seen at bedside for cognitive-linguistic discharge testing this PM; pt sat upright in wheelchair at bedside. Patient cooperative and engaged throughout all session exercises. Patient without complaint of acute pain during visit. Objective Treatment Cognitive Skills Therapeutic Interventions Cognitive Skills Direct Contact Time Entry: 30 Orientation: WFL; pt scored 6/6 on orientation section of MoCA. Memory: Mild difficulties; Pt immediatly recalled 5/5 words during 1st trial and 5/5 words during 2nd trial on MoCA. With delayed recall, pt recalled 3/5 words independently, 0/5 words w/ categorey cue, and 0/5 words w/ m/c cue on MoCA. Attention/Concentration: Mild difficulties; pt scored 4/6 on attention section of MoCA. Other Cognitive Skills Activity: Naming: WFL, Language: WFL, Abstraction: WFL, Mild executive functioning difficulties; pt scored 3/5 on visuospatial/executive functioning section of MoCA. Cognitive Skills Comments: Pt participated in the MoCA 8.2/8.3 for d/c assessment and reviewed the results. Pt was provided education and engaged in a conversation about d/c recommendations for cognitive functioning. Pt identified cognitive exercises he already completes, and benefited from encouragement to ID x1 new exercise he could implement upon d/c. Pt was provided handouts re: useful generalized cognitive strategies and cognitive exercise options; pt was attentive and verbalized comprehension at end of education. Epi Cognitive Assessment (MOCA) 8.2 *assessment administration error, supplemental delayed recall from MoCA 8.3 used* Visuospatial/Executive: 3/5 Namin/3 Attention - Digits: 1/2 Attention - Letters: 1/1 Attention - Serial Subtraction: 2/3 Language - Repetition: 2/2 Language - Naming Fluency: 1/1 Abstraction: 2/2 Delayed Recall: 3/5 Orientation: 6/6 TOTAL SCORE: 24/30 Normal >= 26/30 Comments: Epi Cognitive Assessment (MOCA) Version 8.2: Composite Score: +24/30, correlating to MILD cognitive impairment. Interpretation: scores of 26 or greater are WFL compared to a normative sample of similarly aged adults. Below this, scores can indicate severe (<=9 points), moderate (10-18 points) or mild (19-24points) cognitive impairment. Memory Index Score: 06/15: 3/5 words recalled independently, 0/5 with category cues, 0/5 with multiple choice cues. Additional Assessments/Tests AIRCRAFT PAINTER Additional Assessments/Tests Additional Assessment/Test #1: MoCA 8.2 Additional Assessment/Test # 2: Delayed recall of MoCA 8.3 Plan: AIRCRAFT PAINTER Discharge Recommendations: Outpatient AIRCRAFT PAINTER; however, pt declined continued ST services at this time. Discharge Assessment/Impressions: On discharge, pt continues to display w/ MILD cognitive linguistic deficits which are similar compared to his initial evaluation. Pt scored a 24/30 on MoCA version 8.1, the initial evaluation, and 24/30 on the MoCA version 8.2, the discharge evaluation, which indicates that pt continues to have mild deficits in the areas of attention, short term recall, and executive functioning. Compared to his initial evaluation, the pt demonstrated improvements in language, abstraction, delayed recall, and orientation skills, with some mildly decreased skill in executive functioning and attention. Pt wouldbenefit from continued inpatient therapy and/or therapy at the next level of care to address cognitive linguistic skills as pt was majority indep. at baseline; however, pt declined ST services at this time. Throughout therapy pt has shown indep use of external memory strategies, specifically writing information down, to aid in delayed recall and organization of functional information. Additionally, pt has previously reported that his partner provides mild assistance with managing various iADLs. Patient is discharged to: See CM note Patient/Family discharge education: Handouts provided at bedside Additional Discharge Considerations: N/A Assessment/Plan AIRCRAFT PAINTER Assessment AIRCRAFT PAINTER Assessment Results: Cognitive impairments Dysphagia Diagnosis: Within Functional Limits Evaluation/Treatment Tolerance: Patient tolerated treatment well Comments: Pt continues to display MILD cognitive difficulties, please see above for additional details. Plan Treatment/Interventions: Cognitive linguistic functioning AIRCRAFT PAINTER Plan: No skilled AIRCRAFT PAINTER No Skilled AIRCRAFT PAINTER: Patient refusal (limited pt participation in therapy and declined interest in continuing ST services.) AIRCRAFT PAINTER Frequency: 2-5 days per week AIRCRAFT PAINTER Duration of Sessions: 30-60 min per session AIRCRAFT PAINTER Treatments per day: 1 time per day AIRCRAFT PAINTER Discharge Recommendations: Outpatient AIRCRAFT PAINTER Diet Recommendations: IDDSI 7 reg/0 thins Goals ( Encounter Problems Encounter Problems (Active) There are no active problems. Encounter Problems (Resolved) Template: Speech Therapy Problem: AIRCRAFT PAINTER Mill Beam Fitter Goals Dates: Start: 09/04/25 Resolved: 09/10/25 Goal: Pt will improve cognitive linguistic functioning for d/c setting. (Resolved) Dates: Start: 09/04/25 Expected End: 09/11/25 Resolved: 09/10/25 Outcomes Date/Time User Outcome 09/10/25 1603 ALEXANDER Wiggins Completed Problem: AIRCRAFT PAINTER Short Term Goals Dates: Start: 09/04/25 Resolved: 09/10/25 Goal: Pt will complete additional diagnostic testing in 100% of opportunities indep. (Resolved) Dates: Start: 09/04/25 Expected End: 09/09/25 Resolved: 09/10/25 Outcomes Date/Time User Outcome 09/10/25 1603 ALEXANDER Wiggins Completed Goal: Pt will participate in ongoing education regarding cognitive linguistic strategies and ID pertinent techniques to use in daily life in 100% of opportunities indep. (Resolved) Dates: Start: 09/04/25 Expected End: 09/11/25 Resolved: 09/10/25 Outcomes Date/Time User Outcome 09/10/25 1603 ALEXANDER Wiggins Completed Goal: Pt will recall +5 pieces of novel information following a >6 minute delay given mod A for encoding/retrieval strategies. (Resolved) Dates: Start: 09/04/25 Expected End: 09/11/25 Resolved: 09/10/25 Outcomes Date/Time User Outcome 09/10/25 1603 ALEXANDER Wiggins Completed Goal: Pt will complete mod-higher level executive functioning tasks with 80% accuracy given min A. (Resolved) Dates: Start: 09/04/25 Expected End: 09/11/25 Resolved: 09/10/25 Outcomes Date/Time User Outcome 09/10/25 1607 ALEXANDER Wiggins Completed ) Education Documentation Education Documentation Cognition, taught by ALEXANDER Wiggins at 09/10/2025 4:03 PM. Learner: Patient Readiness: Acceptance Method: Explanation, Handout Response: Verbalizes Understanding Education Comments No comments found. Start/Stop Time: AIRCRAFT PAINTER Time Calculation AIRCRAFT PAINTER Start Time: 829 AIRCRAFT PAINTER Stop Time: 899 AIRCRAFT PAINTER Start Time: 1529 AIRCRAFT PAINTER Stop Time: 1534 AIRCRAFT PAINTER Time Calculation (min): 35 min Therapy Minutes: Speech Therapy AIRCRAFT PAINTER Individual: 35 [1] Patient Active Problem List Diagnosis CVA (cerebral vascular accident) ([facility] V24, [facility] V28) [2] Past Medical History: Diagnosis Date DVT (deep vein thrombosis) in HTN (hypertension) TIA (transient ischemic attack) [3] History reviewed. No pertinent surgical history. * Ruth Valdes, PT - 09/10/2025 3:02 PM EST [facility] Physical Therapy Treatment Note 09/10/2025 Patient: David Poon : 1965 Age: 60 y.o. Gender: male Primary Language: Pakistani Diagnosis: CVA (cerebral vascular accident) ([facility] [place], [facility] V28) Medical History[1] Surgical History[2] Allergies: is allergic to lisinopril. Precautions: Medical Precautions: Fall Risk Safety Interventions: ID band on, Call gallardo within reach, Personal alarm on, Chair alarm, Bed alarm RUE Weight Bearing Status: Full LUE Weight Bearing Status: Full RLE Weight Bearing Status: Full LLE Weight Bearing Status: Full Orthoses Applied: (training AFO left LE) NURSING RECOMMENDATIONS Bed Mobility: supervision Transfers: partial assist Ambulation: partial assist with wwalker SUBJECTIVE Pt report: I feel like that was better. Pain: Pt endorsing LBP at end of therapy session. OBJECTIVE General Observation: Vitals: BP: (!) 138/95 Heart Rate: 97 SpO2: 97 % Procedure/Treatment: Neuromuscular Reeducation: Balance/Neuromuscular Re-Education Neuromuscular Re-Education Time Entry: 90 Pt seated in WC agreeable to participating in therapy session. Pt completed STS to RW, steadying assistance. Pt ambulating down to therapy gym, steadying assistance-SUP. Pt with decreased foot clearance and hyperextension of L knee during terminal stance phase of gait. Pt agreeable to trialing litegait. Vitals assessed Pt completed x10 minutes with lite gait harness and treadmill; treadmill speed 0.1-.5 mph. Pt with improvement in DF through swing phase of gait on LLE, pt with rapid knee hyperextension at terminal stance on LLE. Therapist providing tactile cue and guarding LLE to prevent hyperextension, therapist utilizing theraband to assist with decreased hyperextension, with moderate effect. Pt completed step down from treadmill with use of RW, steadying assistance. Pt completed part task gait training at panchito-bar for stance phase of gait on LLE, therapist assisting with manual facilitation of prevention of hyperextension, cued pt for increased knee flexion. Pt completed ambulation around panchito-bar, steadying assistance, therapist again assisting in prevention hyperextension during terminal stance, pt with good carry over of part task gait training. Pt completed ambulation, x50ft, 2x50ft with SPC, partial A for more than steadying assistance, decreased instance of hyperextension on LLE, improvement in foot clearance, pt slowing gait speed to improve foot clearance, pt demonstrating appropriate insight into balance when turning. Therapist and pt reviewing HEP to complete in room. Pt ambulating back to room with RW, steadying assistance-SUP, pt with decreased foot clearance and hyperextension on LLE during stance, likely d/t fatigue, and pts forward posture with use of RW. Pt left seated in WC, call gallardo in reach, chair alarm on, all needs met. HEP 3x10 seated november 3x10 seated LAQ 3x30 second supine hamstring stretch 3x30 plantar fascia stretch 3x10 ankle inversion/ eversion 3x10 seated heel raises/ toe raises. Education: Education Documentation Home Exercise Program, taught by Ruth Valdes, PT at 09/10/2025 3:56 PM. Learner: Patient Readiness: Acceptance Method: Explanation, Demonstration, Handout Response: Verbalizes Understanding, Demonstrated Understanding Mobility Training, taught by Ruth Valdes, PT at 09/10/2025 3:56 PM. Learner: Patient Readiness: Acceptance Method: Explanation, Demonstration, Handout Response: Verbalizes Understanding, Demonstrated Understanding Education Comments No comments found. ASSESSMENT PT Assessment PT Assessment Results: Decreased strength, Decreased range of motion, Decreased endurance, Impairedbalance, Impaired gait, Decreased mobility, Decreased coordination, Decreased safety awareness Prognosis: Good Evaluation/Treatment Tolerance: Patient tolerated treatment well Comments: Pt to beneift from continued gait trials with SPC or no AD, improvement in foot clearanceand decreased hyperextension of LLE throughout gait training. Pt with improvement in safety awareness during therapy session. Equipment: TBD Plan of Care Plan Treatment/Interventions: Functional transfer training, LE strengthening/ROM, Patient/family training, Equipment eval/education, Bed mobility, Gait training, Compensatory technique education, Balance training, Stair training, Continued evaluation PT Plan: Skilled PT PT Frequency: 5-7 days per week PT Duration of Sessions: 60-90 min per session PT Treatments per day: 1 time per day PT Discharge Recommendations: Other (Comment) (TBD) Problems/Goals Goals: Encounter Problems Encounter Problems (Active) Template: Physical Therapy Problem: PT Long-Term Goals Dates: Start: 09/04/25 Goal: mod-I transfers LRAD Dates: Start: 09/04/25 Goal: mod-I x12 stairs Dates: Start: 09/04/25 Goal: mod-I ambulation x150ft LRAD Dates: Start: 09/04/25 Goal: mod-I x2 stairs LRAD Dates: Start: 09/04/25 Problem: PT Short Term Goals Dates: Start: 09/04/25 Goal: mod-I bed mobility Dates: Start: 09/04/25 Goal: SUP transfers LRAD Dates: Start: 09/04/25 Goal: SUP ambulation x150ft LRAD Dates: Start: 09/04/25 Goal: partial A x4 stairs bilat. rails Dates: Start: 09/04/25 Encounter Problems (Resolved) There are no resolved problems. Session Start/Stop Time: 1230 1400 Therapy Minutes Physical Therapy PT Individual: 90 [1] Past Medical History: Diagnosis Date DVT (deep vein thrombosis) in HTN (hypertension) TIA (transient ischemic attack) [2] History reviewed. No pertinent surgical history. * JIMMY Mullins - 09/10/2025 1:39 PM EST Images from the original note were not included. [facility] Daily Progress Note Patient name: David Poon : 1965 SUBJECTIVE: Patient seen and examined at bedside today. No acute events overnight. Denies headaches, dizziness,shortness of breath, chest pain, nausea, constipation, and pain. No new concerns today. Participating in therapies: PT: Comments: Pt needing partial-steadying assistance with no AD, pt with decreased foot clearance on LLE with use of SPC. Pt needing consistent cues for picking up LLE. OT: Comments: Pt w/ one minor posterior LOB, steadying A provided by Lamberto. Lamberto provided clearance to perform fxl mob to bathroom w/ pt. Lamberto fentono ability to provide physical A and verbal cues to care for pt. Pt will continue to benefit from skilled OT to address, light meal prep, dynamic balance and L UE strength/attention. Pt requires steadying A LB dressing, bathing, toileting. S/u UB dressing. OBJECTIVE: Vitals: 09/10/25 0531 09/10/25 0918 09/10/25 1010 09/10/25 1245 BP: 120/73 133/80 126/72 (!) 138/95 BP Location: Left arm Right arm Right arm Right arm Patient Position: Lying Sitting Sitting Sitting Pulse: 64 67 75 97 Resp: 18 18 Temp: 36.6 ??C (97.9 ??F) 36.5 ??C (97.7 ??F) TempSrc: Oral Oral SpO2: 99% 95% 98% 97% Weight: Physical Examination: General: Alert, in no acute cardiopulmonary distress. Mental Status: Oriented to person, place and time. Normal affect. Head: Normocephalic. Eyes: Extraocular muscles intact. Ear, Nose and Throat: Oropharynx clear, mucous membranes moist. Ears and nose without masses, lesions or deformities. Neck: Supple, Trachea midline. Respiratory: Clear to auscultation and percussion. No wheezing, rales or rhonchi. Cardiovascular: Heart sounds normal. Regular rate and rhythm, no murmurs, rubs or gallops. Gastrointestinal: Abdomen soft, non-tender, non-distended. Normal bowel sounds. Neurologic: Cranial nerves II-XII intact. Negative Hoffmans sign on the left. Negative clonus on the left. Moves all extremities spontaneously. Sensation intact bilaterally. Skin: No rashes or lesions. No petechiae or purpura. Musculoskeletal: No cyanosis or clubbing. No gross deformities. Normal range of motion. Strength 5/5 throughout right upper and lower extremities. Strength 5/5 left shoulder abduction, 5/5 left elbowflexion, 5/5 left elbow extension, 5/5 left wrist extension, 4/5 left finger abduction. Strength 5/5 left hip flexion, 5/5 left knee extension, 1/5 left dorsiflexion, 1/5 left plantarflexion, 1/5 left EHL. No changes since last visit. CURRENT INPATIENT MEDICATIONS: Current Medications[1] LABS: Lab Results Component Value Date WBC 8.2 09/10/2025 RBC 4.30 (L) 09/10/2025 HGB 14.6 09/10/2025 HCT 42.3 09/10/2025 MCV 97.5 09/10/2025 MCHC 34.5 09/10/2025 RDW 11.0 09/10/2025 PLT 279 09/10/2025 MPV 9.1 09/10/2025 NRBC 0.0 09/10/2025 DIFF Lab Results Component Value Date LYMPHOPCT 24.3 09/04/2025 NEUTROABS 5.81 09/04/2025 LYMPHSABS 2.15 09/04/2025 MONOABS 0.68 09/04/2025 EOSABS 0.18 09/04/2025 BASOSABS 0.03 09/04/2025 IMMGRANABS 0.01 09/04/2025 RETIC No results found for: RETIC , RETICCTPCT Lab Results Component Value Date NA 139 09/10/2025 K 4.3 09/10/2025 CL 104 09/10/2025 CO2 27 09/10/2025 GLUCOSE 78 09/10/2025 BUN 9 09/10/2025 CREATININE 0.85 09/10/2025 CALCIUM 8.9 09/10/2025 PROT 6.0 09/10/2025 ALBUMIN 3.6 09/10/2025 BILITOT 0.9 09/10/2025 AST 23 09/10/2025 ALT 29 09/10/2025 ALKPHOS 46 09/10/2025 EGFR 99 09/10/2025 IMPRESSION & PLAN: #Impaired mobility and self-care - Secondary to acute CVA - Continue PT, OT, AIRCRAFT PAINTER, and nursing care #Acute CVA #Left hemiparesis - MRI brain was positive for acute right thalamic ischemic CVA - Neurology recommended continuing DAPT and statin until outpatient follow-up for further recommendations - Aspirin 81 mg daily - Plavix 75 mg daily - Atorvastatin 40 mg nightly - Continue therapies - f/u [facility] (Dr Sky) after discharge #Hypertension - Amlodipine 5 mg daily #Tobacco dependence - Nicotine 21 mg patch daily #History of alcohol use - Monitored on CIWA during acute hospital stay without withdrawal appreciated #Allergic rhinitis - Loratadine 10mg daily #Bowel management - Colace 100 mg twice daily - Senna 2 tabs nightly - Miralax 17gm daily - will give Lactulose 20gm Q2H x3 doses on 09/09 #DVT prophylaxis: Lovenox 40mg daily discontinued on 09/09 given that patient is ambulatory, continue DAPT and ambulation with therapies as tolerated [1] Current Facility-Administered Medications: acetaminophen (TYLENOL) tablet 650 mg, 650 mg, oral, q6h PRN, JIMMY Mullins aluminum-magnesium hydroxide-simethicone (MAALOX) 200-200-20 mg/5 mL suspension 30 mL, 30 mL, oral,q4h PRN, Christina Jaramillo, amLODIPine (NORVASC) tablet 5 mg, 5 mg, oral, Daily, JIMMY Mullins, 5 mg at 09/10/25918 aspirin EC tablet 81 mg, 81 mg, oral, Daily, JIMMY Mullins, 81 mg at 09/10/25918 atorvastatin (LIPITOR) tablet 40 mg, 40 mg, oral, Nightly, JIMMY Mullins, 40 mg at 09/09/252120 bisacodyL (DULCOLAX) suppository 10 mg, 10 mg, rectal, Daily PRN, JIMMY Mullins clopidogreL (PLAVIX) tablet 75 mg, 75 mg, oral, Daily, JIMMY Mullins, 75 mg at 09/10/25918 docusate sodium (COLACE) capsule 100 mg, 100 mg, oral, BID, JIMMY Mullins, 100 mg at folic acid (FOLVITE) tablet 1 mg, 1 mg, oral, Daily, JIMMY Rae, 1 mg at 09/10/25918 loratadine (CLARITIN) tablet 10 mg, 10 mg, oral, Daily, Christina Jaramillo DO, 10 mg at 09/10/25918 magnesium hydroxide (MILK OF MAGNESIA) 400 mg/5 mL suspension 30 mL, 30 mL, oral, Daily PRN, JIMMY Mullins, 30 mL at 09/09/25602 nicotine (NICODERM CQ) 21 mg/24 hr patch 1 patch, 1 patch, transdermal, q24h, JIMMY Rae,1 patch at 09/10/25918 polyethylene glycol (MIRALAX) packet 17 g, 17 g, oral, Daily, Christina Jaramillo DO, 17 g at 09/10/25918 senna (SENOKOT) tablet 17.2 mg, 2 tablet, oral, Nightly, JIMMY Mullins, 17.2 mg at 09/08/252119 thiamine (VITAMIN B-1) tablet 100 mg, 100 mg, oral, Daily, JIMMY Rae, 100 mg at Cosigned by Christina Jaramillo DO at 09/11/2025 8:30 AM EST * JIMMY Rae - 09/10/2025 11:10 AM EST Images from the original note were not included. [facility]EN PROGRESS NOTE Date: 09/10/2025 Author: JIMMY Rae Patient ID: David Poon is a 60 y.o. male : 1965 MR#: [id number] SUBJECTIVE Subjective No complaints, sleeping through the night, appetite fair, moving bowels voiding without difficulty Participating with therapy Allergies: Lisinopril Current Medications: MEDSSCHEDULED[1] MEDSCONTINUOUS[2] MEDSPRN[3] OBJECTIVE Vitals: 09/09/25 1000 09/09/25 1546 09/10/25 0531 09/10/25 0918 BP: (!) 150/87 (!) 143/83 120/73 133/80 BP Location: Right arm Right arm Left arm Right arm Patient Position: Sitting Sitting Lying Sitting Pulse: 83 89 64 67 Resp: Temp: 36.8 ??C (98.2 ??F) 36.6 ??C (97.9 ??F) 36.5 ??C (97.7 ??F) TempSrc: Oral Oral Oral SpO2: 96% 96% 99% 95% Weight: General: conscious alert no acute distress HEENT: pupils are equal round and reactive. extraocular movements are grossly intact lungs clear to auscultation, no wheezing or crackles noted heart regular rate and rhythm, no murmur or rubs abdomen soft nontender nondistended positive bowel sounds Musculoskeletal: No gross deformity to joints extremities without edema, erythema or calf tenderness neuro: left leg weakness skin: no rashes or lesions. psych: mood stable appearing, good eye contact. LABS HEMATOLOGY Lab Results Component Value Date WBC 8.2 09/10/2025 HGB 14.6 09/10/2025 HCT 42.3 09/10/2025 MCV 97.5 09/10/2025 PLT 279 09/10/2025 CHEMISTRY Lab Results Component Value Date GLUCOSE 78 09/10/2025 NA 139 09/10/2025 K 4.3 09/10/2025 CO2 27 09/10/2025 CL 104 09/10/2025 BUN 9 09/10/2025 CREATININE 0.85 09/10/2025 EGFR 99 09/10/2025 CALCIUM 8.9 09/10/2025 ANIONGAP 8 09/10/2025 Imaging: No image results found. ASSESSMENT & PLAN 1.Acute CVA 2.Left hemiparesis - MRI brain was positive for acute right thalamic ischemic CVA - Neurology recommended continuing DAPT and statin until outpatient follow-up for further recommendations - Aspirin 81 mg daily - Plavix 75 mg daily - Atorvastatin 40 mg nightly - Continue therapies - f/u [facility] (Dr Sky) after discharge 3.Hypertension - Amlodipine 5 mg daily Monitor may need more adjustments, 4. Nicotine dependence Smoking cessation encouraged - Nicotine 21 mg patch daily 5. History of alcohol use - Monitored on CIWA during acute hospital stay without withdrawal appreciated 6. Allergic rhinitis - Loratadine 10mg daily 7. Constipation - Colace 100 mg twice daily - Senna 2 tabs nightly 8. DVT prophylaxis: Lovenox 40mg daily 9. FULL CODE Total time spent 40 minutes doing chart review, interviewing patient, gathering information, performing physical exam, formulating plan, explaining management plan to patient, coordinating care with RN/rehab team , documentation and placing orders. [1] amLODIPine, 5 mg, oral, Daily aspirin, 81 mg, oral, Daily atorvastatin, 40 mg, oral, Nightly clopidogreL, 75 mg, oral, Daily docusate sodium, 100 mg, oral, BID folic acid, 1 mg, oral, Daily loratadine, 10 mg, oral, Daily nicotine, 1 patch, transdermal, q24h polyetheylene glycol, 17 g, oral, Daily senna, 2 tablet, oral, Nightly thiamine, 100 mg, oral, Daily [2] [3] PRN medications: acetaminophen, aluminum-magnesium hydroxide-simethicone, bisacodyL, magnesium hydroxide * Kaykay Perez OT - 09/10/2025 10:10 AM EST [facility] Occupational Therapy Treatment Note 09/10/2025 Patient: David Poon : 1965 Age: 60 y.o. Gender: male Diagnosis: CVA (cerebral vascular accident) (CMS/HCC V24, CMS/HCC V28) Primary Rehab (Etiologic) Diagnosis: Problem List[1] PMH: Medical History[2] PSH: Surgical History[3] Allergies: is allergic to lisinopril. Precautions: Precautions Medical Precautions: Fall Risk Safety Interventions: ID band on, Call gallardo within reach, Personal alarm on, Chair alarm, Bed alarm RUE Weight Bearing Status: Full LUE Weight Bearing Status: Full RLE Weight Bearing Status: Full LLE Weight Bearing Status: Full Orthoses Applied: (training AFO left LE) Vitals: BP: 126/72 Heart Rate: 75 SpO2: 98 % Pain: Pain Assessment Pain Assessment: No/denies pain Pain Score: 0 - No pain Subjective: I'm trying not to catch my toe Procedures/Interventions: Balance/Neuromuscular Re-Education Neuromuscular Re-Education Time Entry: 65 Therapeutic Exercise Therapeutic Exercise Time Entry: 15 Pt received seated in w/c, agreeable to participate in OT session. Vitals assessed, see above. Pt amb via RW, steadying A to therapy gym, no rest breaks. Verbal cues for L LE uplift, pt also cueing self independently for LLE uplift. In standing at panchito bar, pt participated in activity to facilitateL LE uplift, weight shift, standing balance, & activity tolerance to maximize fxl mob to inc Ind w/ ADLs. Pt required to place various colored rings on corresponding cones. Pt utilized R UE to stabilize self on panchito bar and alternate B LE stepping over SPC. Pt required steadying - partial A forbalance. Pt required to retreive all rings from cones via same method w/ this fiction and nonfiction writer prose calling out colors for added cog component. Pt participated in x3 trials w/ rest breaks as needed. Pt able to retrieve x2 rings from ground, partial A for balance. On 3rd trial, pt required to continuously count by2s. Pt w/ increased difficulty w/ dual task component added, however no LOB. Pt required intermittent verbal cues for L LE uplift over SPC and verbal cues to achieve balance prior to continuing on tonext ring. Pt noted to have inc difficulty stepping backward over SPC. Pt w/ improved performance when slowing pace. Pt participated in mini golf activity to facilitate lateral weight shift, B UE integration/coordination and standing balance. Pt able to stand w/ out AD, steadying-partial A for balance on uneven surface, place golf ball on putting green w/ partial A for balance and use B UE to swing club. Pt required one seated rest break. Pt's L knee intermittently in hyperflexion however able to self correct. Pt able to maintain L UE grasp on putter. No LOB noted. Pt amb via RW back to room, steadying A, one seated rest break required. Pt's L ankle noted to rolloutwards, pt self aware and requested seated rest break d/t fatigue. Pt self initiating verbal cuesduring fxl amb and slowing pace while turning. Pt remained seated in w/c once back in room. Pt participated in UB strengthening exercises to maximize fxl ROM and strength of L shoulder to incInd w/ ADLs. In standing, pt completed 2x10 wall pushups using B UE. Verbal and tactile cues to engage B scaps. Pt returned to sitting in w/c. Seated in front of mirror for visual feedback, pt completed 1x10 scap elevation and scap retraction. Verbal and tactile cues for symmetrical movement bilaterally. Pt demo good carryover. This fiction and nonfiction writer prose provided pt HEP for UB strengthening and stretching exercises to address L UE. Pt provided instruction to only complete standing exercises w/ SO Lamberto as pt cleared for room mob w/ Lamberto. Pt verbalizes understanding and w/ out questions. Pt remained seated in w/c, call gallardo in place, chair alarm on. All needs met. OT Assessment OT Assessment OT Assessment Results: Decreased ADL status, Decreased upper extremity strength, Decreased upper extremity range of motion, Decreased safe judgment during ADL, Decreased fine motor control, Decreasedfunctional mobility, Decreased IADLs, Decreased gross motor control Prognosis: Good Evaluation/Treatment Tolerance: Patient tolerated treatment well Comments: Pt demo improved fxl mob and L LE uplift. Pt would continue to benefit from activities toaddress L UE coordination, higher level balance and IADLs. 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 Goals Dates: Start: 09/04/25 Goal: Pt will perform LB dressing mod I Dates: Start: 09/04/25 Expected End: 09/18/25 Goal: Pt will bathe via LRD mod I Dates: Start: 09/04/25 Expected End: 09/18/25 Goal: Pt will perform toileting hygiene mod I Dates: Start: 09/04/25 Expected End: 09/18/25 Goal: Pt will perform toilet txfer mod I Dates: Start: 09/04/25 Expected End: 09/18/25 Goal: Pt will complete med mgmt mod I Dates: Start: 09/04/25 Expected End: 09/18/25 Problem: OT Short Term Goals Dates: Start: 09/04/25 Goal: Pt will complete LB dressing steadying A Dates: Start: 09/04/25 Expected End: 09/11/25 Goal: Pt will perform toilet txfer steadying A Dates: Start: 09/04/25 Expected End: 09/11/25 Goal: Pt will perform toileting hygiene sup Dates: Start: 09/04/25 Expected End: 09/11/25 Goal: Pt will perform grooming activities in standing, steadying A Dates: Start: 09/04/25 Expected End: 09/11/25 Goal: Pt will bathe steadying A Dates: Start: 09/04/25 Expected End: 09/11/25 Encounter Problems (Resolved) There are no resolved problems. Education Documentation Body Mechanics, taught by Kaykay Perez OT at 09/10/2025 2:48 PM. Learner: Patient Readiness: Acceptance Method: Explanation Response: Verbalizes Understanding, Needs Reinforcement Home Exercise Program, taught by Kaykay Perez OT at 09/10/2025 2:48 PM. Learner: Patient Readiness: Acceptance Method: Explanation Response: Verbalizes Understanding, Needs Reinforcement ADL Training, taught by Kaykay Perez OT at 09/10/2025 2:48 PM. Learner: Patient Readiness: Acceptance Method: Explanation Response: Verbalizes Understanding, Needs Reinforcement Education Comments No comments found. Start/Stop Time OT Time Calculation OT Start Time: 1010 OT Stop Time: 1130 OT Time Calculation (min): 80 min Therapy Minutes: Occupational Therapy OT Individual: 80 [1] Patient Active Problem List Diagnosis CVA (cerebral vascular accident) ([facility] V24, [facility] V28) [2] Past Medical History: Diagnosis Date DVT (deep vein thrombosis) in HTN (hypertension) TIA (transient ischemic attack) [3] History reviewed. No pertinent surgical history. * Francisco Ochoa - 09/09/2025 2:56 PM EST SPIRITUAL CARE ASSESSMENT Type of Visit: Spiritual care visit SIGNIFICANT for medical care Subjective: Pt was not in room or predisposed with rehab staff. Coil Cutter unable to assess. Spiritual Distress Assessment: Pt was not in room or predisposed with rehab staff. Coil Cutter unable to assess. - Spiritual Care Assessment: Pt was not in room or predisposed with rehab staff. Coil Cutter unable to assess. Spiritual Intervention: Consulted w/medical staff re treatment plan. Outcome: Pt was not in room or predisposed with rehab staff. Coil Cutter unable to assess. Plan: Spiritual Care will follow Pt * Brinda Rueda CCC-AIRCRAFT PAINTER - 09/09/2025 1:00 PM EST Speech Language Pathology [facility] Speech Language Pathology Treatment 09/09/2025 Patient: David Poon : 1965 Age: 60 y.o. Gender: male Primary Language: Pakistani Diagnosis: CVA (cerebral vascular accident) ([facility] V24, [facility] V28) Medical History[1] Surgical History[2] Allergies: is allergic to lisinopril. Precautions: Medical Precautions: Fall Risk Safety Interventions: ID band on, Call gallardo within reach, Personal alarm on, Chair alarm, Bed alarm RUE Weight Bearing Status: Full LUE Weight Bearing Status: Full RLE Weight Bearing Status: Full LLE Weight Bearing Status: Full Orthoses Applied: (training AFO left LE) Subjective: Patient seen in room for cognitive treatment this PM; pt sat upright in wheel chair forsession. Patient cooperative and engaged throughout all session exercises. Patient without complaint of acute pain during visit. Objective: Treatment: AIRCRAFT PAINTER Treatments: Cognitive Skills Memory: Upon inquiry of previous ST session exercises, pt recalled BEFAST symptoms w/ 100% acc indep. When asked about therapist names, pt reported baseline difficulty recalling names and was agreeable to memory strategey training. Pt used strategies to encode 5 names w/ min verbal cueing for assoca tions. Pt recalled names, following a 30-sec time delay, with 60% acc indep, increasing to 80% given min cueing for previously created assocations. Pt required max cueing for 100% acc. Problem Solving: Pt answered orientation questions using maps w/ 75% acc indep, demonstraing mild difficulty with sustained/selective attention. Pt misread a map detail, and reported, oh, maybe I should've looked at that a second longer. AIRCRAFT PAINTER reviewed importance of slowing down when completing important tasks; pt verbalized comprehension. Assessment/Plan AIRCRAFT PAINTER Assessment AIRCRAFT PAINTER Assessment Results: Cognitive impairments Evaluation/Treatment Tolerance: Patient tolerated treatment well Comments: Pt exhibited excellent delayed recall from previous session; however, with some mild difficulty recalling encoded names following 30-second time delay. Pt also with some mild difficulty in sustained/selective attention during map orientation task. Improved self-perception of mistakes madeduring tasks. Pt would benefit from continued ST services to address higher level attention and memory tasks. Plan Treatment/Interventions: Cognitive linguistic functioning AIRCRAFT PAINTER Plan: Skilled AIRCRAFT PAINTER AIRCRAFT PAINTER Frequency: 2-5 days per week AIRCRAFT PAINTER Duration of Sessions: 30-60 min per session AIRCRAFT PAINTER Treatments per day: 1 time per day Diet Recommendations: IDDSI 7 reg/0 thins Goals Encounter Problems Encounter Problems (Active) Template: Speech Therapy Problem: AIRCRAFT PAINTER Long-Term Goals Dates: Start: 09/04/25 Goal: Pt will improve cognitive linguistic functioning for d/c setting. Dates: Start: 09/04/25 Expected End: 09/11/25 Problem: AIRCRAFT PAINTER Short Term Goals Dates: Start: 09/04/25 Goal: Pt will complete additional diagnostic testing in 100% of opportunities indep. Dates: Start: 09/04/25 Expected End: 09/09/25 Outcomes Date/Time User Outcome 09/07/25 1713 JACQUES Fletcher Progressing Goal: Pt will participate in ongoing education regarding cognitive linguistic strategies and ID pertinent techniques to use in daily life in 100% of opportunities indep. Dates: Start: 09/04/25 Expected End: 09/11/25 Outcomes Date/Time User Outcome 09/09/25 1604 Brinda Rueda [facility] [place]-AIRCRAFT PAINTER Progressing Goal: Pt will recall +5 pieces of novel information following a >6 minute delay given mod A for encoding/retrieval strategies. Dates: Start: 09/04/25 Expected End: 09/11/25 Outcomes Date/Time User Outcome 09/09/25 1604 ALEXANDER Wiggins Not Progressing Goal: Pt will complete mod-higher level executive functioning tasks with 80% accuracy given min A. Dates: Start: 09/04/25 Expected End: 09/11/25 Outcomes Date/Time User Outcome 09/09/25 1604 ALEXANDER Wiggins Not Progressing Encounter Problems (Resolved) There are no resolved problems. Education Documentation Education Documentation Cognition, taught by ALEXANDER Wiggins at 09/09/2025 4:04 PM. Learner: Patient Readiness: Acceptance Method: Explanation Response: Verbalizes Understanding, Needs Reinforcement Education Comments No comments found. Start/Stop Time: AIRCRAFT PAINTER Time Calculation AIRCRAFT PAINTER Start Time: 1300 AIRCRAFT PAINTER Stop Time: 1330 AIRCRAFT PAINTER Time Calculation (min): 30 min Therapy Minutes: Speech Therapy AIRCRAFT PAINTER Individual: 30 [1] Past Medical History: Diagnosis Date DVT (deep vein thrombosis) in HTN (hypertension) TIA (transient ischemic attack) [2] History reviewed. No pertinent surgical history. * Suzanne Noe RN - 09/09/2025 12:58 PM EST Team Meeting: Met with pt at bedside to review post team recommendations. Discussed 2 week goals to be MOD I witha tentative discharge set for 09/17.Patient had 1st team meeting on Tuesday 09/04 and at that time recommendations were for dc on 09/17 patient was not in agreement and wanted to dc sooner.Patient is now in agreement to dc on 09/17 with OP PT OT pending pt's participation, progress and insurance approval. Pt in agreement with plan. Insurance update sent 09/09. Appointments: Neurology 09/18 3PM ,PCP Current level of function: Set up UB dressing LB steadying assist ambulating 150 feet partial assist Barriers:imp balance,Impulsivity, Lovenox has been DC as patient is now ambulating. Pt had no further questions or concerns at this time. * Christina Jaramillo DO - 09/09/2025 11:35 AM EST Images from the original note were not included. [facility] Daily Progress Note Patient name: David Poon : 1965 SUBJECTIVE: Patient seen and examined at bedside today. No acute events overnight. Denies headaches, dizziness,shortness of breath, chest pain, nausea, constipation, and pain. No new concerns today. Participating in therapies: PT: Comments: Pt progressing to SUP-partial Ax1 with RW.Pt having difficulty with turning to sit inchair, pt often forgetting to progress LLE, pt needing partial A x1, d/t decreased foot clearance. Pt with poor proprioceptive awareness of LLE and insight into deficits. OT: Comments: Pt continues to present with impaired proprioception in L UE and L LE. Pt would benefit from cont'd tasks focusing on dynamic standing balance, L LE clearance, and divided attention. Caregiver training set up for tomorrow with pts significant other. TEAM CONFERENCE: I was present and participated in team meeting today. I agree with team conferenceplan as documented in alternate note today. Please refer to team conference note for further details. OBJECTIVE: Vitals: 09/08/25 1535 09/09/25 0537 09/09/25 0744 09/09/25 1000 BP: 136/80 130/76 132/68 (!) 150/87 BP Location: Left arm Right arm Right arm Right arm Patient Position: Sitting Sitting Sitting Sitting Pulse: 87 72 70 83 Resp: 16 16 18 Temp: 36.8 ??C (98.2 ??F) 36.3 ??C (97.3 ??F) 36.4 ??C (97.5 ??F) TempSrc: Oral Oral Oral SpO2: 95% 97% 97% 96% Weight: Physical Examination: General: Alert, in no acute cardiopulmonary distress. Mental Status: Oriented to person, place and time. Normal affect. Head: Normocephalic. Eyes: Extraocular muscles intact. Ear, Nose and Throat: Oropharynx clear, mucous membranes moist. Ears and nose without masses, lesions or deformities. Neck: Supple, Trachea midline. Respiratory: Clear to auscultation and percussion. No wheezing, rales or rhonchi. Cardiovascular: Heart sounds normal. Regular rate and rhythm, no murmurs, rubs or gallops. Gastrointestinal: Abdomen soft, non-tender, non-distended. Normal bowel sounds. Neurologic: Cranial nerves II-XII intact. Negative Hoffmans sign on the left. Negative clonus on the left. Moves all extremities spontaneously. Sensation intact bilaterally. Skin: No rashes or lesions. No petechiae or purpura. Musculoskeletal: No cyanosis or clubbing. No gross deformities. Normal range of motion. Strength 5/5 throughout right upper and lower extremities. Strength 5/5 left shoulder abduction, 5/5 left elbowflexion, 5/5 left elbow extension, 5/5 left wrist extension, 4/5 left finger abduction. Strength 5/5 left hip flexion, 5/5 left knee extension, 1/5 left dorsiflexion, 1/5 left plantarflexion, 1/5 left EHL. No changes since last visit. CURRENT INPATIENT MEDICATIONS: Current Medications[1] LABS: Lab Results Component Value Date WBC 8.9 09/04/2025 RBC 4.90 09/04/2025 HGB 16.5 09/04/2025 HCT 47.6 09/04/2025 MCV 97.1 09/04/2025 MCHC 34.7 09/04/2025 RDW 11.3 09/04/2025 PLT 265 09/04/2025 MPV 8.8 09/04/2025 NRBC 0.0 09/04/2025 DIFF Lab Results Component Value Date LYMPHOPCT 24.3 09/04/2025 NEUTROABS 5.81 09/04/2025 LYMPHSABS 2.15 09/04/2025 MONOABS 0.68 09/04/2025 EOSABS 0.18 09/04/2025 BASOSABS 0.03 09/04/2025 IMMGRANABS 0.01 09/04/2025 RETIC No results found for: RETIC , RETICCTPCT Lab Results Component Value Date NA 136 09/04/2025 K 4.4 09/04/2025 CL 101 09/04/2025 CO2 26 09/04/2025 GLUCOSE 81 09/04/2025 BUN 20 09/04/2025 CREATININE 0.94 09/04/2025 CALCIUM 9.0 09/04/2025 PROT 6.5 09/04/2025 ALBUMIN 4.0 09/04/2025 BILITOT 1.2 09/04/2025 AST 28 09/04/2025 ALT 39 09/04/2025 ALKPHOS 51 09/04/2025 EGFR 92 09/04/2025 IMPRESSION & PLAN: #Impaired mobility and self-care - Secondary to acute CVA - Continue PT, OT, AIRCRAFT PAINTER, and nursing care #Acute CVA #Left hemiparesis - MRI brain was positive for acute right thalamic ischemic CVA - Neurology recommended continuing DAPT and statin until outpatient follow-up for further recommendations - Aspirin 81 mg daily - Plavix 75 mg daily - Atorvastatin 40 mg nightly - Continue therapies - f/u [facility] (Dr Sky) after discharge #Hypertension - Amlodipine 5 mg daily #Tobacco dependence - Nicotine 21 mg patch daily #History of alcohol use - Monitored on CIWA during acute hospital stay without withdrawal appreciated #Allergic rhinitis - Loratadine 10mg daily #Bowel management - Colace 100 mg twice daily - Senna 2 tabs nightly - Miralax 17gm daily - will give Lactulose 20gm Q2H x3 doses on 09/09 #DVT prophylaxis: Lovenox 40mg daily discontinued on 09/09 given that patient is ambulatory, continue DAPT and ambulation with therapies as tolerated [1] Current Facility-Administered Medications: acetaminophen (TYLENOL) tablet 650 mg, 650 mg, oral, q6h PRN, JIMMY Mullins aluminum-magnesium hydroxide-simethicone (MAALOX) 200-200-20 mg/5 mL suspension 30 mL, 30 mL, oral,q4h PRN, Christina Jaramillo DO amLODIPine (NORVASC) tablet 5 mg, 5 mg, oral, Daily, JIMMY Mullins, 5 mg at 09/09/25 0759 aspirin EC tablet 81 mg, 81 mg, oral, Daily, JIMMY Mullins, 81 mg at 09/09/25 0800 atorvastatin (LIPITOR) tablet 40 mg, 40 mg, oral, Nightly, JIMMY Mullins, 40 mg at 09/08/25 2120 bisacodyL (DULCOLAX) suppository 10 mg, 10 mg, rectal, Daily PRN, JIMMY Mullins clopidogreL (PLAVIX) tablet 75 mg, 75 mg, oral, Daily, JIMMY Mullins, 75 mg at 09/09/25 08 docusate sodium (COLACE) capsule 100 mg, 100 mg, oral, BID, JIMMY Mullins, 100 mg at folic acid (FOLVITE) tablet 1 mg, 1 mg, oral, Daily, JIMMY Rae, 1 mg at 09/09/25 08 loratadine (CLARITIN) tablet 10 mg, 10 mg, oral, Daily, Christina Jaramillo DO, 10 mg at 09/09/25 08 magnesium hydroxide (MILK OF MAGNESIA) 400 mg/5 mL suspension 30 mL, 30 mL, oral, Daily PRN, JIMMY Mullins, 30 mL at 09/09/25 06 nicotine (NICODERM CQ) 21 mg/24 hr patch 1 patch, 1 patch, transdermal, q24h, JIMMY Rae,1 patch at 09/09/25 08 polyethylene glycol (MIRALAX) packet 17 g, 17 g, oral, Daily, Christina Jaramillo DO, 17 g at 09/09/25 08 senna (SENOKOT) tablet 17.2 mg, 2 tablet, oral, Nightly, JIMMY Mullins, 17.2 mg at 09/08/252119 thiamine (VITAMIN B-1) tablet 100 mg, 100 mg, oral, Daily, JIMMY Rae, 100 mg at * Gi Browne - 09/09/2025 10:00 AM EST Social Work Note 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 Introduced self and the services to both the patient and family. He was very abrupt with his answers and did not want to talk much. He did deny any hx or current concerns with anxiety or depression and that he was ready to leave. Family member also did not have any concerns. Will not be following. Gi Browne MS Clinician * Kaykay Perez OT - 09/09/2025 10:00 AM EST [facility] Occupational Therapy Treatment Note 09/09/2025 Patient: David Poon : 1965 Age: 60 y.o. Gender: male Diagnosis: CVA (cerebral vascular accident) ([facility] V24, [facility] V28) Primary Rehab (Etiologic) Diagnosis: Problem List[1] PMH: Medical History[2] PSH: Surgical History[3] Allergies: is allergic to lisinopril. Precautions: Precautions Medical Precautions: Fall Risk Safety Interventions: ID band on, Call gallardo within reach, Personal alarm on, Chair alarm, Bed alarm RUE Weight Bearing Status: Full LUE Weight Bearing Status: Full RLE Weight Bearing Status: Full LLE Weight Bearing Status: Full Orthoses Applied: (training AFO left LE) Vitals: BP: (!) 150/87 Heart Rate: 83 SpO2: 96 % Pain: Pain Assessment Pain Assessment: No/denies pain Pain Score: 0 - No pain Subjective: I don't need help with that (toilet txfer) Procedures/Interventions: ADLs/IADLs Self Care/Home Management (ADLs) Time Entry: 60 ADL/ IADL Performed: Bathing, Dressing, Toilet Transfers, Tub Transfers Pt received seated in w/c, pt's SO Lamberto present. Pt agreeable to participate in OT session. Vitals assessed, see above. Pt initially declining ADL, this fiction and nonfiction writer prose educated pt on purpose of session re:family training. Pt agreeable. Pt amb via RW, steadying A to closet. Pt retrieved clothing w/ release of B UE from RW. Pt placed clothing over front of RW to transport items to ADL bathroom. Pt amb via RW, steadying A room > ADL bathroom w/ one seated rest break, initiated by this fiction and nonfiction writer prose. This fiction and nonfiction writer prose providing verbal cues for L foot clearance during amb and slow pace. Lamberto intermittently providing pt verbal cues to slow pace. Pt verbalizes understanding. This fiction and nonfiction writer prose discussed bathroom s/u upon d/c. Lamberto reporting she will not be present 23/04 and pt must be Ind to return home. Pt reporting to have tub bench, Lamberto reporting pt has shower chair. This fiction and nonfiction writer prose educating pt and Lamberto on where to obtain DME if insurance does not cover. Pt remained seated on tub txfer bench, doffed B socks via figure four, sup. Pt able to manage B LE into tub. This fiction and nonfiction writer prose reinforcing installing permanent grab bars into shower, one on inside wall and one on wall entering tub. Pt doffed shirt, sup. STSvia grab bar, steadying A. Pt able to pull pants down over hips and return to sitting. This fiction and nonfiction writer prose educating Lamberto on providing steadying A any time pt requests to family support coordinator shower. Lamberto verbalizesunderstanding. Pt able to bathe hair, face, abdomen, B UE, ayo area and B LE using B UE while seated on shower chair, overall sup. Pt declined to stand to bathe. Pt able to dry self overall sup. STSvia grab bar, steadying A, Lamberto placing dry towel beneath pt on tub bench. This fiction and nonfiction writer prose educating Lamberto on panchito dressing. Pt able to thread B LE through underwear, Lamberto able to provide verbal cues to thread L LE first. STS via grab bar, steadying A provided by Lamberto. Pt's L LE slipping on tub,pt w/ posterior LOB, however able to self recover. Lamberto provided A to hike underwear over hips. Pt returned to sitting. This fiction and nonfiction writer prose educating pt on porter baggage mat for shower as long as mat is secure. Pt reporting to already have one. This fiction and nonfiction writer prose reinforcing installation of grab bars. Pt able to manage B LE out of tub, sup. Pt able to thread B LE through pants w/ Lamberto providing verbal cues for panchito dressing technique. This fiction and nonfiction writer prose cueing pt to don socks/shoes prior to standing to hike pants. Pt able to don B socks via figure four, sup. Pt able to don B shoes, sup. STS via grab bar, steadying A. Pt able to hike pants over hips. Pt donned shirt in standing, steadying A. This fiction and nonfiction writer prose educating pt on inc risk of fall while standing to dress. This fiction and nonfiction writer prose educating pt on sitting to complete all ADLs. Pt amb via RW, steadying A. Pt reaching to open door, no LOB however unsteady. This fiction and nonfiction writer prose educating pt on refraining from reaching too far out of HANANE to decrease risk of fall. Pt amb back to room via RW, steadying A and one seated rest break initiated by this fiction and nonfiction writer prose. Once in room, pt performed marlin let txfer w/ use of grab bar, overall steadying A. Pt reporting no grab bar home however countertopin same space. This fiction and nonfiction writer prose educating pt on use of countertop to A in standing or obtaining RTS. Lamberto able to perform toilet txfer w/ pt, overall steadying A. This fiction and nonfiction writer prose educating Lamberto not to hook arm beneath pt's axilla region. Lamberto verbalizes understanding. Pt returned to sitting in w/c. This fiction and nonfiction writer prose discussed d/c home, pt agreeable to trial light meal prep in kitchen. Pt and Lamberto reporting pt will not complete laundry. This fiction and nonfiction writer prose educating pt on HEP. This fiction and nonfiction writer prose discussing plan to continue training next week, Lamberto agreeable and will f/u later in week. Lamberto cleared to bring pt to bathroom, demo'ing appropriate safety and cueing to pt. Pt remained seated in w/c, in care of Lamberto. All needs met. OT Assessment OT Assessment OT Assessment Results: Decreased ADL status, Decreased upper extremity strength, Decreased upper extremity range of motion, Decreased safe judgment during ADL, Decreased fine motor control, Decreasedfunctional mobility, Decreased IADLs, Decreased gross motor control Prognosis: Good Evaluation/Treatment Tolerance: Patient tolerated treatment well Comments: Pt w/ one minor posterior LOB, steadying A provided by Lamberto. Lamberto provided clearance to perform fxl mob to bathroom w/ pt. Lamberto demo ability to provide physical A and verbal cues to care for pt. Pt will continue to benefit from skilled OT to address, light meal prep, dynamic balanceand L UE strength/attention. Pt requires steadying A LB dressing, bathing, toileting. S/u UB dressing. OT Plan Plan Treatment Interventions: ADL retraining, Functional transfer training, UE strengthening/ROM, Endurance training, Patient/family training, Neuromuscular reeducation, Fine motor coordination activities OT Plan: Skilled OT OT Frequency : 5-7 days per week OT Duration of Sessions: 60-90 min per session OT Treatments per day: 1-2 times per day OT - Evaluation Status: Complete OT Discharge Recommendations: Outpatient OT Equipment Recommended: Shower chair Goals: Encounter Problems Encounter Problems (Active) Template: Occupational Therapy Problem: OT Long-Term Goals Dates: Start: 09/04/25 Goal: Pt will perform LB dressing mod I Dates: Start: 09/04/25 Expected End: 09/18/25 Goal: Pt will bathe via LRD mod I Dates: Start: 09/04/25 Expected End: 09/18/25 Goal: Pt will perform toileting hygiene mod I Dates: Start: 09/04/25 Expected End: 09/18/25 Goal: Pt will perform toilet txfer mod I Dates: Start: 09/04/25 Expected End: 09/18/25 Goal: Pt will complete med mgmt mod I Dates: Start: 09/04/25 Expected End: 09/18/25 Problem: OT Short Term Goals Dates: Start: 09/04/25 Goal: Pt will complete LB dressing steadying A Dates: Start: 09/04/25 Expected End: 09/11/25 Goal: Pt will perform toilet txfer steadying A Dates: Start: 09/04/25 Expected End: 09/11/25 Goal: Pt will perform toileting hygiene sup Dates: Start: 09/04/25 Expected End: 09/11/25 Goal: Pt will perform grooming activities in standing, steadying A Dates: Start: 09/04/25 Expected End: 09/11/25 Goal: Pt will bathe steadying A Dates: Start: 09/04/25 Expected End: 09/11/25 Encounter Problems (Resolved) There are no resolved problems. Education Documentation How to Obtain Needed DME, taught by Kaykay Perez OT at 09/09/2025 1:00 PM. Learner: Patient Readiness: Acceptance Method: Explanation Response: Verbalizes Understanding, Needs Reinforcement Body Mechanics, taught by Kaykay Perez OT at 09/09/2025 1:00 PM. Learner: Patient Readiness: Acceptance Method: Explanation Response: Verbalizes Understanding, Needs Reinforcement ADL Training, taught by Kaykay Perez OT at 09/09/2025 1:00 PM. Learner: Patient Readiness: Acceptance Method: Explanation Response: Verbalizes Understanding, Needs Reinforcement Education Comments No comments found. Start/Stop Time OT Time Calculation OT Start Time: 1000 OT Stop Time: 1100 OT Time Calculation (min): 60 min Therapy Minutes: Occupational Therapy OT Individual: 60 [1] Patient Active Problem List Diagnosis CVA (cerebral vascular accident) ([facility] [facility]) [2] Past Medical History: Diagnosis Date DVT (deep vein thrombosis) in HTN (hypertension) TIA (transient ischemic attack) [3] History reviewed. No pertinent surgical history. * Ruth Valdes, PT - 09/09/2025 9:51 AM EST [facility] Physical Therapy Treatment Note 09/09/2025 Patient: David Poon : 1965 Age: 60 y.o. Gender: male Primary Language: Pakistani Diagnosis: CVA (cerebral vascular accident) ([facility], [facility] V28) Medical History[1] Surgical History[2] Allergies: is allergic to lisinopril. Precautions: Medical Precautions: Fall Risk Safety Interventions: ID band on, Call gallardo within reach, Personal alarm on, Chair alarm, Bed alarm RUE Weight Bearing Status: Full LUE Weight Bearing Status: Full RLE Weight Bearing Status: Full LLE Weight Bearing Status: Full Orthoses Applied: (training AFO left LE) NURSING RECOMMENDATIONS Bed Mobility: supervision Transfers: partial assist Ambulation: partial assist with wwalker SUBJECTIVE Pt report: Okay I need to slow down Pain: 0/10 OBJECTIVE General Observation: In with significant other present Vitals: BP: (!) 141/79 Heart Rate: 84 SpO2: 95 % Procedure/Treatment: Neuromuscular Reeducation: Balance/Neuromuscular Re-Education Neuromuscular Re-Education Time Entry: 90 Pt in agreeable to participating in therapy session. Pts significant other Lamberto present for family training. Education provided on goals of care, mod-I with LRAD. Per Lamberto, she will not be present 23/04 upon d/c from this level of care. Pt will need to be mod-I upon d/c. Pt ambulating with RWdown to therapy gym, steadying assistance-partial A x1 with RW, pt requiring partial A with turningd/t decreased awareness of LLE, and impulsive mobility. Education provided on decreased foot clearance and decreased eccentric control of quad, resulting in hyperextension during stance phase of gait. Pt completed x12 stairs with bilat. Rails, steadying assistance-SUP step to pattern leading with RLE descending with LLE. Pt needing cues for sequencing, pt attempting to descend step with RLE, no acute buckling, pt with poor hip abduction strength. Pt donning AFO, pt performing skin check, skin grossly intact. Education provided to Lamberto on AFO for gait training, skin checks. Pt donning shoe with AFO. Pt completed ambulating x200ft with RW, steadying assistance, improvement in foot clearance, pt still needing cues for hip and knee flexion, to assist in foot clearance with AFO donned. Pt completed gait training at panchito-bar, steadying assistance, pt cues for compensatory strategy to complete knee and hip flexion. Pt trialing 3x25ft of ambulation with SPC, [id number] assistance x1, pt with decreased foot clearance, resulting in anterior LOB, pt assisting with LOB via stepping response. Lamberto able to return demonstration on how to provide steadying assistance with RW, pt cuedto stand on L side, when ambulation, Lamberto appropriately cued pt for ambulation and foot clearance. Therapist obtaining order from Dr. Jaramillo to allow Lamberto to assist pt to bathroom with RW. Pt c ompleted ascending and descending steps to enter house with RW, partial- steadying assistance, pt placing RW on 8inch step, pt stepping up to 4 inch step with use of RW, then to 8inch step, ascending step to forwards with RLE, descending backwards leading with LLE. Pt needing cues for slow movement.Pt having small posterior LOB backwards with removing RW from step. Education provided on pt is notallowed to drive at this time until cleared by PCP. Pt doffing AFO, skin grossly intact, blanchableredness on lateral aspect of 5th MTP, pt needing encouragement and reinforcement of skin assessments/p doffing AFO. Pt wearing AFO x30 minutes. Pt completed seated DF bilat, x10 reps, pt demonstrating antigravity strength. Pt completed standing activity with BUE on RW, cued to hold DF in standing position first trial with 1/2 pound weight, progressing to 1lb weight, pt able to hold DF with knee flexion and hip flexion. Pt ambulating back to room, SUP-steadying assistance, with RW. Pt with incre ased fatigue on LLE, pt with increased hyperextension on LLE with ambulation. Pt left seated in WC,call gallardo in reach, chair alarm on, all needs met. Education: Education Documentation Mobility Training, taught by Ruth Valdes PT at 09/09/2025 11:51 AM. Learner: Significant Other, Patient Readiness: Acceptance Method: Explanation, Demonstration Response: Verbalizes Understanding, Demonstrated Understanding Education Comments No comments found. ASSESSMENT PT Assessment PT Assessment Results: Decreased strength, Decreased range of motion, Decreased endurance, Impairedbalance, Impaired gait, Decreased mobility, Decreased coordination, Decreased safety awareness Prognosis: Good Evaluation/Treatment Tolerance: Patient tolerated treatment well Comments: Pt needing partial-steadying assistance with no AD, pt with decreased foot clearance on LLE with use of SPC. Pt needing consistent cues for picking up LLE. Equipment: TBD Plan of Care Plan Treatment/Interventions: Functional transfer training, LE strengthening/ROM, Patient/family training, Equipment eval/education, Bed mobility, Gait training, Compensatory technique education, Balance training, Stair training, Continued evaluation PT Plan: Skilled PT PT Frequency: 5-7 days per week PT Duration of Sessions: 60-90 min per session PT Treatments per day: 1 time per day PT Discharge Recommendations: Other (Comment) (TBD) Problems/Goals Goals: Encounter Problems Encounter Problems (Active) Template: Physical Therapy Problem: PT [place] Fitter Goals Dates: Start: 09/04/25 Goal: mod-I transfers LRAD Dates: Start: 09/04/25 Goal: mod-I x12 stairs Dates: Start: 09/04/25 Goal: mod-I ambulation x150ft LRAD Dates: Start: 09/04/25 Goal: mod-I x2 stairs LRAD Dates: Start: 09/04/25 Problem: PT Short Term Goals Dates: Start: 09/04/25 Goal: mod-I bed mobility Dates: Start: 09/04/25 Goal: SUP transfers LRAD Dates: Start: 09/04/25 Goal: SUP ambulation x150ft LRAD Dates: Start: 09/04/25 Goal: partial A x4 stairs bilat. rails Dates: Start: 09/04/25 Encounter Problems (Resolved) There are no resolved problems. Session Start/Stop Time: 08 0940 Therapy Minutes Physical Therapy PT Individual: 90 [1] Past Medical History: Diagnosis Date DVT (deep vein thrombosis) in HTN (hypertension) TIA (transient ischemic attack) [2] History reviewed. No pertinent surgical history. * JIMMY Mullins - 09/08/2025 2:55 PM EST Images from the original note were not included. [facility] Daily Progress Note Patient name: David Poon : 1965 SUBJECTIVE: Patient seen and examined at bedside today. No acute events overnight. Denies headaches, dizziness,shortness of breath, chest pain, nausea, constipation, and pain. Patient feels that therapy is going well. He is eager to go home as quickly as possible. Participating in therapies: PT: Comments: Pt progressing to SUP-partial Ax1 with RW.Pt having difficulty with turning to sit inchair, pt often forgetting to progress LLE, pt needing partial A x1, d/t decreased foot clearance. Pt with poor proprioceptive awareness of LLE and insight into deficits. OT: Comments: Pt continues to present with impaired proprioception in L UE and L LE. Pt would benefit from cont'd tasks focusing on dynamic standing balance, L LE clearance, and divided attention. Caregiver training set up for tomorrow with pts significant other. OBJECTIVE: Vitals: 09/07/25 1521 09/08/25 0519 09/08/25 0927 09/08/25 1248 BP: 128/87 124/67 (!) 153/73 (!) 149/79 BP Location: Right arm Right arm Right arm;Upper Patient Position: Lying Sitting Pulse: 84 66 84 103 Resp: Temp: 36.4 ??C (97.5 ??F) 36.4 ??C (97.5 ??F) 36.5 ??C (97.7 ??F) TempSrc: Oral Oral SpO2: 95% 95% 99% 95% Weight: Physical Examination: General: Alert, in no acute cardiopulmonary distress. Mental Status: Oriented to person, place and time. Normal affect. Head: Normocephalic. Eyes: Extraocular muscles intact. Ear, Nose and Throat: Oropharynx clear, mucous membranes moist. Ears and nose without masses, lesions or deformities. Neck: Supple, Trachea midline. Respiratory: Clear to auscultation and percussion. No wheezing, rales or rhonchi. Cardiovascular: Heart sounds normal. Regular rate and rhythm, no murmurs, rubs or gallops. Gastrointestinal: Abdomen soft, non-tender, non-distended. Normal bowel sounds. Neurologic: Cranial nerves II-XII intact. Negative Hoffmans sign on the left. Negative clonus on the left. Moves all extremities spontaneously. Sensation intact bilaterally. Skin: No rashes or lesions. No petechiae or purpura. Musculoskeletal: No cyanosis or clubbing. No gross deformities. Normal range of motion. Strength 5/5 throughout right upper and lower extremities. Strength 5/5 left shoulder abduction, 5/5 left elbowflexion, 5/5 left elbow extension, 5/5 left wrist extension, 4/5 left finger abduction. Strength 5/5 left hip flexion, 5/5 left knee extension, 1/5 left dorsiflexion, 1/5 left plantarflexion, 1/5 left EHL. CURRENT INPATIENT MEDICATIONS: Current Medications[1] LABS: Lab Results Component Value Date WBC 8.9 09/04/2025 RBC 4.90 09/04/2025 HGB 16.5 09/04/2025 HCT 47.6 09/04/2025 MCV 97.1 09/04/2025 MCHC 34.7 09/04/2025 RDW 11.3 09/04/2025 PLT 265 09/04/2025 MPV 8.8 09/04/2025 NRBC 0.0 09/04/2025 DIFF Lab Results Component Value Date LYMPHOPCT 24.3 09/04/2025 NEUTROABS 5.81 09/04/2025 LYMPHSABS 2.15 09/04/2025 MONOABS 0.68 09/04/2025 EOSABS 0.18 09/04/2025 BASOSABS 0.03 09/04/2025 IMMGRANABS 0.01 09/04/2025 RETIC No results found for: RETIC , RETICCTPCT Lab Results Component Value Date NA 136 09/04/2025 K 4.4 09/04/2025 CL 101 09/04/2025 CO2 26 09/04/2025 GLUCOSE 81 09/04/2025 BUN 20 09/04/2025 CREATININE 0.94 09/04/2025 CALCIUM 9.0 09/04/2025 PROT 6.5 09/04/2025 ALBUMIN 4.0 09/04/2025 BILITOT 1.2 09/04/2025 AST 28 09/04/2025 ALT 39 09/04/2025 ALKPHOS 51 09/04/2025 EGFR 92 09/04/2025 IMPRESSION & PLAN: #Impaired mobility and self-care - Secondary to acute CVA - Continue PT, OT, AIRCRAFT PAINTER, and nursing care #Acute CVA #Left hemiparesis - MRI brain was positive for acute right thalamic ischemic CVA - Neurology recommended continuing DAPT and statin until outpatient follow-up for further recommendations - Aspirin 81 mg daily - Plavix 75 mg daily - Atorvastatin 40 mg nightly - Continue therapies - f/u [facility] (Dr Sky) after discharge #Hypertension - Amlodipine 5 mg daily #Tobacco dependence - Nicotine 21 mg patch daily #History of alcohol use - Monitored on CIWA during acute hospital stay without withdrawal appreciated #Allergic rhinitis - Loratadine 10mg daily #Bowel management - Colace 100 mg twice daily - Senna 2 tabs nightly - Miralax 17gm daily #DVT prophylaxis: Lovenox 40mg daily started [1] Current Facility-Administered Medications: acetaminophen (TYLENOL) tablet 650 mg, 650 mg, oral, q6h PRN, JIMMY Mullins aluminum-magnesium hydroxide-simethicone (MAALOX) 200-200-20 mg/5 mL suspension 30 mL, 30 mL, oral,q4h PRN, Christina Jaramillo, amLODIPine (NORVASC) tablet 5 mg, 5 mg, oral, Daily, JIMMY Mullins, 5 mg at 09/08/25927 aspirin EC tablet 81 mg, 81 mg, oral, Daily, JIMMY Mullins, 81 mg at 09/08/25927 atorvastatin (LIPITOR) tablet 40 mg, 40 mg, oral, Nightly, JIMMY Mullins, 40 mg at 09/07/252051 bisacodyL (DULCOLAX) suppository 10 mg, 10 mg, rectal, Daily PRN, JIMMY Mullins clopidogreL (PLAVIX) tablet 75 mg, 75 mg, oral, Daily, JIMMY Mullins, 75 mg at 09/08/25927 docusate sodium (COLACE) capsule 100 mg, 100 mg, oral, BID, JIMMY Mullins, 100 mg at enoxaparin (LOVENOX) injection 40 mg, 40 mg, subcutaneous, Daily, Christina Jaramillo DO, 40 mg at111/09/24927 folic acid (FOLVITE) tablet 1 mg, 1 mg, oral, Daily, JIMMY Rae, 1 mg at 09/08/25927 loratadine (CLARITIN) tablet 10 mg, 10 mg, oral, Daily, Christina Jaramillo DO, 10 mg at 09/08/25927 magnesium hydroxide (MILK OF MAGNESIA) 400 mg/5 mL suspension 30 mL, 30 mL, oral, Daily PRN, JIMMY Mullins, 30 mL at 09/03/251532 nicotine (NICODERM CQ) 21 mg/24 hr patch 1 patch, 1 patch, transdermal, q24h, JIMMY Rae,1 patch at 09/08/25927 polyethylene glycol (MIRALAX) packet 17 g, 17 g, oral, Daily, Christina Jaramillo DO, 17 g at 09/08/25927 senna (SENOKOT) tablet 17.2 mg, 2 tablet, oral, Nightly, JIMMY Mullins, 17.2 mg at 09/07/252051 thiamine (VITAMIN B-1) tablet 100 mg, 100 mg, oral, Daily, JIMMY Rae, 100 mg at * Chelsey Negrete OT - 09/08/2025 2:19 PM EST [facility] Occupational Therapy Treatment Note 09/08/2025 Patient: David Poon : 1965 Age: 60 y.o. Gender: male Diagnosis: CVA (cerebral vascular accident) ([facility] V24, [facility] V28) Primary Rehab (Etiologic) Diagnosis: Problem List[1] PMH: Medical History[2] PSH: Surgical History[3] Allergies: is allergic to lisinopril. Precautions: Precautions Medical Precautions: Fall Risk Safety Interventions: ID band on, Call gallardo within reach, Personal alarm on, Chair alarm, Bed alarm RUE Weight Bearing Status: Full LUE Weight Bearing Status: Full RLE Weight Bearing Status: Full LLE Weight Bearing Status: Full Orthoses Applied: (training AFO left LE) Vitals: BP: (!) 149/79 Heart Rate: 103 SpO2: 95 % Pain: Pain Assessment Pain Assessment: No/denies pain Subjective: I'm doing fine Procedures/Interventions: Balance/Neuromuscular Re-Education Neuromuscular Re-Education Time Entry: 90 Pt seated in w/c upon arrival for therapy session. Provided A for phone mngt and problem solving. Func amb performed from room to therapy gym using RW, steadying A. One seated rest break required d/t fatigue. During seated rest break this therapist reviewed therapy goals and plan of care. Pt reporting understanding about AMA and no longer would like to leave AMA. Pt participated in activity of stepping into colored rings to challenge L LE coordination and strength as needed for ADL/IADLs. Pt required unilateral UE support on the panchito bar throughout for balance, overall partial A. Pt required verbal and tactile cues for L LE foot clearance. Pt completed 2 trials with 4 reps on 4 rings, seated rest break required d/t fatigue. Increased challenge with categorical naming while engaging in tapping L foot in each ring partial A with R UE support on panchito bar, difficulty noted with L hip abduction and increased fatigue. Pt required increased time to generate a response. Pt participated in a ball toss while naming a word beginning with a letter on the ball to challengedynamic standing balance and divided attention. Pt required partial A for standing balance throughout. Increased hyperextension of L knee observed requiring cues to correct. Min delay in response forcog component. Func amb performed without AD forward/backward to simulate walking in a narrow pathway without the walker as needed for IADLs. Partial A in both directions with decreased speed ambulating backwards and increased verbal/tactile cues for L LE mngt. Pt completed 'dry run' of tub transfer with use of tub xfer bench as pt reported to have one in place at home. Overall steadying A with min cues for technique. Pt declined to trial stepping over tub threshold today d/t fatigue. Reviewed 'BE FAST' with pt. Pt able to recall 1/6. Reviewed risk factors and strategies to reduce risk of additional stroke, pt fairly receptive. Provided pt a visual aid. Following 10 min delay, pt able to recall 3/6 s/s of stroke. Func amb performed back to room with RW, steadying A. Min verbal cues required to slow pace while turning and increase L LE clearance. Pt remained seated in w/c with alarm on and call gallardo within reach. This therapist called pts significant other Lamberto with pts permission. Discussed current level of function and set up training for tomorrow morning with PT and OT. OT Assessment OT Assessment OT Assessment Results: Decreased ADL status, Decreased upper extremity strength, Decreased upper extremity range of motion, Decreased safe judgment during ADL, Decreased fine motor control, Decreasedfunctional mobility, Decreased IADLs, Decreased gross motor control Prognosis: Good Evaluation/Treatment Tolerance: Patient tolerated treatment well Comments: Pt continues to present with impaired proprioception in L UE and L LE. Pt would benefit from cont'd tasks focusing on dynamic standing balance, L LE clearance, and divided attention. Caregiver training set up for tomorrow with pts significant other. 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 Goals Dates: Start: 09/04/25 Goal: Pt will perform LB dressing mod I Dates: Start: 09/04/25 Expected End: 09/18/25 Goal: Pt will bathe via LRD mod I Dates: Start: 09/04/25 Expected End: 09/18/25 Goal: Pt will perform toileting hygiene mod I Dates: Start: 09/04/25 Expected End: 09/18/25 Goal: Pt will perform toilet txfer mod I Dates: Start: 09/04/25 Expected End: 09/18/25 Goal: Pt will complete med mgmt mod I Dates: Start: 09/04/25 Expected End: 09/18/25 Problem: OT Short Term Goals Dates: Start: 09/04/25 Goal: Pt will complete LB dressing steadying A Dates: Start: 09/04/25 Expected End: 09/11/25 Goal: Pt will perform toilet txfer steadying A Dates: Start: 09/04/25 Expected End: 09/11/25 Goal: Pt will perform toileting hygiene sup Dates: Start: 09/04/25 Expected End: 09/11/25 Goal: Pt will perform grooming activities in standing, steadying A Dates: Start: 09/04/25 Expected End: 09/11/25 Goal: Pt will bathe steadying A Dates: Start: 09/04/25 Expected End: 09/11/25 Encounter Problems (Resolved) There are no resolved problems. Education Documentation Warning Signs and Symptoms of Stroke, taught by Chelsey Negrete OT at 09/08/2025 2:19 PM. Learner: Patient Readiness: Acceptance Method: Explanation, Demonstration Response: Verbalizes Understanding, Needs Reinforcement Personal Risk Factors for Stroke, taught by Chelsey Negrete OT at 09/08/2025 2:19 PM. Learner: Patient Readiness: Acceptance Method: Explanation, Demonstration Response: Verbalizes Understanding, Needs Reinforcement Activation of EMS (Call 911), taught by Chelsey Negrete OT at 09/08/2025 2:19 PM. Learner: Patient Readiness: Acceptance Method: Explanation, Demonstration Response: Verbalizes Understanding, Needs Reinforcement Fall Precautions, taught by Chelsey Negrete OT at 09/08/2025 2:19 PM. Learner: Patient Readiness: Acceptance Method: Explanation, Demonstration Response: Verbalizes Understanding, Needs Reinforcement Body Mechanics, taught by Chelsey Negrete OT at 09/08/2025 2:19 PM. Learner: Patient Readiness: Acceptance Method: Explanation, Demonstration Response: Verbalizes Understanding, Needs Reinforcement ADL Training, taught by Chelsey Negrete OT at 09/08/2025 2:19 PM. Learner: Patient Readiness: Acceptance Method: Explanation, Demonstration Response: Verbalizes Understanding, Needs Reinforcement Education Comments No comments found. Start/Stop Time OT Time Calculation OT Start Time: 1230 OT Stop Time: 1400 OT Time Calculation (min): 90 min Therapy Minutes: Occupational Therapy OT Individual: 90 [1] Patient Active Problem List Diagnosis CVA (cerebral vascular accident) ([facility] V24, [facility] V28) [2] Past Medical History: Diagnosis Date DVT (deep vein thrombosis) in HTN (hypertension) TIA (transient ischemic attack) [3] History reviewed. No pertinent surgical history. * Ruth Valdes, PT - 09/08/2025 11:49 AM EST [facility] Physical Therapy Treatment Note 09/08/2025 Patient: David Poon : 1965 Age: 60 y.o. Gender: male Primary Language: Pakistani Diagnosis: CVA (cerebral vascular accident) ([facility] V24, [facility] V28) Medical History[1] Surgical History[2] Allergies: is allergic to lisinopril. Precautions: Medical Precautions: Fall Risk Safety Interventions: Call gallardo within reach, Bed alarm, Chair alarm RUE Weight Bearing Status: Full LUE Weight Bearing Status: Full RLE Weight Bearing Status: Full LLE Weight Bearing Status: Full Orthoses Applied: (training AFO left LE) NURSING RECOMMENDATIONS Bed Mobility: supervision Transfers: partial assist Ambulation: partial assist with wwalker SUBJECTIVE Pt report: I want to go home. Pain: 0/10 OBJECTIVE General Observation: In WC agreeable to participating in therapy session. Vitals: BP: (!) 141/79 Heart Rate: 84 SpO2: 95 % Procedure/Treatment: Neuromuscular Reeducation: Balance/Neuromuscular Re-Education Neuromuscular Re-Education Time Entry: 90 Pt seated in WC agreeable to participating in therapy session. Education provided on mod-I goals toprogress pt to LRAD, improve dynamic balance. Pt verbalized understanding, education provided on leaving AMA, reported pt would not receive equipment, if pt were to leave AMA. Pt completed STS To RW,SUP. PT ambulating x150ft, x100ft with RW, steadying assistance. Pt completed ascending 4 inch stepand 8 inch platform step with RW, steadying assistance-SUP, pt ascending step to leading with RLE, descending backwards leading with the LLE, per pt this simulates home entrance. Pt completed part task practice with standing at panchito-bar cued for foot clearance on LLE, visual cue of blue x provided on floor and use of SPC to provide external cue to improve foot clearance, pt completed x2 trials until fatigue, Pt completed task again with 4lb weight on LLE to improve foot clearance, again until fatigue, no LOB. Pt ambulating x200ft with RW, with 4lb weight steadying assistance, improvement in proprioceptive awareness and foot clearance. Pt completing skin check doffing L shoe and sock, skin grossly intact. Pt donning Toe off AFO, pt completed x30 minutes of stair and gait training with AFO,pt ambulating with RW, steadying assistance [id number], cues for foot clearance. Pt completed 2x8 stairs bilat. Rails cues for hip and knee flexion avoiding circumduction to improve clearance and motor planning. Pt completed ascending 4 inch step and 8 inch platform step with RW, steadying assistance-SUP, pt ascending step to leading with RLE, descending backwards leading with the LLE with AFO, pt able to place RW onto platform, pt needing assistance with moving RW down off of platform. Per pt, pts girlfriend would be able to assist with RW, management. Pt doffing AFO, pt performing skin check, pt with blanchable reddness, on lateral aspect of 5th MTP. Education on smoking cessation, and not smoking with nicotine patch, education on abstaining from alcohol at this time. Education on BE FAST,pt able to recall 3/6 BE FAST signs and symptoms of strokes. Pt donning shoe. Pt ambulating back toroom, SUP with RW. Pt left seated in WC, call gallardo in reach, chair alarm on, all needs met. Education: Education Documentation Warning Signs and Symptoms of Stroke, taught by Ruth Valdes, PT at 09/08/2025 12:14 PM. Learner: Patient Readiness: Acceptance Method: Explanation, Demonstration Response: Verbalizes Understanding, Demonstrated Understanding Activation of EMS (Call 911), taught by Ruth Valdes PT at 09/08/2025 12:14 PM. Learner: Patient Readiness: Acceptance Method: Explanation, Demonstration Response: Verbalizes Understanding, Demonstrated Understanding Mobility Training, taught by Ruth Valdes, PT at 09/08/2025 12:14 PM. Learner: Patient Readiness: Acceptance Method: Explanation, Demonstration Response: Verbalizes Understanding, Demonstrated Understanding Teach positioning to prevent injury, taught by Ruth Valdes PT at 09/08/2025 12:14 PM. Learner: Patient Readiness: Acceptance Method: Explanation, Demonstration Response: Verbalizes Understanding, Demonstrated Understanding Education Comments No comments found. ASSESSMENT PT Assessment PT Assessment Results: Decreased strength, Decreased range of motion, Decreased endurance, Impairedbalance, Impaired gait, Decreased mobility, Decreased coordination, Decreased safety awareness Prognosis: Good Evaluation/Treatment Tolerance: Patient tolerated treatment well Comments: Pt progressing to SUP-partial Ax1 with RW.Pt having difficulty with turning to sit in chair, pt often forgetting to progress LLE, pt needing partial A x1, d/t decreased foot clearance. Pt with poor proprioceptive awareness of LLE and insight into deficits. Equipment: TBD Plan of Care Plan Treatment/Interventions: Functional transfer training, LE strengthening/ROM, Patient/family training, Equipment eval/education, Bed mobility, Gait training, Compensatory technique education, Balance training, Stair training, Continued evaluation PT Plan: Skilled PT PT Frequency: 5-7 days per week PT Duration of Sessions: 60-90 min per session PT Treatments per day: 1 time per day PT Discharge Recommendations: Other (Comment) (TBD) Problems/Goals Goals: Encounter Problems Encounter Problems (Active) Template: Physical Therapy Problem: PT Long-Term Goals Dates: Start: 09/04/25 Goal: mod-I transfers LRAD Dates: Start: 09/04/25 Goal: mod-I x12 stairs Dates: Start: 09/04/25 Goal: mod-I ambulation x150ft LRAD Dates: Start: 09/04/25 Goal: mod-I x2 stairs LRAD Dates: Start: 09/04/25 Problem: PT Short Term Goals Dates: Start: 09/04/25 Goal: mod-I bed mobility Dates: Start: 09/04/25 Goal: SUP transfers LRAD Dates: Start: 09/04/25 Goal: SUP ambulation x150ft LRAD Dates: Start: 09/04/25 Goal: partial A x4 stairs bilat. rails Dates: Start: 09/04/25 Encounter Problems (Resolved) There are no resolved problems. Session Start/Stop Time: 1000 1130 Therapy Minutes Physical Therapy PT Individual: 90 [1] Past Medical History: Diagnosis Date DVT (deep vein thrombosis) in HTN (hypertension) TIA (transient ischemic attack) [2] History reviewed. No pertinent surgical history. * JIMMY Rae - 09/08/2025 11:33 AM EST Images from the original note were not included. [facility] PROGRESS NOTE Date: 09/08/2025 Author: JIMMY Rae Patient ID: David Poon is a 60 y.o. male : 1965 MR#: [id number] SUBJECTIVE Subjective Patient reports that he still has difficulties with his left lower extremity. It is participating with therapy. He is eager to go home. Otherwise he is moving his bowels and is voiding. His appetite is fair he is sleeping through the night. Allergies: Lisinopril Current Medications: MEDSSCHEDULED[1] MEDSCONTINUOUS[2] MEDSPRN[3] OBJECTIVE Vitals: 09/07/25 0902 09/07/25 1521 09/08/25 0519 09/08/25 0927 BP: 127/87 128/87 124/67 (!) 153/73 BP Location: Right arm;Upper Right arm Right arm Patient Position: Sitting Lying Pulse: 88 84 66 82 Resp: 17 17 18 Temp: 36.8 ??C (98.2 ??F) 36.4 ??C (97.5 ??F) 36.4 ??C (97.5 ??F) 36.5 ??C (97.7 ??F) TempSrc: Oral Oral SpO2: 97% 95% 95% 99% Weight: General: conscious alert no acute distress HEENT: pupils are equal round and reactive. extraocular movements are grossly intact lungs clear to auscultation, no wheezing or crackles noted heart regular rate and rhythm, no murmur or rubs abdomen soft nontender nondistended positive bowel sounds Musculoskeletal: No gross deformity to joints extremities without edema, erythema or calf tenderness neuro: left leg weakness skin: no rashes or lesions. psych: mood stable appearing, good eye contact. LABS HEMATOLOGY Lab Results Component Value Date WBC 8.9 09/04/2025 HGB 16.5 09/04/2025 HCT 47.6 09/04/2025 MCV 97.1 09/04/2025 PLT 265 09/04/2025 CHEMISTRY Lab Results Component Value Date GLUCOSE 81 09/04/2025 NA 136 09/04/2025 K 4.4 09/04/2025 CO2 26 09/04/2025 CL 101 09/04/2025 BUN 20 09/04/2025 CREATININE 0.94 09/04/2025 EGFR 92 09/04/2025 CALCIUM 9.0 09/04/2025 ANIONGAP 9 09/04/2025 Imaging: No image results found. ASSESSMENT & PLAN 1.Acute CVA 2.Left hemiparesis - MRI brain was positive for acute right thalamic ischemic CVA - Neurology recommended continuing DAPT and statin until outpatient follow-up for further recommendations - Aspirin 81 mg daily - Plavix 75 mg daily - Atorvastatin 40 mg nightly - Continue therapies - f/u [facility] (Dr Sky) after discharge 3.Hypertension - Amlodipine 5 mg daily 4. Nicotine dependence Smoking cessation encouraged - Nicotine 21 mg patch daily 5. History of alcohol use - Monitored on CIWA during acute hospital stay without withdrawal appreciated 6. Allergic rhinitis - Loratadine 10mg daily 7. Constipation - Colace 100 mg twice daily - Senna 2 tabs nightly 8. DVT prophylaxis: Lovenox 40mg daily 9. FULL CODE Total time spent 40 minutes doing chart review, interviewing patient, gathering information, performing physical exam, formulating plan, explaining management plan to patient, coordinating care with RN/rehab team , documentation and placing orders. [1] amLODIPine, 5 mg, oral, Daily aspirin, 81 mg, oral, Daily atorvastatin, 40 mg, oral, Nightly clopidogreL, 75 mg, oral, Daily docusate sodium, 100 mg, oral, BID enoxaparin, 40 mg, subcutaneous, Daily folic acid, 1 mg, oral, Daily loratadine, 10 mg, oral, Daily nicotine, 1 patch, transdermal, q24h polyetheylene glycol, 17 g, oral, Daily senna, 2 tablet, oral, Nightly thiamine, 100 mg, oral, Daily [2] [3] PRN medications: acetaminophen, aluminum-magnesium hydroxide-simethicone, bisacodyL, magnesium hydroxide * Bindu Stewart, JACQUES - 09/08/2025 8:10 AM EST Speech Language Pathology [facility] Speech Language Pathology Treatment 09/08/2025 Patient: David Poon : 1965 Age: 60 y.o. Gender: male Primary Language: Pakistani Diagnosis: CVA (cerebral vascular accident) ([facility] V24, [facility] V28) Medical History[1] Surgical History[2] Allergies: is allergic to lisinopril. Precautions: Medical Precautions: Fall Risk Safety Interventions: Call gallardo within reach, Bed alarm, Chair alarm RUE Weight Bearing Status: Full LUE Weight Bearing Status: Full RLE Weight Bearing Status: Full LLE Weight Bearing Status: Full Orthoses Applied: (training AFO left LE) Subjective: Pt seen upright in wheelchair, alert and participatory throughout session. He requestedsession be conducted in room today. Objective: Treatment: AIRCRAFT PAINTER Treatments: Cognitive Skills Therapeutic Interventions Cognitive Skills Direct Contact Time Entry: 45 Orientation: Pt oriented to date indep. White board updated with today's schedule and reviewed withpatient. Memory: Pt tasked with recall of 6 items via picture cards given min A for encoding and verbal encouragement. He recalled 6/6 immediately indep. Following a 1, 2, 4 and 8 minute delay, pt recalled 6/6 indep. Pt demonstrated prospective memory during card sorting game in 3/3 opportunities indep. Attention/Concentration: Pt completed selective attention task via card sorting with 90% accuracy indep. He demonstrated x3 self corrections during task and benefited from x1 verbal cue for repeat directions. Pt completed deduction puzzles with 90% accuracy indep and 100% accuracy given mod A of verbal/visual cues and reminders for strategies. He beneifted from verbal cues for use of strategies such as process of elimination and re-reading clues. Additional deduction puzzles left at bedside forpt to complete indep - pt in agreement and verbalized understanding. Other Cognitive Skills Activity: Pt participated in review regarding metacognitive strategies via goal, plan, do, review . Pt identified a goal of completing deduction puzzle given max A. He generated a plan given mod A of verbal cues and elaboration. Pt conducted a review given mod A of verbal cues and elaboration. He was encouraged to utilzie metacognitive strategies in other therapies - pt verbalized understanding. Cognitive Skills Comments: Pt continues to benefit from verbal cues for use of strategies. He reported that he writes things down which is enough . Education provided on benefits of learning new strategies - pt verbalized understanding. Assessment/Plan AIRCRAFT PAINTER Assessment Dysphagia Diagnosis: Within Functional Limits Evaluation/Treatment Tolerance: Patient tolerated treatment well Comments: Pt demonstrated adequate short term recall given min A for encoding. He benefited from verbal encouragement throughout session for use of new strategies during short term recall and deduction puzzle. Medical Staff Made Aware: Yes Plan Treatment/Interventions: Cognitive linguistic functioning AIRCRAFT PAINTER Plan: Skilled AIRCRAFT PAINTER AIRCRAFT PAINTER Frequency: 2-5 days per week AIRCRAFT PAINTER Duration of Sessions: 30-60 min per session AIRCRAFT PAINTER Treatments per day: 1 time per day AIRCRAFT PAINTER - Evaluation Status: Complete Diet Recommendations: IDDSI 7/0 regular/thins Goals Encounter Problems Encounter Problems (Active) Template: Speech Therapy Problem: AIRCRAFT PAINTER Long-Term Goals Dates: Start: 09/04/25 Goal: Pt will improve cognitive linguistic functioning for d/c setting. Dates: Start: 09/04/25 Expected End: 09/11/25 Problem: AIRCRAFT PAINTER Short Term Goals Dates: Start: 09/04/25 Goal: Pt will complete additional diagnostic testing in 100% of opportunities indep. Dates: Start: 09/04/25 Expected End: 09/09/25 Outcomes Date/Time User Outcome 09/07/25 1713 JACQUES Fletcher Progressing Goal: Pt will participate in ongoing education regarding cognitive linguistic strategies and ID pertinent techniques to use in daily life in 100% of opportunities indep. Dates: Start: 09/04/25 Expected End: 09/11/25 Outcomes Date/Time User Outcome 09/08/25 0906 JACQUES Fletcher Progressing Goal: Pt will recall +5 pieces of novel information following a >6 minute delay given mod A for encoding/retrieval strategies. Dates: Start: 12/05/25 Expected End: 09/11/25 Outcomes Date/Time User Outcome 09/08/25905 JACQUES Fletcher Progressing Goal: Pt will complete mod-higher level executive functioning tasks with 80% accuracy given min A. Dates: Start: 09/04/25 Expected End: 09/11/25 Outcomes Date/Time User Outcome 09/08/25905 JACQUES Fletcher Progressing Encounter Problems (Resolved) There are no resolved problems. Education Documentation Education Documentation Cognition, taught by JACQUES Fletcher at 09/08/2025 9:07 AM. Learner: Patient Readiness: Acceptance Method: Explanation Response: Needs Reinforcement, Verbalizes Understanding Education Comments No comments found. Start/Stop Time: AIRCRAFT PAINTER Time Calculation AIRCRAFT PAINTER Start Time: 809 AIRCRAFT PAINTER Stop Time: 854 AIRCRAFT PAINTER Time Calculation (min): 45 min Therapy Minutes: Speech Therapy AIRCRAFT PAINTER Individual: 45 [1] Past Medical History: Diagnosis Date DVT (deep vein thrombosis) in HTN (hypertension) TIA (transient ischemic attack) [2] History reviewed. No pertinent surgical history. Cosigned by ALEXANDER Yeh at 09/08/2025 10:17 AM EST Associated attestation - Connie Vital CCC-SLP - 09/08/2025 10:17 AM EST I attest that I, Nia Vital M.S.,STEFANIE-JACQUES, was physically involved in the ongoing assessment, decision making, and interventions provided during today's patient care session. I have reviewed all documentation for today's 09/08/25, entered by Speech Therapy Fellow, Bindu Stewart, and further attest that it is an accurate clinical record of today's encounter, including accurate and appropriate charges. * Christina Jaramillo, DO - 09/07/2025 10:21 PM EST Images from the original note were not included. [facility] Daily Progress Note Patient name: David Poon : 1965 SUBJECTIVE: Patient seen and examined at bedside today. No acute events overnight. Denies headaches, dizziness,shortness of breath, chest pain, nausea, constipation, and pain. Patient reports that he wants to be discharged RONALD. Participating in therapies: PT: Comments: Transfers and gait improving to S with ww and AFO. Also demo adequate clearance wihtout AFO with freq cues OT: Comments: Pt provided continued education on ELOS. Pt reports having all required equipment to return home. Pt required verbal cues to adhere to panchito dressing technique. Pt would benefit from continued education on stroke s/sxs, activities to address impaired FMC, ataxia and standing balance. Pt would benefit from completing shower in tub shower and completing grooming tasks in standing. Pt requires sup UB dressing, steadying A LB dressing, toileting and bathing TEAM CONFERENCE: I was present and participated in team meeting today. I agree with team conferenceplan as documented in alternate note today. Please refer to team conference note for further details. OBJECTIVE: Vitals: 09/07/25 0530 09/07/25 0700 09/07/25 0902 09/07/25 1521 BP: 131/74 137/75 127/87 128/87 BP Location: Right arm Right arm Right arm;Upper Right arm Patient Position: Lying Sitting Sitting Pulse: 70 67 88 84 Resp: 17 17 17 Temp: 36.4 ??C (97.5 ??F) 36.8 ??C (98.2 ??F) 36.4 ??C (97.5 ??F) TempSrc: Oral Oral SpO2: 96% 96% 97% 95% Weight: Physical Examination: General: Alert, in no acute cardiopulmonary distress. Mental Status: Oriented to person, place and time. Normal affect. Head: Normocephalic. Eyes: Extraocular muscles intact. Ear, Nose and Throat: Oropharynx clear, mucous membranes moist. Ears and nose without masses, lesions or deformities. Neck: Supple, Trachea midline. Respiratory: Clear to auscultation and percussion. No wheezing, rales or rhonchi. Cardiovascular: Heart sounds normal. No thrills. Regular rate and rhythm, no murmurs, rubs or gallops. Gastrointestinal: Abdomen soft, non-tender, non-distended. Normal bowel sounds. Neurologic: Cranial nerves II-XII intact. Negative Hoffmans sign on the left. Negative clonus on the left. Moves all extremities spontaneously. Sensation intact bilaterally. Skin: No rashes or lesions. No petechiae or purpura. No edema. Musculoskeletal: No cyanosis or clubbing. No gross deformities. Normal range of motion. Strength 5/5 throughout right upper and lower extremities. Strength 5/5 left shoulder abduction, 5/5 left elbowflexion, 5/5 left elbow extension, 5/5 left wrist extension, 4/5 left finger abduction. Strength 5/5 left hip flexion, 5/5 left knee extension, 1/5 left dorsiflexion, 1/5 left plantarflexion, 1/5 left EHL. No changes since last visit. CURRENT INPATIENT MEDICATIONS: Current Medications[1] LABS: Lab Results Component Value Date WBC 8.9 09/04/2025 RBC 4.90 09/04/2025 HGB 16.5 09/04/2025 HCT 47.6 09/04/2025 MCV 97.1 09/04/2025 MCHC 34.7 09/04/2025 RDW 11.3 09/04/2025 PLT 265 09/04/2025 MPV 8.8 09/04/2025 NRBC 0.0 09/04/2025 DIFF Lab Results Component Value Date LYMPHOPCT 24.3 09/04/2025 NEUTROABS 5.81 09/04/2025 LYMPHSABS 2.15 09/04/2025 MONOABS 0.68 09/04/2025 EOSABS 0.18 09/04/2025 BASOSABS 0.03 09/04/2025 IMMGRANABS 0.01 09/04/2025 RETIC No results found for: RETIC , RETICCTPCT Lab Results Component Value Date NA 136 09/04/2025 K 4.4 09/04/2025 CL 101 09/04/2025 CO2 26 09/04/2025 GLUCOSE 81 09/04/2025 BUN 20 09/04/2025 CREATININE 0.94 09/04/2025 CALCIUM 9.0 09/04/2025 PROT 6.5 09/04/2025 ALBUMIN 4.0 09/04/2025 BILITOT 1.2 09/04/2025 AST 28 09/04/2025 ALT 39 09/04/2025 ALKPHOS 51 09/04/2025 EGFR 92 09/04/2025 IMPRESSION & PLAN: #Impaired mobility and self-care - Secondary to acute CVA - Continue PT, OT, AIRCRAFT PAINTER, and nursing care #Acute CVA #Left hemiparesis - MRI brain was positive for acute right thalamic ischemic CVA - Neurology recommended continuing DAPT and statin until outpatient follow-up for further recommendations - Aspirin 81 mg daily - Plavix 75 mg daily - Atorvastatin 40 mg nightly - Continue therapies - f/u [facility] (Dr Sky) after discharge #Hypertension - Amlodipine 5 mg daily #Tobacco dependence - Nicotine 21 mg patch daily #History of alcohol use - Monitored on CIWA during acute hospital stay without withdrawal appreciated #Allergic rhinitis - Loratadine 10mg daily #Bowel management - Colace 100 mg twice daily - Senna 2 tabs nightly - Miralax 17gm daily #DVT prophylaxis: Lovenox 40mg daily started [1] Current Facility-Administered Medications: acetaminophen (TYLENOL) tablet 650 mg, 650 mg, oral, q6h PRN, JIMMY Mullins aluminum-magnesium hydroxide-simethicone (MAALOX) 200-200-20 mg/5 mL suspension 30 mL, 30 mL, oral,q4h PRN, Christina Jaramillo DO amLODIPine (NORVASC) tablet 5 mg, 5 mg, oral, Daily, JIMMY Mullins, 5 mg at 09/07/25903 aspirin EC tablet 81 mg, 81 mg, oral, Daily, JIMMY Mullins, 81 mg at 09/07/25904 atorvastatin (LIPITOR) tablet 40 mg, 40 mg, oral, Nightly, JIMMY Mullins, 40 mg at 09/07/252051 bisacodyL (DULCOLAX) suppository 10 mg, 10 mg, rectal, Daily PRN, JIMMY Mullins clopidogreL (PLAVIX) tablet 75 mg, 75 mg, oral, Daily, JIMMY Mullins, 75 mg at 12/08/25 0905 docusate sodium (COLACE) capsule 100 mg, 100 mg, oral, BID, JIMMY Mullins, 100 mg at enoxaparin (LOVENOX) injection 40 mg, 40 mg, subcutaneous, Daily, Christina Jaramillo DO, 40 mg at111/08/24 0904 folic acid (FOLVITE) tablet 1 mg, 1 mg, oral, Daily, JIMMY Rae, 1 mg at 09/07/25 0905 loratadine (CLARITIN) tablet 10 mg, 10 mg, oral, Daily, Christina Jaramillo DO, 10 mg at 09/07/25 0904 magnesium hydroxide (MILK OF MAGNESIA) 400 mg/5 mL suspension 30 mL, 30 mL, oral, Daily PRN, JIMMY Mullins, 30 mL at 09/03/25 153 nicotine (NICODERM CQ) 21 mg/24 hr patch 1 patch, 1 patch, transdermal, q24h, JIMMY Rae,1 patch at 09/07/25 0907 polyethylene glycol (MIRALAX) packet 17 g, 17 g, oral, Daily, Christina Jaramillo DO, 17 g at 09/07/25 1459 senna (SENOKOT) tablet 17.2 mg, 2 tablet, oral, Nightly, JIMMY Mullins, 17.2 mg at 09/07/252051 thiamine (VITAMIN B-1) tablet 100 mg, 100 mg, oral, Daily, JIMMY Rae, 100 mg at 905 * Dane Rae, PT - 09/07/2025 1:56 PM EST [facility] Physical Therapy Treatment Note 09/07/2025 Patient: David Poon : 1965 Age: 60 y.o. Gender: male Primary Language: Pakistani Diagnosis: CVA (cerebral vascular accident) (CMS/HCC V24, CMS/HCC V28) Medical History[1] Surgical History[2] Allergies: is allergic to lisinopril. Precautions: Medical Precautions: Fall Risk Safety Interventions: Call gallardo within reach, Bed alarm, Chair alarm RUE Weight Bearing Status: Full LUE Weight Bearing Status: Full RLE Weight Bearing Status: Full LLE Weight Bearing Status: Full Orthoses Applied: (training AFO left LE) NURSING RECOMMENDATIONS Bed Mobility: supervision Transfers: partial assist Ambulation: partial assist with wwalker SUBJECTIVE Pt report: I'm frustrated with having to leave on the 18th Pain: none OBJECTIVE General Observation: Agreeable to session Procedure/Treatment: Therapeutic Activities: Therapeutic Activity Time Entry: 60 Therapeutic Activity 1: Max A donning L AFO, STS to ww steadying asst, GT ww x200', x150' cues and facilitation for lat wt shifitng R on L pre-swing. up/dn 4 steps B rails with cues for sequence cl S, up/dn platform step in doorway to simulate home entrance partial A, GT around panchito bar with R UE CG, GT x20' iwth AFO and SC partial A. GT ww without AFO x125' cl S. with AFO and ww x150', x150' cl S. Left in room with call gallardo and all needs met. and Therapeutic Exercise: Therapeutic Exercise Time Entry: 10 Therapeutic Exercise Activity 1: A/AA DF, PF, HS curls, hip flexion Education: Education Documentation Warning Signs and Symptoms of Stroke, taught by Dane Rae PT at 09/07/2025 1:55 PM. Learner: Patient Readiness: Acceptance Method: Explanation, Demonstration Response: Verbalizes Understanding, Demonstrated Understanding, Needs Reinforcement Comment: BEFAST and calling 911. Etiloogy of L knee hyperextension and ex's to improve Mobility Training, taught by Dane Rae PT at 09/07/2025 1:55 PM. Learner: Patient Readiness: Acceptance Method: Explanation, Demonstration Response: Verbalizes Understanding, Demonstrated Understanding, Needs Reinforcement Comment: BEFAST and calling 911. Etiloogy of L knee hyperextension and ex's to improve Education Comments No comments found. ASSESSMENT PT Assessment Comments: Transfers and gait improving to S with ww and AFO. Also demo adequate clearance wihtout AFO with freq cues Equipment: none Plan of Care Plan Treatment/Interventions: Functional transfer training, LE strengthening/ROM, Patient/family training, Equipment eval/education, Bed mobility, Gait training, Compensatory technique education, Balance training, Stair training, Continued evaluation PT Plan: Skilled PT PT Frequency: 5-7 days per week PT Duration of Sessions: 60-90 min per session PT Treatments per day: 1 time per day PT Discharge Recommendations: Other (Comment) (TBD) Problems/Goals Goals: Encounter Problems Encounter Problems (Active) Template: Physical Therapy Problem: PT Long-Term Goals Dates: Start: 09/04/25 Goal: mod-I transfers LRAD Dates: Start: 09/04/25 Goal: mod-I x12 stairs Dates: Start: 09/04/25 Goal: mod-I ambulation x150ft LRAD Dates: Start: 09/04/25 Goal: mod-I x2 stairs LRAD Dates: Start: 09/04/25 Problem: PT Short Term Goals Dates: Start: 09/04/25 Goal: mod-I bed mobility Dates: Start: 09/04/25 Goal: SUP transfers LRAD Dates: Start: 09/04/25 Goal: SUP ambulation x150ft LRAD Dates: Start: 09/04/25 Goal: partial A x4 stairs bilat. rails Dates: Start: 09/04/25 Encounter Problems (Resolved) There are no resolved problems. Session Start/Stop Time: 1230 1340 Therapy Minutes Physical Therapy PT Individual: 70 [1] Past Medical History: Diagnosis Date DVT (deep vein thrombosis) in HTN (hypertension) TIA (transient ischemic attack) [2] History reviewed. No pertinent surgical history. * Bindu Stewart AIRCRAFT PAINTER - 09/07/2025 1:45 PM EST Speech Language Pathology [facility] Speech Language Pathology Treatment 09/07/2025 Patient: David Poon : 1965 Age: 60 y.o. Gender: male Primary Language: Pakistani Diagnosis: CVA (cerebral vascular accident) ([facility] V24, [facility] V28) Medical History[1] Surgical History[2] Allergies: is allergic to lisinopril. Precautions: Medical Precautions: Fall Risk Safety Interventions: Call gallardo within reach, Bed alarm, Chair alarm RUE Weight Bearing Status: Full LUE Weight Bearing Status: Full RLE Weight Bearing Status: Full LLE Weight Bearing Status: Full Orthoses Applied: (training AFO left LE) Subjective: This has been great Pt seen upright in wheelchair, alert and participatory throughout session. Objective: Treatment: AIRCRAFT PAINTER Treatments: Cognitive Skills Therapeutic Interventions Cognitive Skills Direct Contact Time Entry: 30 Other Cognitive Skills Activity: Pt participated in education regarding metacognitive strategies through goal, plan, do, review . He identified a goal given max A. Pt generated a plan to accomplish goal given min A of verbal cues for elaboration. He conducted a review given min A of verbal cues and elaboration. Pt encouraged to utilize metacognitive strategies in other therapy sessions - pt verbalized understanding. Pt also completed subtests of CLAUDIA. See scores below. Assessment of Language-Related Functional Activities (CLAUDIA) Subtest 2. Counting Money: +8/10 Independent Functioning Ratin = high probability of independent functioning on this task Subtest 3. Addressing an Envelope: +10/10 Independent Functioning Ratin = high probability of independent functioning on this task Subtest 4. Solving Daily Math Problems: +10/10 Independent Functioning Ratin = high probability of independent functioning on this task Subtest 5. Writing a Check, Balancing a Checkbook: +10/10 Independent Functioning Ratin = high probability of independent functioning on this task Subtest 8. Reading Instructions: +7/10 Independent Functioning Ratin = indication of need for some level of assistance on this task, requiring further exploration Score Interpretation: 1 = high probability of independent functioning on this task 2 = indication of need for some level of assistance on this task, requiring further exploration 3 = high probably that pt is unable to function independently on this task Criterion Cut off Scores: Ages <65 years Levels TT CM AE MP WC UM RI UT WM 1 8-10 8-10 9-10 7-10 8-10 9-10 9-10 8-10 9-10 15-20 2 6-7 6-7 7-8 5-6 6-7 7-8 7-8 6-7 7-8 13-14 3 0-5 0-5 0-6 0-4 0-5 0-6 0-6 0-5 0-6 0-12 Assessment/Plan AIRCRAFT PAINTER Assessment Dysphagia Diagnosis: Within Functional Limits Evaluation/Treatment Tolerance: Patient tolerated treatment well Comments: Pt scored WFL on CLAUDIA subtests except for reading instructions in which he scored some indication of needing assistance with task . Will f/u for short term recall practice. Medical Staff Made Aware: Yes Plan Treatment/Interventions: Cognitive linguistic functioning AIRCRAFT PAINTER Plan: Skilled AIRCRAFT PAINTER AIRCRAFT PAINTER Frequency: 2-5 days per week AIRCRAFT PAINTER Duration of Sessions: 30-60 min per session AIRCRAFT PAINTER Treatments per day: 1 time per day AIRCRAFT PAINTER - Evaluation Status: Complete Diet Recommendations: IDDSI 7/0 regular/thins Goals Encounter Problems Encounter Problems (Active) Template: Speech Therapy Problem: AIRCRAFT PAINTER Long-Term Goals Dates: Start: 09/04/25 Goal: Pt will improve cognitive linguistic functioning for d/c setting. Dates: Start: 09/04/25 Expected End: 09/11/25 Problem: AIRCRAFT PAINTER Short Term Goals Dates: Start: 09/04/25 Goal: Pt will complete additional diagnostic testing in 100% of opportunities indep. Dates: Start: 09/04/25 Expected End: 09/09/25 Outcomes Date/Time User Outcome 09/07/25 171 JACQUES Fletcher Progressing Goal: Pt will participate in ongoing education regarding cognitive linguistic strategies and ID pertinent techniques to use in daily life in 100% of opportunities indep. Dates: Start: 09/04/25 Expected End: 09/11/25 Outcomes Date/Time User Outcome 09/06/25 1801 JACQUES Fletcher Progressing Goal: Pt will recall +5 pieces of novel information following a >6 minute delay given mod A for encoding/retrieval strategies. Dates: Start: 09/04/25 Expected End: 09/11/25 Goal: Pt will complete mod-higher level executive functioning tasks with 80% accuracy given min A. Dates: Start: 09/04/25 Expected End: 09/11/25 Outcomes Date/Time User Outcome 09/07/251712 JACQUES Fletcher Progressing Encounter Problems (Resolved) There are no resolved problems. Education Documentation Education Documentation Cognition, taught by JACQUES Fletcher at 09/07/2025 5:14 PM. Learner: Patient Readiness: Acceptance Method: Explanation, Demonstration Response: Verbalizes Understanding, Needs Reinforcement Education Comments No comments found. Start/Stop Time: AIRCRAFT PAINTER Time Calculation AIRCRAFT PAINTER Start Time: 1340 AIRCRAFT PAINTER Stop Time: 1410 AIRCRAFT PAINTER Time Calculation (min): 30 min Therapy Minutes: Speech Therapy AIRCRAFT PAINTER Individual: 30 [1] Past Medical History: Diagnosis Date DVT (deep vein thrombosis) in HTN (hypertension) TIA (transient ischemic attack) [2] History reviewed. No pertinent surgical history. Cosigned by ALEXANDER Yeh at 09/07/2025 5:27 PM EST Associated attestation - Connie Vital CCC-SLP - 09/07/2025 5:27 PM EST I attest that I, Nia Vital M.S.,STEFANIE-JACQUES, was physically involved in the ongoing assessment, decision making, and interventions provided during today's patient care session. I have reviewed all documentation for today's 09/07/25, entered by Speech Therapy Fellow, Bindu Stewart, and further attest that it is an accurate clinical record of today's encounter, including accurate and appropriate charges. * Suzanne Noe RN - 09/07/2025 1:36 PM EST Team Meeting: Met with pt at bedside to review post team recommendations. Discussed 10-14 day goals week goals denise Mod I with a tentative discharge set for 09/17 with OP PT OT pending pt's participation, progress and insurance approval. Pt is not in agreement with plan.Patient states that date is not happening I have too many things to take care of at home . CM explained that he is not cleared for dc on Sunday he is still requiring assist with ADLS,Tranfers and ambulation CM did explained that we cannot keep him here but it would be in his best interest to stay and take advantage of 3 hrs a day therapy.Patient is aware if he chooses to leave prior to 09/17 it would be AMA. Insurance update due 09/09/25 Appointments: PCP and Neurology Current level of function: Set up UB dressing Sup LB transfers partial assist ambulates 160 feet with partial assist able to navigate 8 stairs with partial assist Barriers:impulsivity,impaired insight to deficits,Ataxia,impaired balance. Pt had no further questions or concerns at this time. * Cristin Yi NP - 09/07/2025 9:51 AM EST Images from the original note were not included. LETTS PROGRESS NOTE Date: 09/07/2025 Author: Cristin Yi NP Patient ID: David Poon is a 60 y.o. male : 1965 MR#: [id number] SUBJECTIVE Subjective Patient seen and examined in room 418 Awake and alert No complaints offered Case discussed with patient, nursing staff and my attending physician Dr. Morse Allergies: Lisinopril Current Medications: MEDSSCHEDULED[1] MEDSCONTINUOUS[2] MEDSPRN[3] OBJECTIVE Vitals: 09/06/25 1530 09/07/25 0530 09/07/25 0700 09/07/25 0902 BP: 126/81 131/74 137/75 127/87 BP Location: Left arm Right arm Right arm Right arm;Upper Patient Position: Lying Lying Sitting Sitting Pulse: 81 70 67 88 Resp: 18 17 17 Temp: 36.7 ??C (98.1 ??F) 36.4 ??C (97.5 ??F) 36.8 ??C (98.2 ??F) TempSrc: Oral Oral Oral SpO2: 96% 96% 96% 97% Weight: Physical Exam Vitals reviewed. Constitutional: Appearance: Normal appearance. HENT: Head: Normocephalic and atraumatic. Nose: Nose normal. Mouth/Throat: Mouth: Mucous membranes are moist. Eyes: Extraocular Movements: Extraocular movements intact. Cardiovascular: Rate and Rhythm: Normal rate and regular rhythm. Pulses: Normal pulses. Heart sounds: Normal heart sounds. Pulmonary: Effort: Pulmonary effort is normal. Breath sounds: Normal breath sounds. Abdominal: General: Bowel sounds are normal. Palpations: Abdomen is soft. Musculoskeletal: General: Normal range of motion. Cervical back: Normal range of motion. Skin: General: Skin is warm and dry. Capillary Refill: Capillary refill takes less than 2 seconds. Neurological: General: No focal deficit present. Mental Status: He is alert and oriented to person, place, and time. Psychiatric: Mood and Affect: Mood normal. Behavior: Behavior normal. LABS HEMATOLOGY Lab Results Component Value Date WBC 8.9 09/04/2025 HGB 16.5 09/04/2025 HCT 47.6 09/04/2025 MCV 97.1 09/04/2025 PLT 265 09/04/2025 CHEMISTRY Lab Results Component Value Date GLUCOSE 81 09/04/2025 NA 136 09/04/2025 K 4.4 09/04/2025 CO2 26 09/04/2025 CL 101 09/04/2025 BUN 20 09/04/2025 CREATININE 0.94 09/04/2025 EGFR 92 09/04/2025 CALCIUM 9.0 09/04/2025 ANIONGAP 9 09/04/2025 Imaging: No image results found. ASSESSMENT & PLAN 1.Acute CVA 2.Left hemiparesis - MRI brain was positive for acute right thalamic ischemic CVA - Neurology recommended continuing DAPT and statin until outpatient follow-up for further recommendations - Aspirin 81 mg daily - Plavix 75 mg daily - Atorvastatin 40 mg nightly - Continue therapies - f/u [facility] (Dr Sky) after discharge 3.Hypertension - Amlodipine 5 mg daily 4. Nicotine dependence Smoking cessation encouraged - Nicotine 21 mg patch daily 5. History of alcohol use - Monitored on CIWA during acute hospital stay without withdrawal appreciated 6. Allergic rhinitis - Loratadine 10mg daily 7. Constipation - Colace 100 mg twice daily - Senna 2 tabs nightly 8. DVT prophylaxis: Lovenox 40mg daily 9. FULL CODE My total time spent was 50 minutes I have discussed the above assessment and plan with my attending physician Dr. Morse Who agrees with the above assessment and plan. [1] amLODIPine, 5 mg, oral, Daily aspirin, 81 mg, oral, Daily atorvastatin, 40 mg, oral, Nightly clopidogreL, 75 mg, oral, Daily docusate sodium, 100 mg, oral, BID enoxaparin, 40 mg, subcutaneous, Daily folic acid, 1 mg, oral, Daily loratadine, 10 mg, oral, Daily nicotine, 1 patch, transdermal, q24h senna, 2 tablet, oral, Nightly thiamine, 100 mg, oral, Daily [2] [3] PRN medications: acetaminophen, aluminum-magnesium hydroxide-simethicone, bisacodyL, magnesium hydroxide Cosigned by John Morse MD at 09/07/2025 1:20 PM EST * Kaykay Perez, OT - 09/07/2025 7:00 AM EST [facility] Occupational Therapy Treatment Note 09/07/2025 Patient: David Poon : 1965 Age: 60 y.o. Gender: male Diagnosis: CVA (cerebral vascular accident) ([facility] V24, [facility] V28) Primary Rehab (Etiologic) Diagnosis: Problem List[1] PMH: Medical History[2] PSH: Surgical History[3] Allergies: is allergic to lisinopril. Precautions: Precautions Medical Precautions: Fall Risk Safety Interventions: Call gallardo within reach, Bed alarm, Chair alarm RUE Weight Bearing Status: Full LUE Weight Bearing Status: Full RLE Weight Bearing Status: Full LLE Weight Bearing Status: Full Orthoses Applied: (training AFO left LE) Vitals: BP: 137/75 Heart Rate: 67 SpO2: 96 % Pain: Pain Assessment Pain Assessment: No/denies pain Subjective: Somebody told me that already (regarding panchito dressing technique) Procedures/Interventions: ADLs/IADLs Self Care/Home Management (ADLs) Time Entry: 40 ADL/ IADL Performed: Eating, Grooming, Bathing, Oral Hygiene, Dressing, Shower Transfers Balance/Neuromuscular Re-Education Neuromuscular Re-Education Time Entry: 50 Pt received seated in w/c, agreeable to participate in OT session. Vitals assessed, see above. Pt requesting to go to therapy gym followed by shower. Pt self propelled w/c to therapy gym. Pt noted denise steering to L d/t L UE inattention. Seated at tabletop, pt participated in activities to addressL UE. Pt completed x mass reps utilizing B UE to facilitate B integration. Pt able to maintain L UEgrasp on [place] w/ out A. Pt participated in activity requiring pt to use resistance clothespins to retrieve pom poms and place through slotted container. This fiction and nonfiction writer prose applied 2lb wrist weight to L wrist to address ataxia. Pt utilized yellow resistance clothespin to retreive approx 10 pom poms using L UE, pt able to do so w/out error. Activity upgraded, pt required to use green resistance clothespin to retreive remaining 10 pom poms. Pt w/ increase difficulty, intermittently switching between pincer and 3 jaw roger grasps. Pt provided various size coins and required to stack then place through slotted container. Pt notedto compensate via L UE by sliding coin to edge of table to retrieve. Pt able to stack w/ inc time using L UE. Pt able to use [address] and push through slotted container. Pt tasked w/ removing hardware from birdhouse via L UE. Pt initially utilizing 2nd digit to spin hardware off. This fiction and nonfiction writer prose educating pt on using pincer grasp. Pt able to do so w/ inc time. Pt participated in activity to simulate cutting food using green putty. Pt able to use L UE to stabilize putty via fork and cut using R UE. Plate placed on dycem to A in stabilizing plate. Pt w/ minor difficulty stabilizing fork d/t impaired FMC. This fiction and nonfiction writer prose discussing cooking upon d/c, pt reporting he will not be cooking and will have A. Pt requesting to shower, however declining in tub shower d/t not having clothes present, declining to wear chan. Pt self propelled w/c back to room. Pt retrieved clothes w/c level. Pt amb via RW, partial A to shower stall. Pt remained seated on shower chair. Pt doffed shirt and B socks, via figurefour, sup. Pt able to manage pants over hips via lateral weight shift, sup. Pt doffed pants/underwear from B LE, sup. Pt able to shower seated on shower chair using HH showerhead. Pt washed hair using B UE, sup. Pt able to bathe ayo area, B UE, B axilla, abdomen, face and B LE, sup. Pt declining to stand to bathe buttocks. Pt able to dry self seated on shower chair, sup. Pt able to thread underwear through B LE, sup. Pt STS via grab bar, steadying A. Verbal cues for proper body positioning of B LE prior to standing. Pt able to hike underwear over hips, steadying A, using B UE. Pt returned tositting and donned shirt, s/u. Pt able to thread B LE through pants, verbal cues to thread L LE first followed by R LE d/t panchito paresis. STS via grab bar, steadying A. Pt able to hike pants over hips and return to sitting, steadying A. Pt donned B socks using B UE, sup. Pt amb via RW back to room, partial A. Verbal cues to slow pace. Pt remained seated in w/c and self propelled w/c to sink. Pt combed hair and completed oral hygiene, s/u. Pt provided breakfast, able to open containers Ind. This fiction and nonfiction writer prose discussing equipment for homed/c. Pt reports having shower chair and suction grab bars. This fiction and nonfiction writer prose educating pt on testing grabbar prior utilizing. Pt verbalizes understanding and agreeable. This fiction and nonfiction writer prose discussing d/c date as pt requesting to return home [place]. This fiction and nonfiction writer prose educating pt on 2week goals to maximize Ind w/ fxl mob. This fiction and nonfiction writer prose dicussed leaving AMA pt would not receive therapy or medications. Pt verbalizes understanding. This fiction and nonfiction writer prose asking pt to recall s/sxs of stroke. Pt able to recall 1/6 of BE FAST. This fiction and nonfiction writer prose educating pt on remaining 5/6 s/sxs of BE FAST. Pt verbalizes understanding. Pt remained seated in w/c, call galalrdo in place, chair alarm on. All needs met. OT Assessment OT Assessment OT Assessment Results: Decreased ADL status, Decreased upper extremity strength, Decreased upper extremity range of motion, Decreased safe judgment during ADL, Decreased fine motor control, Decreasedfunctional mobility, Decreased IADLs, Decreased gross motor control Prognosis: Good Evaluation/Treatment Tolerance: Patient tolerated treatment well Comments: Pt provided continued education on ELOS. Pt reports having all required equipment to return home. Pt required verbal cues to adhere to panchito dressing technique. Pt would benefit from continued education on stroke s/sxs, activities to address impaired FMC, ataxia and standing balance. Pt would benefit from completing shower in tub shower and completing grooming tasks in standing. Pt requires sup UB dressing, steadying A LB dressing, toileting and bathing 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 Goals Dates: Start: 09/04/25 Goal: Pt will perform LB dressing mod I Dates: Start: 09/04/25 Expected End: 09/18/25 Goal: Pt will bathe via LRD mod I Dates: Start: 09/04/25 Expected End: 09/18/25 Goal: Pt will perform toileting hygiene mod I Dates: Start: 09/04/25 Expected End: 09/18/25 Goal: Pt will perform toilet txfer mod I Dates: Start: 09/04/25 Expected End: 09/18/25 Goal: Pt will complete med mgmt mod I Dates: Start: 09/04/25 Expected End: 09/18/25 Problem: OT Short Term Goals Dates: Start: 09/04/25 Goal: Pt will complete LB dressing steadying A Dates: Start: 09/04/25 Expected End: 09/11/25 Goal: Pt will perform toilet txfer steadying A Dates: Start: 09/04/25 Expected End: 09/11/25 Goal: Pt will perform toileting hygiene sup Dates: Start: 09/04/25 Expected End: 09/11/25 Goal: Pt will perform grooming activities in standing, steadying A Dates: Start: 09/04/25 Expected End: 09/11/25 Goal: Pt will bathe steadying A Dates: Start: 09/04/25 Expected End: 09/11/25 Encounter Problems (Resolved) There are no resolved problems. Education Documentation How to Obtain Needed DME, taught by Kaykay Perez OT at 09/07/2025 9:04 AM. Learner: Patient Readiness: Acceptance Method: Explanation Response: Verbalizes Understanding, Needs Reinforcement Warning Signs and Symptoms of Stroke, taught by Kaykay Perez OT at 09/07/2025 9:04 AM. Learner: Patient Readiness: Acceptance Method: Explanation Response: Verbalizes Understanding, Needs Reinforcement Activation of EMS (Call 911), taught by Kaykay Perez OT at 09/07/2025 9:04 AM. Learner: Patient Readiness: Acceptance Method: Explanation Response: Verbalizes Understanding, Needs Reinforcement Discharge Planning, taught by Kaykay Perez OT at 09/07/2025 9:04 AM. Learner: Patient Readiness: Acceptance Method: Explanation Response: Verbalizes Understanding, Needs Reinforcement Body Mechanics, taught by Kaykay Perez OT at 09/07/2025 9:04 AM. Learner: Patient Readiness: Acceptance Method: Explanation Response: Verbalizes Understanding, Needs Reinforcement ADL Training, taught by Kaykay Perez OT at 09/07/2025 9:04 AM. Learner: Patient Readiness: Acceptance Method: Explanation Response: Verbalizes Understanding, Needs Reinforcement Education Comments No comments found. Start/Stop Time OT Time Calculation OT Start Time: 0700 OT Stop Time: 0830 OT Time Calculation (min): 90 min Therapy Minutes: Occupational Therapy OT Individual: 90 [1] Patient Active Problem List Diagnosis CVA (cerebral vascular accident) ([facility] V24, [facility] V28) [2] Past Medical History: Diagnosis Date DVT (deep vein thrombosis) in HTN (hypertension) TIA (transient ischemic attack) [3] History reviewed. No pertinent surgical history. * JACQUES Fletcher - 09/06/2025 12:20 PM EST Speech Language Pathology [facility] Speech Language Pathology Treatment 09/06/2025 Patient: David Poon : 1965 Age: 60 y.o. Gender: male Primary Language: Pakistani Diagnosis: CVA (cerebral vascular accident) ([facility] V24, [facility] V28) Medical History[1] Surgical History[2] Allergies: is allergic to lisinopril. Precautions: Medical Precautions: Fall Risk Safety Interventions: Call gallardo within reach, Bed alarm, Chair alarm RUE Weight Bearing Status: Full LUE Weight Bearing Status: Full RLE Weight Bearing Status: Full LLE Weight Bearing Status: Full Orthoses Applied: (training AFO left LE) Subjective: I'm not the type to ask questions Pt seen upright in wheelchair, alert and participatory throughout session. Objective: Treatment: AIRCRAFT PAINTER Treatments: Cognitive Skills Therapeutic Interventions Cognitive Skills Direct Contact Time Entry: 30 Memory: Pt tasked with recall of tomorrow's schedule given mod A of verbal cues and encouragement. He recalled 7/9 aspects of schedule immediately indep and 9/9 given min A of verbal cues. 1, 2, and 4 minute delay: pt recalled 9/9 indep. Other Cognitive Skills Activity: Pt particiapted in education regarding internal/external distractions that may impact cognitve function as well as internal/external memory strategies. He identified x2 strategies he successfully used prior to hospitalization. Handout left at bedside. Assessment/Plan AIRCRAFT PAINTER Assessment Dysphagia Diagnosis: Within Functional Limits Evaluation/Treatment Tolerance: Patient tolerated treatment well Comments: Pt participated in education regarding cognitive linguistic strategies. Will f/u for continued testing. Medical Staff Made Aware: Yes Plan Treatment/Interventions: Cognitive linguistic functioning AIRCRAFT PAINTER Plan: Skilled AIRCRAFT PAINTER AIRCRAFT PAINTER Frequency: 2-5 days per week AIRCRAFT PAINTER Duration of Sessions: 30-60 min per session AIRCRAFT PAINTER Treatments per day: 1 time per day AIRCRAFT PAINTER - Evaluation Status: Complete Diet Recommendations: IDDSI 7/0 regular/thins Goals Encounter Problems Encounter Problems (Active) Template: Speech Therapy Problem: AIRCRAFT PAINTER Mill Beam Fitter Goals Dates: Start: 09/04/25 Goal: Pt will improve cognitive linguistic functioning for d/c setting. Dates: Start: 09/04/25 Expected End: 09/11/25 Problem: AIRCRAFT PAINTER Short Term Goals Dates: Start: 09/04/25 Goal: Pt will complete additional diagnostic testing in 100% of opportunities indep. Dates: Start: 09/04/25 Expected End: 09/09/25 Goal: Pt will participate in ongoing education regarding cognitive linguistic strategies and ID pertinent techniques to use in daily life in 100% of opportunities indep. Dates: Start: 09/04/25 Expected End: 09/11/25 Outcomes Date/Time User Outcome 09/06/25 1801 JACQUES Fletcher Progressing Goal: Pt will recall +5 pieces of novel information following a >6 minute delay given mod A for encoding/retrieval strategies. Dates: Start: 09/04/25 Expected End: 09/11/25 Goal: Pt will complete mod-higher level executive functioning tasks with 80% accuracy given min A. Dates: Start: 09/04/25 Expected End: 09/11/25 Encounter Problems (Resolved) There are no resolved problems. Education Documentation Education Documentation Cognition, taught by JACQUES Fletcher at 09/06/2025 6:02 PM. Learner: Patient Readiness: Acceptance Method: Explanation, Handout Response: Verbalizes Understanding, Needs Reinforcement Education Comments No comments found. Start/Stop Time: AIRCRAFT PAINTER Time Calculation AIRCRAFT PAINTER Start Time: 1220 AIRCRAFT PAINTER Stop Time: 1250 AIRCRAFT PAINTER Time Calculation (min): 30 min Therapy Minutes: Speech Therapy AIRCRAFT PAINTER Individual: 30 [1] Past Medical History: Diagnosis Date DVT (deep vein thrombosis) in HTN (hypertension) TIA (transient ischemic attack) [2] History reviewed. No pertinent surgical history. Cosigned by ALEXANDER Yeh at 09/06/2025 7:30 PM EST Associated attestation - Connie Vital CCC-SLP - 09/06/2025 7:30 PM EST I attest that I, Nia Vital M.S.,ALEXANDER, was physically involved in the ongoing assessment, decision making, and interventions provided during today's patient care session. I have reviewed all documentation for today's 09/06/25, entered by Speech Therapy Fellow, Bindu Stewart, and further attest that it is an accurate clinical record of today's encounter, including accurate and appropriate charges. * Doris Way, PT - 09/06/2025 11:39 AM EST [facility] Physical Therapy Treatment Note 09/06/2025 Patient: David Poon : 1965 Age: 60 y.o. Gender: male Primary Language: Pakistani Diagnosis: CVA (cerebral vascular accident) ([facility] V24, [facility] V28) Medical History[1] Surgical History[2] Allergies: is allergic to lisinopril. Precautions: Medical Precautions: Fall Risk Safety Interventions: Call gallardo within reach, Bed alarm, Chair alarm RUE Weight Bearing Status: Full LUE Weight Bearing Status: Full RLE Weight Bearing Status: Full LLE Weight Bearing Status: Full Orthoses Applied: (training AFO left LE) NURSING RECOMMENDATIONS Bed Mobility: supervision Transfers: partial assist Ambulation: partial assist with wwalker SUBJECTIVE Pt report: I can see a little progress Pain: Pain Assessment: No/denies pain OBJECTIVE General Observation: Patient sitting in w/c, agreeable to PT General/Functional Assessments: Activity Tolerance Endurance: Endurance does not limit participation in activity Bed Mobility Bed Mobility Comments: supervision Transfers Transfer Comments: partial assist Ambulation Comments: partial assist with wwalker Procedure/Treatment: Therapeutic Activities: Therapeutic Activity Time Entry: 90 Transfer sit to stand from w/c with steadying assist, with improved control from 09/05. GT with wwalker approx 85 feet with partial assist. Training AFO applied LLE, GT with wwalker approx 85 feet x 5with partial to steadying assist--improved control of LLE, step length, heel strike, HANANE with AFO. Dynamic standing balance/wgt shifting activities with AFO and no AD for side step Left and R, box step, standing wgt shift, challenge to balance in static posture --all with partial assist Following therapy session, pt in w/c, call gallardo in reach, chair alarm on, all needs met, set up forlunc, nursing aware. Education: Education Documentation No documentation found. Education Comments No comments found. ASSESSMENT PT Assessment PT Assessment Results: Decreased strength, Decreased endurance, Impaired balance, Impaired gait, Decreased mobility, Decreased coordination Prognosis: Good Evaluation/Treatment Tolerance: Patient tolerated treatment well Comments: Pt progressing with funcitonal activities and toward goals. Patient with improved step length, carlos, HANANE, heelstrike with training AFO on LLE. Patient unable to safely demonstrate functional mobility required for community living. Pt would benefit from continued intensive skilled inpatient PT to maximize and safe return to the community Equipment: tbd Plan of Care Plan Treatment/Interventions: Functional transfer training, LE strengthening/ROM, Patient/family training, Equipment eval/education, Bed mobility, Gait training, Compensatory technique education, Balance training, Stair training, Continued evaluation PT Plan: Skilled PT PT Frequency: 5-7 days per week PT Duration of Sessions: 60-90 min per session PT Treatments per day: 1 time per day PT Discharge Recommendations: Other (Comment) (TBD) Problems/Goals Goals: Encounter Problems Encounter Problems (Active) Template: Physical Therapy Problem: PT Mill Beam Fitter Goals Dates: Start: 09/04/25 Goal: mod-I transfers LRAD Dates: Start: 09/04/25 Goal: mod-I x12 stairs Dates: Start: 09/04/25 Goal: mod-I ambulation x150ft LRAD Dates: Start: 09/04/25 Goal: mod-I x2 stairs LRAD Dates: Start: 09/04/25 Problem: PT Short Term Goals Dates: Start: 09/04/25 Goal: mod-I bed mobility Dates: Start: 09/04/25 Goal: SUP transfers LRAD Dates: Start: 09/04/25 Goal: SUP ambulation x150ft LRAD Dates: Start: 09/04/25 Goal: partial A x4 stairs bilat. rails Dates: Start: 09/04/25 Encounter Problems (Resolved) There are no resolved problems. Session Start/Stop Time: 1000 1130 Therapy Minutes Physical Therapy PT Individual: 90 [1] Past Medical History: Diagnosis Date DVT (deep vein thrombosis) in HTN (hypertension) TIA (transient ischemic attack) [2] History reviewed. No pertinent surgical history. * Cristin Yi NP - 09/06/2025 10:00 AM EST Images from the original note were not included. HIEN PROGRESS NOTE Date: 09/06/2025 Author: Cristin Yi NP Patient ID: David Poon is a 60 y.o. male : 1965 MR#: [id number] SUBJECTIVE Subjective Patient seen and examined in room 418 Awake and alert Denies sob or chest pain Denies pain OOB in wheelchair Sleeping well Voiding freely Moving bowels Appetite good Reporting he wants to leave Case discussed with patient, nursing staff and my attending physician Dr. Morse Allergies: Lisinopril Current Medications: MEDSSCHEDULED[1] MEDSCONTINUOUS[2] MEDSPRN[3] OBJECTIVE Vitals: 09/05/25 1018 09/05/25 1528 09/06/25 0543 09/06/25 0720 BP: (!) 145/82 138/79 109/68 128/81 BP Location: Left arm Left arm Left arm Patient Position: Sitting Lying Lying Pulse: 91 99 64 67 Resp: 18 16 18 Temp: 37 ??C (98.6 ??F) 36.5 ??C (97.7 ??F) 36.6 ??C (97.8 ??F) TempSrc: Oral Oral Oral SpO2: 93% 94% 97% 97% Weight: 108 kg (238 lb) Physical Exam Vitals reviewed. Constitutional: Appearance: Normal appearance. HENT: Head: Normocephalic and atraumatic. Nose: Nose normal. Mouth/Throat: Mouth: Mucous membranes are moist. Eyes: Extraocular Movements: Extraocular movements intact. Cardiovascular: Rate and Rhythm: Normal rate and regular rhythm. Pulses: Normal pulses. Heart sounds: Normal heart sounds. Pulmonary: Effort: Pulmonary effort is normal. Breath sounds: Normal breath sounds. Abdominal: General: Bowel sounds are normal. Palpations: Abdomen is soft. Musculoskeletal: General: Normal range of motion. Cervical back: Normal range of motion. Skin: General: Skin is warm and dry. Capillary Refill: Capillary refill takes less than 2 seconds. Neurological: General: No focal deficit present. Mental Status: He is alert and oriented to person, place, and time. Psychiatric: Mood and Affect: Mood normal. Behavior: Behavior normal. LABS HEMATOLOGY Lab Results Component Value Date WBC 8.9 09/04/2025 HGB 16.5 09/04/2025 HCT 47.6 09/04/2025 MCV 97.1 09/04/2025 PLT 265 09/04/2025 CHEMISTRY Lab Results Component Value Date GLUCOSE 81 09/04/2025 NA 136 09/04/2025 K 4.4 09/04/2025 CO2 26 09/04/2025 CL 101 09/04/2025 BUN 20 09/04/2025 CREATININE 0.94 09/04/2025 EGFR 92 09/04/2025 CALCIUM 9.0 09/04/2025 ANIONGAP 9 09/04/2025 Imaging: No image results found. ASSESSMENT & PLAN 1.Acute CVA 2.Left hemiparesis - MRI brain was positive for acute right thalamic ischemic CVA - Neurology recommended continuing DAPT and statin until outpatient follow-up for further recommendations - Aspirin 81 mg daily - Plavix 75 mg daily - Atorvastatin 40 mg nightly - Continue therapies - f/u [facility] (Dr Sky) after discharge 3.Hypertension - Amlodipine 5 mg daily 4. Nicotine dependence Smoking cessation encouraged - Nicotine 21 mg patch daily 5. History of alcohol use - Monitored on CIWA during acute hospital stay without withdrawal appreciated 6. Allergic rhinitis - Loratadine 10mg daily 7. Constipation - Colace 100 mg twice daily - Senna 2 tabs nightly 8. DVT prophylaxis: Lovenox 40mg daily 9. FULL CODE My total time spent was 55 minutes I have discussed the above assessment and plan with my attending physician Dr. Morse Who agrees with the above assessment and plan. [1] amLODIPine, 5 mg, oral, Daily aspirin, 81 mg, oral, Daily atorvastatin, 40 mg, oral, Nightly clopidogreL, 75 mg, oral, Daily docusate sodium, 100 mg, oral, BID enoxaparin, 40 mg, subcutaneous, Daily folic acid, 1 mg, oral, Daily loratadine, 10 mg, oral, Daily nicotine, 1 patch, transdermal, q24h senna, 2 tablet, oral, Nightly thiamine, 100 mg, oral, Daily [2] [3] PRN medications: acetaminophen, aluminum-magnesium hydroxide-simethicone, bisacodyL, magnesium hydroxide Cosigned by John Morse MD at 09/07/2025 1:20 PM EST * Chelsey Negrete OT - 09/06/2025 7:00 AM EST [facility] Occupational Therapy Treatment Note 09/06/2025 Patient: David Poon : 1965 Age: 60 y.o. Gender: male Diagnosis: CVA (cerebral vascular accident) ([facility] V24, [facility] V28) Primary Rehab (Etiologic) Diagnosis: Problem List[1] PMH: Medical History[2] PSH: Surgical History[3] Allergies: is allergic to lisinopril. Precautions: Precautions Medical Precautions: Fall Risk Safety Interventions: Call gallardo within reach, ID band on, Personal alarm on, Bed alarm, Chair alarm RUE Weight Bearing Status: Full LUE Weight Bearing Status: Full RLE Weight Bearing Status: Full LLE Weight Bearing Status: Full Vitals: BP: 128/81 Heart Rate: 67 SpO2: 97 % Pain: Pain Assessment Pain Assessment: No/denies pain Subjective: I can't believe how hard this is Procedures/Interventions: ADLs/IADLs Self Care/Home Management (ADLs) Time Entry: 15 Pt completed grooming tasks while standing at the sink, steadying A with use of L UE as independentstabilizer. Therapeutic Activity Therapeutic Activity Time Entry: 75 W/c mob performed room<>therapy gym with use of B UE, sup. [facility] shower grossly 45 ft with partial A using RW. Pt completed 6 trials of tub xfers to increase performance with repetition. Pt required partial A x6 trials with use of grab bars. Discussed recommendation for installation of grab bars and use of a shower chair. Pt verbalized understand ing and agreement to these recommendations. While seated at tabletop, pt participated in various activities to challenge L UE FMC. Pt tasked with shuffling and dealing cards. Pt demo'd decreased speed dealing cards with L hand. Pt tasked with flipping coins using L UE X mass reps. Increased difficulty and instructed pt to stack coins. Pt able to stack 6 coins using L hand however demo'd low frustration tolerance and task discontinued. Progressed to pt placing coins in a small slot of a moving container with L UE. Applied 2# wrist weight to L UE to address ataxia, improvements noted. Increased time required. Pt participated in theraputty exercises with green theraputty to increase L hand strength as neededfor ADL/IADLs. Pt completed gross grasp, tip/lat pinch, rolling, lumbrical pinch, digit opposition,thumb add/abd 10 reps x 2. Pt required a visual demo for each exercise. Pt further tasked with placement and removal of 12 small pegs from theraputty to challenge FMC with increased resistance. Pt demo'd min difficulty and required increased time. Issued pt a HEP to increase FMC and UB strength outside of therapy sessions. Pt participated in putting activity to challenge dynamic standing balance and B UE coordination while engaging in a meaningful activity. Max A for func amb without AD on uneven surface (turf mat). Ptdemo'd L knee hyperextension requiring frequent verbal/tactile cues to correct. Overall partial A for standing balance during putting activity. Pt able to maintain L grasp on the putter throughout this activity. W/c mob performed back to room, sup using B UE. Reviewed signs/symptoms of stroke with pt. Pt unable to recall any s/s initially. Provided mod semantic cues, pt able to recall 3/6. Discussed risk factors and importance of smoking and alcohol cessation. Pt would benefit from cont'd education. Pt remained seated in w/c to eat breakfast independently with w/c alarm on and call gallardo within reach. OT Assessment OT Assessment OT Assessment Results: Decreased ADL status, Decreased upper extremity strength, Decreased upper extremity range of motion, Decreased safe judgment during ADL, Decreased fine motor control, Decreasedfunctional mobility, Decreased IADLs, Decreased gross motor control Prognosis: Good Evaluation/Treatment Tolerance: Patient tolerated treatment well Comments: Pt pleasantly willing to participate in all tasks on this date. Ataxia, impaired balance,and impaired coordination continue to be barriers. Pt is currently set up UB dressing, partial A bathing, partial toileting, partial LB dressing. 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 Goals Dates: Start: 09/04/25 Goal: Pt will perform LB dressing mod I Dates: Start: 09/04/25 Expected End: 09/18/25 Goal: Pt will bathe via LRD mod I Dates: Start: 09/04/25 Expected End: 09/18/25 Goal: Pt will perform toileting hygiene mod I Dates: Start: 09/04/25 Expected End: 09/18/25 Goal: Pt will perform toilet txfer mod I Dates: Start: 09/04/25 Expected End: 09/18/25 Goal: Pt will complete med mgmt mod I Dates: Start: 09/04/25 Expected End: 09/18/25 Problem: OT Short Term Goals Dates: Start: 09/04/25 Goal: Pt will complete LB dressing steadying A Dates: Start: 09/04/25 Expected End: 09/11/25 Goal: Pt will perform toilet txfer steadying A Dates: Start: 09/04/25 Expected End: 09/11/25 Goal: Pt will perform toileting hygiene sup Dates: Start: 09/04/25 Expected End: 09/11/25 Goal: Pt will perform grooming activities in standing, steadying A Dates: Start: 09/04/25 Expected End: 09/11/25 Goal: Pt will bathe steadying A Dates: Start: 09/04/25 Expected End: 09/11/25 Encounter Problems (Resolved) There are no resolved problems. Education Documentation Warning Signs and Symptoms of Stroke, taught by Chelsey Negrete OT at 09/06/2025 8:40 AM. Learner: Patient Readiness: Acceptance Method: Explanation, Demonstration Response: Verbalizes Understanding, Needs Reinforcement Activation of EMS (Call 911), taught by Chelsey Negrete OT at 09/06/2025 8:40 AM. Learner: Patient Readiness: Acceptance Method: Explanation, Demonstration Response: Verbalizes Understanding, Needs Reinforcement Fall Precautions, taught by Chelsey Negrete OT at 09/06/2025 8:40 AM. Learner: Patient Readiness: Acceptance Method: Explanation, Demonstration Response: Verbalizes Understanding, Needs Reinforcement Body Mechanics, taught by Chelsey Negrete OT at 09/06/2025 8:40 AM. Learner: Patient Readiness: Acceptance Method: Explanation, Demonstration Response: Verbalizes Understanding, Needs Reinforcement ADL Training, taught by Chelsey Negrete OT at 09/06/2025 8:40 AM. Learner: Patient Readiness: Acceptance Method: Explanation, Demonstration Response: Verbalizes Understanding, Needs Reinforcement Education Comments No comments found. Start/Stop Time OT Time Calculation OT Start Time: 0700 OT Stop Time: 829 OT Time Calculation (min): 90 min Therapy Minutes: Occupational Therapy OT Individual: 90 [1] Patient Active Problem List Diagnosis CVA (cerebral vascular accident) ([facility] V24, [facility] V28) [2] Past Medical History: Diagnosis Date DVT (deep vein thrombosis) in HTN (hypertension) TIA (transient ischemic attack) [3] History reviewed. No pertinent surgical history. * oDris Way, PT - 09/05/2025 4:27 PM EST [facility] Physical Therapy Treatment Note 09/05/2025 Patient: David Poon : 1965 Age: 60 y.o. Gender: male Primary Language: Pakistani Diagnosis: CVA (cerebral vascular accident) ([facility] V24, [facility] V28) Medical History[1] Surgical History[2] Allergies: is allergic to lisinopril. Precautions: Medical Precautions: Fall Risk Safety Interventions: Bed alarm, Chair alarm, Call gallardo within reach RUE Weight Bearing Status: Full LUE Weight Bearing Status: Full RLE Weight Bearing Status: Full LLE Weight Bearing Status: Full NURSING RECOMMENDATIONS Bed Mobility: supervision Transfers: partial assist Ambulation: partial assist with wwalker SUBJECTIVE Pt report: Lets go Pain: Pain Assessment: No/denies pain OBJECTIVE General Observation: Pt seen in split session [id number] and [id number] Patient lying in bed, agreeable to PT session General/Functional Assessments: Activity Tolerance Endurance: Endurance does not limit participation in activity Bed Mobility Bed Mobility Comments: supervision Transfers Transfer Comments: partial assist Ambulation Comments: partial assist with wwalker Procedure/Treatment: Therapeutic Activities: Therapeutic Activity Time Entry: 90 Bed mobility sit to/from supine with supervision and verbal cues secondary to impulsivity/quicknessof movement. Transfer bed to/from w/c with min assist and cues to take time and place RLE appropriately GT with wwalker approx 85 feet x 4 and 160 feet x 2 with partial assist and verbal cueing for RLE placement, decrease [employer] HANANE GT up and down 4 stairs x 2 with B rails with partial assist and cues to dec speed especially descendiing stairs and to keep B hands forward on rails. Dynamic standing balance/weight shifting/crossing midline activities at walker level with min assist for ring toss, reaching etc Education: Education Documentation Mobility Training, taught by Doris Way, PT at 09/05/2025 4:33 PM. Learner: Significant Other, Patient Readiness: Eager Method: Explanation Response: Needs Reinforcement, No Evidence of Learning Comment: BEFAST-pt with no carryover from previous session, instructed during session with no carryover approx 15 minutes later-pt re educated with no carryover to pm session. Pt given written copy of BEFAST during pm session. Exercises to be completed in room Education Comments No comments found. ASSESSMENT PT Assessment PT Assessment Results: Decreased strength, Decreased endurance, Impaired balance, Impaired gait, Decreased mobility Prognosis: Good Evaluation/Treatment Tolerance: Patient tolerated treatment well Comments: Patient progressing toward all goals with increased distance and decreased assist required for gait and transfers, improved control of Right LE, but pt remains unsafe for Ind funcitonal mobility and community living. Pt would benefit from continued intensive PT to maximize funcition and safety before dc to community living Following am session, pt in w/c, call gallardo in reach, chair alarm on, all needs met awaiting OT Following pm session, pt in bed, call gallardo in reach, bed alarm on, all needs met-SO present Equipment: tbd Plan of Care Plan Treatment/Interventions: Functional transfer training, LE strengthening/ROM, Patient/family training, Equipment eval/education, Bed mobility, Gait training, Compensatory technique education, Balance training, Stair training, Continued evaluation PT Plan: Skilled PT PT Frequency: 5-7 days per week PT Duration of Sessions: 60-90 min per session PT Treatments per day: 1 time per day PT Discharge Recommendations: Other (Comment) (TBD) Problems/Goals Goals: Encounter Problems Encounter Problems (Active) Template: Physical Therapy Problem: PT [employer] Be[employer] Goals Dates: Start: 09/04/25 Goal: mod-I transfers LRAD Dates: Start: 09/04/25 Goal: mod-I x12 stairs Dates: Start: 09/04/25 Goal: mod-I ambulation x150ft LRAD Dates: Start: 09/04/25 Goal: mod-I x2 stairs LRAD Dates: Start: 09/04/25 Problem: PT Short Term Goals Dates: Start: 09/04/25 Goal: mod-I bed mobility Dates: Start: 09/04/25 Goal: SUP transfers LRAD Dates: Start: 09/04/25 Goal: SUP ambulation x150ft LRAD Dates: Start: 09/04/25 Goal: partial A x4 stairs bilat. rails Dates: Start: 09/04/25 Encounter Problems (Resolved) There are no resolved problems. Session Start/Stop Time: 0845 1000 1530 1550 Therapy Minutes Physical Therapy PT Individual: 90 [1] Past Medical History: Diagnosis Date DVT (deep vein thrombosis) in HTN (hypertension) TIA (transient ischemic attack) [2] History reviewed. No pertinent surgical history. * Cirstin Yi NP - 09/05/2025 3:22 PM EST Images from the original note were not included. HIEN PROGRESS NOTE Date: 09/05/2025 Author: Cristin Yi NP Patient ID: David Poon is a 60 y.o. male : 1965 MR#: [id number] SUBJECTIVE Subjective Patient seen and examined in room 418 Awake and alert Denies sob or chest pain Denies pain OOB in wheelchair Sleeping well Voiding freely Moving bowels Appetite good No complaints offered Case discussed with patient, nursing staff and my attending physician Dr. Morse Allergies: Lisinopril Current Medications: MEDSSCHEDULED[1] MEDSCONTINUOUS[2] MEDSPRN[3] OBJECTIVE Vitals: 09/04/25 1542 09/05/25 0544 09/05/25 0744 09/05/25 1018 BP: 119/79 130/70 127/75 (!) 145/82 BP Location: Right arm Right arm Right arm Patient Position: Sitting Lying Lying Pulse: 92 64 73 91 Resp: 16 18 18 Temp: 36.4 ??C (97.5 ??F) 36.7 ??C (98.1 ??F) 36.5 ??C (97.7 ??F) TempSrc: Oral Oral Oral SpO2: 96% 97% 96% 93% Weight: 108 kg (238 lb) Physical Exam Vitals reviewed. Constitutional: Appearance: Normal appearance. HENT: Head: Normocephalic and atraumatic. Nose: Nose normal. Mouth/Throat: Mouth: Mucous membranes are moist. Eyes: Extraocular Movements: Extraocular movements intact. Cardiovascular: Rate and Rhythm: Normal rate and regular rhythm. Pulses: Normal pulses. Heart sounds: Normal heart sounds. Pulmonary: Effort: Pulmonary effort is normal. Breath sounds: Normal breath sounds. Abdominal: General: Bowel sounds are normal. Palpations: Abdomen is soft. Musculoskeletal: General: Normal range of motion. Cervical back: Normal range of motion. Skin: General: Skin is warm and dry. Capillary Refill: Capillary refill takes less than 2 seconds. Neurological: General: No focal deficit present. Mental Status: He is alert and oriented to person, place, and time. Psychiatric: Mood and Affect: Mood normal. Behavior: Behavior normal. LABS HEMATOLOGY Lab Results Component Value Date WBC 8.9 09/04/2025 HGB 16.5 09/04/2025 HCT 47.6 09/04/2025 MCV 97.1 09/04/2025 PLT 265 09/04/2025 CHEMISTRY Lab Results Component Value Date GLUCOSE 81 09/04/2025 NA 136 09/04/2025 K 4.4 09/04/2025 CO2 26 09/04/2025 CL 101 09/04/2025 BUN 20 09/04/2025 CREATININE 0.94 09/04/2025 EGFR 92 09/04/2025 CALCIUM 9.0 09/04/2025 ANIONGAP 9 09/04/2025 Imaging: No image results found. ASSESSMENT & PLAN 1.Acute CVA 2.Left hemiparesis - MRI brain was positive for acute right thalamic ischemic CVA - Neurology recommended continuing DAPT and statin until outpatient follow-up for further recommendations - Aspirin 81 mg daily - Plavix 75 mg daily - Atorvastatin 40 mg nightly - Continue therapies - f/u [facility] (Dr Sky) after discharge 3.Hypertension - Amlodipine 5 mg daily 4. Nicotine dependence Smoking cessation encouraged - Nicotine 21 mg patch daily 5. History of alcohol use - Monitored on CIWA during acute hospital stay without withdrawal appreciated 6. Allergic rhinitis - Loratadine 10mg daily 7. Constipation - Colace 100 mg twice daily - Senna 2 tabs nightly 8. DVT prophylaxis: Lovenox 40mg daily 9. FULL CODE My total time spent was 60 minutes I have discussed the above assessment and plan with my attending physician Dr. Morse Who agrees with the above assessment and plan. [1] amLODIPine, 5 mg, oral, Daily aspirin, 81 mg, oral, Daily atorvastatin, 40 mg, oral, Nightly clopidogreL, 75 mg, oral, Daily docusate sodium, 100 mg, oral, BID enoxaparin, 40 mg, subcutaneous, Daily folic acid, 1 mg, oral, Daily loratadine, 10 mg, oral, Daily nicotine, 1 patch, transdermal, q24h senna, 2 tablet, oral, Nightly thiamine, 100 mg, oral, Daily [2] [3] PRN medications: acetaminophen, aluminum-magnesium hydroxide-simethicone, bisacodyL, magnesium hydroxide Cosigned by John Morse MD at 09/07/2025 1:20 PM EST * Chelsey Negrete OT - 09/05/2025 11:43 AM EST [facility] Occupational Therapy Treatment Note 09/05/25 Patient: David Poon : 1965 Age: 60 y.o. Gender: male Diagnosis: CVA (cerebral vascular accident) ([facility] V24, [facility] V28) Primary Rehab (Etiologic) Diagnosis: Problem List[1] PMH: Medical History[2] PSH: Surgical History[3] Allergies: is allergic to lisinopril. Precautions: Precautions Medical Precautions: Fall Risk Safety Interventions: Call gallardo within reach, ID band on RUE Weight Bearing Status: Full LUE Weight Bearing Status: Full RLE Weight Bearing Status: Full LLE Weight Bearing Status: Full Vitals: BP: (!) 145/82 Heart Rate: 91 SpO2: 93 % Pain: Pain Assessment Pain Assessment: No/denies pain Subjective: Everyone keeps telling me to slow down Procedures/Interventions: ADLs/IADLs Self Care/Home Management (ADLs) Time Entry: 60 Pt seated in w/c upon arrival for therapy session. Pts significant other Lamberto present. Vitals assessed, please see above for details. Func amb performed room<>shower stall with partial A for more than steadying A using RW. Partial A for shower xfer with use of grab bars. STS performed with partial A to pull pants and underwear below waist, unilateral UE support required. Pt able to pull underwear/pants over B LE while seated with cues to attend to L UE and gently lower LE to the floor to prevent an injury. Pt completed entire shower while seated on shower chair. Pt utilized B UE to wash hair. Pt instructed to utilize L UE more to wash chest, R UE, and B LE. Pt observed to drop the wash cloth 3X d/t inattention to L UE. Pt able to perform lateral weight shift to wash buttocks. Partial A for STS to dry buttocks. Pt able to don hospital gown with supervision. Pt utilized figure 4 to don B socks and sneakers with increased time. Pt returned to room to complete dressing tasks. Pt able to open deodorant with L UE while stabilizing with R. Cues and video demo provided for [place] dress ing techniques as pt unable to recall from previous session. Overall sup for UB dressing with min cues. Pt able to utilize figure 4 technique to thread underwear/pants. Partial A for STS to RW to hike underwear/pants above waist with release of B UE from walker. Cues provided to retrieve sneakers from the ground with L UE vs R to increase use. Pt able to don B sneakers utilizing figure 4 technique. Therapeutic Activity Therapeutic Activity Time Entry: 30 W/c mob performed 1/2 distance to therapy gym using B UE with touching A. Dep A for remaining distance d/t fatigue and increased frustration noted. Pt participated in opening/closing household containers while seated at tabletop to challenge B UE coordination/integration. Pt instructed to retrieve all containers with L UE and open all containerswith L UE while stabilizing with R. Trialed 2# wrist weight on L UE to improve ataxia however pt reporting increased fatigue with additional weight therefore weight removed following 5 reps. Pt required mod cues to visually attend to L UE throughout this activity. Difficulty observed with in hand manipulation skills required to turn the container to place upright on the table. Increased challengewith pt standing to close all containers to address standing balance/tolerance, reaching across midl ine, working memory, and L UE coordination. Overall steadying A for standing balance with mod tactile cues for L LE. Pt tolerated standing grossly 6 mins with steadying A, progressed to partial A while weight shifting out of reach on L. Pt participated in standing tabletop push ups to increase proprioceptive feedback through L UE and L LE. Pt completed 12 reps x 2 sets with B UE. Pt required a seated rest break d/t fatigue, grossly 2 mins. Increased challenge to L UE push ups while standing with cues to avoid compensatory movements 10 reps x 2 sets with hand over hand required to stabilize L UE on the table, steadying A. Pt participated in corn hole while standing to address L UE grasp/release, coordination, and standing balance. 1/2 of the [place] bag were placed slighty out reach on the reach and the other 1/2 were placed slightly out of reach on the L to faciltiate crossing midline and increasing weight bearing through L LE with increased weight shift. Overall partial A for standing balance for more than steadying A with momentum of throwing. Pt able to grasp/release all [place] bags and demo'd improved coordination with increased reps. Dep w/c mob back to room for energy conservation purposes. Func amb performed through unit hallway into pts room to trial a new w/c, partial A with RW. Pt reported increased comfort in 18 inch w/c with a cushion. Pt remained seated in w/c with alarm on and call gallardo within reach, all needs met. OT Assessment OT Assessment OT Assessment Results: Decreased ADL status, Decreased upper extremity strength, Decreased upper extremity range of motion, Decreased safe judgment during ADL, Decreased fine motor control, Decreasedfunctional mobility, Decreased IADLs, Decreased gross motor control Prognosis: Good Evaluation/Treatment Tolerance: Patient tolerated treatment well Comments: Pt willing to participate in all tasks. Pt required cues throughout this session to slow down and attend to L LE. Pt would benefit from cont'd focus on dynamic standing balance and higher level L UE FMC tasks. Plan to trial a tub transfer tomorrow. OT Plan Plan Treatment Interventions: ADL retraining, Functional transfer training, UE strengthening/ROM, Endurance training, Patient/family training, Neuromuscular reeducation, Fine motor coordination activities OT Plan: Skilled OT OT Frequency : 5-7 days per week OT Duration of Sessions: 60-90 min per session OT Treatments per day: 1-2 times per day OT - Evaluation Status: Complete OT Discharge Recommendations: Outpatient OT Equipment Recommended: Shower chair Goals: Encounter Problems Encounter Problems (Active) Template: Occupational Therapy Problem: OT Long-Term Goals Dates: Start: 09/04/25 Goal: Pt will perform LB dressing mod I Dates: Start: 09/04/25 Expected End: 09/18/25 Goal: Pt will bathe via LRD mod I Dates: Start: 09/04/25 Expected End: 09/18/25 Goal: Pt will perform toileting hygiene mod I Dates: Start: 09/04/25 Expected End: 09/18/25 Goal: Pt will perform toilet txfer mod I Dates: Start: 09/04/25 Expected End: 09/18/25 Goal: Pt will complete med mgmt mod I Dates: Start: 09/04/25 Expected End: 09/18/25 Problem: OT Short Term Goals Dates: Start: 09/04/25 Goal: Pt will complete LB dressing steadying A Dates: Start: 09/04/25 Expected End: 09/11/25 Goal: Pt will perform toilet txfer steadying A Dates: Start: 09/04/25 Expected End: 09/11/25 Goal: Pt will perform toileting hygiene sup Dates: Start: 09/04/25 Expected End: 09/11/25 Goal: Pt will perform grooming activities in standing, steadying A Dates: Start: 09/04/25 Expected End: 09/11/25 Goal: Pt will bathe steadying A Dates: Start: 09/04/25 Expected End: 09/11/25 Encounter Problems (Resolved) There are no resolved problems. Education Documentation Warning Signs and Symptoms of Stroke, taught by Chelsey Negrete OT at 09/05/2025 11:43 AM. Learner: Patient Readiness: Acceptance Method: Explanation, Demonstration Response: Verbalizes Understanding, Needs Reinforcement Activation of EMS (Call 911), taught by Chelsey Negrete OT at 09/05/2025 11:43 AM. Learner: Patient Readiness: Acceptance Method: Explanation, Demonstration Response: Verbalizes Understanding, Needs Reinforcement Fall Precautions, taught by Chelsey Negrete OT at 09/05/2025 11:43 AM. Learner: Patient Readiness: Acceptance Method: Explanation, Demonstration Response: Verbalizes Understanding, Needs Reinforcement Body Mechanics, taught by Chelsey Negrete OT at 09/05/2025 11:43 AM. Learner: Patient Readiness: Acceptance Method: Explanation, Demonstration Response: Verbalizes Understanding, Needs Reinforcement ADL Training, taught by Chelsey Negrete OT at 09/05/2025 11:43 AM. Learner: Patient Readiness: Acceptance Method: Explanation, Demonstration Response: Verbalizes Understanding, Needs Reinforcement Education Comments No comments found. Start/Stop Time OT Time Calculation OT Start Time: 1000 OT Stop Time: 1130 OT Time Calculation (min): 90 min Therapy Minutes: Occupational Therapy OT Individual: 90 [1] Patient Active Problem List Diagnosis CVA (cerebral vascular accident) ([facility] V24, [facility] V28) [2] Past Medical History: Diagnosis Date DVT (deep vein thrombosis) in HTN (hypertension) TIA (transient ischemic attack) [3] History reviewed. No pertinent surgical history. * Christina Jaramillo, DO - 09/04/2025 4:44 PM EST Images from the original note were not included. [facility] Daily Progress Note Patient name: David Poon : 1965 SUBJECTIVE: Patient seen and examined at bedside today. No acute events overnight. Denies headaches, dizziness,shortness of breath, chest pain, nausea, constipation, and pain. No new concerns today. Participating in therapies: PT: Comments: Patient to benefit from this level of care to address, LE Strength, endurance, balance , mobility deficits , motor coordination , and gait , to assist patient in returning to prior level of function. Physical therapy plan of care to include Wheelchair mobility, gait training, neuromuscular re- education, therapeutic activities, therapeutic exercise. PT POC for 10-14 days. OT: OBJECTIVE: Vitals: 09/04/25 0750 09/04/25 0900 09/04/25 1258 09/04/25 1542 BP: (!) 144/83 (!) 141/79 119/79 BP Location: Right arm Right arm Right arm Patient Position: Sitting Lying Sitting Pulse: 95 84 92 Resp: 20 16 Temp: 37.1 ??C (98.8 ??F) 36.4 ??C (97.5 ??F) TempSrc: Oral Oral SpO2: 97% 95% 96% Weight: 108 kg (238 lb 3.2 oz) Physical Examination: General: Alert, in no acute cardiopulmonary distress. Mental Status: Oriented to person, place and time. Normal affect. Head: Normocephalic. Eyes: Extraocular muscles intact. Ear, Nose and Throat: Oropharynx clear, mucous membranes moist. Ears and nose without masses, lesions or deformities. Neck: Supple, Trachea midline. Respiratory: Clear to auscultation and percussion. No wheezing, rales or rhonchi. Cardiovascular: Heart sounds normal. No thrills. Regular rate and rhythm, no murmurs, rubs or gallops. Gastrointestinal: Abdomen soft, non-tender, non-distended. Normal bowel sounds. Neurologic: Cranial nerves II-XII intact. Negative Hoffmans sign on the left. Negative clonus on the left. Moves all extremities spontaneously. Sensation intact bilaterally. Skin: No rashes or lesions. No petechiae or purpura. No edema. Musculoskeletal: No cyanosis or clubbing. No gross deformities. Normal range of motion. Strength 5/5 throughout right upper and lower extremities. Strength 5/5 left shoulder abduction, 5/5 left elbowflexion, 5/5 left elbow extension, 5/5 left wrist extension, 4/5 left finger abduction. Strength 5/5 left hip flexion, 5/5 left knee extension, 1/5 left dorsiflexion, 1/5 left plantarflexion, 1/5 left EHL. No changes since last visit. CURRENT INPATIENT MEDICATIONS: Current Medications[1] LABS: Lab Results Component Value Date WBC 8.9 09/04/2025 RBC 4.90 09/04/2025 HGB 16.5 09/04/2025 HCT 47.6 09/04/2025 MCV 97.1 09/04/2025 MCHC 34.7 09/04/2025 RDW 11.3 09/04/2025 PLT 265 09/04/2025 MPV 8.8 09/04/2025 NRBC 0.0 09/04/2025 DIFF Lab Results Component Value Date LYMPHOPCT 24.3 09/04/2025 NEUTROABS 5.81 09/04/2025 LYMPHSABS 2.15 09/04/2025 MONOABS 0.68 09/04/2025 EOSABS 0.18 09/04/2025 BASOSABS 0.03 09/04/2025 IMMGRANABS 0.01 09/04/2025 RETIC No results found for: RETIC , RETICCTPCT Lab Results Component Value Date NA 136 09/04/2025 K 4.4 09/04/2025 CL 101 09/04/2025 CO2 26 09/04/2025 GLUCOSE 81 09/04/2025 BUN 20 09/04/2025 CREATININE 0.94 09/04/2025 CALCIUM 9.0 09/04/2025 PROT 6.5 09/04/2025 ALBUMIN 4.0 09/04/2025 BILITOT 1.2 09/04/2025 AST 28 09/04/2025 ALT 39 09/04/2025 ALKPHOS 51 09/04/2025 EGFR 92 09/04/2025 IMPRESSION & PLAN: #Impaired mobility and self-care - Secondary to acute CVA - Continue PT, OT, AIRCRAFT PAINTER, and nursing care #Acute CVA #Left hemiparesis - MRI brain was positive for acute right thalamic ischemic CVA - Neurology recommended continuing DAPT and statin until outpatient follow-up for further recommendations - Aspirin 81 mg daily - Plavix 75 mg daily - Atorvastatin 40 mg nightly - Continue therapies - f/u [facility] (Dr Sky) after discharge #Hypertension - Amlodipine 5 mg daily #Tobacco dependence - Nicotine 21 mg patch daily #History of alcohol use - Monitored on CIWA during acute hospital stay without withdrawal appreciated #Allergic rhinitis - Loratadine 10mg daily #Bowel management - Colace 100 mg twice daily - Senna 2 tabs nightly #DVT prophylaxis: Lovenox 40mg daily started [1] Current Facility-Administered Medications: acetaminophen (TYLENOL) tablet 650 mg, 650 mg, oral, q6h PRN, JIMMY Mullins aluminum-magnesium hydroxide-simethicone (MAALOX) 200-200-20 mg/5 mL suspension 30 mL, 30 mL, oral,q4h PRN, Christina Jaramillo DO amLODIPine (NORVASC) tablet 5 mg, 5 mg, oral, Daily, JIMMY Mullins, 5 mg at 09/04/25 0935 aspirin EC tablet 81 mg, 81 mg, oral, Daily, JIMMY Mullins, 81 mg at 09/04/25 0935 atorvastatin (LIPITOR) tablet 40 mg, 40 mg, oral, Nightly, JIMMY Mullins, 40 mg at 09/03/252011 bisacodyL (DULCOLAX) suppository 10 mg, 10 mg, rectal, Daily PRN, JIMMY Mullins clopidogreL (PLAVIX) tablet 75 mg, 75 mg, oral, Daily, JIMMY Mullins, 75 mg at 09/04/25 0935 docusate sodium (COLACE) capsule 100 mg, 100 mg, oral, BID, JIMMY Mullins, 100 mg at 935 enoxaparin (LOVENOX) injection 40 mg, 40 mg, subcutaneous, Daily, Christina Jaramillo DO, 40 mg at111/05/24 0935 folic acid (FOLVITE) tablet 1 mg, 1 mg, oral, Daily, JIMMY Rae, 1 mg at 09/04/25 1152 loratadine (CLARITIN) tablet 10 mg, 10 mg, oral, Daily, Christina Jaramillo DO, 10 mg at 09/04/25 0935 magnesium hydroxide (MILK OF MAGNESIA) 400 mg/5 mL suspension 30 mL, 30 mL, oral, Daily PRN, JIMMY Mullins, 30 mL at 09/03/25 1533 [START ON 09/05/2025] nicotine (NICODERM CQ) 21 mg/24 hr patch 1 patch, 1 patch, transdermal, q24h, JIMMY Rae senna (SENOKOT) tablet 17.2 mg, 2 tablet, oral, Nightly, JIMMY Mullins, 17.2 mg at 09/03/252011 thiamine (VITAMIN B-1) tablet 100 mg, 100 mg, oral, Daily, JIMMY Rae, 100 mg at [id number] * Ruth Valdes, PT - 09/04/2025 12:21 PM EST [facility] Physical Therapy Evaluation Note 09/04/25 Patient: David Poon : 1965 Age: 60 y.o. Gender: male Primary Language: Pakistani Diagnosis: CVA (cerebral vascular accident) (CMS/HCC V24, [facility] V28) HPI: Defer to EMR Medical History[1] Surgical History[2] Allergies: is allergic to lisinopril. Precautions: Medical Precautions: Fall Risk Safety Interventions: Call gallardo within reach, ID band on RUE Weight Bearing Status: Full LUE Weight Bearing Status: Full RLE Weight Bearing Status: Full LLE Weight Bearing Status: Full SUBJECTIVE Prior Level of Function: Level of [place]: Independent with mobility and functional transfers Ambulation Status: Community ambulator, Household ambulator Receives Help From: Family, Friends Indoor Mobility Assistance: Independent Stairs Assistance : Independent Prior Device Use: No prior device use Do you drive?: Yes Mode of Transportation: Car Vocational: Retired (from state [place]) Leisure: golf Which is your dominant hand?: Right Understanding of Current Condition: understands Patient Stated Goal: to get home Home Living: Type of Home: House Lives With: Alone (girlfriend lamberto) Home Adaptive Equipment: (Pt reports mother has RW available) Home Living Comments: Mother and sister live on [address] and able to A Home Layout: One level Home Access: Stairs to enter without rails Entrance Stairs-Rails: None Entrance Stairs-Number of Steps: 2 Bathroom Shower/Tub: Tub/shower unit Bathroom Toilet: Standard Bathroom Equipment: None OBJECTIVE General Observation: In bed agreeable to participating in therapy session. Cognition/Communication: Orientation Level: Oriented X4 Vitals: BP: (!) 141/79 Heart Rate: 84 SpO2: 95 % Skin: Dry bilat. Feet, grossly intact. Sensation: Grossly intact for LE for light touch Proprioception: 5/5 1st MTP Coordination: THA decreased AROM and coordination Heel to mauro impaired. Strength: RLE 4+/5 Hip Flexion 4+/5 Knee Extension 4+/5 Knee flexion 4+/5 Ankle Dorsiflexion 4+/5 Ankle Plantar Flexion LLE 3+/5 Hip Flexion 3+/5 Knee Extension 3+/5 Knee flexion 2-/5 Ankle Dorsiflexion 2-/5 Ankle Plantar Flexion Range of Motion: AROM WFL on RLE Decreased AROM and PROM Edema: No edema noted Tone: QUALITY INDICATORS SCORING: Bed Mobility Roll Left and Right Assistance Needed: Supervision CARE Score - Roll Left and Right: 4 Sit to Lying Assistance Needed: Supervision CARE Score - Sit to Lyin Lying to Sitting on Side of Bed Assistance Needed: Supervision CARE Score - Lying to Sitting on Side of Bed: 4 Transfers Sit to Stand Assistance Needed: Physical assistance Physical Assistance Level: 25% or less CARE Score - Sit to Stand: 3 Chair/[id number]-[id number] Transfer Assistance Needed: Physical assistance Physical Assistance Level: 25% or less CARE Score - Chair/Xey-rq-Wnoqt Transfer: 3 Toilet Transfer Assistance Needed: Physical assistance Physical Assistance Level: 25% or less Comment: RW CARE Score - Toilet Transfer: 3 Car Transfer Reason if not Attempted: Environmental limitations CARE Score - Car Transfer: 10 Ambulation Walk 10 Feet Assistance Needed: Physical assistance Physical Assistance Level: 26%-50% Comment: rw CARE Score - Walk 10 Feet: 3 Walk 50 Feet with Two Turns Assistance Needed: Physical assistance Physical Assistance Level: 26%-50% Comment: rw CARE Score - Walk 50 Feet with Two Turns: 3 Walk 150 Feet Reason if not Attempted: Safety concerns CARE Score - Walk 150 Feet: 88 Walking 10 Feet on Uneven Surfaces Assistance Needed: Physical assistance Physical Assistance Level: 26%-50% CARE Score - Walking 10 Feet on Uneven Surfaces: 3 Stairs 1 Step (Curb) Assistance Needed: Physical assistance Physical Assistance Level: 51%-75% CARE Score - 1 Step (Curb): 2 4 Steps Assistance Needed: Physical assistance Physical Assistance Level: 76% or more CARE Score - 4 Steps: 2 12 Steps Reason if not Attempted: Safety concerns CARE Score - 12 Steps: 88 Call Out Operator Object Picking Up Object Assistance Needed: Physical assistance Physical Assistance Level: Total assistance CARE Score - Picking Up Object: 1 Wheelchair Uses a Wheelchair/Scooter? Uses a Wheelchair/Scooter?: Yes Wheel 50 Feet with Two Turns Assistance Needed: Physical assistance Physical Assistance Level: 25% or less CARE Score - Wheel 50 Feet with Two Turns: 3 Type of Wheelchair/Scooter: Manual Wheel 150 Feet Assistance Needed: Physical assistance Physical Assistance Level: 25% or less CARE Score - Wheel 150 Feet: 3 Type of Wheelchair/Scooter: Manual PT TREATMENT PROVIDED TODAY: Neuromuscular Reeducation Balance/Neuromuscular Re-Education Neuromuscular Re-Education Time Entry: 30 Pt in bed agreeable to participating in therapy session. Pt completed bed mobility SUP. Pt needing partial A x1 for STS to RW, and transfer to , decreased foot clearance on LLE. Partial A WC mobility x150ft. Pt completed 3x50ft of ambulation with RW, partial A x1, decreased foot clearance on LLE.Pt completed ambulating over uneven surface with RW, partial A x1. Pt attempting ambulation no AD, partial A x2 with WC follow, pt with rapid knee hyperextension no acute buckling, decreased foot clearance, pt using high steppage gait for foot clearance. Pt completed x4 stairs max-a x1, assistance for weight shift, cues, uplift, guarding LLE, no acute buckling, pt ascending via step to pattern, ascending with RLE, descending backwards with LLE, pt with large anterior trunk lean, pt able to use bilat. Rails. Pt educated on BE FAST signs and symptoms of stroke. Pt completed WC mobility back to room, x150ft partial A x1. Pt left seated in WC, call gallardo in reach, chair alarm on, all needs met. PT ASSESSMENT: PT Assessment Results: Decreased strength, Decreased range of motion, Decreased endurance, Impairedbalance, Impaired gait, Decreased mobility, Decreased coordination, Decreased safety awareness Prognosis: Good Evaluation/Treatment Tolerance: Patient tolerated treatment well Comments: Patient to benefit from this level of care to address, LE Strength, endurance, balance , mobility deficits , motor coordination , and gait , to assist patient in returning to prior level offunction. Physical therapy plan of care to include Wheelchair mobility, gait training, neuromuscular re-education, therapeutic activities, therapeutic exercise. PT POC for 10-14 days. PT PLAN: Treatment/Interventions: Functional transfer training, LE strengthening/ROM, Patient/family training, Equipment eval/education, Bed mobility, Gait training, Compensatory technique education, Balance training, Stair training, Continued evaluation PT Plan: Skilled PT PT Frequency: 5-7 days per week PT Duration of Sessions: 60-90 min per session PT Treatments per day: 1 time per day PT Discharge Recommendations: Other (Comment) (TBD) Goals: Encounter Problems Encounter Problems (Active) Template: Physical Therapy Problem: PT Long-Term Goals Dates: Start: 09/04/25 Goal: mod-I transfers LRAD Dates: Start: 09/04/25 Goal: mod-I x12 stairs Dates: Start: 09/04/25 Goal: mod-I ambulation x150ft LRAD Dates: Start: 09/04/25 Goal: mod-I x2 stairs LRAD Dates: Start: 09/04/25 Problem: PT Short Term Goals Dates: Start: 09/04/25 Goal: mod-I bed mobility Dates: Start: 09/04/25 Goal: SUP transfers LRAD Dates: Start: 09/04/25 Goal: SUP ambulation x150ft LRAD Dates: Start: 09/04/25 Goal: partial A x4 stairs bilat. rails Dates: Start: 09/04/25 Encounter Problems (Resolved) There are no resolved problems. Education Documentation Warning Signs and Symptoms of Stroke, taught by Ruth Valdes PT at 09/04/2025 4:09 PM. Learner: Patient Readiness: Acceptance Method: Demonstration, Explanation Response: Verbalizes Understanding, Demonstrated Understanding, Needs Reinforcement Activation of EMS (Call 911), taught by Ruth Valdes PT at 09/04/2025 4:09 PM. Learner: Patient Readiness: Acceptance Method: Demonstration, Explanation Response: Verbalizes Understanding, Demonstrated Understanding, Needs Reinforcement Mobility Training, taught by Ruth Valdes PT at 09/04/2025 4:09 PM. Learner: Patient Readiness: Acceptance Method: Demonstration, Explanation Response: Verbalizes Understanding, Demonstrated Understanding, Needs Reinforcement Education Comments No comments found. Session Start/Stop Time: 1230 1400 Therapy Minutes Physical Therapy PT Individual: 90 [1] Past Medical History: Diagnosis Date DVT (deep vein thrombosis) in HTN (hypertension) TIA (transient ischemic attack) [2] History reviewed. No pertinent surgical history. * Suzanne Noe RN - 09/04/2025 11:18 AM EST Initial Assessment Met with patient and significant other Lamberto at bedside for initial assessment. Introduced self and CM role: explained role in plan of care and discharge planning. Discussed IRF level of care, team meeting and average LOS. Verified demographics, insurance and PCP confirmed. Pt lives alone no pets in 1 level home 2 steps to enter . Pt was independent with ADLs and IADLs prior to admission. Pt ambulated with no device. Pt was driving. Pt is retired from the [place] receives state pension.Pt is . Pt has 1 daughter lives in [place]. Pt's main support system is his Sig pattie Aguiar. Patient denies any hx of depression or anxiety.Patient was smoking tobacco 1pk a day last smoked onSat09/05 patient drinks a 6 pack of beer a day states he does not feel he has a problem deniesany CANTU. CM discussed discharge plan with pt. Plan is to return home. Pt is agreeable to VNA services on discharge.Sig other or a friend will provide transport on discharge. CM will continue to follow for discharge planning. * JACQUES Fletcher - 09/04/2025 9:35 AM EST Speech Language Pathology [facility] Speech Language Pathology Evaluation 09/04/25 Patient: David Poon : 1965 Age: 60 y.o. Gender: male Primary Language: Pakistani Diagnosis: CVA (cerebral vascular accident) ([facility] V24, [facility] V28) Primary Rehab (Etiologic) Diagnosis: Problem List[1] PMH: Medical History[2] PSH: Surgical History[3] Allergies: is allergic to lisinopril. Precautions: Precautions Medical Precautions: Fall Risk Safety Interventions: Call gallardo within reach, ID band on RUE Weight Bearing Status: Full LUE Weight Bearing Status: Full RLE Weight Bearing Status: Full LLE Weight Bearing Status: Full Subjective: I was never good with memory Pt seen upright in bed, alert and participatory throughout session. Premorbid Function: Pt lives alone in [place]. He uses a notepad for appointments and does notuse a pill box. Pt is indep with all iADLs and denied any difficulties managing scheduling and appointments. 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 Pt enjoys golfing with his friends. He denied any baseline difficulties with speech/language, cognitive, and/or swallowing except for mild difficulties with memory. Pt wears reading glasses and glasses for driving. Pt denied any difficulties with hearing. Pt stated goal: I want to walk out of here Objective Oral/Motor/Speech Oral/Motor/Speech Labial ROM: Within Functional Limits Labial Symmetry: Within Functional Limits Labial Strength: Within Functional Limits Lingual Appearance: [place], Moist Lingual ROM: Within Functional Limits Lingual Symmetry: Within Functional Limits Lingual Strength: Within Functional Limits Velum: Within Functional Limits Mandible: Within Functional Limits Facial ROM: Within Functional Limits Facial Symmetry: Within Functional Limits Vocal Quality: Within Functional Limits Vocal Intensity: Within Functional Limits Intelligibility: Intelligible 100% Breath Support: Adequate for speech Dentition: Adequate Hearing: Within Functional Limits Swallow Assessment Baseline Assessment Respiratory Status: Room air History of Intubation: No Behavior/Cognition: Alert, Cooperative, Pleasant mood Dentition: Adequate Patient Positioning: Upright in bed Baseline Vocal Quality: Within Functional Limits Volitional Cough: Strong Volitional Swallow: Within Functional Limits Baseline Comments: Pt reportedly tolerated regular diet/thins at home with no reported history or current difficulties swallowning. today Consistencies Assessed Consistencies Assessed Consistencies Assessed: Yes Thin: Presentation: Bottle, Self Fed Oral: Within functional limits Pharyngeal: Within Functional Limits Amount: 1 can of gingerale , Easy to Chew/ Dental Soft: Presentation: Bite, Self Fed, Spoon Oral: Within functional limits Pharyngeal: Within Functional Limits Amount: 3 bites of macaroni and cheese , Solid/ Regular: Presentation: Bite, Self Fed Oral: Within functional limits Pharyngeal: Within Functional Limits Amount: 1 slice of cucumber Comments: Pt declined further PO trials given verbal encouragement. Aspiration Risk Aspiration Risk Diet Solids Recommendation: IDDSI Level 7 Regular Diet Liquids Recommendation: Thin liquids Liquid Administration Via: Cup, Straw Compensatory Swallowing Strategies: Upright as possible for all oral intake, Remain upright for 20-30 minutes after meals, Alternate solids and liquids, Small bites/sips, Eat/feed slowly Recommended Medication Route: PO Cognition Cognition Overall Cognitive Status: Within Functional Limits Arousal/Alertness: Appropriate responses to stimuli Orientation Level: Oriented X4 Following Commands: Follows one step commands without difficulty Attention: Within functional limits Memory: Mild (Per the MoCA, pt recalled 3/5 words after 1st trial and 5/5 words after 2nd trial. After a timed delay, he recalled 2/5 words indep, 3/5 given category cue, and 4/5 given multiple choice cue.) Abstract Reasoning: Within functional limits Flexibility of Thought: Within functional limits Comprehension Auditory Comprehension Yes/No Questions: Within Functional Limits Commands: Within Functional Limits Picture Identification: Within Functional Limits Conversation: Within Functional Limits Expression Verbal Expression Primary Mode of Expression: Verbal Primary Language: Pakistani Confrontation Naming: Within Functional Limits Generative Naming: Within Functional Limits Repetition: Within Functional Limits Conversation: Within Functional Limits Affect: Within Functional Limits Prosody: Within Functional Limits Written Expression Dominant Hand: Right Additional Assessments/Tests AIRCRAFT PAINTER Additional Assessments/Tests Additional Assessment/Test #1: Bedside Swallow Exam Additional Assessment/Test # 2: MoCA 8.1 Epi Cognitive Assessment (MOCA) 8.1 Visuospatial/Executive: 4/5 Namin/3 Attention - Digits: 2/2 Attention - Letters: 1/1 Attention - Serial Subtraction: 3/3 Language - Repetition: 2/2 Language - Naming Fluency: 0/1 Abstraction: 1/2 Delayed Recall: 2/5 Orientation: 5/6 TOTAL SCORE: 30* *Add +1 point for less than or equal to 12 yr education Normal >= Comments: Epi Cognitive Assessment (MOCA) Version 8.1: Composite Score: +, correlating to MILD cognitive impairment. Interpretation: scores of 26 or greater are WFL compared to a normative sample of similarly aged adults. Below this, scores can indicate severe (<=9 points), moderate (10-18 points) or mild (19-24points) cognitive impairment Memory Index Score: 06/15: 2/5 words recalled independently, 3/5 with category cues, 4/5 with multiple choice cues. Assessment/Plan AIRCRAFT PAINTER Assessment Dysphagia Diagnosis: Within Functional Limits Evaluation/Treatment Tolerance: Patient tolerated treatment well Comments: Pt presents with mild cognitive difficulties and functional swallow at bedside secondary to CVA. Mastication of solids timely and complete. Pt denied globus sensation and odynophagia. No overt s/s of aspiration across trials/consistencies. Rec IDDSI 7/0 regular/thins. No skilled AIRCRAFT PAINTER services needed at this time. His cognition is c/b strengths in orientation, attention, and confrontationnaming. Assessed difficulties in short term recall. Will f/u for additional testing and cognitive treatment goals set for - 1 week, per pt preference. Pt in agreement with POC. Medical Staff Made Aware: Yes Plan Treatment/Interventions: Cognitive linguistic functioning AIRCRAFT PAINTER Plan: Skilled AIRCRAFT PAINTER AIRCRAFT PAINTER Frequency: 2-5 days per week AIRCRAFT PAINTER Duration of Sessions: 30-60 min per session AIRCRAFT PAINTER Treatments per day: 1 time per day AIRCRAFT PAINTER - Evaluation Status: Complete Diet Recommendations: IDDSI 7/0 regular/thins Goals Encounter Problems Encounter Problems (Active) Template: Speech Therapy Problem: AIRCRAFT PAINTER Long-Term Goals Dates: Start: 09/04/25 Goal: Pt will improve cognitive linguistic functioning for d/c setting. Dates: Start: 09/04/25 Expected End: 09/11/25 Problem: AIRCRAFT PAINTER Short Term Goals Dates: Start: 09/04/25 Goal: Pt will complete additional diagnostic testing in 100% of opportunities indep. Dates: Start: 09/04/25 Expected End: 09/09/25 Goal: Pt will participate in ongoing education regarding cognitive linguistic strategies and ID pertinent techniques to use in daily life in 100% of opportunities indep. Dates: Start: 09/04/25 Expected End: 09/11/25 Goal: Pt will recall +5 pieces of novel information following a >6 minute delay given mod A for encoding/retrieval strategies. Dates: Start: 09/04/25 Expected End: 09/11/25 Goal: Pt will complete mod-higher level executive functioning tasks with 80% accuracy given min A. Dates: Start: 09/04/25 Expected End: 09/11/25 Encounter Problems (Resolved) There are no resolved problems. Education Documentation Education Documentation Cognition, taught by JACQUES Fletcher at 09/04/2025 4:33 PM. Learner: Patient Readiness: Acceptance Method: Explanation Response: Verbalizes Understanding, Needs Reinforcement Education Comments No comments found. Start/Stop Time: AIRCRAFT PAINTER Time Calculation AIRCRAFT PAINTER Start Time: 934 AIRCRAFT PAINTER Stop Time: 1015 AIRCRAFT PAINTER Start Time: 1115 AIRCRAFT PAINTER Stop Time: 1145 AIRCRAFT PAINTER Time Calculation (min): 70 min Therapy Minutes: Speech Therapy AIRCRAFT PAINTER Individual: 70 [1] Patient Active Problem List Diagnosis CVA (cerebral vascular accident) ([facility] V24, [facility] V28) [2] Past Medical History: Diagnosis Date DVT (deep vein thrombosis) in HTN (hypertension) TIA (transient ischemic attack) [3] History reviewed. No pertinent surgical history. Cosigned by ALEXANDER Yeh at 09/04/2025 8:25 PM EST Associated attestation - Connie Vital CCC-SLP - 09/04/2025 8:25 PM EST I attest that I, Nia Vital M.S.,CCC-AIRCRAFT PAINTER, was physically involved in the ongoing assessment, decision making, and interventions provided during today's patient care session. I have reviewed all documentation for today's 09/04/25, entered by Speech Therapy Fellow, Bindu Stewart, and further attest that it is an accurate clinical record of today's encounter, including accurate and appropriate charges. * Kaykay Perez, OT - 09/04/2025 7:00 AM EST [facility] Occupational Therapy Evaluation Note 09/04/25 Patient: David Poon : 1965 Age: 60 y.o. Gender: male Primary Language: Pakistani Diagnosis: CVA (cerebral vascular accident) ([facility] V24, [facility] V28) Primary Rehab (Etiologic) Diagnosis: Problem List[1] PMH: Medical History[2] PSH: Surgical History[3] Allergies: is allergic to lisinopril. Precautions: Precautions Medical Precautions: Fall Risk Safety Interventions: Call gallardo within reach, ID band on RUE Weight Bearing Status: Full LUE Weight Bearing Status: Full RLE Weight Bearing Status: Full LLE Weight Bearing Status: Full NURSING RECOMMENDATIONS ADL Comments: Partial A via RW for toilet txfer. Pt requires partial A for LB dressing. Whiteboard updated to reflect current level of A to complete ADLs. SUBJECTIVE Patient Subjective: I can dress myself Patient Stated Goal: Walk out of here Home Living: Type of Home: House Lives With: Alone (girlfriend lamberto) Home Adaptive Equipment: (Pt reports mother has RW available) Home Living Comments: Mother and sister live on [address]s [address] and able to A Home Layout: One level Home Access: Stairs to enter without rails Entrance Stairs-Rails: None Entrance Stairs-Number of Steps: 2 Bathroom Shower/Tub: Tub/shower unit Bathroom Toilet: Standard Bathroom Equipment: None Prior Level of Function: Level of [place]: Independent with mobility and functional transfers Ambulation Status: Community ambulator, Household ambulator Receives Help From: Family, Friends Indoor Mobility Assistance: Independent Stairs Assistance : Independent Prior Device Use: No prior device use Do you drive?: Yes Mode of Transportation: Car Vocational: Retired (from [employer]) Leisure: golf Which is your dominant hand?: Right ADL/IADL History: ADL Assistance (Self Care): Independent Meal Prep Responsibility: Primary Meal Prep: Independent Laundry Responsibility: Secondary Laundry: Dependent Shopping Responsibility: Secondary Shopping: Dependent Medication Management: Independent (Does not use pill box) Social History: Social History[4] Understanding of Current Condition: Pt understands OBJECTIVE General Observation: Pt semi supine in bed w/ L lateral lean. Cognition/Communication: Cognition Overall Cognitive Status: Within Functional Limits Arousal/Alertness: Appropriate responses to stimuli Orientation Level: Oriented X4 Following Commands: Follows one step commands without difficulty Safety Judgment: Decreased awareness of need for safety, Decreased awareness of need for assistance Awareness of Errors: Decreased awareness of errors, Assistance required to correct errors made Deficits: Fully aware of deficits Insight: Fair insight into deficits Vitals: BP: (!) 140/93 Heart Rate: 77 SpO2: 100 % Pain: Pain Assessment: No/denies pain Pain Score: 0 - No pain Skin: Scattered purple bruising to L tricep. See nursing notes for further details. FUNCTIONAL ASSESSMENTS ADL ASSIST Eating Assistance Needed: Set-up / clean-up Oral Hygiene Oral Hygiene Assistance Needed: Set-up / clean-up CARE Score - Oral Hygiene: 5 Toileting Toileting Hygiene Assistance Needed: Physical assistance Physical Assistance Level: 26%-50% CARE Score - Toileting Hygiene: 3 Bathing Shower/Bathe Self Assistance Needed: Physical assistance Physical Assistance Level: 25% or less CARE Score - Shower/Bathe Self: 3 UE Dressing Upper Body Dressing Assistance Needed: Incidental touching CARE Score - Upper Body Dressin LE Dressing Lower Body Dressing Assistance Needed: Physical assistance Physical Assistance Level: 26%-50% CARE Score - Lower Body Dressin Footwear Putting On/Taking Off Footwear Assistance Needed: Physical assistance Physical Assistance Level: 25% or less CARE Score - Putting On/Taking Off Footwear: 3 Toilet Transfer Assistance Needed: Physical assistance Tub/Shower Transfer To Be Assessed Equipment Provided: RW & w/c for hospital stay Vision: Vision - Complex Assessment Ocular Range of Motion: Within Functional Limits Head Position: Upright, centered, looking straight ahead, not leaning any direction Tracking: Able to track stimulus in all quads without difficulty Bilateral Near: 20/25 on Blas reading card, corrective lenses present Bilateral Distance: Pt able to read clock/board no difficulty Vision Comments: Pt denies blurry vision Perception: Perception Inattention/Neglect: Unable to maintain midline in sitting, Unable to attend to left side of body (Intermittent cues to attend to L UE) Motor Planning: (Ataxic motor pattern) Proprioception: Proprioception Proprioception: No apparent deficits Sensation: Sensation Light Touch: No apparent deficits Sensation Comments: Pt denies n/t Hand Function: Hand Function Gross Grasp: Functional Coordination: Coordination Coordination: Impaired Coordination: Left Right Comments Finger to nose Moderately impaired No impairment Rapid alternating movements Moderately impaired No impairment Crossing midline Minimally impaired No impairment Clapping Moderately impaired No impairment Bilateral integration Moderately impaired No impairment Finger opposition Moderately impaired No impairment Balance: Static sitting balance Static Sitting Balance Static Sitting-Level of Assistance: Supervision or touching assistance (L lateral lean) Dynamic sitting balance Dynamic Sitting Balance Dynamic Sitting-Level of Assistance: Supervision or touching assistance Static standing balance Static Standing Balance Static Standing-Level of Assistance: Partial/moderate assistance Dynamic standing balance Dynamic Standing Balance Dynamic Standing-Level of Assistance: Partial/moderate assistance UPPER EXTREMITY ASSESSMENTS RUE Assessment RUE Assessment: Within Functional Limits RUE Assessment Comments: ROM WFL. MMT grossly 5/5 LUE Assessment LUE Assessment: Impaired LUE Assessment Comments: Sh flex approx AROM 100 degrees. MMT grossly 4/5 STANDARDIZED TESTS Right Hand Strength - Commodity Merchant (lbs) Handle Setting 2: 116 lbs Right Hand Strength - Pinch (lbs) Lateral: 20 lbs Left Hand Strength - Commodity Merchant (lbs) Handle Setting 2: 86 lbs Left Hand Strength - Pinch (lbs) Lateral: 22 lbs 9 Hole Peg Test (seconds) Right - 9 Hole Peg Test (seconds): 25.69 seconds Left - 9 Hole Peg Test (seconds): 133.51 seconds Quality Indicators Scoring CAM Scoring Admit: Is there evidence of an acute change in mental status from the patient's baseline?: No (09/03/25 Qian : Daniela Mariee RN) Inattention: Behavior continuously present, does not fluctuate (09/03/25 [id number] : Daniela Mariee RN) Disorganized thinking: Behavior continuously present, does not fluctuate (09/03/25 Qian : Daniela Mariee RN) Altered level of consciousness: Behavior continuously present, does not fluctuate (09/03/25 1606 : Daniela Mariee RN) BIMS: 15 (09/04/25 0700 : Kaykay Perez OT) Hearing, Speech, and Vision: Hearing, Speech, and Vision Ability to Hear: Adequate Ability to See in Adequate Light: Adequate Expression of Ideas and Wants: Without difficulty Understanding Verbal and Non-Verbal Content: Understands Health Literacy: Health Literacy How often do you need to have someone help you when you read instructions, pamphlets, or other written material from your doctor or pharmacy?: Never Procedures/Interventions: ADLs/IADLs Self Care/Home Management (ADLs) Time Entry: 30 ADL/ IADL Performed: Grooming, Eating, Oral Hygiene, Bathing, Dressing, Toilet Transfers Pt received semi supine in bed, noted to have L lateral lean. This fiction and nonfiction writer prose introduced self and role of OT. Pt agreeable to participate in OT session. Pt participated in subjective portion of evaluation. Semi supine > EOB, sup. MMT assessed. Pt amb via RW, partial A to w/c. Pt s/u at sink and completed oral hygiene. Pt utilizing L UE as stabilizer. Pt combed hair s/u using R UE. Pt self propelled w/c to shower stall. Pt amb via RW, partial A into shower stall and remained seated on shower chair. Pt doffed shirt, sup. Pt able to pull pants/underwear down over hips via lateral weight shift, sup. Pt doffed pants/underwear from B LE, sup. Pt able to doff B socks via figure four, sup. Pt able to shower seated on shower chair, overall sup. Pt utilized B UE to wash hair. Pt using mainly R UE towash abdomen and B LE via figure four. Pt able to use L UE to bathe R UE and axilla. Pt declined tostand to bathe buttocks. Pt able to dry self seated on shower chair, A for thoroughness. Pt able todon chan, no more than incidental A. Pt able to don B socks using B UE via figure four. Pt amb viaRW shower stall > room, partial A. Pt remained seated in w/c. Pt retrieved clothes from closet w/c level. Pt able to thread underwear through R LE, A to thread L LE. This fiction and nonfiction writer prose educated pt on panchito dressing technique. Pt able to thread B LE through pants. STS via RW, partial A. Pt able to hike un derwear/pants over hips, partial A, using mainly R UE. Pt returned to sitting. Pt doffed chan and applied deodorant to B axilla, s/u. Pt utilizing L UE as stabilizer to open deodorant. Pt able to don shirt, sup. Pt combed hair s/u using R UE. Pt s/u for breakfast, this fiction and nonfiction writer prose opening containers. RN student present for vitals. Pt participated in objective portion of evaluation. Pt amb from bathroom door > toilet via RW, partial A. Pt able to perform fxl toilet txfer, partial A, using grab bar. Pt requesting to return to bed to rest prior to AIRCRAFT PAINTER session. Pt amb via RW to EOB, partial A. EOB> semi supine, sup. Pt able to manage B LE. Pt remained semi supine, call gallardo in reach, bed alarm on. All needs met. This fiction and nonfiction writer prose reinforcing no driving upon d/c until cleared by PCP, and 3 hr therapy rule. Pt verbalizes understanding. OT Assessment: OT Assessment OT Assessment Results: Decreased ADL status, Decreased upper extremity strength, Decreased upper extremity range of motion, Decreased safe judgment during ADL, Decreased fine motor control, Decreasedfunctional mobility, Decreased IADLs, Decreased gross motor control Prognosis: Good Evaluation/Treatment Tolerance: Patient tolerated treatment well Comments: Pt will benefit from skilled OT services in acute rehab setting in order to maximize Ind with BADL and safety with functional transfers. Pt presenting with impaired FMC, L panchito paresis, ataxia, impaired balance, and decreased activity tolerance. Pt will benefit from ADL retraining, functional transfer training, balance re-education, neuro re-ed, UE strengthening, and education. OT Plan: Plan Treatment Interventions: ADL retraining, Functional transfer training, UE strengthening/ROM, Endurance training, Patient/family training, Neuromuscular reeducation, Fine motor coordination activities OT Plan: Skilled OT OT Frequency : 5-7 days per week OT Duration of Sessions: 60-90 min per session OT Treatments per day: 1-2 times per day OT - Evaluation Status: Complete OT Discharge Recommendations: Outpatient OT Equipment Recommended: Shower chair Goals to be mod I 10-14 days Goals: Encounter Problems Encounter Problems (Active) Template: Occupational Therapy Problem: OT Long-Term Goals Dates: Start: 09/04/25 Goal: Pt will perform LB dressing mod I Dates: Start: 09/04/25 Expected End: 09/18/25 Goal: Pt will bathe via LRD mod I Dates: Start: 09/04/25 Expected End: 09/18/25 Goal: Pt will perform toileting hygiene mod I Dates: Start: 09/04/25 Expected End: 09/18/25 Goal: Pt will perform toilet txfer mod I Dates: Start: 09/04/25 Expected End: 09/18/25 Goal: Pt will complete med mgmt mod I Dates: Start: 09/04/25 Expected End: 09/18/25 Problem: OT Short Term Goals Dates: Start: 09/04/25 Goal: Pt will complete LB dressing steadying A Dates: Start: 09/04/25 Expected End: 09/11/25 Goal: Pt will perform toilet txfer steadying A Dates: Start: 09/04/25 Expected End: 09/11/25 Goal: Pt will perform toileting hygiene sup Dates: Start: 09/04/25 Expected End: 09/11/25 Goal: Pt will perform grooming activities in standing, steadying A Dates: Start: 09/04/25 Expected End: 09/11/25 Goal: Pt will bathe steadying A Dates: Start: 09/04/25 Expected End: 09/11/25 Encounter Problems (Resolved) There are no resolved problems. Education Documentation Staff Roles, taught by Kaykay Perez OT at 09/04/2025 2:20 PM. Learner: Patient Readiness: Acceptance Method: Explanation Response: Verbalizes Understanding, Needs Reinforcement Program, taught by Kaykay Perez OT at 09/04/2025 2:20 PM. Learner: Patient Readiness: Acceptance Method: Explanation Response: Verbalizes Understanding, Needs Reinforcement Fall Precautions, taught by Kaykay Perez OT at 09/04/2025 2:20 PM. Learner: Patient Readiness: Acceptance Method: Explanation Response: Verbalizes Understanding, Needs Reinforcement Body Mechanics, taught by Kaykay Perez OT at 09/04/2025 2:20 PM. Learner: Patient Readiness: Acceptance Method: Explanation Response: Verbalizes Understanding, Needs Reinforcement ADL Training, taught by Kaykay Perez OT at 09/04/2025 2:20 PM. Learner: Patient Readiness: Acceptance Method: Explanation Response: Verbalizes Understanding, Needs Reinforcement Education Comments No comments found. Start/Stop Time: OT Time Calculation OT Start Time: 0700 OT Stop Time: 0830 OT Time Calculation (min): 90 min Therapy Minutes: Occupational Therapy OT Individual: 90 [1] Patient Active Problem List Diagnosis CVA (cerebral vascular accident) ([facility] V24, [facility] V28) [2] Past Medical History: Diagnosis Date DVT (deep vein thrombosis) in HTN (hypertension) TIA (transient ischemic attack) [3] History reviewed. No pertinent surgical history. [4] Social History Tobacco Use Smoking status: Every Day Current packs/day: 1.00 Average packs/day: 1 pack/day for 41.9 years (41.9 ttl pk-yrs) Types: Cigarettes Start date: 1983 Smokeless tobacco: Never Vaping Use Vaping status: Never Used Substance Use Topics Alcohol use: Yes Alcohol/week: 3.0 standard drinks of alcohol Types: 3 Cans of beer per week Comment: 3 beers per day Drug use: Never * Christina Jaramillo DO - 09/03/2025 5:40 PM EST Images from the original note were not included. PHYSICAL MEDICINE AND REHABILITATION Individualized Overall Plan of Care Patient Name: David Poon Date of : 1965 Sex: Male Payor Info: Payor: SAI RODRIGUEZ - CT ([facility]) / Plan: [facility] / Product Type: *No Product type* / Admit Date/Time: 09/03/2025 12:37 PM Etiologic Diagnosis: Acute CVA with left hemiparesis Rehab Impairment Group Code: 01.1 Expected LOS/Duration of Therapy: 2 weeks Expected Discharge Destination: Home with home health services Medical Prognosis: Good Medical Issues Actively Being Managed: Acute CVA with left hemiparesis, hypertension, tobacco dependence, history of alcohol use, allergicrhinitis, bowel management, DVT prophylaxis Rehab Plan: Minimum of 180 minutes of therapy 5 out of 7 days per week as follows: 60 minutes of PT daily for 5 days. 60 minutes of OT daily for 5 days. 60 minutes of AIRCRAFT PAINTER daily for 5 days. Anticipated Functional Outcomes/Rehab Goals: Goals are for the patient to achieve the highest level of function and independence to allow the patient to return home. The patient and the family will be provided education on the patient's condition, the patient's current barriers, and the goals to overcome or to compensate for barriers. documented in this encounter H&P Notes * Christina Jaramillo DO - 09/03/2025 5:22 PM EST Images from the original note were not included. PHYSICAL MEDICINE AND REHABILITATION History & Physical Exam Patient Name: David Poon Date of : 1965 Sex: Male Admit Date/Time: 09/03/2025 12:37 PM Chief Complaint: stroke HPI: Mr Poon is a 60yo male with PMH significant for hypertension, history of left lower extremity DVT in 2021 s/p completion of apixaban, tobacco dependence, and alcohol use who presented to [facility] on 08/29/2025 with left- sided weakness and balance impairment. CT head showed evidence of chronic strokes. CTA was unremarkable. Patient was outside of window for TNK. MRI brain was positive for acute right thalamic ischemic CVA. Patient was started on dual antiplatelet therapy by neurology. He was continued on atorvastatin 40 mg nightly. Patient passed bedside swallow evaluation. A1c was 5.1. He was continued on amlodipine for hypertension. Admitted to [facility] on 09/03/25 for continued rehabilitation needs. Patient seen and examined at bedside this afternoon. He reports continued left-sided weakness. He is agreeable to therapy program. PAST MEDICAL HISTORY: Medical History[1] Current Allergies[2] Surgical History[3] Family History[4] Social History Socioeconomic History Marital status: Single Spouse name: Not on file Number of children: Not on file Years of education: Not on file Highest education level: Not on file Occupational History Not on file Tobacco Use Smoking status: Not on file Smokeless tobacco: Not on file Substance and Sexual Activity Alcohol use: Not on file Drug use: Not on file Sexual activity: Not on file Other Topics Concern Not on file Social History Narrative Not on file Functional History: Patient lives in a one-story home with 3 steps to enter. Patient was independent for mobility and self-care prior to admission without use of an assistive device. Patient does drive. Retired. REVIEW OF SYSTEMS: Constitutional: No weight loss, fever, chills, weakness or fatigue. HEENT: No visual loss, blurred vision, double vision or yellow sclera. No hearing loss, sneezing, congestion, runny nose or sore throat. Skin: No rash or itching. Cardiovascular: No chest pain, chest pressure or chest discomfort. No palpitations or pedal edema. Respiratory: No shortness of breath, cough or sputum production. Gastrointestinal: No anorexia, nausea, vomiting or diarrhea. No abdominal pain or blood in stool. Genitourinary: No burning micturition. No urinary frequency or incontinence. Neurologic: No headache, dizziness, syncope, numbness or tingling in the extremities. No change in bowel or bladder control. +left sided weakness, +ataxia of LUE and LLE Musculoskeletal: No muscle pain, back pain, joint pain or stiffness. Hematologic: No bleeding or bruising. Psychiatric: No depression or anxiety. PHYSICAL EXAMINATION: Vitals: 09/03/25 1245 09/03/25 1533 BP: (!) 129/90 (!) 140/83 BP Location: Right arm;Upper Right arm Patient Position: Lying Sitting Pulse: 97 94 Resp: 18 16 Temp: 36.6 ??C (97.9 ??F) 36.9 ??C (98.4 ??F) TempSrc: Oral Oral SpO2: 98% 95% General: Alert, in no acute cardiopulmonary distress. Mental Status: Oriented to person, place and time. Normal affect. Head: Normocephalic. Eyes: Extraocular muscles intact. Ear, Nose and Throat: Oropharynx clear, mucous membranes moist. Ears and nose without masses, lesions or deformities. Neck: Supple, Trachea midline. Respiratory: Clear to auscultation and percussion. No wheezing, rales or rhonchi. Cardiovascular: Heart sounds normal. No thrills. Regular rate and rhythm, no murmurs, rubs or gallops. Gastrointestinal: Abdomen soft, non-tender, non-distended. Normal bowel sounds. Neurologic: Cranial nerves II-XII intact. Negative Hoffmans sign on the left. Negative clonus on the left. Moves all extremities spontaneously. Sensation intact bilaterally. Skin: No rashes or lesions. No petechiae or purpura. No edema. Musculoskeletal: No cyanosis or clubbing. No gross deformities. Normal range of motion. Strength 5/5 throughout right upper and lower extremities. Strength 5/5 left shoulder abduction, 5/5 left elbowflexion, 5/5 left elbow extension, 5/5 left wrist extension, 4/5 left finger abduction. Strength 5/5 left hip flexion, 5/5 left knee extension, 1/5 left dorsiflexion, 1/5 left plantarflexion, 1/5 left EHL. HOME MEDICATIONS: Home Medications amLODIPine (NORVASC) 5 mg tablet Take 1 tablet (5 mg total) by mouth 1 (one) time each day. aspirin 81 mg EC tablet Take 1 tablet (81 mg total) by mouth 1 (one) time each day. atorvastatin (LIPITOR) 40 mg tablet Take 1 tablet (40 mg total) by mouth at bedtime. cetirizine (ZyrTEC) 10 mg tablet Take 1 tablet (10 mg total) by mouth 1 (one) time each day. clopidogreL (PLAVIX) 75 mg tablet Take 1 tablet (75 mg total) by mouth 1 (one) time each day. nicotine (NICODERM CQ) 21 mg/[address] 1 patch on the skin 1 (one) time each day at the same time. CURRENT INPATIENT MEDICATIONS: Current Medications[5] LABS: No results found for: WBC , RBC , HGB , HCT , MCV , MCHC , RDW , PLT , MPV , NRBC DIFF No results found for: LYMPHOPCT , ATYPLYMPABS , NEUTROABS , LYMPHSABS , MONOABS , EOSABS , BASOSABS , METAMYABS , MYLEOCYABS , PROMYABS , BLASTSABS , PLSMACELABS , OTHRCELLSABS , IMMGRANABS RETIC No results found for: RETIC , RETICCTPCT No results found for: NA , K , CL , CO2 , GLUCOSE , BUN , CREATININE , CALCIUM , PROT , ALBUMIN , BILITOT , AST , ALT , URICACID , PHOS , MG , ALKPHOS , CKTOTAL , EGFR IMPRESSION & PLAN: #Impaired mobility and self-care - Secondary to acute CVA - Continue PT, OT, AIRCRAFT PAINTER, and nursing care #Acute CVA #Left hemiparesis - MRI brain was positive for acute right thalamic ischemic CVA - Neurology recommended continuing DAPT and statin until outpatient follow-up for further recommendations - Aspirin 81 mg daily - Plavix 75 mg daily - Atorvastatin 40 mg nightly - Continue therapies - f/u [facility] (Dr Sky) after discharge #Hypertension - Amlodipine 5 mg daily #Tobacco dependence - Nicotine 21 mg patch daily #History of alcohol use - Monitored on CIWA during acute hospital stay without withdrawal appreciated #Allergic rhinitis - Loratadine 10mg daily #Bowel management - Colace 100 mg twice daily - Senna 2 tabs nightly #DVT prophylaxis: Lovenox 40mg daily started ____ David Poon is being admitted to the inpatient rehab unit in order to participate in an acute rehab program which evokes a multidisciplinary team approach in order to improve their functional mobility and activities of daily living. Physical therapy will be involved in order to provide gait and balance training, improve strength and range of motion and utilize modalities as deemed necessary. Occupational Therapy will assess and educate with activities of daily living which include bathing dressing toileting and basic household activities. Speech therapy will evaluate speech, cognition, and swallowing and continue to follow as needed for any deficits in these areas. Patient will also be followed by internal medicine 24-hour nursing in order to monitor medical status and provide continuous education regarding medical conditions. Case management will start discharge planning and arrange for team conferences. Rehab goals: Increased functional ability, increased muscle strength and conditioning, progress to self-care andADLs. Educate the patient and the family on disease process and discharge back home into the community. Patient's progress will be discussed in weekly multidisciplinary team conferences along with any barriers which may inhibit patient from returning home safely. Rehab potential/prognosis: Patient has good rehab potential and is well motivated. Patient has family support. Disposition: Weekly multidisciplinary team conferences will be held in order to discuss the patient's progress, barriers, and goals regarding their discharge plan. Goals for the patient include returning home to their prior level of functioning with home services for continued rehab and recovery. Estimated length of stay: 2 weeks ____ [1] Past Medical History: Diagnosis Date DVT (deep vein thrombosis) in HTN (hypertension) TIA (transient ischemic attack) [2] Allergies Allergen Reactions Lisinopril [3] No past surgical history on file. [4] No family history on file. [5] Current Facility-Administered Medications: acetaminophen (TYLENOL) tablet 650 mg, 650 mg, oral, q6h PRN, JIMMY Mullins [START ON 09/04/2025] amLODIPine (NORVASC) tablet 5 mg, 5 mg, oral, Daily, JIMMY Mullins [START ON 09/04/2025] aspirin EC tablet 81 mg, 81 mg, oral, Daily, JIMMY Mullins atorvastatin (LIPITOR) tablet 40 mg, 40 mg, oral, Nightly, JIMMY Mullins bisacodyL (DULCOLAX) suppository 10 mg, 10 mg, rectal, Daily PRN, JIMMY Mullins [START ON 09/04/2025] clopidogreL (PLAVIX) tablet 75 mg, 75 mg, oral, Daily, JIMMY Mullins docusate sodium (COLACE) capsule 100 mg, 100 mg, oral, BID, JIMMY Mullins, 100 mg at [id number] [START ON 09/04/2025] loratadine (CLARITIN) tablet 10 mg, 10 mg, oral, Daily, JIMMY Mullins magnesium hydroxide (MILK OF MAGNESIA) 400 mg/5 mL suspension 30 mL, 30 mL, oral, Daily PRN, JIMMY Mullins, 30 mL at 09/03/25 1533 nicotine (NICODERM CQ) 21 mg/24 hr patch 1 patch, 1 patch, transdermal, q24h, JIMMY Mullins senna (SENOKOT) tablet 17.2 mg, 2 tablet, oral, Nightly, JIMMY Mullins documented in this encounter Consult Notes * JIMMY Rae - 09/04/2025 9:34 AM EST Images from the original note were not included. HIEN CONSULT NOTE Please contact author [JIMMY Rae] via [place] [facility]. Patient: David Poon Admission Date/Time: 09/03/2025 12:37 PM : 1965 [60 y.o.] Patient's PCP: Lucho Domínguez MD Attending Provider: Christina Jaramillo DO REASON FOR CONSULT Medical Co management HISTORY OF PRESENT ILLNESS This is a 60-year-old male with a past medical history of COPD, hypertension, remote history of DVTcompleted course of Eliquis who presented to [place] emergency room with left-sided weakness. He noted that he was off balance and then he developed left-sided weakness. He presented to the hospital as the symptoms got progressively worse. He went to an outpatient walk-in clinic who called an ambulance and sent him to the emergency room department. Patient had a CT of the head that showed evidence of chronic stroke CTA was unremarkable. He had an admission to the hospital in 2022 and at that time he was noted to have chronic right frontal left --> Encephalomalacia probably from head injury/uncontrolled hypertension was seen by neurology who thought that he had a small cerebral infarct in the left thalamus or brainstem due to microvascular disease and recommended antiplatelet agent statin blood pressure control as well as avoidance of alcohol. It does not appear that the patient was taking aspirin or statin. He continues to drink 5-6 beers a day and smokes 1 pack of cigarettes daily. During his hospital course he was found to be outside the window for TNK therapy and CT of the head showed multiple chronic infarcts. MRI of the brain was positive for acute right thalamic ischemic stroke and patient was started on dual antiplatelet therapy by neurology. Patient did undergo a CTA of the head/neck that was unremarkable. Echocardiogram showed an EF of 64% no obvious valvular pathology. A1c 5.1. He passed a swallow evaluation. He was strongly encouraged to abstain from smoking. He was prescribed a nicotine patch . He carries a history of COPD and there is no exacerbation he is not maintaining on any inhalers at home. for his hypertens ion he was prescribed amlodipine. He has a remote history of DVT of the left lower extremity in 2021 he did complete a course of apixaban. He does drink 4-5 beers a day. Cessation was advised. He wasmonitored on CIWA. There was no evidence of EtOH withdrawal during his hospitalization course. He was evaluated by physical therapy and is recommended for acute rehab. Review of Systems Constitutional :no fever chills , appetite fair, sleeping well HEENT: denies headaches, visual changes, no dysphagia Respiratory: denies shortness of breath, coughing or wheezing Cardiac: denies chest pain, palpitations, orthopnea PND : No abd pain, no N/V. Moving bowels Genitourinary: denies any dysuria frequency urgency, or urinary retention Hematologic: Denies any easy bruising or bleeding tendency Musculoskeletal: No joint pain ,back pain NEURO: no unilateral weakness, no headaches, no numbness. SKIN: no lesions or rashes Psych: denies any recent mood changes : anxiety or depression MEDICAL HISTORY Past Medical History Remote history of DVT in the past Hypertension History of COPD Past Surgical History Surgical History[1] Social History reports that he has been smoking cigarettes. He started smoking about 41 years ago. He has a 41.9 pack-year smoking history. He has never used smokeless tobacco. He reports current alcohol use of about 3.0 standard drinks of alcohol per week. He reports that he does not use drugs. Family History family history is not on file. Allergies is allergic to lisinopril. Medications MEDSSCHEDULED[2] MEDSCONTINUOUS[3] MEDSPRN[4] Objective Vitals Visit Vitals BP (!) 144/83 (BP Location: Right arm, Patient Position: Sitting) Pulse 95 Temp 37.1 ??C (98.8 ??F) (Oral) Resp 20 Temp (24hrs), Av.8 ??C (98.2 ??F), Min:36.4 ??C (97.5 ??F), Max:37.1 ??C (98.8 ??F) Physical Examination General: conscious alert no acute distress HEENT: pupils are equal round and reactive. extraocular movements are grossly intact lungs clear to auscultation, no wheezing or crackles noted heart regular rate and rhythm, no murmur or rubs abdomen soft nontender nondistended positive bowel sounds Musculoskeletal: No gross deformity to joints extremities without edema, erythema or calf tenderness neuro: Left-sided weakness skin: no rashes or lesions. psych: mood stable appearing, good eye contact. 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 - f/u [facility] (Dr Sky) after discharge Hypertension - Amlodipine 5 mg daily Blood pressure reasonably controlled Continue to monitor Tobacco dependence - Nicotine 21 mg patch daily Tobacco cessation discussed with patient patient educated. History of alcohol use - Monitored on CIWA during acute hospital stay without withdrawal start thiamine folate Discussed cessation. Bowel management - Colace 100 mg twice daily - Senna 2 tabs nightly DVT prophylaxis: Lovenox 40mg daily started Total time spent 80 minutes doing chart review, interviewing patient, gathering information, performing physical exam, formulating plan, explaining management plan to patient, coordinating care with RN/rehab team , documentation and placing orders. [1] History reviewed. No pertinent surgical history. [2] amLODIPine, 5 mg, oral, Daily aspirin, 81 mg, oral, Daily atorvastatin, 40 mg, oral, Nightly clopidogreL, 75 mg, oral, Daily docusate sodium, 100 mg, oral, BID enoxaparin, 40 mg, subcutaneous, Daily loratadine, 10 mg, oral, Daily nicotine, 1 patch, transdermal, q24h senna, 2 tablet, oral, Nightly [3] [4] PRN medications: acetaminophen, aluminum-magnesium hydroxide-simethicone, bisacodyL, magnesium hydroxide Cosigned by John Morse MD at 09/07/2025 1:20 PM EST documented in this encounter Plan of Treatment Not on file documented as of this encounter Procedures Procedure Name Priority Date/Time Associated Diagnosis Comments VITAMIN D 25 HYDROXY Add-On 09/10/2025 5:27 AM EST COMPLETE BLOOD COUNT Routine 09/10/2025 5:27 AM EST MAGNESIUM Add-On 09/10/2025 5:27 AM EST COMPREHENSIVE METABOLIC PANEL Routine 09/10/2025 5:27 AM EST CBC WITH AUTO DIFFERENTIAL Routine 09/04/2025 5:33 AM EST CBC AND DIFFERENTIAL Routine 09/04/2025 5:33 AM EST COMPREHENSIVE METABOLIC PANEL Routine 09/04/2025 5:33 AM EST documented in this encounter Results * (ABNORMAL) Vitamin D 25 hydroxy (09/10/2025 5:27 AM EST) [facility] Vit D, 25-Hydroxy 23.7(L) 30.0 - 80.0 ng/mL 09/12/2025 12:47 PM EST [facility] Blood Venous blood specimen / Unknown Venipuncture / Unknown 09/10/2025 5:27 AM EST 09/10/2025 5:36 AM EST Elba Gilmore [employer] LAB BLOOD ORDERABLES Final Result Performing Organization Address City/[facility]/ZIP Co de Phone Number [facility] [address] [place] [address], * Magnesium (09/10/2025 5:27 AM EST) [facility] Magnesium 2.0 1.9 - 2.6 mg/dL 09/12/2025 12:01 PM EST [facility] Blood Venous blood specimen / Unknown Venipuncture / Unknown 09/10/2025 5:27 AM EST 09/10/2025 5:36 AM EST Elba L Deirdre GUILLEN LAB BLOOD ORDERABLES Final Result [facility] [address] [place] [address], [place] [phone] * (ABNORMAL) Complete blood count (09/10/2025 5:27 AM EST) [facility] WBC 8.2 4.8 - 10.8 K/[facility] LAB HEMETOLOGY METHOD 09/10/2025 5:55 AM EST [facility] RBC 4.30(L) 4.50 - 5.50 M/mcL LAB HEMETOLOGY METHOD 09/10/2025 5:55 AM [facility] Hemoglobin 14.6 13.5 - 17.5 g/dL LAB HEMETOLOGY METHOD 09/10/2025 5:55 AM [facility] Hematocrit 42.3 42.0 - 54.0 % LAB HEMETOLOGY METHOD 09/10/2025 5:55 AM [facility] MCV 97.5 79.0 - 98.0 FL LAB HEMETOLOGY METHOD 09/10/2025 5:55 AM [facility] MCH 33.6(H) 27.0 - 32.0 pcg LAB HEMETOLOGY METHOD 09/10/2025 5:55 AM [facility] MCHC 34.5 32.0 - 37.0 g/dL LAB HEMETOLOGY METHOD 09/10/2025 5:55 AM [facility] RDW 11.0 11.0 - 15.0 % LAB HEMETOLOGY METHOD 09/10/2025 5:55 AM [facility] Platelets 279 130 - 400 K/mcL LAB HEMETOLOGY METHOD 09/10/2025 5:55 AM [facility] MPV 9.1 7.0 - 11.0 FL LAB HEMETOLOGY METHOD 09/10/2025 5:55 AM [facility] NRBC 0.0 <1.0 % LAB HEMETOLOGY METHOD 09/10/2025 5:55 AM [facility] NRBC Absolute 0.00 <0.10 K/mcL LAB HEMETOLOGY METHOD 09/10/2025 5:55 AM [facility] Blood Venous blood specimen / Unknown Venipuncture / Unknown 09/10/2025 5:27 AM EST 09/10/2025 5:37 AM EST us Nicolette MARQUEZ LAB BLOOD ORDERABLES Final R esult [facility] [address] [place] [address], * Comprehensive metabolic panel (09/10/2025 5:27 AM EST) Sodium 139 133 - 145 mmol/L 09/10/2025 6:58 AM [facility] Potassium 4.3 3.5 - 5.5 mmol/L 09/10/2025 6:58 AM [facility] Chloride 104 96 - 110 mmol/L 09/10/2025 6:58 AM [facility] CO2 27 21 - 32 mmol/L 09/10/2025 6:58 AM [facility] Anion Gap 8 3 - 11 09/10/2025 6:58 AM [facility] Glucose 78 70 - 100 mg/dL 09/10/2025 6:58 AM [facility] BUN 9 5 - 25 mg/dL 09/10/2025 6:58 AM [facility] Creatinine 0.85 0.70 - 1.30 mg/dL 09/10/2025 6:58 AM [facility] eGFR 99 >=60 mL/min/1. 73m2 09/10/2025 6:58 AM [facility] Comment:Calculation based on the Chronic Kidney Disease Epidemiology Collaboration (CKD-EPI) equation refit without adjustment for race. BUN/Creatinine Ratio 10.6 09/10/2025 6:58 AM [facility] Calcium 8.9 8.5 - 10.5 mg/dL 09/10/2025 6:58 AM [facility] AST (SGOT) 23 10 - 42 unit/L 09/10/2025 6:58 AM [facility] ALT (SGPT) 29 10 - 60 unit/L 09/10/2025 6:58 AM [facility] Alkaline Phosphatase 46 42 - 121 unit/L 09/10/2025 6:58 AM [facility] Total Protein 6.0 6.0 - 8.0 g/dL 09/10/2025 6:58 AM [facility] Albumin 3.6 3.2 - 5.0 g/dL 09/10/2025 6:58 AM [facility] Total Bilirubin 0.9 0.0 - 1.4 mg/dL 09/10/2025 6:58 AM [facility] Blood Venous blood specimen / Unknown Venipuncture / Unknown 09/10/2025 5:27 AM EST 09/10/2025 5:36 AM EST us Nicolette MARQUEZ LAB BLOOD ORDERABLES Final R esult [facility] [address] [place] [address], [place] [phone] * (ABNORMAL) CBC auto differential (09/04/2025 5:33 AM EST) WBC 8.9 4.8 - 10.8 K/mcL LAB HEMETOLOGY METHOD 09/04/2025 5:50 AM [facility] RBC 4.90 4.50 - 5.50 M/mcL LAB HEMETOLOGY METHOD 09/04/2025 5:50 AM [facility] Hemoglobin 16.5 13.5 - 17.5 g/dL LAB HEMETOLOGY METHOD 09/04/2025 5:50 AM [facility] Hematocrit 47.6 42.0 - 54.0 % LAB HEMETOLOGY METHOD 09/04/2025 5:50 AM [facility] MCV 97.1 79.0 - 98.0 FL LAB HEMETOLOGY METHOD 09/04/2025 5:50 AM [facility] MCH 33.7(H) 27.0 - 32.0 pcg LAB HEMETOLOGY METHOD 09/04/2025 5:50 AM [facility] MCHC 34.7 32.0 - 37.0 g/dL LAB HEMETOLOGY METHOD 09/04/2025 5:50 AM [facility] RDW 11.3 11.0 - 15.0 % LAB HEMETOLOGY METHOD 09/04/2025 5:50 AM [facility] Platelets 265 130 - 400 K/mcL LAB HEMETOLOGY METHOD 09/04/2025 5:50 AM [facility] MPV 8.8 7.0 - 11.0 FL LAB HEMETOLOGY METHOD 09/04/2025 5:50 AM [facility] NRBC 0.0 <1.0 % LAB HEMETOLOGY METHOD 09/04/2025 5:50 AM [facility] NRBC Absolute 0.00 <0.10 K/mcL LAB HEMETOLOGY METHOD 09/04/2025 5:50 AM [facility] Neutrophils Relative 65.6 % LAB HEMETOLOGY METHOD 09/04/2025 5:50 AM [facility] Lymphocytes Relative 24.3 % LAB HEMETOLOGY METHOD 09/04/2025 5:50 AM [facility] Monocytes Relative 7.7 % LAB HEMETOLOGY METHOD 09/04/2025 5:50 AM [facility] Eosinophils Relative 2.0 % LAB HEMETOLOGY METHOD 09/04/2025 5:50 AM [facility] Basophils Relative 0.3 % LAB HEMETOLOGY METHOD 09/04/2025 5:50 AM [facility] Immature Granulocytes Relative 0.1 % LAB HEMETOLOGY METHOD 09/04/2025 5:50 AM EST [facility] Neutrophils Absolute 5.81 1.50 - 7.00 K/mcL LAB HEMETOLOGY METHOD 09/04/2025 5:50 AM [facility] Lymphocytes Absolute 2.15 1.00 - 5.00 K/mcL LAB HEMETOLOGY METHOD 09/04/2025 5:50 AM [facility] Monocytes Absolute 0.68 0.20 - 1.00 K/mcL LAB HEMETOLOGY METHOD 09/04/2025 5:50 AM [facility] Eosinophils Absolute 0.18 0.00 - 0.50 K/mcL LAB HEMETOLOGY METHOD 09/04/2025 5:50 AM [facility] Basophils Absolute 0.03 0.00 - 0.20 K/mcL LAB HEMETOLOGY METHOD 09/04/2025 5:50 AM [facility] Immature Granulocytes Absolute 0.01 0.00 - 0.03 K/mcL LAB HEMETOLOGY METHOD 09/04/2025 5:50 AM [facility] Blood Venous blood specimen / Unknown Venipuncture / Unknown 09/04/2025 5:33 AM EST 09/04/2025 5:42 AM EST Violet MARQUEZ LAB BLOOD ORDERABLES Final Re sult [facility] [address] [place] [address], * Comprehensive metabolic panel (09/04/2025 5:33 AM EST) Sodium 136 133 - 145 mmol/L 09/04/2025 6:26 AM [facility] Potassium 4.4 3.5 - 5.5 mmol/L 09/04/2025 6:26 AM [facility] Chloride 101 96 - 110 mmol/L 09/04/2025 6:26 AM [facility] CO2 26 21 - 32 mmol/L 09/04/2025 6:26 AM [facility] Anion Gap 9 3 - 11 09/04/2025 6:26 AM [facility] Glucose 81 70 - 100 mg/dL 09/04/2025 6:26 AM [facility] BUN 20 5 - 25 mg/dL 09/04/2025 6:26 AM [facility] Creatinine 0.94 0.70 - 1.30 mg/dL 09/04/2025 6:26 AM [facility] eGFR 92 >=60 mL/min/1. 73m2 09/04/2025 6:26 AM [facility] Comment:Calculation based on the Chronic Kidney Disease Epidemiology Collaboration (CKD-EPI) equation refit without adjustment for race. BUN/Creatinine Ratio 21.3 09/04/2025 6:26 AM [facility] Calcium 9.0 8.5 - 10.5 mg/dL 09/04/2025 6:26 AM [facility] AST (SGOT) 28 10 - 42 unit/L 09/04/2025 6:26 AM [facility] ALT (SGPT) 39 10 - 60 unit/L 09/04/2025 6:26 AM [facility] Alkaline Phosphatase 51 42 - 121 unit/L 09/04/2025 6:26 AM [facility] Total Protein 6.5 6.0 - 8.0 g/dL 09/04/2025 6:26 AM [facility] Albumin 4.0 3.2 - 5.0 g/dL 09/04/2025 6:26 AM [facility] Total Bilirubin 1.2 0.0 - 1.4 mg/dL 09/04/2025 6:26 AM [facility] Blood Venous blood specimen / Unknown Venipuncture / Unknown 09/04/2025 5:33 AM EST 09/04/2025 5:42 AM EST Violet MARQUEZ LAB BLOOD ORDERABLES Final Re sult [facility] ([facility] [address] [place] [address], documented in this encounter Visit Diagnoses Diagnosis CVA (cerebral vascular accident) ([facility] V24, [facility] V28)- Primary Unspecified cerebral artery occlusion with cerebral infarction documented in this encounter Admitting Diagnoses Diagnosis CVA (cerebral vascular accident) ([facility] V24, [facility] V28) Unspecified cerebral artery occlusion with cerebral infarction documented in this encounter Administered Medications Inactive Administered Medications - up to 3 most recent administrations Medication Order MAR Action Action Date Dose Rate Site acetaminophen (TYLENOL) tablet 650 mg 650 mg, oral, Every 6 hours PRN, mild pain, fever - temperature GREATER than 38 C (100.4 F), Starting on Sun09/03/25 at 1359 aluminum-magnesium hydroxide-simethicone (MAALOX) 200-200-20 mg/5 mL suspension 30 mL 30 mL, oral, Every 4 hours PRN, heartburn, Starting on Sun09/03/25 at 1728 amLODIPine (NORVASC) tablet 5 mg 5 mg, oral, Daily, First dose on Sun09/04/25 at 0900 Given 09/17/2025 9:22 AM EST 5 mg Given 09/16/2025 8:16 AM EST 5 mg Given 09/15/2025 7:55 AM EST 5 mg aspirin EC tablet 81 mg 81 mg, oral, Daily, First dose on Sun09/04/25 at 0900, Do not crush, chew, or split., Indications: cerebral thromboembolism preventionIndications:cerebral thromboembolism prevention Given 09/17/2025 9:21 AM EST 81 mg Given 09/16/2025 8:16 AM EST 81 mg Given 09/15/2025 7:55 AM EST 81 mg atorvastatin (LIPITOR) tablet 40 mg 40 mg, oral, Nightly, First dose on Patricia 09/03/25 at 2100 Given 09/16/2025 8:55 PM EST 40 mg Given 09/15/2025 10:00 PM EST 40 mg Given 09/14/2025 9:58 PM EST 40 mg bisacodyL (DULCOLAX) suppository 10 mg 10 mg, rectal, Daily PRN, constipation, Starting on Patricia 09/03/25 at 1359 cholecalciferol (VITAMIN D-3) tablet 2,000 Units 2,000 Units, oral, Daily, First dose on Sun09/13/25 at 0915, 1000 units = 25 mcg of cholecalciferol (VITAMIN D3) Given 09/17/2025 9:21 AM EST 2,000 Un its Given 09/16/2025 8:16 AM EST 2,000 Units Given 09/15/2025 7:55 AM EST 2,000 Units clopidogreL (PLAVIX) tablet 75 mg 75 mg, oral, Daily, First dose on Sun09/04/25 at 0900, Indications: cerebral thromboembolism preventionIndications:cerebral thromboembolism prevention Given 09/17/2025 9:21 AM EST 75 mg Given 09/16/2025 8:16 AM EST 75 mg Given 09/15/2025 7:55 AM EST 75 mg docusate sodium (COLACE) capsule 100 mg 100 mg, oral, 2 times daily, First dose on Patricia 09/03/25 at 1430 Given 09/15/2025 10:00 PM EST 100 mg Given 09/14/2025 9:58 PM EST 100 mg Given 09/13/2025 8:06 PM EST 100 mg enoxaparin (LOVENOX) injection 40 mg 40 mg, subcutaneous, Daily, First dose on Sun09/04/25 at 0900, Indication: VTE/PE Prophylaxis Given 09/09/2025 8:01 AM EST 40 mg Left Lower Abdomen Given 09/08/2025 9:28 AM EST 40 mg Le ft Upper Abdomen Given 09/07/2025 9:04 AM EST 40 mg Le ft Lower Abdomen folic acid (FOLVITE) tablet 1 mg 1 mg, oral, Daily, First dose on Sun09/04/25 at 1030 Given 09/17/2025 9:21 AM EST 1 mg Given 09/16/2025 8:16 AM EST 1 mg Given 09/15/2025 7:55 AM EST 1 mg lactulose (CHRONULAC) solution 20 g 20 g, oral, Every 2 hours, First dose on Sun09/09/25 at 1200, For 3 doses, HOLD FOR BM Given 09/09/2025 2:46 PM EST 2 0 g lactulose (CHRONULAC) solution 20 g 20 g, oral, Once, On 09/12/25 at 1200, For 1 dose Given 09/12/2025 4:46 PM EST 20 g loratadine (CLARITIN) tablet 10 mg 10 mg, oral, Daily, First dose on Sun09/04/25 at 0900 Given 09/17/2025 9:22 AM EST 10 mg Given 09/16/2025 8:16 AM EST 10 mg Given 09/15/2025 7:55 AM EST 10 mg magnesium hydroxide (MILK OF MAGNESIA) 400 mg/5 mL suspension 30 mL 30 mL, oral, Daily PRN, constipation, Starting on Patricia 09/03/25 at 1448, Follow dose with 8 oz of water. Given 09/14/2025 9:59 PM EST 30 mL Given 09/09/2025 6:03 AM EST 30 mL Given 09/08/2025 2:56 PM EST 30 mL nicotine (NICODERM CQ) 21 mg/24 hr patch 1 patch 1 patch, transdermal, Administer over 24 Hours, Every 24 hours, First dose on Patricia 09/03/25 at 1415 Patch Applied 09/04/2025 11:51 AM EST 1 patch Right Arm nicotine (NICODERM CQ) 21 mg/24 hr patch 1 patch 1 patch, transdermal, Administer over 24 Hours, Every 24 hours, First dose (after last modification) on 09/05/25 at 0900, Time to remove patch: 9:00 PM Patch Applied 09/17/2025 9:21 AM EST 1 patch Left Arm Patch Applied 09/16/2025 8:16 AM EST 1 patch Right Arm Patch Applied 09/15/2025 7:55 AM EST 1 patch Left Arm polyethylene glycol (MIRALAX) packet 17 g 17 g, oral, Daily, First dose on 09/07/25 at 1245 Given 09/13/2025 10:18 AM EST 17 g Given 09/12/2025 10:20 AM EST 17 g Given 09/11/2025 8:32 AM EST 17 g senna (SENOKOT) tablet 17.2 mg 17.2 mg (2 tablet), oral, Nightly, First dose on Patricia 09/03/25 at 2100 Given 09/15/2025 10:00 PM EST 17.2 mg Given 09/14/2025 9:53 PM EST 17.2 mg Given 09/13/2025 8:06 PM EST 17.2 mg thiamine (VITAMIN B-1) tablet 100 mg 100 mg, oral, Daily, First dose on 09/04/25 at 1030 Given 09/17/2025 9:21 AM EST 100 mg Given 09/16/2025 8:16 AM EST 100 mg Given 09/15/2025 7:55 AM EST 100 mg documented in this encounter Discontinued Medications Medication Sig Discontinue Reason Start Date End Da te aspirin 81 mg EC tablet Take 1 tablet (81 mg total) by mouth 1 (one) time each day. 09/16/2025 atorvastatin (LIPITOR) 40 mg tablet Take 1 tablet (40 mg total) by mouth at bedtime. 09/16/2025 clopidogreL (PLAVIX) 75 mg tablet Take 1 tablet (75 mg total) by mouth 1 (one) time each day. 09/16/2025 nicotine (NICODERM CQ) 21 mg/[address] 1 patch on the skin 1 (one) time each day at the same time. 09/16/2025 amLODIPine (NORVASC) 5 mg tablet Take 1 tablet (5 mg total) by mouth 1 (one) time each day. 09/16/2025 cetirizine (ZyrTEC) 10 mg tablet Take 1 tablet (10 mg total) by mouth 1 (one) time each day. Stop Taking at Discharge 09/17/2025 documented as of this encounter Historical Medications * This list may reflect changes made after this encounter. cetirizine (ZyrTEC) 10 mg tablet Take 1 tablet (10 mg total) by mouth 1 (one) time each day. 09/17/2025 amLODIPine (NORVASC) 5 mg tablet Take 1 tablet (5 mg total) by mouth 1 (one) time each day. 09/16/2025 nicotine (NICODERM CQ) 21 mg/[address] 1 patch on the skin 1 (one) time each day at the same time. 09/16/2025 clopidogreL (PLAVIX) 75 mg tablet Take 1 tablet (75 mg total) by mouth 1 (one) time each day. 09/16/2025 atorvastatin (LIPITOR) 40 mg tablet Take 1 tablet (40 mg total) by mouth at bedtime. 09/16/2025 aspirin 81 mg EC tablet Take 1 tablet (81 mg total) by mouth 1 (one) time each day. 09/16/2025 added in this encounter Active and Recently Administered Medications Times are shown in EST. Scheduled Medication Order 09/15/2025 09/16/2025 09/17/2025 amLODIPine (NORVASC) tablet 5 mg 5 mg, oral, Daily, First dose on Sun09/04/25 at 0900 0755 (Given - Provider: Nigel Teresa RN) 0816 (Given - Provider: Nigel Teresa RN) 0922 (Given - Provider: Daniela Mariee, JUAQUIN) aspirin EC tablet 81 mg 81 mg, oral, Daily, First dose on Sun09/04/25 at 0900, Do not crush, chew, or split., Indications: cerebral thromboembolism prevention 0755 (Given - Provider: Nigel Teresa RN) 0816 (Given - Provider: Nigel Teresa RN) 0921 (Given - Provider: Daniela Mariee RN) atorvastatin (LIPITOR) tablet 40 mg 40 mg, oral, Nightly, First dose on Patricia 09/03/25 at 2100 2200 (Given - Provider: Mi Renteria RN) 2054 (Given - Provider: Mi Renteria RN) cholecalciferol (VITAMIN D-3) tablet 2,000 Units 2,000 Units, oral, Daily, First dose on Sun09/13/25 at 0915, 1000 units = 25 mcg of cholecalciferol (VITAMIN D3) 0755 (Given - Provider: Nigel Teresa RN) 0816 (Given - Provider: Nigel Teresa RN) 0921 (Given - Provider: Daniela Mariee RN) clopidogreL (PLAVIX) tablet 75 mg 75 mg, oral, Daily, First dose on Sun09/04/25 at 0900, Indications: cerebral thromboembolism prevention 0755 (Given - Provider: Nigel Teresa RN) 0816 (Given - Provider: Nigel Teresa RN) 0921 (Given - Provider: Daniela Mairee RN) docusate sodium (COLACE) capsule 100 mg 100 mg, oral, 2 times daily, First dose on Patricia 09/03/25 at 1430 0758 (Not Given - Provider: Nigel Teresa RN - Reason: Patient/Resident/Ag ent refused - education provided )2200 (Given - Provider: Mi Renteria RN) 0817 (Not Given - Provider: Nigel Teresa RN - Reason: Patient/Resident/Ag ent refused - education provided )2053 (Not Given - Provider: Mi Renteria RN - Reason: Patient/Resident/Ag ent refused - education provided ) 0922 (Not Given - Provider: Daniela Mariee RN - Reason: Patient/Resident/Agent refused - education provided ) folic acid (FOLVITE) tablet 1 mg 1 mg, oral, Daily, First dose on Sun09/04/25 at 1030 0755 (Given - Provider: Nigel Teresa RN) 0816 (Given - Provider: Nigel Teresa RN) 0921 (Given - Provider: Daniela Mariee RN) loratadine (CLARITIN) tablet 10 mg 10 mg, oral, Daily, First dose on Sun09/04/25 at 0900 0755 (Given - Provider: Nigel Teresa RN) 0816 (Given - Provider: Nigel Teresa RN) 0922 (Given - Provider: Daniela Mariee RN) nicotine (NICODERM CQ) 21 mg/24 hr patch 1 patch 1 patch, transdermal, Administer over 24 Hours, Every 24 hours, First dose (after last modification) on Sun09/05/25 at 0900, Time to remove patch: 9:00 PM 0755 (Patch Applied - Provider: Nigel Teresa RN)2200 (Patch Removed - Provider: Mi Renteria RN) 0816 (Patch Applied - Provider: Nigel Teresa RN)2053 (Patch Removed - Provider: Mi Renteria RN) 0921 (Patch Applied - Provider: Daniela Mariee RN)1102 (Due: Patch Removed - Provider: Automatic Discharge Provider - Comment: Time automatically adjusted from order being discontinued) polyethylene glycol (MIRALAX) packet 17 g 17 g, oral, Daily, First dose on Sun09/07/25 at 1245 0758 (Not Given - Provider: Nigel Teresa RN - Reason: Patient/Resident/Ag ent refused - education provided ) 0817 (Not Given - Provider: Nigel Teresa RN - Reason: Patient/Resident/Ag ent refused - education provided ) 0921 (Not Given - Provider: Daniela Mariee RN - Reason: Patient/Resident/Agent refused - education provided ) senna (SENOKOT) tablet 17.2 mg 17.2 mg (2 tablet), oral, Nightly, First dose on Sun09/03/25 at 2100 2200 (Given - Provider: Mi Renteria, JUAQUIN) 2055 (Not Given - Provider: Mi Renteria RN - Reason: Patient/Resident/Ag ent refused - education provided ) thiamine (VITAMIN B-1) tablet 100 mg 100 mg, oral, Daily, First dose on Sun09/04/25 at 1030 0755 (Given - Provider: Nigel Teresa RN) 0816 (Given - Provider: Nigel Teresa RN) 0921 (Given - Provider: Daniela Mariee RN) PRN Medication Order 09/15/2025 09/16/2025 09/17/2025 acetaminophen (TYLENOL) tablet 650 mg 650 mg, oral, Every 6 hours PRN, mild pain, fever - temperature GREATER than 38 C (100.4 F), Starting on Sun09/03/25 at 1359 aluminum-magnesium hydroxide-simethicone (MAALOX) 200-200-20 mg/5 mL suspension 30 mL 30 mL, oral, Every 4 hours PRN, heartburn, Starting on Sun09/03/25 at 1728 bisacodyL (DULCOLAX) suppository 10 mg 10 mg, rectal, Daily PRN, constipation, Starting on Sun09/03/25 at 1359 magnesium hydroxide (MILK OF MAGNESIA) 400 mg/5 mL suspension 30 mL 30 mL, oral, Daily PRN, constipation, Starting on Sun09/03/25 at 1448, Follow dose with 8 oz of water. documented in this encounter Orders Medications Ordered That Vipin ht Not Have Been Administered Count Last Ordered Date First Ordered Date acetaminophen (TYLENOL) tablet 650 mg 1 12/2024 aluminum-magnesium hydroxide -simethicone (MAALOX) 200-200-20 mg/5 mL suspension 30 mL 1 09/03/2025 bisacodyL (DULCOLAX) suppository 10 mg 1 loratadine (CLARITIN) tablet 10 mg 1 2024 [employer] Count Last Ordered Date First Orde red Date [employer] EVAL AND TREAT 1 09/03/2025 Admission Count Last Ordered Date First Orde red Date ADMIT TO INPATIENT REHAB 1 09/03/2025 Discharge Count Last Ordered Date First Orde red Date DISCHARGE PATIENT 1 09/16/2025 documented in this encounter Additional Health Concerns Assessment Noted Time PHQ-9 Depression Total Score: 0 09/16/20 2:40 PM EST documented as of this encounter Care Teams Crap Game Box Person Relationship Specialty Start Date End Date Lucho Domínguez MD [address] [place] [address] PCP - General Internal Medicine 09/01/25 documented as of this encounter
--- NOTE | 2025-09-18 15:03 | MHC.OFFVIS ---
Vital Signs 09/18/25 15:08 Height 6 ft 4 in Weight 245 lb BMI 29.8 BP 122/80 Blood Pressure Location Lt brachial Position Sitting Respiration 16 Pulse 88 Pulse Source Pulse Oximeter Pulse Oximetry (%) 97 Oxygen Delivery Method Room Air Intake Visit Reasons: Hospital Follow Up Vulnerability Assessment Analyst Required: No Accompanied by: Spouse Allergies lisinopril Allergy (Verified 09/18/25 15:10) Cough HPI Comments Details: David is a 60-year-old male patient with a past medical history of hypertension, hyperlipidemia, nicotine dependence, COPD, CINTHIA, and COPD who is here today for stroke follow up. He was seen at [facility] in August of 2025 after developing some left leg weakness. He did not go to the hospital right away and therefore he was out of the window for acute stroke treatment. He did not have any associated dizziness for vision symptoms. His MRI of the brain during his hospitalization was significant for an acute ischemic infarct to the right thalamus without intracranial hemorrhage or significant mass effect. He was placed on aspirin and Plavix and was continued on his amlodipine. Statin therapy was also started at time of his hospitalization. There was notable small areas of chronic encephalomalacia on his CT scan which was noted to be likely traumatic by Dr. Sky. After discharge from the hospital, he spent 3 weeks at [facility] for acute rehab. He has now started outpatient physical therapy and will start occupational therapy on Sunday. Since his acute symptoms, he feels that he is 95% better than he was. He is still feeling slightly weak at the left ankle which has impacted his gait but otherwise does not feel any weakness, numbness, or any discomfort. He has been compliant with his statin and blood pressure medication as well as his antiplatelet regimen. He has no concerns for today's visit aside from questionable whether or not he can resume driving. [facility] Medical History Nicotine dependence, cigarettes, uncomplicated Alcohol abuse History of DVT (deep vein thrombosis) Seasonal allergies COPD (chronic obstructive pulmonary disease) CINTHIA (obstructive sleep apnea) Allergic rhinitis Tubular adenoma of colon History of TIA (transient ischemic attack) (~03/2014) Deviated nasal septum Hypertension Cough due to KATERIN inhibitor Surgical History History of ankle surgery History of lumbar surgery History of colonoscopy (~08/2016) Family History Father Myocardial infarction, Onset Age: 50 Stroke Maternal Grandfather Myocardial infarction Social History (Updated 08/29/25 @ 18:30 by JIMMY Chamorro) Household Members: None Housing: House Do you presently have visiting nurse or other home services: No Alcohol intake: current Alcohol intake frequency: 3 or more drinks per day Patient Tobacco Use Status: Current everyday Tobacco user Tobacco use type: Cigarette Cigarette Packs Per Day: 1 Cigarettes Per Day: 20.0 Years Smoked: 30yrs (onset 26, 3/4ppd x 30yrs, 20+PYH) Advance Directives Date on File: 08/20/23 service: Yes Review of Systems Const All systems reviewed & are unremarkable except as noted in HPI and below Physical Exam Vital Signs: Last Vital Signs Pulse 88 09/18/25 15:08 Resp 16 09/18/25 15:08 BP 122/80 09/18/25 15:08 Pulse Ox 97 09/18/25 15:08 Oxygen Delivery Method Room Air 09/18/25 15:08 BMI result Body Mass Index 29.8 Const General: cooperative, healthy appearing, comfortable and no acute distress Nutritional Appearance: well nourished Orientation/consciousness: patient oriented x3 Limitations: no limitations HEENT Head: Yes normal to inspection and Yes normocephalic Eyes General: appearance normal, both eyes and all related structures Visual Vick: normal visual vick by confrontation Alignment and Position: alignment normal Periorbital: periorbital findings normal Eyelids: Yes eyelids normal Conjunctivae: conjunctivae normal Sclerae: sclerae normal Direct Ophthalmoscopy: normal light reflex, no papilledema and fundi normal bilaterally Neck Neck: Yes normal visual inspection and Yes full ROM General: Yes no CVA tenderness Back/Spine/Pelvis Back: no CVA tenderness Cervical Spine: normal cervical lordosis Thoracic/Lumbar Spine: thoracic and lumbar spine normal to inspection Neuro General: patient oriented x3 and tone normal Cranial nerves: Yes CN's II-XII intact bilaterally and Yes Facial sensation intact/muscles of mastication intact Cognition (Neuro): normal cognition Gait exam (Neuro): Normal gait present Motor exam (neuro): no tremor noted and Abnormal motor strength present (-5/5 L hip, -5/5 L knee, 4/5 L ankle) Sensory Exam: double simultaneous stimulation for sensation normal Deep tendon reflexes (DTR's): Right triceps reflex intensity grade: 2+, Left triceps reflex intensity grade: 2+, Rt Biceps (C5, C6): 2+, Left biceps reflex intensity grade: 3+, Right brachioradialis reflex intensity grade: 2+, Left brachioradialis reflex intensity grade: 3+, Right patellar reflex intensity grade: 2+, Left patellar reflex intensity grade: 2+, Right ankle reflex intensity grade: 2+ and Left ankle reflex intensity grade: 2+ Romberg Test: Negative Pupils: Normal pupillary reactivity/response: bilateral Psych Appearance: grossly normal Mental Status: mental status grossly normal Speech and movement: Normal speech and movement present and Clear speech present Affect: normal affect Attitude: cooperative Thought process: Normal thought process present Thought content: Normal thought content present Insight: Good insight present (Psych) Judgement: Good judgement present (Psych) Assessment & Plan Assessment & Plan (1) Right thalamic stroke: Code(s): I63.81 - Other cerebral infarction due to occlusion or stenosis of small artery Category: Medical Plan David is a 60-year-old male patient with a past medical history of hypertension, hyperlipidemia, nicotine dependence, COPD, CINTIHA, and COPD who is here today for stroke follow up. He is overall doing well and regaining his strength. His exam today was normal aside from some very mild weakness of the left lower extremity noted at the left hip, left knee and left ankle. The weakness upon sitting exam was difficult to appreciate but more apparent when walking. He had no deficit on his right side. His left upper extremity seems to be unaffected. His exam did not show any sign for lack of coordination or visual disturbance. Overall, we can continue his same regimen, continue with PT/OT and I do not see that there was any indication to hold off on driving any longer given that his exam was quite reassuring. -continue current treatment plan and plan for PT/OT -follow up with primary care for ongoing management Coding Level of Care Code Est Pt Level 3 (67053) Diagnoses Right thalamic stroke I63.81
[2025-09-18 15:08] VITALS: BP 122/80; PULSE 88; RESP 16; O2SAT 97; BMI 29.8
--- OUTSIDE RECORDS SUMMARY | 2025-09-18 16:14 | XMS_ITS | Patient Health Record ---
Author Organization [facility] [place] Address [address] [place] [address] Care Team Providers Care Food Quality Tester Name Role Phone Frandy Ramos MD Primary Care Provider Unavaila Jose Coronel Unavailable [phone] Reason For Referral No Information Medications Medication SIG (Take, Route, Fr equency, Duration) Notes Start Date End Date Status Percocet 5-325 MG 1 tablet as needed O rally every 6 hrs Active Problems Problem Type SNOMED Code ICD Code Onset Dates Problem Status W/U Status Risk Notes Problem Abscess /Cellulitis (682.7) Active confirmed Problem Foreign body (73222977) Foreign Body (728.82) Active confirmed Problem Ganglion cyst (08357559) Ganglion Cyst (727.43) Active confirmed Problem Pain in limb (46907264) Pain in Limb (729.5) Active confirmed Plan Of Treatment Pending Test Test Name Order Date 65132- Removal of Foreign Body, Subcut 1 10/20/2011 Insurance Providers Payer Name Payer Address Payer Phone Subscriber Number Group Number Insured Name Patient Relationship to Insured Coverage Start Date Coverage End Date [facility] [address] [place] [address] [phone] [id number] David Poon Self - patient is the insured Medical (General) History Medical History History ICD Code back, hip, knee pain joint implants/screws Surgical History Surgery Date(Month/Year) back surgery Hospitalization History Reason Date(Month/Year) Patient admitted to [facility] for TIA. 12/2013
--- OUTSIDE RECORDS SUMMARY | 2025-09-18 16:14 | XMS_ITS | Clinical Summary ---
Author Organization [facility] Address [address] [place] [address] Phone Care Team Providers Care Tape Cutter Name Role Phone Lucho Domínguez MD Primary Care Provider [phone] Allergies Active Allergy Reactions Criticality Noted Date Comments Lisinopril 09/03/2025 Medications amLODIPine (NORVASC) 5 mg tablet Take 1 tablet (5 mg total) by mouth 1 (one) time each day. 30 each 09/16/20 25 Active aspirin 81 mg EC tabletIndications: cerebral thromboembolism prevention Take 1 tablet (81 mg total) by mouth 1 (one) time each day. 30 each 09/16/20 25 026 Active atorvastatin (LIPITOR) 40 mg tablet Take 1 tablet (40 mg total) by mouth at bedtime. 30 each 09/16/20 Active clopidogreL (PLAVIX) 75 mg tabletIndications: cerebral thromboembolism prevention Take 1 tablet (75 mg total) by mouth 1 (one) time each day. 30 each 09/16/20 Active nicotine (NICODERM CQ) 21 mg/[address] 1 patch on the skin 1 (one) time each day at the same time. 30 each 09/16/20 25 026 Active cholecalciferol (VITAMIN D-3) 50 mcg (2,000 unit) tablet Take 1 tablet (2,000 Units total) by mouth 1 (one) time each day. 30 tablet 09/17/20 25 Active docusate sodium (COLACE) 100 mg capsule Take 1 capsule (100 mg total) by mouth 2 (two) times a day. 60 each 09/16/20 25 Active folic acid (FOLVITE) 1 mg tablet Take 1 tablet (1 mg total) by mouth 1 (one) time each day. 30 each 09/17/20 25 Active loratadine (CLARITIN) 10 mg tablet Take 1 tablet (10 mg total) by mouth 1 (one) time each day. 30 each 09/17/20 25 Active polyethylene glycol (MIRALAX) 17 gram packet Take 17 g by mouth 1 (one) time each day. 510 g 09/17/20 Active senna (SENOKOT) 8.6 mg tablet Take 2 tablets (17.2 mg total) by mouth at bedtime. 60 each 09/16/20 25 Active thiamine (VITAMIN B-1) 100 mg tablet Take 1 tablet (100 mg total) by mouth 1 (one) time each day. 30 tablet 09/17/20 Active aspirin 81 mg EC tablet Take 1 tablet (81 mg total) by mouth 1 (one) time each day. Discontinued atorvastatin (LIPITOR) 40 mg tablet Take 1 tablet (40 mg total) by mouth at bedtime. Discontinued clopidogreL (PLAVIX) 75 mg tablet Take 1 tablet (75 mg total) by mouth 1 (one) time each day. Discontinued nicotine (NICODERM CQ) 21 mg/[address] 1 patch on the skin 1 (one) time each day at the same time. 025 Discontinued amLODIPine (NORVASC) 5 mg tablet Take 1 tablet (5 mg total) by mouth 1 (one) time each day. Discontinued cetirizine (ZyrTEC) 10 mg tablet Take 1 tablet (10 mg total) by mouth 1 (one) time each day. 025 Discontinued(S top Taking at Discharge) Active Problems Problem Noted Date Diagnosed Date CVA (cerebral vascular accident) 09/03/2025 Encounters Date Type Department Care Team Description 09/16/2025 Plan of Care Documentation [facility] [address] [place] [phone] 09/09/2025 Plan of Care Documentation [facility] [address] [place] [address] 09/07/2025 Plan of Care Documentation [facility] [address] [place] [address] 09/03/2025 12:37 PM EST - 09/17/2025 11:02 AM EST Hospital Encounter [facility] [address] [place] [address] Christina Jaramillo, Discharge Disposition: Home or Self Care from Last 3 Months Medical History Medical History Date Comments HTN (hypertension) TIA (transient ischemic attack) DVT (deep vein thrombosis) in Social History Tobacco Use Types Packs/Day Years Used Date Smoking Tobacco: Every Day Cigarettes 1 42 Started: 1983 Smokeless Tobacco: Never Tobacco [...] care for your loved ones. For example, childcare worker or elderly care for an older [...] not to disclose 2024 12:37 PM EST Last Filed Vital Signs Vital Sign Reading [...] oz) 09/13/2025 9:00 A M EST Height 193 cm (6' 3.98 ) 09/03/2025 8:38 AM EST Body Mass Index 29.68 09/03/2025 8:38 AM EST Plan of Treatment Health Maintenance Due Date Last Done Comments Colorectal Cancer Screening: Colonoscopy 1965 RSV Immunization Adult Patients (1 - Risk 50-74 years 1-dose series) 12/31/2013 Zoster Vaccines (1 of 2) 12/31/2013 Hepatitis A Vaccines (2 of 2 - Risk 2-dose series) 02/06/2020 08/08/2019 Hepatitis B Vaccines (3 of 3 - Risk 3-dose series) 02/06/2020 09/08/2019, 08/08/2019 COVID-19 Vaccine ( season) 2025 09/08/2021, 01/11/2021, 12/19/2020 Influenza Vaccine (#1) 2025 , 08/20/2023, 11/03/2022, Additional history exists Cholesterol Screening (Lipid Panel) 09/01/2025 HIV Screening 09/01/2025 Hepatitis C Screening 09/01/2025 Lung Cancer Screening (Low Dose CT) 09/01/2025 Hypertension/CHF/CAD Annual BMP Blood Test 09/10/2026 09/10/2025, 09/04/2025 Social Influencers of Health Screening 09/16/2026 09/16/2025 DTaP,Tdap,and Td Vaccines (3 - Td or Tdap) 06/17/2029 06/17/2019, 10/01/2004 Pneumococcal Vaccine: 50+ Years Completed 12/07/2023 Depression Screening Completed 09/16/2025 HIB Vaccines Aged Out No longer eligi ble based on patient's age to complete this topic HPV Vaccines Aged Out No longer eligi ble based on patient's age to complete this topic IPV Vaccines Aged Out No longer eligi ble based on patient's age to complete this topic MMR Vaccines Aged Out No longer eligi ble based on patient's age to complete this topic Meningococcal ACWY Vaccine Aged Out N o longer eligible based on patient's age to complete this topic Meningococcal B Vaccine Aged Out No l onger eligible based on patient's age to complete this topic RSV Immunization Patients Under 20 months Aged Out No longer eligible based on patient's age to complete this topic Varicella Vaccines Aged Out No longer eligible based on patient's age to complete this topic Procedures Procedure Name Priority Date/Time Associated Diagnosis Comments VITAMIN D 25 HYDROXY Add-On 09/10/2025 5:27 AM EST MAGNESIUM Add-On 09/10/2025 5:27 AM EST COMPLETE BLOOD COUNT Routine 09/10/2025 5:27 AM EST COMPREHENSIVE METABOLIC PANEL Routine 09/10/2025 5:27 AM EST CBC WITH AUTO DIFFERENTIAL Routine 09/04/2025 5:33 AM EST COMPREHENSIVE METABOLIC PANEL Routine 09/04/2025 5:33 AM EST CBC AND DIFFERENTIAL Routine 09/04/2025 5:33 AM EST from Last 3 Months Results * (ABNORMAL) Vitamin D 25 hydroxy (09/10/2025 5:27 AM EST) Vit D, 25-Hydroxy 23.7(L) 30.0 - 80.0 ng/mL 09/12/2025 12:47 PM EST [facility] Blood Venous blood specimen / Unknown Venipuncture / Unknown 09/10/2025 5:27 AM EST 09/10/2025 5:36 AM EST Elba Gilmore NP LAB BLOOD ORDERABLES Final Result [facility] [address] [place] [address], * (ABNORMAL) Complete blood count (09/10/2025 5:27 AM EST) WBC 8.2 4.8 - 10.8 K/mcL LAB HEMETOLOGY METHOD 09/10/2025 5:55 AM EST [facility] RBC 4.30(L) 4.50 - 5.50 M/mcL LAB HEMETOLOGY METHOD 09/10/2025 5:55 AM EST [facility] Hemoglobin 14.6 13.5 - 17.5 g/dL LAB HEMETOLOGY METHOD 09/10/2025 5:55 AM EST [facility] Hematocrit 42.3 42.0 - 54.0 % LAB HEMETOLOGY METHOD 09/10/2025 5:55 AM [facility] MCV 97.5 79.0 - 98.0 FL LAB HEMETOLOGY METHOD 09/10/2025 5:55 AM EST [facility] MCH 33.6(H) 27.0 - 32.0 pcg LAB HEMETOLOGY METHOD 09/10/2025 5:55 AM EST [facility] MCHC 34.5 32.0 - 37.0 g/dL LAB HEMETOLOGY METHOD 09/10/2025 5:55 AM [facility] RDW 11.0 11.0 - 15.0 % LAB HEMETOLOGY METHOD 09/10/2025 5:55 AM EST [facility] Platelets 279 130 - 400 K/mcL LAB HEMETOLOGY METHOD 09/10/2025 5:55 AM EST [facility] MPV 9.1 7.0 - 11.0 FL LAB HEMETOLOGY METHOD 09/10/2025 5:55 AM [facility] NRBC 0.0 <1.0 % LAB HEMETOLOGY METHOD 09/10/2025 5:55 AM EST [facility] NRBC Absolute 0.00 <0.10 K/mcL LAB HEMETOLOGY METHOD 09/10/2025 5:55 AM [facility] Blood Venous blood specimen / Unknown Venipuncture / Unknown 09/10/2025 5:27 AM EST 09/10/2025 5:37 AM EST us Nicolette MARQUEZ LAB BLOOD ORDERABLES Final R esult [facility] [address] [place] [address], * Magnesium (09/10/2025 5:27 AM EST) Magnesium 2.0 1.9 - 2.6 mg/dL 09/12/2025 12:01 PM [facility] Blood Venous blood specimen / Unknown Venipuncture / Unknown 09/10/2025 5:27 AM EST 09/10/2025 5:36 AM EST Elba Gilmore NP LAB BLOOD ORDERABLES Final Result [facility] [address] [place] [address], * Comprehensive metabolic panel (09/10/2025 5:27 AM EST) Only the most recent of2 resultswithin the time period is included. Pathologist [facility] Sodium 139 133 - 145 mmol/L 09/10/2025 6:58 AM [facility] Potassium 4.3 3.5 - 5.5 mmol/L 09/10/2025 6:58 AM [facility] Chloride 104 96 - 110 mmol/L 09/10/2025 6:58 AM [facility] CO2 27 21 - 32 mmol/L 09/10/2025 6:58 AM [facility] Anion Gap 8 3 - 11 09/10/2025 6:58 AM [facility] Glucose 78 70 - 100 mg/dL 09/10/2025 6:58 AM [facility] BUN 9 5 - 25 mg/dL 09/10/2025 6:58 AM [facility] Creatinine 0.85 0.70 - 1.30 mg/dL 09/10/2025 6:58 AM [facility] eGFR 99 >=60 mL/min/1. 73m2 09/10/2025 6:58 AM [facility] Comment:Calculation based on the Chronic Kidney Disease Epidemiology Collaboration (CKD-EPI) equation refit without adjustment for race. BUN/Creatinine Ratio 10.6 09/10/2025 6:58 AM [facility] Calcium 8.9 8.5 - 10.5 mg/dL 09/10/2025 6:58 AM [facility] AST (SGOT) 23 10 - 42 unit/L 09/10/2025 6:58 AM [facility] ALT (SGPT) 29 10 - 60 unit/L 09/10/2025 6:58 AM [facility] Alkaline Phosphatase 46 42 - 121 unit/L 09/10/2025 6:58 AM [facility] Total Protein 6.0 6.0 - 8.0 g/dL 09/10/2025 6:58 AM [facility] Albumin 3.6 3.2 - 5.0 g/dL 09/10/2025 6:58 AM [facility] Total Bilirubin 0.9 0.0 - 1.4 mg/dL 09/10/2025 6:58 AM [facility] Blood Venous blood specimen / Unknown Venipuncture / Unknown 09/10/2025 5:27 AM EST 09/10/2025 5:36 AM EST us Nicolette MARQUEZ LAB BLOOD ORDERABLES Final R esult [facility] [address] [place] [address], * (ABNORMAL) CBC auto differential (09/04/2025 5:33 AM EST) WBC 8.9 4.8 - 10.8 K/[facility] LAB HEMETOLOGY METHOD 09/04/2025 5:50 AM [facility] RBC 4.90 4.50 - 5.50 M/mcL LAB HEMETOLOGY METHOD 09/04/2025 5:50 AM [facility] Hemoglobin 16.5 13.5 - 17.5 g/dL LAB HEMETOLOGY METHOD 09/04/2025 5:50 AM [facility] Hematocrit 47.6 42.0 - 54.0 % LAB HEMETOLOGY METHOD 09/04/2025 5:50 AM [facility] MCV 97.1 79.0 - 98.0 FL LAB HEMETOLOGY METHOD 09/04/2025 5:50 AM [facility] MCH 33.7(H) 27.0 - 32.0 pcg LAB HEMETOLOGY METHOD 09/04/2025 5:50 AM [facility] MCHC 34.7 32.0 - 37.0 g/dL LAB HEMETOLOGY METHOD 09/04/2025 5:50 AM [facility] RDW 11.3 11.0 - 15.0 % LAB HEMETOLOGY METHOD 09/04/2025 5:50 AM [facility] Platelets 265 130 - 400 K/mcL LAB HEMETOLOGY METHOD 09/04/2025 5:50 AM [facility] MPV 8.8 7.0 - 11.0 FL LAB HEMETOLOGY METHOD 09/04/2025 5:50 AM [facility] NRBC 0.0 <1.0 % LAB HEMETOLOGY METHOD 09/04/2025 5:50 AM [facility] NRBC Absolute 0.00 <0.10 K/mcL LAB HEMETOLOGY METHOD 09/04/2025 5:50 AM [facility] Neutrophils Relative 65.6 % LAB HEMETOLOGY METHOD 09/04/2025 5:50 AM [facility] Lymphocytes Relative 24.3 % LAB HEMETOLOGY METHOD 09/04/2025 5:50 AM EST [facility] Monocytes Relative 7.7 % LAB HEMETOLOGY METHOD 09/04/2025 5:50 AM [facility] Eosinophils Relative 2.0 % LAB HEMETOLOGY METHOD 09/04/2025 5:50 AM [facility] Basophils Relative 0.3 % LAB HEMETOLOGY METHOD 09/04/2025 5:50 AM [facility] Immature Granulocytes Relative 0.1 % LAB HEMETOLOGY METHOD 09/04/2025 5:50 AM [facility] Neutrophils Absolute 5.81 1.50 - 7.00 K/mcL LAB HEMETOLOGY METHOD 09/04/2025 5:50 AM [facility] Lymphocytes Absolute 2.15 1.00 - 5.00 K/mcL LAB HEMETOLOGY METHOD 09/04/2025 5:50 AM EST [facility] Monocytes Absolute 0.68 0.20 - 1.00 K/mcL LAB HEMETOLOGY METHOD 09/04/2025 5:50 AM [facility] Eosinophils Absolute 0.18 0.00 - 0.50 K/mcL LAB HEMETOLOGY METHOD 09/04/2025 5:50 AM [facility] Basophils Absolute 0.03 0.00 - 0.20 K/mcL LAB HEMETOLOGY METHOD 09/04/2025 5:50 AM [facility] Immature Granulocytes Absolute 0.01 0.00 - 0.03 K/mcL LAB HEMETOLOGY METHOD 09/04/2025 5:50 AM [facility] Blood Venous blood specimen / Unknown Venipuncture / Unknown 09/04/2025 5:33 AM EST 09/04/2025 5:42 AM EST Violet MARQUEZ LAB BLOOD ORDERABLES Final Re sult [facility] [address] [place] [address], from Last 3 Months Insurance Advance Directives * Full Code - Default (Latest Code Status on File) Date Activated Date Inactivated Comments 09/03/2025 2:00 PM 09/17/2025 1:07 PM This is ord er is used when code status has not been discussed with the patient, or code status is otherwise unknown/unconfirmed To update the patient's code status, place a code status order. Do not modify or discontinue any currently active code status orders. Care Teams Tape Cutter Relationship Specialty Start Date End Date Lucho Domínguez MD [address] [place] [id number] PCP - General Internal Medicine 09/01/25
--- OUTSIDE RECORDS SUMMARY | 2025-09-18 16:14 | XMS_ITS | Encounter Summary ---
Author Organization [facility] Address [address] [place] [address] Care Team Providers Care Hot Box Spotter Name Role Phone Lucho Domínguez MD Primary Care Provider [phone] Encounter Details Date Type Department Care Team (Late st Contact Info) Description 09/16/2025 Plan of Care Documentation [facility] [place] [facility] [address] [place] [id number] Social History Tobacco Use Types Packs/Day Years Used Date Smoking Tobacco: Every Day Cigarettes 42 Started: 1983 Smokeless Tobacco: Never Alcohol Use Standard Drinks/Week Comments Yes 3 [...] care for your loved ones. For example, child care nurse or elderly care for an older adult? [...] PM EST documented as of this encounter Progress Notes * Tamara Ordoñez, OT - 09/16/2025 12:01 PM EST [facility] Team Conference Interdisciplinary Team Meeting Patient Name: David Poon Date of : 1965 Sex: Male Payor Info: Payor: BLUE CROSS - CT (ANTHEM) / Plan: ANTHEM BCBS CT / Product Type: *No Product type* / Admitting Diagnosis: CVA (cerebral vascular accident) (CMS/[facility] V24, CMS/[facility] V28) [I63.9] Admit Date/Time: 09/03/2025 12:37 PM Primary Rehab (Etiologic) Diagnosis: Problem List[1] Team Discussion UPDATES: Physician: 60yo male with PMH significant for hypertension, history of left lower extremity DVT in 2021 s/p completion of apixaban, tobacco dependence, and alcohol use who presented to [facility] on 08/29/2025 with left- sided weakness and balance impairment. CT head showed evidence of chronic strokes. CTA was unremarkable. Patient was outside of window for TNK. MRI brain was positive for acute right thalamic ischemic CVA. Patient was started on dual antiplatelet therapy by neurology. He was continued on atorvastatin 40 mg nightly. Patient passed bedside swallow evaluation. A1c was5.1. He was continued on amlodipine for hypertension. -sumanth wagoner RN: no new concerns OT: Mod I PT: Mod I PREMIUM SERVICE REPRESENTATIVE: Sumanth'brenda MOCA, mild SW: no concerns CM: Pt lives alone no pets in 1 level home 2 steps to enter . Pt was independent with ADLs and IADLs prior to admission. Pt ambulated with no device. Pt was driving. 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 Pt has 1 daughter lives in [place]. Pt's main support system is his Sig other Cosme. Patient denies any hx of depression or anxiety.Patient was smoking tobacco 1pk a day last smoked onSat09/05 patient drinks a 6 pack of beer a day states he does not feel he has a problem deniesany CANTU. CM discussed discharge plan with pt. Plan is to return home. Pt is agreeable to VNA services on discharge. Sig other or a friend will provide transport on discharge. CM will continue to follow for discharge planning. Expected Discharge Date: 09/17/2025 Risk Adjusted Scores: OT Current: 42 OT Goal: 41 MET PT Current: 82 PT Goal: 78 MET Follow-up Services: Outpatient physical therapy, occupational therapy, and nursing Other tbd Equipment Needed: shower chair and other TBD based on progress for mobility Barriers to Achieving Rehab Goals: Occupational Therapy Assessment Overall Cognitive Status Overall Cognitive Status: Within Functional Limits Precautions Precautions Medical Precautions: Fall Risk Safety Interventions: ID band on, Call gallardo within reach, Personal alarm on, Chair alarm, Bed alarm RUE Weight Bearing Status: Full LUE Weight Bearing Status: Full RLE Weight Bearing Status: Full LLE Weight Bearing Status: Full Orthoses Applied: (training AFO left LE) ADL Assessment Eating Assistance Needed: Independent Physical Assistance Level: No physical assistance CARE Score - Eatin Oral Hygiene Assistance Needed: Independent Physical Assistance Level: No physical assistance CARE Score - Oral Hygiene: 6 Toileting Hygiene Assistance Needed: Independent Physical Assistance Level: No physical assistance CARE Score - Toileting Hygiene: 6 Shower/Bathe Self Assistance Needed: Independent Physical Assistance Level: No physical assistance CARE Score - Shower/Bathe Self: 6 Upper Body Dressing Assistance Needed: Independent CARE Score - Upper Body Dressin Lower Body Dressing Assistance Needed: Independent Physical Assistance Level: No physical assistance CARE Score - Lower Body Dressin Putting On/Taking Off Footwear Assistance Needed: Independent Physical Assistance Level: No physical assistance CARE Score - Putting On/Taking Off Footwear: 6 Functional Transfers Toilet Transfer Assistance Needed: Independent Physical Assistance Level: No physical assistance Comment: RW CARE Score - Toilet Transfer: 6 OT Assessment Results: OT Assessment Results: Decreased ADL status, Decreased upper extremity strength, Decreasedupper extremity range of motion, Decreased safe judgment during ADL, Decreased fine motor control, Decreased functional mobility, Decreased IADLs, Decreased gross motor control Evaluation/Treatment Tolerance: Evaluation/Treatment Tolerance: Patient tolerated treatment well Comments: Comments: Pt has progressed from requiring partial A w/ ADLs to mod Ind. Pt's SO has obtained tub txfer bench. Pt's barriers continue to be higher level dynamic balance, tasks requiring divided attention and L UE coordination. This conventional mortgage underwriter reinforced no driving upon d/c, until cleared by provider, pt agreeable. Plan Treatment/Interventions: Treatment Interventions: ADL retraining, Functional transfer training, UE strengthening/ROM, Endurance training, Patient/family training, Neuromuscular reeducation, Fine motor coordination activities OT Plan: OT Plan: Skilled OT Discharge Recommendations: OT Discharge Recommendations: Outpatient OT Equipment Recommended: Equipment Recommended: Tub seat with back Barriers to Discharge: Physical Therapy Assessment Bed Mobility Roll Left and Right Assistance [...] CARE Score - Sit to Stand: 6 Chair/Uta-rj-Uctwd Transfer Assistance Needed: Independent Physical Assistance Level: No physical assistance CARE Score - Chair/Tha-jq-Fdhsp Transfer: 6 Car Transfer Assistance Needed: Independent Reason if not Attempted: Environmental limitations CARE Score - Car Transfer: 6 Picking Up Object Assistance Needed: Independent Physical Assistance Level: No physical assistance CARE Score - Picking Up Object: 6 Wheelchair Wheel 50 Feet with Two Turns Assistance Needed: Physical assistance Physical Assistance Level: 25% or less CARE Score - Wheel 50 Feet with Two Turns: 3 Type of Wheelchair/Scooter: Manual Wheel 150 Feet Assistance Needed: Physical assistance Physical Assistance Level: 25% or less CARE Score - Wheel 150 Feet: 3 Type of Wheelchair/Scooter: Manual Ambulation Walk 10 Feet Assistance Needed: Independent Physical Assistance Level: No physical assistance Comment: rw CARE Score - Walk 10 Feet: 6 Walk 50 Feet with Two Turns Assistance Needed: Independent Physical Assistance Level: No physical assistance Comment: rw CARE Score - Walk 50 Feet with Two Turns: 6 Walk 150 Feet Assistance Needed: Independent Physical Assistance Level: No physical assistance Comment: rw Reason if not Attempted: Safety concerns CARE Score - Walk 150 Feet: 6 Walking 10 Feet on Uneven Surfaces Assistance Needed: Independent Physical Assistance Level: 26%-50% Comment: rw CARE Score - Walking 10 Feet on Uneven Surfaces: 6 Stairs/Curb step 1 Step (Curb) Assistance Needed: Independent Physical Assistance Level: No physical assistance CARE Score - 1 Step (Curb): 6 4 Steps Assistance Needed: Independent Physical Assistance Level: No physical assistance CARE Score - 4 Steps: 6 12 Steps Assistance Needed: Independent Physical Assistance Level: No physical assistance Reason if not Attempted: Safety concerns CARE Score - 12 Steps: 6 Precautions Precautions Medical Precautions: Fall Risk Safety Interventions: ID band on, Call gallardo within reach, Personal alarm on, Chair alarm, Bed alarm RUE Weight Bearing Status: Full LUE Weight Bearing Status: Full RLE Weight Bearing Status: Full LLE Weight Bearing Status: Full Orthoses Applied: (training AFO left LE) PT Assessment Results: Evaluation/Treatment Tolerance: Evaluation/Treatment Tolerance: Patient tolerated treatment well Comments: Comments: Patient discharged from this level of care, therapist recommending Outpatient physical therapy once discharged from this level of care to improve LE Strength, endurance, balance ,mobility deficits , motor coordination , and gait and assist patient in returning to prior level of function. Plan Treatment/Interventions: Treatment/Interventions: Functional transfer training, LE strengthening/ROM, Patient/family training, Equipment eval/education, Bed mobility, Gait training, Compensatory technique education, Balance training, Stair training, Continued evaluation PT Plan: PT Plan: Skilled PT Discharge Recommendations: PT Discharge Recommendations: Outpatient PT Equipment Recommended: Barriers to Discharge: Nurse's Assessment Fall Risk Assessment Last Known Fall: No falls Mobility: Immobilized/requires assist of one person Toileting Needs: No needs Mental Status/LOC/Awareness: Awake, alert, and oriented to date, place, and person Communication/Sensory: Visual (Glasses)/hearing deficit Behavior: Appropriate behavior Medications: Cardiovascular or central nervous system meds Volume/Electrolyte Status: No problems Ct [place] Fall Risk Total: 7 Skin Assessment Sensory Perceptions: Slightly limited Moisture: Rarely moist Activity: Walks occasionally Mobility: Slightly limited Nutrition: Probably inadequate Friction and Shear: Potential problem Justin Scale Score: 17 Pain Assessment Pain Assessment: No/denies pain Pain Score: 0 - No pain Pain Location: Hip Pain Orientation: Right Bowel Management Bowel Program/Regime: Bowel Continence Status: Continent movement Last BM Date: 09/15/25 Bladder Management Bladder Scan Protocol: Bladder Continence Status: Continent void Toileting Speech Language Pathologist's Assessment Swallow Diet Recommendations: IDDSI 7 reg/0 thins Diet Solids Recommendation: IDDSI Level 7 Regular Diet Liquids Recommendation: Thin liquids Cognition Orientation: WFL; pt scored 6/6 on orientation section of MoCA 8.2 Memory: Mild difficulties; Pt immediatly recalled 5/5 words during 1st trial and 5/5 words during 2nd trial. With delayed recall, pt recalled 3/5 words independently, 0/5 words w/ categorey cue, and 0/5 words w/ m/c cue. Problem Solving: Pt answered orientation questions using maps w/ 75% acc indep, demonstraing mild difficulty with sustained/selective attention. Pt misread a map detail, and reported, oh, maybe I should've looked at that a second longer. PREMIUM SERVICE REPRESENTATIVE reviewed importance of slowing down when completing important tasks; pt verbalized comprehension. Attention/Concentration: Mild difficulties;Pt scored 4/6 on attention seection of MoCA. Other Cognitive Skills Activity: Naming: [...] and verbalized comprehension at end of education. Speech Language PREMIUM SERVICE REPRESENTATIVE Assessment Results: Cognitive impairments Prognosis: Barriers to Discharge: Evaluation/Treatment Tolerance: Patient tolerated treatment well Plan Treatment/Interventions: Cognitive linguistic functioning PREMIUM SERVICE REPRESENTATIVE Plan: No skilled PREMIUM SERVICE REPRESENTATIVE Discharge Recommendations: Outpatient PREMIUM SERVICE REPRESENTATIVE Diet Recommendations: IDDSI 7 reg/0 thins Barriers to Discharge: Manufacturing Advisor's Assessment Adult diet [facility]; General; Regular Assessment Diet Experience Previous Diet / Nutrition Education / Counseling: Pt reports he does not follow any specific diet at home, he and his girlfriend prepare meals, denies food allergies. Pt reports usual weight of 250lbs, repots he has likely lost a little since admissin. Denies food insecurities. Appetite TECHNICAL MAINTENANCE TECHNICIAN: Good Intake TECHNICAL MAINTENANCE TECHNICIAN: Stable Vitamins/Minerals/Herbs: Pt denies taking supplements Nutrition Diagnosis Status: New Diagnosis: Potential Nutrition Dx Etiology: Changes in taste and appetite or preference Symptoms: Potential inadequate intake given variable meal intake, pt report of okay appetite. Nutrition Interventions: Meals/Snacks Monitoring/Evaluation: Fluid/Beverage Intake, Food Intake, Weight, Renal/Electrolyte Profile, Gastrointestinal Profile Physician Attestation: Christina Guzman DO, have led the team conference and agree with the results, findings, and decisions made by the interdisciplinary team. [1] Patient Active Problem List Diagnosis CVA (cerebral vascular accident) ([facility] V24, [facility] V28) documented in this encounter Plan of Treatment Not on file documented as of this encounter Visit Diagnoses Not on filedocumented in this encounter Additional Health Concerns Assessment Noted Time PHQ-9 Depression Total Score: 0 09/16/20 25 2:40 PM EST documented as of this encounter Care Teams Hot Box Spotter Relationship Specialty Start Date End Date Lucho Domínguez MD [address] [place] [address] PCP - General Internal Medicine 09/01/25 documented as of this encounter
--- OUTSIDE RECORDS SUMMARY | 2025-09-18 16:14 | XMS_ITS | Clinical Summary ---
Author Organization [facility] Address [address] [place] [address] Care Team Providers Care Ux Information Architect Name Role Phone Unavailable Primary Care Provider [...] Vaccine (1 of 2) 12/31/2013 COVID-19 Vaccine (2024-2 6 season) 2025 09/08/2021, 01/11/2021, 12/19/2020 RSV Vaccine 50 years and older and Patients (1 - 1-dose 75+ series) 12/31/2038 Hepatitis B Vaccines Aged Out No long er eligible based on patient's age to complete this topic
--- OUTSIDE RECORDS SUMMARY | 2025-09-18 16:15 | XMS_ITS | Patient Health Record ---
Author Organization [facility] Address [address] [place] [address] Care Team Providers Care Chief Juvenile Probation Officer Name Role Phone Lucho Domínguez MD Primary Care Provider Unavailab Ximena Schafer Unavailable [phone] Allergies Allergen (clinical drug ingredient) Drug/Non Drug Allergy documented on EMR Reaction Allergy Type Onset Date Status lisinopril Lisinopril Cough Drug Allergy Activ e Reason For Referral No Information Medications Medication SIG (Take, Route, Frequency, Duration) Notes Start Date End Date Status amLODIPine Besylate 5 MG Tablet 1 tablet Orally Once a day 06/09/2016 A ctive Immunizations Vaccine Route Administration Date Status Comme nts Influenza Unknown 06/01/2021 Administered Social History Social History Additional Details Category Social Info Options Details Miscellaneous: Marital status: 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; 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 [place] Section Notes: Smokes 1 ppd; has at least s everal beers each day Smokes 1 ppd; has at least s everal beers each day Smokes 1 ppd; has at least s everal beers each day Problems Problem Type SNOMED Code ICD Code Onset Dates Problem Status W/U Status Risk Notes Problem Screening for malignant neoplasm of colon (064382022) Encounter for screening for malignant neoplasm of colon (Z12.11) Active confirmed Problem Screening for malignant neoplasm of rectum (420950876) Encounter for screening for malignant neoplasm of rectum (Z12.12) Active confirmed Problem Preprocedural examination (287317601367958) Preprocedural examination (Z01.818) Active confirmed Problem History of adenomatous polyp of colon (406095140) Hx of adenomatous colonic polyps (Z86.010) Active confirmed Problem Diverticulosis of colon (722435730) Diverticulosis of colon (K57.30) Active confirmed Plan Of Treatment Future Test Test Name Order Date COLONOSCOPY 06/13/2016 COLONOSCOPY 10/20/2021 COLONOSCOPY 03/08/2023 Insurance Providers Payer Name Payer Address Payer Phone Subscriber Number Group Number Insured Name Patient Relationship to Insured Coverage Start Date Coverage End Date [facility] [address] [place], [place] [id number] XIMENA RAMSEY Self - patient is the insured Medical (General) History Medical History History ICD Code Hypertension Denies MA,DM,CVA,Lung disease,renal dise ase Seasonal allergies Screening colonoscopy in Aug with removal of multiple tubular adenomas DVT in lower leg 2021 treated with a cou rse of Apixaban Surgical History Surgery Date(Month/Year) Back surgery X 4 Broken right ankle 08/2021
== END 2025-09-18 15:39 | disposition home or self-care (01) ==
LOC: HO.HSM 14:59
PROVIDERS: PCP Internal Medicine; Visit Provider Nurse Practitioner
DX: I63.81 Other cerebral infarction due to occlusion or stenosis of small artery (principal)
CPT/HCPCS: 99213